=== PATIENT | male | born 1940 | race Caucasian/White ===

== ENCOUNTER 2020-12-11 14:57 | Outpatient (REF) | payer MEDICARE, MEDICAID, SELFPAY | END 2020-12-11 14:58 | disposition home or self-care (01) | LOC: HO.HOSX 14:57 | PROVIDERS: Visit Provider Orthopaedic Surgery | DX: Z13.89 Encounter for screening for other disorder (principal) ==

== ENCOUNTER → 2021-11-21 13:53 | Outpatient (BNVA) | payer MEDICARE, MEDICAID, SELFPAY | PROVIDERS: PCP Family Medicine; Visit Provider Surgery Vascular Surgery | DX: I73.9 Peripheral vascular disease, unspecified (principal) | CPT/HCPCS: 99202 ==

== ENCOUNTER 2021-11-27 07:30 | Day surgery (SDC) | payer MEDICARE, MEDICAID, SELFPAY ==
[2021-11-27] VITALS (7 sets, daily range): BP systolic 134–154; BP diastolic 61–70; PULSE 56–64; RESP 16–18; TEMP 36.3–37.1; O2SAT 97–99; BMI 18.8
[2021-11-27 08:16] LABS: MANUAL DIFF FLAG NO
[2021-11-27 08:20] LABS: Basophils Percent Auto 0.3 % (0-2); Eosinophils Absolute Auto 0.3 X10*3/uL (0.0-0.4); Eosinophils Percent Auto 3.8 % (0-4); Hematocrit 32.9 % (42.0-52.0); Hemoglobin 11.4 g/dl (14.0-18.0); Imm Gran Abs Auto 0.01 X10*3/uL (0.00-0.03); Imm Gran Pct Auto 0.1 % (0.0-0.4); Lymphocytes Absolute Auto 2.7 X10*3/uL (1.2-4.9); Lymphocytes Percent Auto 36.9 % (20-40); Mean Corpuscular HGB Conc 34.7 g/dl (31.0-36.0); Mean Corpuscular Hemoglobin 30.4 pg (27.0-33.0); Mean Corpuscular Volume 87.7 fL (80.0-98.0); Mean Platelet Volume 10.7 fL (9.4-12.4); Monocytes Absolute Auto 0.5 X10*3/uL (0.1-1.2); Monocytes Percent Auto 7.2 % (2-11); Neutrophils Absolute Auto 3.7 x10*3/uL (2.0-8.3); Neutrophils Percent Auto 51.7 % (45-73); Platelet Count 205 X10*3/uL (160-400); Red Blood Count 3.75 X10*6/uL (4.60-5.80); Red Cell Distribution Width 14.2 % (11.0-16.0); White Blood Count 7.2 X10*3/uL (4.8-10.8)
[2021-11-27 08:41] LABS: Blood Urea Nitrogen 16 mg/dL (9-16); Creatinine Clr Calc Pharmacy 41.4; Estimated Glomerular Filt Rate > 60
[2021-11-27 09:00] LABS: Glucose, Whole Blood 328 mg/dL (60-115)
--- NOTE | 2021-11-27 12:31 | P.OP_ITS ---
Operative Note Operative Note Date of Service: 11/27/21 Narrative: Angiogram report from [facility] Preoperative diagnosis: Atherosclerosis of left lower extremity with nonhealing ulcer Postoperative diagnosis: Same Procedure: 1. Ultrasound-guided right common femoral access 2. Aortogram with left lower extremity runoff 3. Angioplasty of left popliteal artery 4. Angioplasty of left anterior tibial artery Surgeon:Ramin Johnson M.D., FACS, RPVI Soiled Linen Distributor:None Anesthesia: Local with moderate conscious sedation. Total intraservice moderate sedation time was 66 minutes. I monitored the patient's level of consciousness and physiologic status continuously throughout the procedure. Specimens:none Drains:none Estimated blood loss: Less than 10 ml Implant: None Indications: 81-year-old gentleman with nonhealing left lower extremity ulcer presents for endovascular intervention. The patient has signed the informed consent after reviewing risks, complications, benefits, and alternatives previously discussed with the patient. The patient was given the opportunity to ask any additional questions or voice any concerns. All questions were answered to the patient's satisfaction. Procedure in detail: Patient was brought to the angiography suite prior to which a time-out was called for patient identification and site verification. Bilateral groins were prepped and draped in the standard surgical fashion. Under ultrasound guidance right common femoral was punctured with micro puncture needle and wire. Subsequently a precision 5 Bhutanese sheath was then placed. Bentson wire was advanced to the level of the aorta. 5 Bhutanese Flush catheter was brought up and parked at the level of the renal arteries. Aortogram was then undertaken. Catheter was brought down to the level of the iliac bifurcation. Iliacs were subsequently imaged. Catheter was then brought in up and over to the left side SFA. Runoff study was then undertaken. At this time 4000 units of systemic heparin was administered. After 5 minutes of circulation time up and over 6 Bhutanese sheath was then placed. We advanced a Glidewire Advantage all the way down to the below-knee popliteal. We then placed a now be cross catheter and exchanged out for an 014 glidewire Advantage. We were finally able to traverse into the anterior tibial artery. We 1st plasty the anterior tibial artery with a chocolate 2.5 x 40 balloon. Then we plastied at the origin of the anterior tibial with a 3 x 20 balloon. We then had a tight stenosis in the P3 segment of the popliteal and this was plastied with a 3 x 20 balloon as well. Excellent result was achieved catheter wire sheath was brought back to the ipsilateral side StarClose closure device was then placed. Interpretation of films: 1. Ultrasound demonstrates appropriate femoral puncture. Image of which was saved. 2. Aortogram demonstrates appropriate caliber aorta. Minimal disease. Appropriate take-off of the renals. 3. Iliac images demonstrate tortuosity with normal flow all the way down 4. Left Leg Common femoral artery: Within normal limits Profundus Femoris: No significant disease Superficial femoral artery: Mild disease all the way through Popliteal artery (p1,p2,p3): High-grade stenosis in P3 segment P1 and P2 were normal Anterior tibial artery: High-grade stenosis at origin and stenosis at the bend. Peroneal artery: Occluded Posterior tibial artery: Occluded Dorsalis pedis/plantar arch: Partial fill via anterior tibial Conclusion: 1. Successful angioplasty of left anterior tibial and popliteal 2. Anticoagulation status: He will remain on aspirin and Plavix This note is constructed using voice recognition software. While every effort has been made to ensure accuracy, family life counselor errors may have been included. Thank you for allowing me to participate in the care of your patient. Yours sincerely, Ramin Johnson MD, FACS, R.P.V.I.
[2021-11-27] MEDS: iohexoL 300 MG/ML 100 ML INFUS..BTL IV (13:40)
== END 2021-11-27 14:31 | disposition home or self-care (01) ==
PROVIDERS: PCP Family Medicine; Visit Provider Surgery Vascular Surgery
DX: E11.51 Type 2 diabetes mellitus with diabetic peripheral angiopathy without gangrene (principal); L97.529 Non-pressure chronic ulcer of other part of left foot with unspecified severity; I70.245 Atherosclerosis of native arteries of left leg with ulceration of other part of foot; Z79.4 Long term (current) use of insulin; R26.89 Other abnormalities of gait and mobility; I50.21 Acute systolic (congestive) heart failure; I25.2 Old myocardial infarction; G62.9 Polyneuropathy, unspecified; F03.90 Unspecified dementia, unspecified severity, without behavioral disturbance, psychotic disturbance, mood disturbance, and anxiety; Z87.891 Personal history of nicotine dependence; Z79.899 Other long term (current) drug therapy
CPT/HCPCS: 36415; 37224; 37228; 76937; 82565; 82947; 84520; 85025; 99152; 99153; C1725; C1760; C1769; C1887; C1894; J2250; J3010; Q9967

== ENCOUNTER → 2021-12-26 11:44 | Outpatient (BNVA) | payer MEDICARE, MEDICAID, SELFPAY | PROVIDERS: PCP Family Medicine; Visit Provider Surgery Vascular Surgery | DX: I73.9 Peripheral vascular disease, unspecified (principal); L97.929 Non-pressure chronic ulcer of unspecified part of left lower leg with unspecified severity | CPT/HCPCS: 99212 ==

== ENCOUNTER → 2022-02-25 14:26 | Outpatient (BNVA) | payer MEDICARE, MEDICAID, SELFPAY | PROVIDERS: PCP Family Medicine; Visit Provider Surgery Vascular Surgery | DX: Z13.89 Encounter for screening for other disorder (principal) | CPT/HCPCS: 99212 ==

== ENCOUNTER 2022-02-25 15:49 | Inpatient (IN) | payer MEDICARE, MEDICAID, SELFPAY ==
--- NOTE | ~2022-02-25 | XR_ITS ---
EXAMINATION: XR ABDOMEN KUB CLINICAL INDICATION: Nasogastric tube placement COMPARISON: Chest x-ray earlier today TECHNIQUE: AP view of the abdomen. FINDINGS: Tip of nasogastric tube overlies the fundal portion the stomach. The side-port is likely at or just below the GE junction and could be slightly advanced if needed. Bowel gas pattern is unremarkable with stool and air seen throughout the colon and scattered air-filled loops of nondistended small bowel. Contrast within the bladder is noted. Degenerative changes in the spine XR/XR KUB IMPRESSION: Nasogastric tube tip overlies the fundal portion of the stomach. Side port near the GE junction and could be slightly advanced if needed.
--- NOTE | ~2022-02-25 | US_ITS ---
EXAMINATION: NONINVASIVE ASSESSMENT OF THE ARTERIES OF BOTH LOWER EXTREMITIES Ranulfo Isabel MD CLINICAL INFORMATION: Necrotic tissue TECHNIQUE: Bilateral lower extremity duplex ultrasound was performed with velocity measurements and waveform analysis in the common femoral arteries, profunda femoris arteries, proximal mid and distal superficial femoral arteries, popliteal arteries and tibial vessels. This study was performed only at rest. COMPARISON: Bilateral lower extremity arterial duplex 10/09/2020 FINDINGS: Velocities in cm/sec and phasicity as well as the presence of plaque are reported below. RIGHT LEG: Multiphasic flow is present throughout the right lower extremity. Plaque is present with some areas of mild stenosis seen. In the mid SFA, moderate plaque is seen with focal velocity acceleration suggestive of a more significant stenosis. Common Femoral: 110 Profunda Femoris: 45 Proximal SFA: 90 Mid SFA: 238 (previously 355) Distal SFA: 57 Popliteal: 70 Posterior tibial: 31 LEFT LEG: Plaque is present with Common Femoral: 124 Profunda Femoris: 60 Proximal SFA: 69 Mid SFA: 144 (previously 436) Distal SFA: 55 Popliteal: 52 Posterior tibial: 28 US/US arterial duplex LE BI IMPRESSION: Plaque is present with peripheral vascular disease. Most marked disease is present in the mid SFAs bilaterally. On the left, there is been some improvement since the prior study and the patient's previous angioplasty where velocities in the mid SFA have decreased from 436-144. Velocities in the mid SFA on the right and improved slightly from 3 55-38.
--- NOTE | ~2022-02-25 | XR_ITS ---
EXAMINATION: XR ABDOMEN KUB CLINICAL INDICATION: Follow-up esophagus and stomach dilatation COMPARISON: Previous KUB 03/01/2022 TECHNIQUE: AP view of the abdomen. FINDINGS: There are air-filled loops of nondilated small and large bowel. There are no dilated loops of bowel to suggest obstruction. The stomach and visualized distal thoracic esophagus does not appear dilated. There is no evidence of free air. There are stable pelvic calcifications probably representing phleboliths. There are mild degenerative changes of the spine and hip joints. XR/XR KUB IMPRESSION: No stomach or distal esophageal dilatation seen.
--- NOTE | ~2022-02-25 | XR_ITS ---
EXAMINATION: XR CHEST CLINICAL INFORMATION: Hypoxia. COMPARISON: 08/31/2021 chest radiograph. TECHNIQUE: Frontal view of the chest was obtained. FINDINGS: No significant abnormality is noted involving the heart, lungs, mediastinum, bony thorax or soft tissues. XR/XR chest 1V IMPRESSION: No acute cardiopulmonary process.
--- NOTE | ~2022-02-25 | CT_ITS ---
EXAMINATION: CT ANGIOGRAM OF THE CHEST WITH AND WITHOUT CONTRAST (CT PULMONARY ANGIOGRAM FOR PE) CLINICAL INFORMATION: Reason for Exam R O PE COMPARISON: None TECHNIQUE: Prior to contrast administration, noncontrast localization images were obtained. Subsequently, multidetector volumetric imaging was performed from the thoracic inlet to below the diaphragms following the administration of 54 mL Omnipaque 350 intravenous contrast. No contrast reaction reported Sagittal, coronal, and MIP oblique sagittal reformatted images were obtained on the CT workstation, uploaded to PACS, and reviewed. This CT examination was performed using dose optimization techniques as appropriate, variously including the following: *Automated exposure control *Adjustment of mA and/or kV according to patient size (this includes techniques or standardized protocols for targeted exams where dose is matched to indication/reason for exam; i.e. extremities or head) *Use of iterative reconstruction technique Total exam dose-length product 288 mGy-cm FINDINGS: There is motion artifact present which degrades study. QUALITY OF STUDY/CONTRAST BOLUS: Satisfactory. PULMONARY ARTERIES: No central or segmental pulmonary emboli. THORACIC AORTA: No aneurysm or dissection. There is calcified plaque present. LUNG: There is some mild changes of centrilobular emphysema seen within the upper lobes bilaterally. There are some scattered sub-4 mm densities present. No suspicious lung nodules are appreciated. There is bilateral lower lobe consolidation right greater than left which may relate to atelectasis or pneumonitis. The stomach is very distended and aspiration pneumonia cannot be excluded with fluid-filled esophagus being present. There are also noted to be scattered regions of groundglass opacity some with the appearance of tree-in-bud configuration which may be related to infectious or inflammatory process involving the small airways. This is most prominent within the right upper lobe. PLEURA: No pleural effusion or pneumothorax. MEDIASTINUM: Heart normal size. No pericardial effusion. Coronary artery calcification is present. No evidence of septal bowing or right heart strain. The esophagus is distended with fluid from the thoracic inlet down to a very distended stomach. No hilar or mediastinal lymphadenopathy is appreciated. CHEST WALL/AXILLA: No axillary or internal mammary lymphadenopathy. OSSEOUS STRUCTURES: No acute or suspicious osseous abnormality. UPPER ABDOMEN: Extremely distended stomach. No reflux of contrast into the hepatic veins to suggest elevated right heart pressures. CT/CT angio chest PE protocol IMPRESSION: No evidence of acute pulmonary artery embolus. No evidence of thoracic aortic aneurysm or dissection. Very distended stomach with fluid filled esophagus to the level of the thoracic inlet. Bilateral lower lobe consolidation which may be related to atelectasis or pneumonitis right greater than left. Possibility of aspiration pneumonia should be included with the very distended stomach and esophagus. VTE: negative
--- NOTE | ~2022-02-25 | XR_ITS ---
EXAMINATION: XR FOOT, LEFT CLINICAL INFORMATION: Toe wound COMPARISON: None TECHNIQUE: AP, lateral, and oblique views of the left foot. FINDINGS: Large amount of gas identified in the swollen tissues of the great toe. Demineralization and soft tissue air limits evaluation of the underlying bony structures but no definite erosive changes are seen. The first distal phalanx appears subluxed relative to the proximal. Hallux valgus and hammertoe deformities are also noted. Vascular calcifications identified. XR/XR foot LT min 3V IMPRESSION: Great toe swelling with soft tissue air concerning for gas-forming organism. No gross bony destruction. At the time of this dictation, PSA service contacted to alert referring clinician to findings.
--- NOTE | ~2022-02-25 | XR_ITS ---
EXAMINATION: XR chest 1V CLINICAL INFORMATION: Reason for Exam F U dilation of stomach and esophagus COMPARISON: 02/28/2022 TECHNIQUE: XR chest 1V Tubes and lines: None Lungs and pleura: Mild hazy interstitial opacification at lung bases and linear density probably atelectasis or mild infiltrates. Heart and mediastinum: The mediastinum is within normal limits.. Bones/soft tissue: Skeletal structures included are normal for patient's age. XR/XR chest 1V IMPRESSION: Mild hazy interstitial opacification at lung bases and linear opacity probably mild infiltrate atelectasis or aspiration. No pleural effusion. No dense consolidation.
[2022-02-25 16:27] VITALS: BP 133/67; PULSE 77; RESP 14; TEMP 36.8; O2SAT 99; BMI 18.8
--- NOTE | 2022-02-25 17:21 | ED_ITS ---
HPI - Extremity Problem General Chief complaint: Extremity Problem Stated complaint: needs imaging per dr regan Time Seen by Provider: 02/25/22 17:04 Source: patient Mode of arrival: wheelchair Limitations: no limitations History of Present Illness HPI Narrative: Patient comes emergency room, sent from Dr. Johnson office. Patient has left great toe necrosis. Patient complaining of increasing pain, foul odor, necrosis. Patient denies fever or chills. Patient states that it has been almost 3 months since he noticed that his toe started changing color and becoming infected. Related Data Home Medications Medication Instructions Recorded Confirmed insulin detemir U-100 100 unit/mL 10 unit SUBCUT DAILY@1800 08/10/21 02/25/22 (3 mL) subcutaneous pen (Levemir FlexTouch U-100 Insulin) docusate sodium 100 mg capsule 100 mg PO BID PRN 11/21/21 02/25/22 ferrous sulfate 325 mg (65 mg 325 mg PO DAILY 11/21/21 02/25/22 iron) tablet (FeroSul) gabapentin 300 mg capsule 300 mg PO BEDTIME 11/21/21 02/25/22 insulin syringe-needle U-100 0.5 #10 ea 11/21/21 mL 30 gauge x 1/2 (UltiCare) pen needle, diabetic 32 gauge x #50 ea 11/21/21 5/32 (Pentips) blood sugar diagnostic (FreeStyle #10 ea 02/25/22 Lite Strips) gabapentin 100 mg capsule 100 mg PO BID 02/25/22 02/25/22 lancets 33 gauge (TRUEplus Lancets) #100 ea 02/25/22 Previous Rx's Medication Instructions Recorded atorvastatin 80 mg tablet 80 mg PO BEDTIME #30 tab 09/02/21 clopidogrel 75 mg tablet 75 mg PO DAILY #75 tab 09/02/21 furosemide 40 mg tablet 40 mg PO BID@0900,1800 #60 tab 09/02/21 lisinopril 2.5 mg tablet 2.5 mg PO DAILY #30 tab 09/02/21 Allergies Allergy/AdvReac Type Severity Reaction Status Date / Time No Known Allergies Allergy Verified 02/25/22 16:27 [No Known Allergies*] Review of Systems Review of Systems: Constitutional : No Weight loss, No Fever, No Chills, No Night Sweats, No Fatigue, No Malaise ENT/Mouth : No Hearing loss, No Ear Pain, No Nasal Congestion, No Sinus Pain, No Hoarseness, No sore throat, No Rhinorrhea, No Swallowing Difficulty Eyes: No Eye Pain, No Swelling, No Redness, No Foreign Body, No Discharge, No Vision Changes Cardiovascular : No Chest Pain, No SOB, No Dyspnea on Exertion, No Orthopnea, No Edema, No Palpitations Respiratory : No Cough, No Sputum, No Wheezing, No Smoke Exposure, No Dyspnea Gastrointestinal : No Nausea, No Vomiting, No Diarrhea, No Constipation, No abdominal Pain, No Hematochezia, No Melena Genitourinary : no irregular bleeding, No Dysuria, No Urinary Frequency, No Hematuria, No Urinary Incontinence, No Urgency, No Flank Pain, No Urinary Flow Changes, No Hesitancy Musculoskeletal : No joint pain, No Myalgias, No Joint Swelling Skin : Necrotic left great toe, pain and foul smell Neuro : No Weakness, No Numbness, No Paresthesias, No Loss of Consciousness, No Dizziness, No Headache Psych : No Anxiety/Panic, No Depression, No SI/HI/AH/VH, No Social Issues, Heme/Lymph: No Bruising, No Bleeding,No Lymphadenopathy Endocrine : No Polyuria, No Polydipsia, No Temperature Intolerance [facility] Past Medical History Medical History Acute systolic (congestive) heart failure Dementia Neuropathy 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 Troponin level elevated Type 2 diabetes mellitus with unspecified complications Social History Social History Household Members: None Housing: Apartment Do you presently have visiting nurse or other home services: Yes Alcohol intake: unknown Patient Tobacco Use Status: Former Tobacco user Quit Date: 1999 Tobacco use type: Cigarette Years Smoked: 4 Use of substances other than those prescribed or required for medical reasons: Unknown Advance Directives: Yes Advance Directives on File: Yes Advance Directives Date on File: 08/15/21 service: No Current occupational status: unemployed Physical Exam Vital Signs: Vital Signs: Last Vital Signs Temp 98.3 F 02/25/22 16:27 Pulse 64 02/25/22 18:30 Resp 16 02/25/22 18:30 BP 154/59 H 02/25/22 18:30 Pulse Ox 98 04/05/22 18:30 BMI result Body Mass Index 18.8 Const: Other: Appearance: Alert. Oriented X3. No acute distress. Eyes: Pupils equal, round and reactive to light. ENT: Pharynx normal. Neck: Normal inspection. Neck supple. No lymph nodes noted. No crepitus CVS: Normal heart rate and rhythm. Pulses normal. Normal S1 and S2 Respiratory: No respiratory distress. Breath sounds normal. No Wheezing. No rales Abdomen: Soft and nontender. No rigidity. No distention. Skin: Skin warm and dry. Normal skin color. Normal skin turgor. Extremities: Patient's distal left foot is erythematous, the great toe on the left foot is gangrenous, has foul odor, very painful to touch Neuro: Oriented X 3. No motor deficit. No sensory deficit. Moving all extremities. No slurred speech. CN 2 through 12 grossly intact Psych: calm, cooperative, normal affect Course Course Course Narrative: Patient has no fever, patient is being started on vancomycin and Zosyn. Patient has severe congestive heart failure, ejection fraction 25%. We will not be gi ving 30 mL/kilogram. At this time, the sepsis exclusion note cannot be wri tten/signed because the system will not allow me to do so. I discussed the labs and CT scan with the patient, patient is aware he may need an amputation. I discussed the patient with Dr. David, patient being admitted MDM - Extremity (Nontraumatic) Lab Data Result diagrams: 02/25/22 18:06 02/25/22 18:06 Labs: Lab Results 02/25/22 02/25/22 02/25/22 Range/Units 17:25 18:06 18:06 WBC 18.7 H (4.8-10.8) X10*3/uL RBC 4.08 L (4.60-5.80) X10*6/uL Hgb 12.1 L (14.0-18.0) g/dl Hct 36.3 L (42.0-52.0) % MCV 89.0 (80.0-98.0) fL MCH 29.7 (27.0-33.0) pg MCHC 33.3 (31.0-36.0) g/dl RDW 12.6 (11.0-16.0) % Plt Count 376 D (160-400) X10*3/uL MPV 11.0 (9.4-12.4) fL Immature Gran % (Auto) 1.0 H (0.0-0.4) % Neut % (Auto) 78.6 H (45-73) % Lymph % (Auto) 13.9 L (20-40) % [place] % (Auto) 6.0 (2-11) % Eos % (Auto) 0.3 (0-4) % Baso % (Auto) 0.2 (0-2) % Lymph # (Auto) 2.6 (1.2-4.9) X10*3/uL [place] # (Auto) 1.1 (0.1-1.2) X10*3/uL Eos # (Auto) 0.1 (0.0-0.4) X10*3/uL Baso # (Auto) 0.0 (0.0-0.2) X10*3/uL Abs Immat Gran (auto) 0.19 H (0.00-0.03) X10*3/uL Absolute Neuts (auto) 14.7 H (2.0-8.3) x10*3/uL Absolute Nucleated RBC 0.000 (0.0-0.012) X10*3/uL Nucleated RBC % (auto) 0.0 (0.0-0.2) /100WBC PT (9.9-13.0) SEC INR (0.9-1.1) Sodium 142 (135-145) mmol/L Potassium 4.0 (3.3-5.1) mmol/L Chloride 100 (96-108) mmol/L Carbon Dioxide 28 (22-29) mmol/L Anion Gap 18 (12-20) BUN 27 H D (9-16) mg/dL Creatinine 1.24 (0.5-1.4) mg/dL Estim Creat Clear Calc 32.4 Estimated GFR 56 Random Glucose 228 H D (60-115) mg/dL Lactic Acid (0.5-2.0) mmol/L Calcium 9.8 D (8.4-10.2) mg/dL Total Bilirubin 0.6 (0.0-1.0) mg/dL Direct Bilirubin 0.3 (0.0-0.5) mg/dL AST 13 D (5-37) U/L ALT 13 (0-40) U/L Alkaline Phosphatase 86 (39-117) U/L Total Protein 7.9 (6.5-8.0) g/dL Albumin 3.8 (3.5-5.0) g/dL COVID-19 (OMEGA) Negative (Negative) COVID-19 Clin Com See Note 02/25/22 02/25/22 Range/Units 18:06 18:06 WBC (4.8-10.8) X10*3/uL RBC (4.60-5.80) X10*6/uL Hgb (14.0-18.0) g/dl Hct (42.0-52.0) % MCV (80.0-98.0) fL MCH (27.0-33.0) pg MCHC (31.0-36.0) g/dl RDW (11.0-16.0) % Plt Count (160-400) X10*3/uL MPV (9.4-12.4) fL Immature Gran % (Auto) (0.0-0.4) % Neut % (Auto) (45-73) % Lymph % (Auto) (20-40) % [place] % (Auto) (2-11) % Eos % (Auto) (0-4) % Baso % (Auto) (0-2) % Lymph # (Auto) (1.2-4.9) X10*3/uL [place] # (Auto) (0.1-1.2) X10*3/uL Eos # (Auto) (0.0-0.4) X10*3/uL Baso # (Auto) (0.0-0.2) X10*3/uL Abs Immat Gran (auto) (0.00-0.03) X10*3/uL Absolute Neuts (auto) (2.0-8.3) x10*3/uL Absolute Nucleated RBC (0.0-0.012) X10*3/uL Nucleated RBC % (auto) (0.0-0.2) /100WBC PT 13.5 H (9.9-13.0) SEC INR 1.2 H (0.9-1.1) Sodium (135-145) mmol/L Potassium (3.3-5.1) mmol/L Chloride (96-108) mmol/L Carbon Dioxide (22-29) mmol/L Anion Gap (12-20) BUN (9-16) mg/dL Creatinine (0.5-1.4) mg/dL Estim Creat Clear Calc Estimated GFR Random Glucose (60-115) mg/dL Lactic Acid 1.4 (0.5-2.0) mmol/L Calcium (8.4-10.2) mg/dL Total Bilirubin (0.0-1.0) mg/dL Direct Bilirubin (0.0-0.5) mg/dL AST (5-37) U/L ALT (0-40) U/L Alkaline Phosphatase (39-117) U/L Total Protein (6.5-8.0) g/dL Albumin (3.5-5.0) g/dL COVID-19 (OMEGA) (Negative) COVID-19 Clin Com Discharge Plan Discharge Clinical Impression: Gangrene of foot Patient Disposition: Admitted As Inpatient Prescriptions: No Action Levemir FlexTouch U-100 Insuln 100 unit/mL (3 mL) insulin pen 10 unit subcut DAILY@1800 0RF Hold Instructions: Resume on 08/19/21. hold due to hypoglycemia episodes, slowly introduce in next few days if fingersticks the remain uncontrolled above 200 mg/dL, start on a lower dose of Levemir as per rehab. gabapentin 100 mg capsule 100 mg PO BID 0RF clopidogrel 75 mg Tablet 75 mg PO DAILY Qty: 75 0RF furosemide 40 mg Tablet 40 mg PO BID@0900,1800 Qty: 60 0RF Protocol: Hold for SBP< HOLD for SBP < : 90 atorvastatin 80 mg Tablet 80 mg PO BEDTIME Qty: 30 0RF lisinopril 2.5 mg Tablet 2.5 mg PO DAILY Qty: 30 0RF Protocol: Hold for SBP< HOLD for SBP < : 90 docusate sodium 100 mg capsule 100 mg PO BID PRN (Reason: constipation) 0RF (DME) pen needle, diabetic [Pentips] 32 gauge x / needle See Rx Instructions ea .ROUTE .MEDSUPPLY Qty: 50 0RF Rx Instructions: As directed (DME) insulin syringe-needle U-100 [UltiCare] 0.5 mL 30 gauge x 1/2 syringe See Rx Instructions ea .ROUTE .MEDSUPPLY Qty: 10 0RF Rx Instructions: As directed gabapentin 300 mg capsule 300 mg PO BEDTIME 0RF Rx Instructions: in addition to 100 mg ferrous sulfate [FeroSul] 325 mg (65 mg iron) tablet 325 mg PO DAILY 0RF (DME) lancets [TRUEplus Lancets] 33 gauge misc See Rx Instructions ea Not Applicable QID Qty: 100 0RF Rx Instructions: As directed (DME) FreeStyle Lite Strips Strip See Rx Instructions ea Not Applicable QID Qty: 10 0RF Rx Instructions: As directed
[2022-02-25 17:54] LABS: COVID-19 Test Negative (Negative); IDNOW Serial# 16C4AD1C
[2022-02-25 18:11] LABS: MANUAL DIFF FLAG NO
[2022-02-25 18:25] LABS: INTERNATIONAL NORM RATIO 1.2 (0.9-1.1); Lactic Acid 1.4 mmol/L (0.5-2.0); Prothrombin Time 13.5 SEC (9.9-13.0)
--- NOTE | 2022-02-25 18:25 | PHA.MEDREC ---
Pharmacy Consult ? Medication Reconciliation Pharmacy has completed the medication reconciliation.
[2022-02-25 18:27] LABS: Basophils Percent Auto 0.2 % (0-2); Eosinophils Absolute Auto 0.1 X10*3/uL (0.0-0.4); Eosinophils Percent Auto 0.3 % (0-4); Hematocrit 36.3 % (42.0-52.0); Hemoglobin 12.1 g/dl (14.0-18.0); Imm Gran Abs Auto 0.19 X10*3/uL (0.00-0.03); Lymphocytes Absolute Auto 2.6 X10*3/uL (1.2-4.9); Lymphocytes Percent Auto 13.9 % (20-40); Mean Corpuscular HGB Conc 33.3 g/dl (31.0-36.0); Mean Corpuscular Hemoglobin 29.7 pg (27.0-33.0); Monocytes Absolute Auto 1.1 X10*3/uL (0.1-1.2); Neutrophils Absolute Auto 14.7 x10*3/uL (2.0-8.3); Neutrophils Percent Auto 78.6 % (45-73); Platelet Count 376 X10*3/uL (160-400); Red Blood Count 4.08 X10*6/uL (4.60-5.80); Red Cell Distribution Width 12.6 % (11.0-16.0); White Blood Count 18.7 X10*3/uL (4.8-10.8)
[2022-02-25] MEDS: Piperacillin Sodium/Tazobactam 3.375 GM in 0.9 % Sodium Chloride 50 ML IV (18:27)
[2022-02-25] MEDS: 0.9 % Sodium Chloride 1,000 ML 999 ML IVCONT (18:27)
[2022-02-25 18:29] LABS: Alanine Aminotransferase 13 U/L (0-40); Albumin Level 3.8 g/dL (3.5-5.0); Alkaline Phosphatase 86 U/L (39-117); Anion Gap 18 (12-20); Aspartate Amino Transferase 13 U/L (5-37); Bilirubin Direct 0.3 mg/dL (0.0-0.5); Bilirubin Total 0.6 mg/dL (0.0-1.0); Blood Urea Nitrogen 27 mg/dL (9-16); Calcium 9.8 mg/dL (8.4-10.2); Carbon Dioxide 28 mmol/L (22-29); Chloride 100 mmol/L (96-108); Creatinine Clr Calc Pharmacy 32.4; Estimated Glomerular Filt Rate 56; Glucose Random 228 mg/dL (60-115); Sodium 142 mmol/L (135-145); Total Protein 7.9 g/dL (6.5-8.0)
[2022-02-25 18:30] VITALS: BP 154/59; PULSE 64; RESP 16; O2SAT 98
[2022-02-25] MEDS: vancomycin HCL 750 MG in 0.9 % Sodium Chloride 250 ML 265 MG IV (19:20)
[2022-02-25 22:10] VITALS: BP 170/63; PULSE 75; RESP 17; TEMP 36.4; O2SAT 96
--- NOTE | 2022-02-25 22:18 | PM.IMHP ---
History of Present Illness Date of Service: 02/25/22 Chief Complaint: necrotic toe 81-year-old male with past medical history of PVD, diabetes, dementia, neuropathy, CAD, history of heart failure presents to the hospital after vascular surgeon noted left great toe gangrne. patient was sent to the ED by his vascular surgeon for further evaluation and management. Patient himself is Tongan-speaking, but does understand and responding wish, his son at bedside. Reports that he has significant pain in his left foot, when asked about the duration reports that he has had this infection in the left toes for many months, patient apparently has not been compliant with his appointments to his vascular surgeon, patient himself denies any fever or chills, just complains of significant pain in the toe. He has no abdominal pain, no chest pain, no shortness of breath, no no diarrhea constipation, no urinary symptoms and no lower extremity edema. 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 Troponin level elevated Type 2 diabetes mellitus with unspecified complications Social History Household Members: None Housing: Apartment Do you presently have visiting nurse or other home services: Yes Alcohol intake: unknown Patient Tobacco Use Status: Former Tobacco user Quit Date: 1999 Tobacco use type: Cigarette Years Smoked: 4 Use of substances other than those prescribed or required for medical reasons: Unknown Advance Directives: Yes Advance Directives on File: Yes Advance Directives Date on File: 08/15/21 service: No Current occupational status: unemployed Meds Allergies Allergy/AdvReac Type Severity Reaction Status Date / Time No Known Allergies Allergy Verified 02/25/22 16:27 [No Known Allergies*] Active Medications: Current Medications Pharmacy Consult (Consult Rx Perform Med Rec) 1 each MISCELLANE ONCE PRN PRN Reason: Consult order Home Medications Medication Instructions Recorded Confirmed Last Taken Type insulin detemir U-100 100 unit/mL 10 unit SUBCUT DAILY@1800 08/10/21 02/25/22 02/21/22 History (3 mL) subcutaneous pen (Levemir FlexTouch U-100 Insulin) docusate sodium 100 mg capsule 100 mg PO BID PRN 11/21/21 02/25/22 Unknown History ferrous sulfate 325 mg (65 mg 325 mg PO DAILY 11/21/21 02/25/22 02/21/22 History iron) tablet (FeroSul) gabapentin 300 mg capsule 300 mg PO BEDTIME 11/21/21 02/25/22 02/21/22 History insulin syringe-needle U-100 0.5 #10 ea 11/21/21 Unknown History mL 30 gauge x 1/2 (UltiCare) pen needle, diabetic 32 gauge x #50 ea 11/21/21 Unknown History / (Pentips) blood sugar diagnostic (FreeStyle #10 ea 02/25/22 Unknown History Lite Strips) gabapentin 100 mg capsule 100 mg PO BID 02/25/22 02/25/22 02/21/22 History lancets 33 gauge (TRUEplus Lancets) #100 ea 02/25/22 Unknown History Physical Exam Vital Signs and Narrative: Vital Signs: Last Vital Signs Temp 97.6 F 02/25/22 22:10 Pulse 75 02/25/22 22:10 Resp 17 02/25/22 22:10 BP 170/63 H 02/25/22 22:10 Pulse Ox 96 02/25/22 22:10 BMI result Body Mass Index 18.8 Const: General: cooperative and no acute distress Eyes: General: appearance normal, both eyes and all related structures Pupils: Equal, round and reactive pupils present Resp: Effort & Inspection: normal respiratory effort Auscultation: clear to auscultation bilaterally Cardio: Rate: regular rate Rhythm: regular rhythm GI: Palpation (GI): Soft to palpation Auscultation: normal bowel sounds Neuro: Cranial nerves: Yes Equal, round and reactive pupils present Extrem: Other: wet and dry gangrene of left great toe, there is also discoloration up until the midpoint of left foot Results Labs CBC and Chem 7: 02/25/22 18:06 02/25/22 18:06 Labs: Laboratory Results - last 24 hr 02/25/22 02/25/22 02/25/22 17:25 18:06 18:06 MCV 89.0 MCH 29.7 MCHC 33.3 RDW 12.6 Plt Count 376 D MPV 11.0 Immature Gran % (Auto) 1.0 H Neut % (Auto) 78.6 H Lymph % (Auto) 13.9 L [place] % (Auto) 6.0 Eos % (Auto) 0.3 Baso % (Auto) 0.2 Lymph # (Auto) 2.6 [place] # (Auto) 1.1 Eos # (Auto) 0.1 Baso # (Auto) 0.0 Abs Immat Gran (auto) 0.19 H Absolute Neuts (auto) 14.7 H Absolute Nucleated RBC 0.000 Nucleated RBC % (auto) 0.0 PT INR Anion Gap 18 Estim Creat Clear Calc 32.4 Estimated GFR 56 Random Glucose 228 H D Lactic Acid Calcium 9.8 D Total Bilirubin 0.6 Direct Bilirubin 0.3 AST 13 D ALT 13 Alkaline Phosphatase 86 Total Protein 7.9 Albumin 3.8 COVID-19 (OMEGA) Negative COVID-19 Clin Com See Note 02/25/22 02/25/22 18:06 18:06 MCV MCH MCHC RDW Plt Count MPV Immature Gran % (Auto) Neut % (Auto) Lymph % (Auto) [place] % (Auto) Eos % (Auto) Baso % (Auto) Lymph # (Auto) [place] # (Auto) Eos # (Auto) Baso # (Auto) Abs Immat Gran (auto) Absolute Neuts (auto) Absolute Nucleated RBC Nucleated RBC % (auto) PT 13.5 H INR 1.2 H Anion Gap Estim Creat Clear Calc Estimated GFR Random Glucose Lactic Acid 1.4 Calcium Total Bilirubin Direct Bilirubin AST ALT Alkaline Phosphatase Total Protein Albumin COVID-19 (OMEGA) COVID-19 Clin Com Imaging Radiologist's Impressions: Impressions Foot X-Ray 02/25/22 16:46 IMPRESSION: Great toe swelling with soft tissue air concerning for gas-forming organism. No gross bony destruction. At the time of this dictation, PSA service contacted to alert referring clinician to findings. Assessment and Plan (1) Gangrene of foot: Status: Acute (2) PAD (peripheral artery disease): Status: Acute Plan 81-year-old male with history of PVD presents the hospital with complaints of gangrenous foot # gangrenous foot on the left - will treat with IV antibiotics - NPO after midnight - vascular surgery consult - follow cultures # PAD - continue Plavix and statin # CHF - no acute exacerbation - continue Lasix # diabetes - low-dose sliding scale insulin - continue Levemir DVT prophylaxis: SCDs in the anticipation of surgical intervention in a.m. Quality Stroke Does the patient have a stroke diagnosis?: No VTE Prior VTE?: No VTE Risk Level:: Medical - moderate - high VTE Device Contraindication: N/A - Device Ordered VTE Drug Contraindication: Treatment Not Indicated
[2022-02-25 22:31] VITALS: BP 127/72
[2022-02-25 22:36] VITALS: RESP 16
[2022-02-25] MEDS: Morphine Sulfate 4 MG/ML CARTRIDGE IVPUSH (22:36)
[2022-02-25 22:50] VITALS: PULSE 65; RESP 15; O2SAT 97
[2022-02-25] MEDS: vancomycin HCL 500 MG in 0.9 % Sodium Chloride 100 ML 110 MG IV (22:50)
[2022-02-26] VITALS (10 sets, daily range): BP systolic 102–143; BP diastolic 48–64; PULSE 56–63; RESP 14–18; TEMP 35.4–36.7; O2SAT 96–100
[2022-02-26] MEDS: 0.9 % Sodium Chloride Flush 3 ML SYRINGE IVFLUSH ×4 (00:40→20:54)
[2022-02-26] MEDS: Piperacillin Sodium/Tazobactam 3.375 GM in 0.9 % Sodium Chloride 50 ML IV ×4 (00:41→17:28)
[2022-02-26 07:10] LABS: MANUAL DIFF FLAG NO
[2022-02-26 07:15] LABS: Basophils Percent Auto 0.2 % (0-2); Eosinophils Absolute Auto 0.1 X10*3/uL (0.0-0.4); Eosinophils Percent Auto 0.4 % (0-4); Hemoglobin 12.2 g/dl (14.0-18.0); Imm Gran Abs Auto 0.17 X10*3/uL (0.00-0.03); Lymphocytes Absolute Auto 2.4 X10*3/uL (1.2-4.9); Lymphocytes Percent Auto 14.9 % (20-40); Mean Corpuscular Hemoglobin 29.5 pg (27.0-33.0); Mean Corpuscular Volume 89.6 fL (80.0-98.0); Mean Platelet Volume 10.9 fL (9.4-12.4); Monocytes Absolute Auto 1.1 X10*3/uL (0.1-1.2); Monocytes Percent Auto 6.7 % (2-11); Neutrophils Absolute Auto 12.5 x10*3/uL (2.0-8.3); Neutrophils Percent Auto 76.8 % (45-73); Platelet Count 336 X10*3/uL (160-400); Red Blood Count 4.13 X10*6/uL (4.60-5.80); Red Cell Distribution Width 12.5 % (11.0-16.0); White Blood Count 16.3 X10*3/uL (4.8-10.8)
[2022-02-26 07:36] LABS: Glucose, Whole Blood 271 mg/dL (60-115)
[2022-02-26 07:49] LABS: Anion Gap 16 (12-20); Blood Urea Nitrogen 20 mg/dL (9-16); Carbon Dioxide 25 mmol/L (22-29); Chloride 103 mmol/L (96-108); Creatinine Clr Calc Pharmacy 39.4; Estimated Glomerular Filt Rate > 60; Glucose Random 311 mg/dL (60-115); Potassium 3.6 mmol/L (3.3-5.1); Sodium 140 mmol/L (135-145)
[2022-02-26] MEDS: Furosemide 40 MG TABLET PO ×2 (09:53→17:32)
[2022-02-26] MEDS: Gabapentin 100 MG CAPSULE PO ×2 (09:54→20:54)
[2022-02-26] MEDS: Insulin Lispro 100 UNIT/ML 3 ML VIAL SUBCUT ×2 (09:54→20:54)
[2022-02-26] MEDS: lisinopriL 2.5 MG TABLET PO (09:54)
[2022-02-26] MEDS: Clopidogrel Bisulfate 75 MG TABLET PO (09:55)
--- NOTE | 2022-02-26 09:55 | PC.NURSE ---
pt seen by dr. morel with window framer at bedside, pt to have surgery tomorrow. pt to be npo tonight at midnight.
[2022-02-26] MEDS: Morphine Sulfate 4 MG/ML CARTRIDGE IVPUSH (10:32)
--- NOTE | 2022-02-26 11:28 | P.PNIM_ITS ---
Subjective Subjective Date of Service: 02/26/22 Interval History: the patient was seen and evaluated this morning Laying in bed, Complaining of pain in his foot Denies any fever, chills or shortness of breath Systemic review: No fever, chills or weakness No chest pain, palpitation No shortness of breath or coughing No abdominal pain, nausea or vomiting No urinary symptoms necrotic toe with significant pain Physical Exam Vital Signs: Vital Signs: Last Vital Signs Temp 97.9 F 02/26/22 11:23 Pulse 63 02/26/22 11:23 Resp 16 02/26/22 11:23 BP 102/52 L 02/26/22 11:23 Pulse Ox 97 02/26/22 11:23 BMI result Body Mass Index 18.8 Const: Other: Appearance: Alert. Oriented X3. No acute distress. Eyes: Pupils equal, round and reactive to light. ENT: Pharynx normal. Neck: Normal inspection. Neck supple. No lymph nodes noted. No crepitus CVS: Normal heart rate and rhythm. Pulses normal. Normal S1 and S2 Respiratory: No respiratory distress. Breath sounds normal. No Wheezing. No rales Abdomen: Soft and nontender. No rigidity. No distention. Skin: Skin warm and dry. Normal skin color. Normal skin turgor. Extremities: Patient's distal left foot is erythematous, the great toe on the left foot is gangrenous, has foul odor, very painful to touch Neuro: Oriented X 3. No motor deficit. No sensory deficit. Moving all extremities. No slurred speech. CN 2 through 12 grossly intact Psych: calm, cooperative, normal affect Objective Data Active Medications Acetaminophen (Acetaminophen 325 Mg Tablet) 650 mg PO Q6H PRN PRN Reason: Pain, Mild (Pain Scale 1-3) Atorvastatin Calcium (Atorvastatin Calcium 80 Mg Tablet) 80 mg PO BEDTIME [facility] Clopidogrel Bisulfate (Clopidogrel Bisulfate 75 Mg Tablet) 75 mg PO DAILY [facility] Last Admin: 02/26/22 09:55 Dose: 75 mg Documented by: FRANKLIN Dextrose (Dextrose 50 % 25 Gm/50 Ml Syringe) 25 gm IVPUSH Q15M PRN; Protocol PRN Reason: per Hypoglycemia Standing Ord. Docusate Sodium (Docusate Sodium 100 Mg Capsule) 100 mg PO DAILY PRN PRN Reason: Constipation Furosemide (Furosemide 40 Mg Tablet) 40 mg PO BID@0900,1800 [facility]; Protocol Last Admin: 02/26/22 09:53 Dose: 40 mg Documented by: FRANKLIN Gabapentin (Gabapentin 100 Mg Capsule) 100 mg PO BID [facility] Last Admin: 02/26/22 09:54 Dose: 100 mg Documented by: FRANKLIN Gabapentin (Gabapentin 300 Mg Capsule) 300 mg PO BEDTIME [facility] Glucose (Glucose Gel 15 Gm Gel..Gram.) 15 gm PO Q15M PRN; Protocol PRN Reason: per Hypoglycemia Standing Ord. Piperacillin Sod/Tazobactam (Sod 3.375 gm/ Sodium Chloride) 50 mls @ 100 mls/hr IV Q6H [facility] Last Admin: 02/26/22 05:23 Dose: 100 mls/hr Documented by: ANA MARÍA Vancomycin HCl 750 mg/ Sodium (Chloride) 265 mls @ 265 mls/hr IV Q24H [facility] Insulin Glargine (Insulin Glargine,Hum.Rec.Anlog 100 Unit/Ml 10 Ml Vial) 7 unit SUBCUT DAILY@1800 [facility] Insulin Human Lispro (Insulin Lispro 100 Unit/Ml 3 Ml Vial) 0 unit SUBCUT QIDACHS [facility]; Protocol Last Admin: 02/26/22 09:54 Dose: 6 unit Documented by: FRANKLIN Lisinopril (Lisinopril 2.5 Mg Tablet) 2.5 mg PO DAILY [facility]; Protocol Last Admin: 02/26/22 09:54 Dose: 2.5 mg Documented by: FRANKLIN Morphine Sulfate (Morphine Sulfate 4 Mg/Ml Cartridge) 4 mg IVPUSH Q4H PRN; Protocol PRN Reason: Pain, Severe (Pain Scale 7-10) Last Admin: 02/26/22 10:32 Dose: 4 mg Documented by: FRANKLIN Ondansetron HCl (Ondansetron Hcl 4 Mg/2 Ml Vial) 4 mg IVPUSH Q8H PRN PRN Reason: Nausea and Vomiting Oxycodone HCl (Oxycodone Hcl Immed Release 5 Mg Tablet) 5 mg PO Q3H PRN PRN Reason: Pain, Moderate (Pain Scale 4-6 Pharmacy Consult (Consult Rx Perform Med Rec) 1 each MISCELLANE ONCE PRN PRN Reason: Consult order Pharmacy Consult (Consult Rx Vancomycin Dosing) 1 each MISCELLANE DAILY PRN PRN Reason: Consult order Sodium Chloride (0.9 % Sodium Chloride Flush 3 Ml Syringe) 3 ml IVFLUSH QSHIFT [facility] Last Admin: 02/26/22 09:54 Dose: 3 ml Documented by: SCOC Labs CBC & Chem 7: 02/26/22 06:53 02/26/22 06:53 Labs: Laboratory Results - last 24 hr 02/25/22 02/25/22 02/25/22 17:25 18:06 18:06 MCV 89.0 MCH 29.7 MCHC 33.3 RDW 12.6 Plt Count 376 D MPV 11.0 Immature Gran % (Auto) 1.0 H Neut % (Auto) 78.6 H Lymph % (Auto) 13.9 L [place] % (Auto) 6.0 Eos % (Auto) 0.3 Baso % (Auto) 0.2 Lymph # (Auto) 2.6 [place] # (Auto) 1.1 Eos # (Auto) 0.1 Baso # (Auto) 0.0 Abs Immat Gran (auto) 0.19 H Absolute Neuts (auto) 14.7 H Absolute Nucleated RBC 0.000 Nucleated RBC % (auto) 0.0 PT INR Anion Gap 18 Estim Creat Clear Calc 32.4 Estimated GFR 56 POC Glucose Random Glucose 228 H D Lactic Acid Calcium 9.8 D Total Bilirubin 0.6 Direct Bilirubin 0.3 AST 13 D ALT 13 Alkaline Phosphatase 86 Total Protein 7.9 Albumin 3.8 COVID-19 ([facility]) Negative COVID-19 Clin Com See Note 02/25/22 02/25/22 02/26/22 18:06 18:06 06:53 MCV 89.6 MCH 29.5 MCHC 33.0 RDW 12.5 Plt Count 336 MPV 10.9 Immature Gran % (Auto) 1.0 H Neut % (Auto) 76.8 H Lymph % (Auto) 14.9 L [place] % (Auto) 6.7 Eos % (Auto) 0.4 Baso % (Auto) 0.2 Lymph # (Auto) 2.4 [place] # (Auto) 1.1 Eos # (Auto) 0.1 Baso # (Auto) 0.0 Abs Immat Gran (auto) 0.17 H Absolute Neuts (auto) 12.5 H Absolute Nucleated RBC 0.000 Nucleated RBC % (auto) 0.0 PT 13.5 H INR 1.2 H Anion Gap Estim Creat Clear Calc Estimated GFR POC Glucose Random Glucose Lactic Acid 1.4 Calcium Total Bilirubin Direct Bilirubin AST ALT Alkaline Phosphatase Total Protein Albumin COVID-19 ([facility]) COVID-19 Clin Com 02/26/22 02/26/22 06:53 07:33 MCV MCH MCHC RDW Plt Count MPV Immature Gran % (Auto) Neut % (Auto) Lymph % (Auto) [place] % (Auto) Eos % (Auto) Baso % (Auto) Lymph # (Auto) [place] # (Auto) Eos # (Auto) Baso # (Auto) Abs Immat Gran (auto) Absolute Neuts (auto) Absolute Nucleated RBC Nucleated RBC % (auto) PT INR Anion Gap 16 Estim Creat Clear Calc 39.4 Estimated GFR > 60 POC Glucose 271 H Random Glucose 311 H D Lactic Acid Calcium 9.0 D Total Bilirubin Direct Bilirubin AST ALT Alkaline Phosphatase Total Protein Albumin COVID-19 ([facility]) COVID-19 Clin Com Assessment and Plan (1) Gangrene of foot: Status: Acute (2) PAD (peripheral artery disease): Status: Acute Plan 81-year-old male with history of PVD presents the hospital with complaints of gangrenous foot # gangrenous foot on the left continue IV antibiotics NPO after midnight vascular surgery to do amputation in the morning follow cultures # PAD continue Plavix and statin # CHF no acute exacerbation continue Lasix # diabetes low-dose sliding scale insulin continue Levemir DVT prophylaxis: SCDs in the anticipation of surgical intervention in a.m. the patient will need overnight hospital stay for planned amputation of the gangrenous toe given his high risk for decompensation. Quality Stroke Does the patient have a stroke diagnosis?: No VTE Prior VTE?: No VTE Risk Level:: Medical - moderate - high VTE Device Contraindication: N/A - Device Ordered VTE Drug Contraindication: Treatment Not Indicated
--- NOTE | 2022-02-26 11:32 | PM.CNGS ---
History of Present Illness Consult details Consult date: 02/26/22 Reason for consult: wound care Narrative: 81-year-old gentleman well known to me with left great toe gangrene. He was actually seen in the office yesterday and had surrounding cellulitis an increase in pain. He was subsequently sent to the hospital for admission. He now presents to us for vascular evaluation. Of note he has had prior endovascular intervention. He appears to be doing relatively well with that. Review of Systems Review of Systems: Yes all other systems are reviewed and are negative Constitutional: Constitutional: Reports no additional constitutional complaints ENT: Reports Normal hearing present Cardiovascular: Cardiovascular: Denies chest pain, Denies chest pain at rest, Denies chest pain with activity and Denies pedal edema Respiratory: Respiratory: Denies cough Gastrointestinal: Gastrointestinal: Denies abdominal pain Musculoskeletal: Musculoskeletal: Denies abnormal gait, Denies muscle cramps and Denies radiating pain into limb Integumentary/Breasts: Skin/Breast: Denies skin ulcer and Denies wounds Neurologic: Reports Normal hearing present and Denies abnormal gait Psychiatric: Psychiatric: Reports no additional psychiatric complaints PMF Past Medical History Medical History Acute systolic (congestive) heart failure Dementia Neuropathy 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 Troponin level elevated Type 2 diabetes mellitus with unspecified complications Social History Social History Household Members: None Housing: Apartment Do you presently have visiting nurse or other home services: Yes Alcohol intake: unknown Patient Tobacco Use Status: Former Tobacco user Quit Date: 1999 Tobacco use type: Cigarette Years Smoked: 4 Use of substances other than those prescribed or required for medical reasons: Unknown Advance Directives: Yes Advance Directives on File: Yes Advance Directives Date on File: 08/15/21 service: No Current occupational status: unemployed Meds Allergies Allergy/AdvReac Type Severity Reaction Status Date / Time No Known Allergies Allergy Verified 02/25/22 16:27 [No Known Allergies*] Active Medications: Current Medications Acetaminophen (Acetaminophen 325 Mg Tablet) 650 mg PO Q6H PRN PRN Reason: Pain, Mild (Pain Scale 1-3) Atorvastatin Calcium (Atorvastatin Calcium 80 Mg Tablet) 80 mg PO BEDTIME [facility] Clopidogrel Bisulfate (Clopidogrel Bisulfate 75 Mg Tablet) 75 mg PO DAILY [facility] Last Admin: 02/26/22 09:55 Dose: 75 mg Documented by: Dextrose (Dextrose 50 % 25 Gm/50 Ml Syringe) 25 gm IVPUSH Q15M PRN; Protocol PRN Reason: per Hypoglycemia Standing Ord. Docusate Sodium (Docusate Sodium 100 Mg Capsule) 100 mg PO DAILY PRN PRN Reason: Constipation Furosemide (Furosemide 40 Mg Tablet) 40 mg PO BID@0900,1800 [facility]; Protocol Last Admin: 02/26/22 09:53 Dose: 40 mg Documented by: Gabapentin (Gabapentin 100 Mg Capsule) 100 mg PO BID [facility] Last Admin: 02/26/22 09:54 Dose: 100 mg Documented by: Gabapentin (Gabapentin 300 Mg Capsule) 300 mg PO BEDTIME [facility] Glucose (Glucose Gel 15 Gm Gel..Gram.) 15 gm PO Q15M PRN; Protocol PRN Reason: per Hypoglycemia Standing Ord. Piperacillin Sod/Tazobactam (Sod 3.375 gm/ Sodium Chloride) 50 mls @ 100 mls/hr IV Q6H [facility] Last Admin: 02/26/22 05:23 Dose: 100 mls/hr Documented by: Vancomycin HCl 750 mg/ Sodium (Chloride) 265 mls @ 265 mls/hr IV Q24H [facility] Insulin Glargine (Insulin Glargine,Hum.Rec.Anlog 100 Unit/Ml 10 Ml Vial) 7 unit SUBCUT DAILY@1800 [facility] Insulin Human Lispro (Insulin Lispro 100 Unit/Ml 3 Ml Vial) 0 unit SUBCUT QIDACHS [facility]; Protocol Last Admin: 02/26/22 09:54 Dose: 6 unit Documented by: Lisinopril (Lisinopril 2.5 Mg Tablet) 2.5 mg PO DAILY [facility]; Protocol Last Admin: 02/26/22 09:54 Dose: 2.5 mg Documented by: Morphine Sulfate (Morphine Sulfate 4 Mg/Ml Cartridge) 4 mg IVPUSH Q4H PRN; Protocol PRN Reason: Pain, Severe (Pain Scale 7-10) Last Admin: 02/26/22 10:32 Dose: 4 mg Documented by: Ondansetron HCl (Ondansetron Hcl 4 Mg/2 Ml Vial) 4 mg IVPUSH Q8H PRN PRN Reason: Nausea and Vomiting Oxycodone HCl (Oxycodone Hcl Immed Release 5 Mg Tablet) 5 mg PO Q3H PRN PRN Reason: Pain, Moderate (Pain Scale 4-6 Pharmacy Consult (Consult Rx Perform Med Rec) 1 each MISCELLANE ONCE PRN PRN Reason: Consult order Pharmacy Consult (Consult Rx Vancomycin Dosing) 1 each MISCELLANE DAILY PRN PRN Reason: Consult order Sodium Chloride (0.9 % Sodium Chloride Flush 3 Ml Syringe) 3 ml IVFLUSH QSHIFT [facility] Last Admin: 02/26/22 09:54 Dose: 3 ml Documented by: Home Medications Medication Instructions Recorded Confirmed Last Taken Type insulin detemir U-100 100 unit/mL 10 unit SUBCUT DAILY@1800 08/10/21 02/25/22 02/21/22 History (3 mL) subcutaneous pen (Levemir FlexTouch U-100 Insulin) docusate sodium 100 mg capsule 100 mg PO BID PRN 11/21/21 02/25/22 Unknown History ferrous sulfate 325 mg (65 mg 325 mg PO DAILY 11/21/21 02/25/22 02/21/22 History iron) tablet (FeroSul) gabapentin 300 mg capsule 300 mg PO BEDTIME 11/21/21 02/25/22 02/21/22 History insulin syringe-needle U-100 0.5 #10 ea 11/21/21 Unknown History mL 30 gauge x 1/2 (UltiCare) pen needle, diabetic 32 gauge x #50 ea 11/21/21 Unknown History (Pentips) blood sugar diagnostic (FreeStyle #10 ea 02/25/22 Unknown History Lite Strips) gabapentin 100 mg capsule 100 mg PO BID 02/25/22 02/25/22 02/21/22 History lancets 33 gauge (TRUEplus Lancets) #100 ea 02/25/22 Unknown History Physical Exam Vital Signs: Vital Signs: Last Vital Signs Temp 97.9 F 02/26/22 11:23 Pulse 63 02/26/22 11:23 Resp 16 02/26/22 11:23 BP 102/52 L 02/26/22 11:23 Pulse Ox 97 02/26/22 11:23 BMI result Body Mass Index 18.8 Const: General: cooperative, healthy appearing and comfortable Orientation/consciousness: oriented to person, oriented to place and oriented to time HEENT: Head: Yes normal to inspection Neck: Neck: Yes normal visual inspection Carotids: no bruits Chest: Chest palpation & inspection: normal inspection of the chest Resp: Effort & Inspection: normal respiratory effort and able to speak in complete sentences Auscultation: clear to auscultation bilaterally, no crackles, no rales, no rhonchi and no wheezes Cardio: Rate: regular rate Rhythm: regular rhythm Heart sounds: S1 normal heart sound present and S2 normal heart sound present Bruits: no carotid bruits Peripheral pulses: dorsalis pedis present (Bilateral DP signals) GI: Inspection: Yes normal to inspection Skin: Other: Left great toe gangrene Wounds: wounds noted (Left great toe gangrene) Hair: normal Neuro: General: oriented to person, oriented to place and oriented to time Cranial nerves: Yes CN's II-XII intact bilaterally and Yes Normal hearing present Cognition (Neuro): normal cognition Motor exam (neuro): 5/5 motor strength present throughout Extrem: Other: venous exam: No significant superficial varicosities or spider telangiectasias, minimal edema General: No clubbing, No cyanosis and No edema Psych: Appearance: grossly normal Mental Status: mental status grossly normal Speech and movement: Normal speech and movement present Results Labs Result diagrams: 02/26/22 06:53 02/26/22 06:53 Labs: Abnormal lab results 02/25/22 02/25/22 02/25/22 Range/Units 18:06 18:06 18:06 WBC 18.7 H (4.8-10.8) X10*3/uL RBC 4.08 L (4.60-5.80) X10*6/uL Hgb 12.1 L (14.0-18.0) g/dl Hct 36.3 L (42.0-52.0) % Immature Gran % (Auto) 1.0 H (0.0-0.4) % Neut % (Auto) 78.6 H (45-73) % Lymph % (Auto) 13.9 L (20-40) % Abs Immat Gran (auto) 0.19 H (0.00-0.03) X10*3/uL Absolute Neuts (auto) 14.7 H (2.0-8.3) x10*3/uL PT 13.5 H (9.9-13.0) SEC INR 1.2 H (0.9-1.1) BUN 27 H D (9-16) mg/dL POC Glucose (60-115) mg/dL Random Glucose 228 H D (60-115) mg/dL 02/26/22 02/26/22 02/26/22 Range/Units 06:53 06:53 07:33 WBC 16.3 H (4.8-10.8) X10*3/uL RBC 4.13 L (4.60-5.80) X10*6/uL Hgb 12.2 L (14.0-18.0) g/dl Hct 37.0 L (42.0-52.0) % Immature Gran % (Auto) 1.0 H (0.0-0.4) % Neut % (Auto) 76.8 H (45-73) % Lymph % (Auto) 14.9 L (20-40) % Abs Immat Gran (auto) 0.17 H (0.00-0.03) X10*3/uL Absolute Neuts (auto) 12.5 H (2.0-8.3) x10*3/uL PT (9.9-13.0) SEC INR (0.9-1.1) BUN 20 H (9-16) mg/dL POC Glucose 271 H (60-115) mg/dL Random Glucose 311 H D (60-115) mg/dL Short CBC 02/25/22 02/26/22 Range/Units 18:06 06:53 WBC 18.7 H 16.3 H (4.8-10.8) X10*3/uL Hgb 12.1 L 12.2 L (14.0-18.0) g/dl Hct 36.3 L 37.0 L (42.0-52.0) % Plt Count 376 D 336 (160-400) X10*3/uL BMP 02/25/22 02/26/22 18:06 06:53 Sodium 142 140 Potassium 4.0 3.6 Chloride 100 103 Carbon Dioxide 28 25 BUN 27 H D 20 H Creatinine 1.24 1.02 Calcium 9.8 D 9.0 D Liver Function 02/25/22 Range/Units 18:06 Total Bilirubin 0.6 (0.0-1.0) mg/dL Direct Bilirubin 0.3 (0.0-0.5) mg/dL AST 13 D (5-37) U/L ALT 13 (0-40) U/L Alkaline Phosphatase 86 (39-117) U/L Albumin 3.8 (3.5-5.0) g/dL All other labs normal. Assessment and Plan (1) PAD (peripheral artery disease): Status: Acute Plan In short patient has left great toe gangrene. His vascular status appears to be doing relatively well on noninvasive testing. Patient will require left great toe amputation. This was discussed with the patient with eligibility analyst present. In addition conversation was had with the daughter as well. We will schedule him for tomorrow. Thank you for allowing us to participate in his care. If there are questions or concerns please do not hesitate to contact us. Procedures Date of Service Date of Service: 02/26/22
--- NOTE | 2022-02-26 12:40 | PC.NURSE ---
pt's son marry ( [phone]) is at bedside and is aware of plan of care. pt's son marry states that pt normally does not like taking narcotics for pain and would normally prefer tylenol. pt son is asking us to call him for any questions or concerns.
[2022-02-26 12:47] LABS: Glucose, Whole Blood 183 mg/dL (60-115)
--- NOTE | 2022-02-26 13:52 | PC.NURSE ---
rn to rn given to benny loya aware of plan of care for transfer to room 384.
--- NOTE | 2022-02-26 14:10 | PC.NURSE ---
pt's son marry ) called and is aware that pt has moved to room 384.
[2022-02-26 16:15] LABS: Glucose, Whole Blood 141 mg/dL (60-115)
[2022-02-26] MEDS: vancomycin HCL 750 MG in 0.9 % Sodium Chloride 250 ML 265 MG IV (19:40)
[2022-02-26 20:53] LABS: Glucose, Whole Blood 174 mg/dL (60-115)
[2022-02-26] MEDS: Atorvastatin Calcium 80 MG TABLET PO (20:54)
[2022-02-26] MEDS: Gabapentin 300 MG CAPSULE PO (20:54)
[2022-02-27] VITALS (8 sets, daily range): BP systolic 101–129; BP diastolic 56–71; PULSE 62–71; RESP 11–18; TEMP 36.3–36.9; O2SAT 95–100; BMI 18.8
[2022-02-27] MEDS: Piperacillin Sodium/Tazobactam 3.375 GM in 0.9 % Sodium Chloride 50 ML IV ×4 (00:01→20:58)
[2022-02-27 06:45] LABS: Hematocrit 36.9 % (42.0-52.0); Hemoglobin 12.3 g/dl (14.0-18.0); Mean Corpuscular HGB Conc 33.3 g/dl (31.0-36.0); Mean Corpuscular Hemoglobin 29.8 pg (27.0-33.0); Mean Corpuscular Volume 89.3 fL (80.0-98.0); Mean Platelet Volume 11.2 fL (9.4-12.4); Platelet Count 331 X10*3/uL (160-400); Red Blood Count 4.13 X10*6/uL (4.60-5.80); Red Cell Distribution Width 12.6 % (11.0-16.0); White Blood Count 18.5 X10*3/uL (4.8-10.8)
[2022-02-27 07:11] LABS: Anion Gap 18 (12-20); Blood Urea Nitrogen 15 mg/dL (9-16); Calcium 9.1 mg/dL (8.4-10.2); Carbon Dioxide 27 mmol/L (22-29); Chloride 104 mmol/L (96-108); Creatinine Clr Calc Pharmacy 43.6; Estimated Glomerular Filt Rate > 60; Glucose Random 138 mg/dL (60-115); Potassium 3.5 mmol/L (3.3-5.1); Sodium 145 mmol/L (135-145)
[2022-02-27 07:43] LABS: Glucose, Whole Blood 140 mg/dL (60-115)
--- NOTE | 2022-02-27 08:30 | HE.PHANOTE ---
Vancomycin Dosing Addendum Vancomycin Random tonight at 1800. Continue with current regimen for now. 02/25/22- Vancomycin Original note was not entered. Vancomycin 1250 mg (750 mg + 500 mg) entered as loading dose followed by 750 mg q24h.
[2022-02-27] MEDS: Gabapentin 100 MG CAPSULE PO ×2 (08:57→20:53)
[2022-02-27] MEDS: lisinopriL 2.5 MG TABLET PO (08:57)
[2022-02-27] MEDS: Furosemide 40 MG TABLET PO ×2 (08:58→20:53)
[2022-02-27] MEDS: Clopidogrel Bisulfate 75 MG TABLET PO (08:58)
[2022-02-27] MEDS: 0.9 % Sodium Chloride Flush 3 ML SYRINGE IVFLUSH ×2 (08:59→20:58)
--- NOTE | 2022-02-27 10:21 | HO.PM.IMPN ---
Subjective Subjective Date of Service: 02/27/22 Interval History: the patient was seen and evaluated this morning Complaining of pain in his foot Denies any fever, chills or shortness of breath Systemic review: No fever, chills or weakness No chest pain, palpitation No shortness of breath or coughing No abdominal pain, nausea or vomiting No urinary symptoms necrotic toe with significant pain Physical Exam Vital Signs: Vital Signs: Last Vital Signs Temp 97.5 F 02/27/22 07:30 Pulse 64 02/27/22 07:30 Resp 18 02/27/22 07:30 BP 108/56 L 02/27/22 07:30 Pulse Ox 99 02/27/22 07:30 BMI result Body Mass Index 18.8 Const: Other: Appearance: Alert. Oriented X3. No acute distress. Eyes: Pupils equal, round and reactive to light. ENT: Pharynx normal. Neck: Normal inspection. Neck supple. No lymph nodes noted. No crepitus CVS: Normal heart rate and rhythm. Pulses normal. Normal S1 and S2 Respiratory: No respiratory distress. Breath sounds normal. No Wheezing. No rales Abdomen: Soft and nontender. No rigidity. No distention. Skin: Skin warm and dry. Normal skin color. Normal skin turgor. Extremities: Patient's distal left foot is erythematous, the great toe on the left foot is gangrenous, has foul odor, painful to touch Neuro: Oriented X 3. No motor deficit. No slurred speech. CN 2 through 12 grossly intact Psych: calm, cooperative, normal affect Objective Data Active Medications Acetaminophen (Acetaminophen 325 Mg Tablet) 650 mg PO Q6H PRN PRN Reason: Pain, Mild (Pain Scale 1-3) Atorvastatin Calcium (Atorvastatin Calcium 80 Mg Tablet) 80 mg PO BEDTIME [facility] Last Admin: 02/26/22 20:54 Dose: 80 mg Documented by: YOSSI Clopidogrel Bisulfate (Clopidogrel Bisulfate 75 Mg Tablet) 75 mg PO DAILY [facility] Last Admin: 02/27/22 08:58 Dose: 75 mg Documented by: FRANCISCO Dextrose (Dextrose 50 % 25 Gm/50 Ml Syringe) 25 gm IVPUSH Q15M PRN; Protocol PRN Reason: per Hypoglycemia Standing Ord. Docusate Sodium (Docusate Sodium 100 Mg Capsule) 100 mg PO DAILY PRN PRN Reason: Constipation Furosemide (Furosemide 40 Mg Tablet) 40 mg PO BID@0900,1800 [facility]; Protocol Last Admin: 02/27/22 08:58 Dose: 40 mg Documented by: FRANCISCO Gabapentin (Gabapentin 100 Mg Capsule) 100 mg PO BID [facility] Last Admin: 02/27/22 08:57 Dose: 100 mg Documented by: FRANCISCO Gabapentin (Gabapentin 300 Mg Capsule) 300 mg PO BEDTIME [facility] Last Admin: 02/26/22 20:54 Dose: 300 mg Documented by: YOSSI Glucose (Glucose Gel 15 Gm Gel..Gram.) 15 gm PO Q15M PRN; Protocol PRN Reason: per Hypoglycemia Standing Ord. Piperacillin Sod/Tazobactam (Sod 3.375 gm/ Sodium Chloride) 50 mls @ 100 mls/hr IV Q6H [facility] Last Infusion: 02/27/22 06:17 Dose: 0 mls/hr Documented by: YOSSI Vancomycin HCl 750 mg/ Sodium (Chloride) 265 mls @ 265 mls/hr IV Q24H [facility] Last Infusion: 02/26/22 21:04 Dose: 0 mls/hr Documented by: YOSSI Insulin Glargine (Insulin Glargine,Hum.Rec.Anlog 100 Unit/Ml 10 Ml Vial) 7 unit SUBCUT DAILY@1800 [facility] Last Admin: 02/26/22 17:36 Dose: Not Given Documented by: GERALDINE Non-Admin Reason: pt did not eat Insulin Human Lispro (Insulin Lispro 100 Unit/Ml 3 Ml Vial) 0 unit SUBCUT QIDACHS [facility]; Protocol Last Admin: 02/27/22 07:45 Dose: Not Given Documented by: DEMOND Non-Admin Reason: No Insulin Coverage Lisinopril (Lisinopril 2.5 Mg Tablet) 2.5 mg PO DAILY [facility]; Protocol Last Admin: 02/27/22 08:57 Dose: 2.5 mg Documented by: FRANCISCO Morphine Sulfate (Morphine Sulfate 4 Mg/Ml Cartridge) 4 mg IVPUSH Q4H PRN; Protocol PRN Reason: Pain, Severe (Pain Scale 7-10) Last Admin: 02/26/22 10:32 Dose: 4 mg Documented by: FRANKLIN Ondansetron HCl (Ondansetron Hcl 4 Mg/2 Ml Vial) 4 mg IVPUSH Q8H PRN PRN Reason: Nausea and Vomiting Oxycodone HCl (Oxycodone Hcl Immed Release 5 Mg Tablet) 5 mg PO Q3H PRN PRN Reason: Pain, Moderate (Pain Scale 4-6 Pharmacy Consult (Consult Rx Perform Med Rec) 1 each MISCELLANE ONCE PRN PRN Reason: Consult order Pharmacy Consult (Consult Rx Vancomycin Dosing) 1 each MISCELLANE DAILY PRN PRN Reason: Consult order Sodium Chloride (0.9 % Sodium Chloride Flush 3 Ml Syringe) 3 ml IVFLUSH QSHIFT [facility] Last Admin: 02/27/22 08:59 Dose: 3 ml Documented by: FRANCISCO Labs CBC & Chem 7: 02/27/22 05:47 02/27/22 05:47 Labs: Laboratory Results - last 24 hr 02/26/22 02/26/22 02/26/22 12:40 16:01 20:49 MCV MCH MCHC RDW Plt Count MPV Absolute Nucleated RBC Nucleated RBC % (auto) Anion Gap Estim Creat Clear Calc Estimated GFR POC Glucose 183 H 141 H 174 H Random Glucose Calcium 02/27/22 02/27/22 02/27/22 05:47 05:47 07:28 MCV 89.3 MCH 29.8 MCHC 33.3 RDW 12.6 Plt Count 331 MPV 11.2 Absolute Nucleated RBC 0.000 Nucleated RBC % (auto) 0.0 Anion Gap 18 Estim Creat Clear Calc 43.6 Estimated GFR > 60 POC Glucose 140 H Random Glucose 138 H D Calcium 9.1 Microbiology Microbiology Results: Microbiology 02/25/22 18:06 Blood Culture - Preliminary Blood - Venous No growth after 24 hours. 02/25/22 17:26 Blood Culture - Preliminary Blood - Venous No growth after 24 hours. Assessment and Plan (1) Gangrene of foot: Status: Acute Plan 81-year-old male with history of PVD presents the hospital with complaints of gangrenous foot # gangrenous foot on the left continue IV antibiotics NPO for planned surgery today vascular surgery to do amputation today follow cultures # PAD continue Plavix and statin # CHF no acute exacerbation continue Lasix # diabetes low-dose sliding scale insulin continue Levemir DVT prophylaxis: SCDs in the anticipation of surgical intervention in a.m. the patient will need overnight hospital stay for planned amputation of the gangrenous toe given his high risk for decompensation and post surgery care. Quality Stroke Does the patient have a stroke diagnosis?: No VTE Prior VTE?: No VTE Risk Level:: Medical - moderate - high VTE Device Contraindication: N/A - Device Ordered VTE Drug Contraindication: Treatment Not Indicated
[2022-02-27 11:40] LABS: Glucose, Whole Blood 154 mg/dL (60-115)
--- NOTE | 2022-02-27 12:45 | MHC.CM.PN ---
MET WITH PATIENT'S SON/HCP JUANY (IN ROOM) SON DOES NOT WANT PATIENT GOING TO ANY REHAB FACILITIY HE WANTS HIM TO RETURN HOME WITH SERVICES (ALREADY IN PLACE) SON STATES THAT PATIENT HAS A MANAGING CONSULTANT CLINICAL PROFESSOR THAT WILL SEE HIM DAILY. ACCORDING TO JUANY, PATIENT REFUSES ANY [facility] SERVICES IN THE PAST. CASE MANAGEMENT FOLLOWING. HCP PLACED IN CHART FOR MEDICAL RECORDS. IMM 02/27 IN CHART
--- NOTE | 2022-02-27 13:12 | MHC.CLN ---
PT IS SEVERELY MALNOURISHED PT WITH SEVERELY DEPLETED SUBCUTANEOUS FAT AND MUSCLE MASS, BMI 18.8 AND 23% SIGNIFICANT WT LOSS X 6 MONTHS WITH CHRONIC POOR PO INTAKE PER FAMILY PREVIOUS WT HX 64.7KG (08/26/21) PT ALSO PREVIOUS DX MODERATELY MALNOURISHED ON LAST ADMISSION DIET RX: NPO WHEN DIET ADVANCES, RECOMMEND 1800DM WITH ENSURE TID TO INCREASE KCALS MONITOR PO INTAKE CLOSELY SEE ALSO FULL CLINICAL NUTRITION ASSESSMENT
[2022-02-27 16:07] LABS: Glucose, Whole Blood 137 mg/dL (60-115)
[2022-02-27 17:02] LABS: Glucose, Whole Blood 141 mg/dL (60-115)
--- NOTE | 2022-02-27 17:08 | HO.ANESPROP2 ---
Documented by User: Star Encarnacion MD 02/27/22 17:10 HPI - Anesthesia Eval Consult details Narrative: 81 M for left great toe amputation .?? 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 Troponin level elevated Type 2 diabetes mellitus with unspecified complications Surgical History History of Problems with Anesthesia: No Social History Social History Household Members: Children Housing: Apartment Do you presently have visiting nurse or other home services: Yes Unable to assess alcohol history related to: Unknown Alcohol intake: unknown Patient Tobacco Use Status: Former Tobacco user Quit Date: 1999 Tobacco use type: Cigarette Years Smoked: 4 Advance Directives Date on File: 08/15/21 service: No Current occupational status: unemployed Meds Allergies Allergy/AdvReac Type Severity Reaction Status Date / Time No Known Allergies Allergy Verified 02/25/22 16:27 [No Known Allergies*] Active Medications: Current Medications Acetaminophen (Acetaminophen 325 Mg Tablet) 650 mg PO Q6H PRN PRN Reason: Pain, Mild (Pain Scale 1-3) Atorvastatin Calcium (Atorvastatin Calcium 80 Mg Tablet) 80 mg PO BEDTIME [facility] Last Admin: 02/26/22 20:54 Dose: 80 mg Documented by: Clopidogrel Bisulfate (Clopidogrel Bisulfate 75 Mg Tablet) 75 mg PO DAILY [facility] Last Admin: 02/27/22 08:58 Dose: 75 mg Documented by: Dextrose (Dextrose 50 % 25 Gm/50 Ml Syringe) 25 gm IVPUSH Q15M PRN; Protocol PRN Reason: per Hypoglycemia Standing Ord. Docusate Sodium (Docusate Sodium 100 Mg Capsule) 100 mg PO DAILY PRN PRN Reason: Constipation Furosemide (Furosemide 40 Mg Tablet) 40 mg PO BID@0900,1800 [facility]; Protocol Last Admin: 02/27/22 08:58 Dose: 40 mg Documented by: Gabapentin (Gabapentin 100 Mg Capsule) 100 mg PO BID [facility] Last Admin: 02/27/22 08:57 Dose: 100 mg Documented by: Gabapentin (Gabapentin 300 Mg Capsule) 300 mg PO BEDTIME [facility] Last Admin: 02/26/22 20:54 Dose: 300 mg Documented by: Glucose (Glucose Gel 15 Gm Gel..Gram.) 15 gm PO Q15M PRN; Protocol PRN Reason: per Hypoglycemia Standing Ord. Piperacillin Sod/Tazobactam (Sod 3.375 gm/ Sodium Chloride) 50 mls @ 100 mls/hr IV Q6H [facility] Last Infusion: 02/27/22 14:11 Dose: Infused Documented by: Insulin Glargine (Insulin Glargine,Hum.Rec.Anlog 100 Unit/Ml 10 Ml Vial) 7 unit SUBCUT DAILY@1800 [facility] Last Admin: 02/26/22 17:36 Dose: Not Given Documented by: Insulin Human Lispro (Insulin Lispro 100 Unit/Ml 3 Ml Vial) 0 unit SUBCUT QIDACHS [facility]; Protocol Last Admin: 02/27/22 16:15 Dose: Not Given Documented by: Lisinopril (Lisinopril 2.5 Mg Tablet) 2.5 mg PO DAILY [facility]; Protocol Last Admin: 02/27/22 08:57 Dose: 2.5 mg Documented by: Morphine Sulfate (Morphine Sulfate 4 Mg/Ml Cartridge) 4 mg IVPUSH Q4H PRN; Protocol PRN Reason: Pain, Severe (Pain Scale 7-10) Last Admin: 02/26/22 10:32 Dose: 4 mg Documented by: Ondansetron HCl (Ondansetron Hcl 4 Mg/2 Ml Vial) 4 mg IVPUSH Q8H PRN PRN Reason: Nausea and Vomiting Oxycodone HCl (Oxycodone Hcl Immed Release 5 Mg Tablet) 5 mg PO Q3H PRN PRN Reason: Pain, Moderate (Pain Scale 4-6 Pharmacy Consult (Consult Rx Perform Med Rec) 1 each MISCELLANE ONCE PRN PRN Reason: Consult order Pharmacy Consult (Consult Rx Vancomycin Dosing) 1 each MISCELLANE DAILY PRN PRN Reason: Consult order Sodium Chloride (0.9 % Sodium Chloride Flush 3 Ml Syringe) 3 ml IVFLUSH QSHIFT [facility] Last Admin: 02/27/22 08:59 Dose: 3 ml Documented by: Home Medications Medication Instructions Recorded Confirmed Last Taken Type insulin detemir U-100 100 unit/mL 10 unit SUBCUT DAILY@1800 08/10/21 02/25/22 02/21/22 History (3 mL) subcutaneous pen (Levemir FlexTouch U-100 Insulin) docusate sodium 100 mg capsule 100 mg PO BID PRN 11/21/21 02/25/22 Unknown History ferrous sulfate 325 mg (65 mg 325 mg PO DAILY 11/21/21 02/25/22 02/21/22 History iron) tablet (FeroSul) gabapentin 300 mg capsule 300 mg PO BEDTIME 11/21/21 02/25/22 02/21/22 History insulin syringe-needle U-100 0.5 #10 ea 11/21/21 Unknown History mL 30 gauge x 1/2 (UltiCare) pen needle, diabetic 32 gauge x #50 ea 11/21/21 Unknown History (Pentips) blood sugar diagnostic (FreeStyle #10 ea 02/25/22 Unknown History Lite Strips) gabapentin 100 mg capsule 100 mg PO BID 02/25/22 02/25/22 02/21/22 History lancets 33 gauge (TRUEplus Lancets) #100 ea 02/25/22 Unknown History Exam Exam Date and Time: February 27, 2022 1708 Height,Weight and Vital Signs: Height 5 ft 4 in Weight 49.895 kg Last Vital Signs Temp 97.8 F 02/27/22 16:46 Pulse 66 02/27/22 16:46 Resp 16 02/27/22 16:46 BP 111/67 02/27/22 16:46 Pulse Ox 99 02/27/22 16:46 Pertinent Lab Results Pertinent Lab Results: Laboratory Tests 02/25/22 02/25/22 02/25/22 17:25 18:06 18:06 WBC 18.7 H RBC 4.08 L Hgb 12.1 L Hct 36.3 L MCV 89.0 MCH 29.7 MCHC 33.3 RDW 12.6 Plt Count 376 D MPV 11.0 Immature Gran % (Auto) 1.0 H Neut % (Auto) 78.6 H Lymph % (Auto) 13.9 L Whiteside % (Auto) 6.0 Eos % (Auto) 0.3 Baso % (Auto) 0.2 Lymph # (Auto) 2.6 Whiteside # (Auto) 1.1 Eos # (Auto) 0.1 Baso # (Auto) 0.0 Abs Immat Gran (auto) 0.19 H Absolute Neuts (auto) 14.7 H Absolute Nucleated RBC 0.000 Nucleated RBC % (auto) 0.0 PT INR Sodium 142 Potassium 4.0 Chloride 100 Carbon Dioxide 28 Anion Gap 18 BUN 27 H D Creatinine 1.24 Estim Creat Clear Calc 32.4 Estimated GFR 56 POC Glucose Random Glucose 228 H D Lactic Acid Calcium 9.8 D Total Bilirubin 0.6 Direct Bilirubin 0.3 AST 13 D ALT 13 Alkaline Phosphatase 86 Total Protein 7.9 Albumin 3.8 COVID-19 (OMEGA) Negative COVID-19 Clin Com See Note 02/25/22 02/25/22 02/26/22 18:06 18:06 06:53 WBC 16.3 H RBC 4.13 L Hgb 12.2 L Hct 37.0 L MCV 89.6 MCH 29.5 MCHC 33.0 RDW 12.5 Plt Count 336 MPV 10.9 Immature Gran % (Auto) 1.0 H Neut % (Auto) 76.8 H Lymph % (Auto) 14.9 L Whiteside % (Auto) 6.7 Eos % (Auto) 0.4 Baso % (Auto) 0.2 Lymph # (Auto) 2.4 Whiteside # (Auto) 1.1 Eos # (Auto) 0.1 Baso # (Auto) 0.0 Abs Immat Gran (auto) 0.17 H Absolute Neuts (auto) 12.5 H Absolute Nucleated RBC 0.000 Nucleated RBC % (auto) 0.0 PT 13.5 H INR 1.2 H Sodium Potassium Chloride Carbon Dioxide Anion Gap BUN Creatinine Estim Creat Clear Calc Estimated GFR POC Glucose Random Glucose Lactic Acid 1.4 Calcium Total Bilirubin Direct Bilirubin AST ALT Alkaline Phosphatase Total Protein Albumin COVID-19 ([facility]GA) COVID-19 Clin Com 02/26/22 02/26/22 02/26/22 06:53 07:33 12:40 WBC RBC Hgb Hct MCV MCH MCHC RDW Plt Count MPV Immature Gran % (Auto) Neut % (Auto) Lymph % (Auto) Whiteside % (Auto) Eos % (Auto) Baso % (Auto) Lymph # (Auto) Whiteside # (Auto) Eos # (Auto) Baso # (Auto) Abs Immat Gran (auto) Absolute Neuts (auto) Absolute Nucleated RBC Nucleated RBC % (auto) PT INR Sodium 140 Potassium 3.6 Chloride 103 Carbon Dioxide 25 Anion Gap 16 BUN 20 H Creatinine 1.02 Estim Creat Clear Calc 39.4 Estimated GFR > 60 POC Glucose 271 H 183 H Random Glucose 311 H D Lactic Acid Calcium 9.0 D Total Bilirubin Direct Bilirubin AST ALT Alkaline Phosphatase Total Protein Albumin COVID-19 ([facility]GA) COVID-19 [employer] 02/26/22 02/26/22 02/27/22 16:01 20:49 05:47 WBC 18.5 H RBC 4.13 L Hgb 12.3 L Hct 36.9 L MCV 89.3 MCH 29.8 MCHC 33.3 RDW 12.6 Plt Count 331 MPV 11.2 Immature Gran % (Auto) Neut % (Auto) Lymph % (Auto) Whiteside % (Auto) Eos % (Auto) Baso % (Auto) Lymph # (Auto) Whiteside # (Auto) Eos # (Auto) Baso # (Auto) Abs Immat Gran (auto) Absolute Neuts (auto) Absolute Nucleated RBC 0.000 Nucleated RBC % (auto) 0.0 PT INR Sodium Potassium Chloride Carbon Dioxide Anion Gap BUN Creatinine Estim Creat Clear Calc Estimated GFR POC Glucose 141 H 174 H Random Glucose Lactic Acid Calcium Total Bilirubin Direct Bilirubin AST ALT Alkaline Phosphatase Total Protein Albumin COVID-19 ([facility]GA) COVID-19 [employer] 02/27/22 02/27/22 02/27/22 05:47 07:28 11:13 WBC RBC Hgb Hct MCV MCH MCHC RDW Plt Count MPV Immature Gran % (Auto) Neut % (Auto) Lymph % (Auto) Whiteside % (Auto) Eos % (Auto) Baso % (Auto) Lymph # (Auto) Whiteside # (Auto) Eos # (Auto) Baso # (Auto) Abs Immat Gran (auto) Absolute Neuts (auto) Absolute Nucleated RBC Nucleated RBC % (auto) PT INR Sodium 145 Potassium 3.5 Chloride 104 Carbon Dioxide 27 Anion Gap 18 BUN 15 Creatinine 0.92 Estim Creat Clear Calc 43.6 Estimated GFR > 60 POC Glucose 140 H 154 H Random Glucose 138 H D Lactic Acid Calcium 9.1 Total Bilirubin Direct Bilirubin AST ALT Alkaline Phosphatase Total Protein Albumin COVID-19 ([facility]) COVID-19 [employer] 02/27/22 02/27/22 15:39 16:57 WBC RBC Hgb Hct MCV MCH MCHC RDW Plt Count MPV Immature Gran % (Auto) Neut % (Auto) Lymph % (Auto) Whiteside % (Auto) Eos % (Auto) Baso % (Auto) Lymph # (Auto) Whiteside # (Auto) Eos # (Auto) Baso # (Auto) Abs Immat Gran (auto) Absolute Neuts (auto) Absolute Nucleated RBC Nucleated RBC % (auto) PT INR Sodium Potassium Chloride Carbon Dioxide Anion Gap BUN Creatinine Estim Creat Clear Calc Estimated GFR POC Glucose 137 H 141 H Random Glucose Lactic Acid Calcium Total Bilirubin Direct Bilirubin AST ALT Alkaline Phosphatase Total Protein Albumin COVID-19 ([facility]) COVID-19 Clin Com Narrative Narrative: ECHO - The left ventricular systolic function is severely decreased.? The visually estimated ejection fraction is between 25-30%.? ? ? - Wall motion abnormalities from underlying coronary disease.? ? - There is mildly decreased right ventricular systolic function. 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 Troponin level elevated Type 2 diabetes mellitus with unspecified complications Family History Family history of problems with anesthesia: No Social History Social History Household Members: Children Housing: Apartment Do you presently have visiting nurse or other home services: Yes Unable to assess alcohol history related to: Unknown Alcohol intake: unknown Patient Tobacco Use Status: Former Tobacco user Quit Date: 1999 Tobacco use type: Cigarette Years Smoked: 4 Advance Directives Date on File: 08/15/21 service: No Current occupational status: unemployed Meds Allergies Allergy/AdvReac Type Severity Reaction Status Date / Time No Known Allergies Allergy Verified 02/25/22 16:27 [No Known Allergies*] Home Medications Medication Instructions Recorded Confirmed Last Taken Type insulin detemir U-100 100 unit/mL 10 unit SUBCUT DAILY@1800 08/10/21 02/25/22 02/21/22 History (3 mL) subcutaneous pen (Levemir FlexTouch U-100 Insulin) docusate sodium 100 mg capsule 100 mg PO BID PRN 11/21/21 02/25/22 Unknown History ferrous sulfate 325 mg (65 mg 325 mg PO DAILY 11/21/21 02/25/22 02/21/22 History iron) tablet (FeroSul) gabapentin 300 mg capsule 300 mg PO BEDTIME 11/21/21 02/25/22 02/21/22 History insulin syringe-needle U-100 0.5 #10 ea 11/21/21 Unknown History mL 30 gauge x 1/2 (UltiCare) pen needle, diabetic 32 gauge x #50 ea 11/21/21 Unknown History (Pentips) blood sugar diagnostic (FreeStyle #10 ea 02/25/22 Unknown History Lite Strips) gabapentin 100 mg capsule 100 mg PO BID 02/25/22 02/25/22 02/21/22 History lancets 33 gauge (TRUEplus Lancets) #100 ea 02/25/22 Unknown History Exam Airway Mallampati Class: III TM Dist: >3cm Neck ROM: Full Denture: Upper and Lower Heart: RRR Lungs: CTA Assessment and Plan Assessment Anesthesia Assessment: Anesthesia Plan Discussed and Chart Reviewed Final Anesthetic Review Family History of Problems with Anesthesia: No NPO: Yes ASA Class: IV Final Preanesthetic Review: No Changes in Pt Med Stat, Meds/Allgs Chart Reviewed, Consent Obtained/Reviewed and Anes Risks/Benef Reviewed Patient Risk: High Procedure Risk: Low
--- NOTE | 2022-02-27 17:10 | MHC.SHP ---
Pre-Procedural Eval Section A Date of Service: 02/27/22 The patient is an INPATIENT: Yes Changes since office visit: Yes Patient answered all questions The History & Physical has been completed within 30 days and I have reviewed it.: Yes Section B Chief Complaint: Necrtotic toe, PVD Allergies: Allergies Allergy/AdvReac Type Severity Reaction Status Date / Time No Known Allergies Allergy Verified 02/25/22 16:27 [No Known Allergies*] Plan I have reviewed the history and physical and performed a pertinent physical examination on my patient. No changes have occurred unless specified.
--- NOTE | 2022-02-27 18:16 | P.OP_ITS ---
Operative Note Operative Note Date of Service: 02/27/22 Narrative: Operative note by [facility] Preoperative diagnosis: Left great toe gangrene 2. diabetic foot ulcer Postoperative diagnosis: same Procedure: left great toe ray amputation Surgeon:Ramin Johnson M.D. Customer Success Specialist: roberto Anesthesia: local with sedation Specimens: 1 Drains: none Estimated blood loss: 50 mL Indications: 81-year-old diabetic gentleman with nonhealing left great toe presented to the hospital with gangrene. He now presents for amputation. Informed consent was obtained via healthcare proxy by telephone. The patient has signed the informed consent after reviewing risks, complications, benefits, and alternatives previously discussed with the patient. The patient was given the opportunity to ask any additional questions or voice any concerns. All questions were answered to the patient's satisfaction. Procedure in detail: Patient was brought to the operating room prior to which a time-out was called for patient identification and site verification. Left leg was prepped and draped in standard surgical fashion. A curvilinear fishmouth incision was carried out over the great toe taking down all the way down to the metatarsal head. We dissected down and removed the toe. Across the metatarsal head using a power saw the metatarsal was transected. This was then subsequently filed down. Sesamoid bone was also removed. The once this was all filed down and cleared we then irrigated the wound out thoroughly. Healthy tissue had [place] were reapproximated. Deep layer was reapproximated using 2 0 poly, superficial layer was closed with 2 0 poly Sorb as well. Skin was closed with skin clips. Sterile dressing was applied at the end the case. At the end the case sponge instrument counts were correct. Patient tolerated the procedure well. Returned to recovery with stable vitals. This note is constructed using voice recognition software. While every effort has been made to ensure accuracy, alarm signal operator errors may have been included. Thank you for allowing me to participate in the care of your patient. Yours sincerely, Ramin Johnson MD, FACS, R.P.V.I.
[2022-02-27 20:36] LABS: Glucose, Whole Blood 156 mg/dL (60-115)
[2022-02-27 20:47] LABS: Vancomycin Random 9.1 mcg/mL (15-20)
[2022-02-27] MEDS: Atorvastatin Calcium 80 MG TABLET PO (20:53)
[2022-02-27] MEDS: Gabapentin 300 MG CAPSULE PO (20:53)
[2022-02-28] VITALS (11 sets, daily range): BP systolic 90–162; BP diastolic 56–72; PULSE 70–86; RESP 17–28; TEMP 36.4–37.3; O2SAT 93–100
[2022-02-28] MEDS: Piperacillin Sodium/Tazobactam 3.375 GM in 0.9 % Sodium Chloride 50 ML IV ×4 (02:14→21:10)
[2022-02-28 06:07] LABS: Hematocrit 37.5 % (42.0-52.0); Hemoglobin 12.5 g/dl (14.0-18.0); Mean Corpuscular HGB Conc 33.3 g/dl (31.0-36.0); Mean Corpuscular Hemoglobin 29.4 pg (27.0-33.0); Mean Corpuscular Volume 88.2 fL (80.0-98.0); Platelet Count 344 X10*3/uL (160-400); Red Blood Count 4.25 X10*6/uL (4.60-5.80); Red Cell Distribution Width 12.9 % (11.0-16.0); White Blood Count 17.3 X10*3/uL (4.8-10.8)
[2022-02-28 06:25] LABS: Anion Gap 19 (12-20); Blood Urea Nitrogen 20 mg/dL (9-16); Carbon Dioxide 29 mmol/L (22-29); Chloride 99 mmol/L (96-108); Creatinine Clr Calc Pharmacy 37.5; Estimated Glomerular Filt Rate > 60; Glucose Random 271 mg/dL (60-115); Potassium 3.4 mmol/L (3.3-5.1); Sodium 144 mmol/L (135-145)
--- NOTE | 2022-02-28 07:38 | HO.POSTANES ---
Post Anesthesia Evaluation Post Anesthesia Evaluation Vital Signs: Vital Signs Temp Pulse Resp Pulse Ox 02/28/22 04:00 98.6 F 86 18 95 Anesthesia: Monitored Mental Status: Awake Pain Control: Satisfactory Nausea/Vomiting: None Hydration: Adequate Anesthesia-Related Issues: No Anes. Related Issues
[2022-02-28 07:46] LABS: Glucose, Whole Blood 284 mg/dL (60-115)
[2022-02-28] MEDS: Furosemide 40 MG TABLET PO (08:24)
[2022-02-28] MEDS: 0.9 % Sodium Chloride Flush 3 ML SYRINGE IVFLUSH (08:24)
[2022-02-28] MEDS: Insulin Lispro 100 UNIT/ML 3 ML VIAL SUBCUT ×2 (08:24→12:48)
[2022-02-28] MEDS: Gabapentin 100 MG CAPSULE PO (08:24)
[2022-02-28] MEDS: Clopidogrel Bisulfate 75 MG TABLET PO (08:24)
[2022-02-28] MEDS: lisinopriL 2.5 MG TABLET PO (08:24)
--- NOTE | 2022-02-28 09:30 | HO.VASCPN ---
Subjective Subjective Date of Service: 02/28/22 Patient reports: no new complaints and feels better Interval history: patient seen and examined. No significant events overnight. He is postop day 1 status post great toe amp. He reports no pain or difficulty with that foot. He is now for postoperative follow-up, and dressing change Physical Exam Vital Signs: Vital Signs: Last Vital Signs Temp 97.9 F 02/28/22 07:35 Pulse 83 02/28/22 08:35 Resp 18 02/28/22 07:35 BP 109/56 L 02/28/22 08:35 Pulse Ox 93 02/28/22 08:35 BMI result Body Mass Index 18.8 Const: General: cooperative, healthy appearing and no acute distress Orientation/consciousness: oriented to person, oriented to place and oriented to time HEENT: Head: Yes normal to inspection Neck: Carotids: no bruits Chest: Chest palpation & inspection: normal inspection of the chest Resp: Effort & Inspection: normal respiratory effort and able to speak in complete sentences Auscultation: clear to auscultation bilaterally Cardio: Rate: regular rate Heart sounds: S1 normal heart sound present and S2 normal heart sound present GI: Inspection: Yes normal to inspection Skin: General skin exam: no rashes or lesions noted Wounds: amputation site ( healing fairly well plantar aspect does have some ischemic change) Neuro: General: oriented to person, oriented to place, oriented to time and CN's II-XI intact bilaterally Extrem: General: Yes normal to inspection, Yes full ROM and Yes no clubbing, cyanosis or edema Psych: Appearance: grossly normal and well kempt Speech and movement: Normal speech and movement present Affect: normal affect Progress Note: A&P Assessment and plan (1) PAD (peripheral artery disease): Status: Acute Assessment and Plan: patient is postop day 1 status post left great toe amp. He appears to be doing relatively well. Dressing was changed. I do believe he is stable from discharge from my perspective. Will see how he does he can follow up with me as an outpatient in approximately 2 weeks time. Fall Risk Details Current Medications: Current Medications Acetaminophen (Acetaminophen 325 Mg Tablet) 650 mg PO Q6H PRN PRN Reason: Pain, Mild (Pain Scale 1-3) Atorvastatin Calcium (Atorvastatin Calcium 80 Mg Tablet) 80 mg PO BEDTIME [facility] Last Admin: 02/27/22 20:53 Dose: 80 mg Documented by: Clopidogrel Bisulfate (Clopidogrel Bisulfate 75 Mg Tablet) 75 mg PO DAILY [facility] Last Admin: 02/28/22 08:24 Dose: 75 mg Documented by: Dextrose (Dextrose 50 % 25 Gm/50 Ml Syringe) 25 gm IVPUSH Q15M PRN; Protocol PRN Reason: per Hypoglycemia Standing Ord. Docusate Sodium (Docusate Sodium 100 Mg Capsule) 100 mg PO DAILY PRN PRN Reason: Constipation Furosemide (Furosemide 40 Mg Tablet) 40 mg PO BID@0900,1800 [facility]; Protocol Last Admin: 02/28/22 08:24 Dose: 40 mg Documented by: Gabapentin (Gabapentin 100 Mg Capsule) 100 mg PO BID [facility] Last Admin: 02/28/22 08:24 Dose: 100 mg Documented by: Gabapentin (Gabapentin 300 Mg Capsule) 300 mg PO BEDTIME [facility] Last Admin: 02/27/22 20:53 Dose: 300 mg Documented by: Glucose (Glucose Gel 15 Gm Gel..Gram.) 15 gm PO Q15M PRN; Protocol PRN Reason: per Hypoglycemia Standing Ord. Piperacillin Sod/Tazobactam (Sod 3.375 gm/ Sodium Chloride) 50 mls @ 100 mls/hr IV Q6H [facility] Last Admin: 02/28/22 08:34 Dose: 100 mls/hr Documented by: Insulin Glargine (Insulin Glargine,Hum.Rec.Anlog 100 Unit/Ml 10 Ml Vial) 7 unit SUBCUT DAILY@1800 [facility] Last Admin: 02/27/22 21:01 Dose: Not Given Documented by: Insulin Human Lispro (Insulin Lispro 100 Unit/Ml 3 Ml Vial) 0 unit SUBCUT QIDACHS [facility]; Protocol Last Admin: 02/28/22 08:24 Dose: 6 unit Documented by: Lisinopril (Lisinopril 2.5 Mg Tablet) 2.5 mg PO DAILY [facility]; Protocol Last Admin: 02/28/22 08:24 Dose: 2.5 mg Documented by: Morphine Sulfate (Morphine Sulfate 4 Mg/Ml Cartridge) 4 mg IVPUSH Q4H PRN; Protocol PRN Reason: Pain, Severe (Pain Scale 7-10) Last Admin: 02/26/22 10:32 Dose: 4 mg Documented by: Ondansetron HCl (Ondansetron Hcl 4 Mg/2 Ml Vial) 4 mg IVPUSH Q8H PRN PRN Reason: Nausea and Vomiting Oxycodone HCl (Oxycodone Hcl Immed Release 5 Mg Tablet) 5 mg PO Q3H PRN PRN Reason: Pain, Moderate (Pain Scale 4-6 Pharmacy Consult (Consult Rx Perform Med Rec) 1 each MISCELLANE ONCE PRN PRN Reason: Consult order Pharmacy Consult (Consult Rx Vancomycin Dosing) 1 each MISCELLANE DAILY PRN PRN Reason: Consult order Sodium Chloride (0.9 % Sodium Chloride Flush 3 Ml Syringe) 3 ml IVFLUSH [facility] Last Admin: 02/28/22 08:24 Dose: 3 ml Documented by: Time Spent With Patient Time: Total time spent is greater than 50% in coordination of care (as documented) at patient's floor/unit and/or counseling patient: Procedures Date of Service Date of Service: 02/28/22 Quality Stroke Does the patient have a stroke diagnosis?: No VTE Prior VTE?: No VTE Risk Level:: Medical - moderate - high VTE Device Contraindication: N/A - Device Ordered VTE Drug Contraindication: Treatment Not Indicated
--- NOTE | 2022-02-28 10:43 | HO.PM.IMPN ---
Subjective Subjective Date of Service: 02/28/22 Interval History: the patient was seen and evaluated this morning pain in foot significantly improved Surgical site clean with no drainage Denies any fever, chills or shortness of breath Systemic review: No fever, chills or weakness No chest pain, palpitation No shortness of breath or coughing No abdominal pain, nausea or vomiting No urinary symptoms pain improved Physical Exam Vital Signs: Vital Signs: Last Vital Signs Temp 97.9 F 02/28/22 07:35 Pulse 83 02/28/22 08:35 Resp 18 02/28/22 07:35 BP 109/56 L 02/28/22 08:35 Pulse Ox 93 02/28/22 08:35 BMI result Body Mass Index 18.8 Const: Other: Appearance: Alert. Oriented X3. No acute distress. Eyes: Pupils equal, round and reactive to light. ENT: Pharynx normal. Neck: Normal inspection. Neck supple. No lymph nodes noted. No crepitus CVS: Normal heart rate and rhythm. Pulses normal. Normal S1 and S2 Respiratory: No respiratory distress. Breath sounds normal. No Wheezing. No rales Abdomen: Soft and nontender. No rigidity. No distention. Skin: Skin warm and dry. Normal skin color. Normal skin turgor. Extremities: left foot in dressing with no drainage noted Neuro: Oriented X 3. No motor deficit. No slurred speech. CN 2 through 12 grossly intact Psych: calm, cooperative, normal affect Objective Data Active Medications Acetaminophen (Acetaminophen 325 Mg Tablet) 650 mg PO Q6H PRN PRN Reason: Pain, Mild (Pain Scale 1-3) Atorvastatin Calcium (Atorvastatin Calcium 80 Mg Tablet) 80 mg PO BEDTIME [facility] Last Admin: 02/27/22 20:53 Dose: 80 mg Documented by: ISACC Clopidogrel Bisulfate (Clopidogrel Bisulfate 75 Mg Tablet) 75 mg PO DAILY [facility] Last Admin: 02/28/22 08:24 Dose: 75 mg Documented by: DEMOND Dextrose (Dextrose 50 % 25 Gm/50 Ml Syringe) 25 gm IVPUSH Q15M PRN; Protocol PRN Reason: per Hypoglycemia Standing Ord. Docusate Sodium (Docusate Sodium 100 Mg Capsule) 100 mg PO DAILY PRN PRN Reason: Constipation Furosemide (Furosemide 40 Mg Tablet) 40 mg PO BID@0900,1800 [facility]; Protocol Last Admin: 02/28/22 08:24 Dose: 40 mg Documented by: DEMOND Gabapentin (Gabapentin 100 Mg Capsule) 100 mg PO BID [facility] Last Admin: 02/28/22 08:24 Dose: 100 mg Documented by: DEMOND Gabapentin (Gabapentin 300 Mg Capsule) 300 mg PO BEDTIME [facility] Last Admin: 02/27/22 20:53 Dose: 300 mg Documented by: ISACC Glucose (Glucose Gel 15 Gm Gel..Gram.) 15 gm PO Q15M PRN; Protocol PRN Reason: per Hypoglycemia Standing Ord. Insulin Glargine (Insulin Glargine,Hum.Rec.Anlog 100 Unit/Ml 10 Ml Vial) 7 unit SUBCUT DAILY@1800 [facility] Last Admin: 02/27/22 21:01 Dose: Not Given Documented by: ISACC Non-Admin Reason: Patient Refused Insulin Human Lispro (Insulin Lispro 100 Unit/Ml 3 Ml Vial) 0 unit SUBCUT QIDACHS [facility]; Protocol Last Admin: 02/28/22 08:24 Dose: 6 unit Documented by: DEMOND Lisinopril (Lisinopril 2.5 Mg Tablet) 2.5 mg PO DAILY [facility]; Protocol Last Admin: 02/28/22 08:24 Dose: 2.5 mg Documented by: DEMOND Morphine Sulfate (Morphine Sulfate 4 Mg/Ml Cartridge) 4 mg IVPUSH Q4H PRN; Protocol PRN Reason: Pain, Severe (Pain Scale 7-10) Last Admin: 02/26/22 10:32 Dose: 4 mg Documented by: FRAKNLIN Ondansetron HCl (Ondansetron Hcl 4 Mg/2 Ml Vial) 4 mg IVPUSH Q8H PRN PRN Reason: Nausea and Vomiting Oxycodone HCl (Oxycodone Hcl Immed Release 5 Mg Tablet) 5 mg PO Q3H PRN PRN Reason: Pain, Moderate (Pain Scale 4-6 Pharmacy Consult (Consult Rx Perform Med Rec) 1 each MISCELLANE ONCE PRN PRN Reason: Consult order Pharmacy Consult (Consult Rx Vancomycin Dosing) 1 each MISCELLANE DAILY PRN PRN Reason: Consult order Sodium Chloride (0.9 % Sodium Chloride Flush 3 Ml Syringe) 3 ml IVFLUSH [facility] Last Admin: 02/28/22 08:24 Dose: 3 ml Documented by: DEMOND Labs CBC & Chem 7: 02/28/22 05:58 02/28/22 05:58 Labs: Laboratory Results - last 24 hr 02/27/22 02/27/22 02/27/22 11:13 15:39 16:57 MCV MCH MCHC RDW Plt Count MPV Absolute Nucleated RBC Nucleated RBC % (auto) Anion Gap Estim Creat Clear Calc Estimated GFR POC Glucose 154 H 137 H 141 H Random Glucose Calcium Random Vancomycin 02/27/22 02/27/22 02/28/22 20:16 20:21 05:58 MCV 88.2 MCH 29.4 MCHC 33.3 RDW 12.9 Plt Count 344 MPV 11.0 Absolute Nucleated RBC 0.000 Nucleated RBC % (auto) 0.0 Anion Gap Estim Creat Clear Calc Estimated GFR POC Glucose 156 H Random Glucose Calcium Random Vancomycin 9.1 L 02/28/22 02/28/22 05:58 07:38 MCV MCH MCHC RDW Plt Count MPV Absolute Nucleated RBC Nucleated RBC % (auto) Anion Gap 19 Estim Creat Clear Calc 37.5 Estimated GFR > 60 POC Glucose 284 H Random Glucose 271 H D Calcium 9.0 Random Vancomycin Microbiology Microbiology Results: Microbiology 02/25/22 18:06 Blood Culture - Preliminary Blood - Venous No growth after 48 hours. 02/25/22 17:26 Blood Culture - Preliminary Blood - Venous No growth after 48 hours. Assessment and Plan (1) Gangrene of foot: Status: Acute (2) Amputated great toe of left foot: Status: Acute Plan 81-year-old male with history of PVD presents the hospital with complaints of gangrenous foot # gangrenous foot on the left s/p Amputation big toe Pod 1 discontinue IV antibiotics start oral doxycycline follow cultures start physical therapy # PAD continue Plavix and statin # CHF no acute exacerbation continue Lasix # diabetes low-dose sliding scale insulin continue Levemir DVT prophylaxis: SCDs in the anticipation of surgical intervention in a.m. the patient will need overnight hospital stay for Recovery after amputation and to do physical therapy given his high risk for decompensation and post surgery care. Quality Stroke Does the patient have a stroke diagnosis?: No VTE Prior VTE?: No VTE Risk Level:: Medical - moderate - high VTE Device Contraindication: N/A - Device Ordered VTE Drug Contraindication: Treatment Not Indicated
--- NOTE | 2022-02-28 11:19 | PC.NURSE ---
pt vomited small amount 0730 Dr Palacio made aware. No complaints of nausea or pain. Pt afebrile. Pt vomited small amount of brown liquid 1050 with RN at bedside. Dr Palacio made aware and came to bedside. Vitals checked. O2 sat 77, BP 93/51. Rapid Response called. Pt placed in reverse trendelenberg. Oxygen placed, 15 L non rebreather. Pts BP and O2 stabilized, current BP 133/60. O2 97 on 15L non rebreather. CXR ordered. Will continue to monitor.
[2022-02-28 11:32] LABS: ABG Base Excess 11.2 mmol/L; ABG HCO3 34 mmol/L (22-26); ABG pCO2 39 mmHg (32-45); ABG pH 7.55 (7.35-7.45); ABG pO2 79 mmHg (83-108)
[2022-02-28 11:36] LABS: Glucose, Whole Blood 212 mg/dL (60-115)
[2022-02-28 11:37] LABS: ABG Refer to POC result
--- NOTE | 2022-02-28 11:41 | P.CDIC_ITS ---
CDI Concurrent Query Documentation Clarification: PHYSICIAN'S DOCUMENTATION REQUEST Date of Query: 02/28/22 1141 Patient Name: Sanchez Samaniego Admit Date: 02/25/22 Dear Doctor, A review of the medical record indicates additional documentation may be needed. Please review below and update the documentation accordingly. Clinical Indicators: Height: [] 5'4 Weight: [] 49.895 kg BMI: [] 18.9 Other Clinical Notes Supporting Significance of the BMI: Risk Factors/Clinical Indicators/Treatments Per Nutrition note 02/27/22: Patient is severely malnourished Severely depleted sq fat and muscle mass 23% significant weight loss x 6 months with chronic poor po intake If possible, please provide an associated diagnosis related to the abnormal BMI, such as: For a BMI <= 19: * Underweight * Weight loss * Cachexia * Anorexia Or: * BMI is not significant * Other (please specify) * Unable to determine Use of terms such as suspected, likely, concern for, or probable (associated with a specific diagnosis that is being evaluated, monitored, or treated as if it exists) are acceptable and can be coded in the inpatient setting, when documented at the time of discharge. Thank you, Robyn Monae [insert CDI's credentials] Extension: [4-digit phone extension] Please use your independent medical judgment in providing your response. THIS QUERY IS PART OF THE PERMANENT MEDICAL RECORD Provider Response: Severe Protein-Calorie Malnutrition Other Diagnosis: Severe malnu
--- NOTE | 2022-02-28 12:26 | MHC.CLN ---
F/U PT IS SEVERELY MALNOURISHED. / AMPUTATION OF LEFT GREAT TOE. DIET ADVANCED POST SURGERY. RD RECOMMENDS DIABETIC 1800 KCALS WITH ENSURE TID TO INCREASE CALORIES. ENSURE PROVIDES 1050 KCAL, 60 G PROTEIN. CURRENT INTAKE LIMITED POST SURGERY. MONITOR PO INTAKE CLOSELY.
--- NOTE | 2022-02-28 14:50 | MHC.CM.PN ---
PLAN WAS FOR PATIENT TO RETURN HOME Thursday03/01/22. RAPID RESPONSE AND NOW ON HIGHFLOW O2 CASE MANAGEMENT FOLLOWING.
[2022-02-28] MEDS: 0.9 % Sodium Chloride 1,000 ML 999 ML IV (15:16)
[2022-02-28 16:15] LABS: Glucose, Whole Blood 135 mg/dL (60-115)
[2022-02-28] MEDS: Enoxaparin Sodium 60 MG/0.6 ML SYRINGE 50 MG SUBCUT (16:48)
[2022-02-28] MEDS: iohexoL 350 MG/ML 100 ML INFUS..BTL IV (17:28)
[2022-02-28 20:02] LABS: Glucose, Whole Blood 218 mg/dL (60-115)
[2022-02-28] MEDS: Insulin Glargine,Hum.rec.anlog 100 UNIT/ML 10 ML VIAL 7 UNIT SUBCUT (21:10)
[2022-02-28 21:36] LABS: Appearance Urine CLEAR; Color Urine YELLOW; Glucose Urine UA 100 MG/DL (NEG); Leukocyte Esterase Urine NEG (NEG); Nitrite Urine NEG (NEG); PH 5.5 (5.0-8.0); Specific Gravity - Urine 1.025 (1.005-1.025); Urine Blood TRACE (NEG); Urine Ketones 5 MG/DL (NEG); Urine Protein 1+ MG/DL (NEG-TRACE)
[2022-02-28 21:47] LABS: Amorphous Sediment Urine 1+ /LPF; Bacteria Urine 2+ /LPF; Mucus Urine TRACE /LPF; Renal Epithelial Cells Urine TRACE /LPF; WBC Urine 0-2 /HPF (0-4)
[2022-03-01] VITALS (7 sets, daily range): BP systolic 86–140; BP diastolic 48–78; PULSE 56–76; RESP 16–20; TEMP 36.1–36.4; O2SAT 94–100
[2022-03-01] MEDS: 0.9 % Sodium Chloride Flush 3 ML SYRINGE IVFLUSH ×2 (00:24→15:51)
[2022-03-01] MEDS: Piperacillin Sodium/Tazobactam 3.375 GM in 0.9 % Sodium Chloride 50 ML IV ×4 (01:41→20:17)
--- NOTE | 2022-03-01 04:56 | PC.NURSE ---
PATIENT NOTED ON 409 ROUNDS TO HAVE VITALS SIGHNS OF 97.1-56-18-86/48, OXYGEN ON BY NONREBREATHER AT 7L/M AND SATS 100%. PT WITH NO DISTRESS, DENIES PAIN OR NAUSEA. REPOSITIONED AND SIPS OF WATER TAKE. PT ALSO NOTED TO NOT SHOWING ANY URINE VOIDS SINCE HIS ST CATH PREVIOUS SHIFT AT [place], 1999. BLADDER SCAN TIMES 3 TRIES WITH ONLY 73ML REVEALED. HOSPITALIST ALERTED TO LOW BP AND IVF OF LR BOLUS TIMES 1 ORDERED AND SHE ALSO PUT IN THE ORDER FOR THE MAP PLOTTER THAT WAS PLACED PREVIOUS SHIFT ALSO. C GOLF BALL MARKER STATED SINUS RHYTHM WITH FREQUENT PVC'S WAS ALSO PREVIOUS READING. PATIENT AWAKE, SAYING SIMPLE ANSWERS, COLOR GOOD, LUNG LAWRENCE REMAIN DIM. WILL CONTINUE TO MONITOR CLOSELY AND RECHECK BLOOD PRESSURES
[2022-03-01] MEDS: Lactated Ringers 1,000 ML 999 ML IV (05:39)
[2022-03-01 06:02] LABS: Hematocrit 34.6 % (42.0-52.0); Hemoglobin 11.3 g/dl (14.0-18.0); Mean Corpuscular HGB Conc 32.7 g/dl (31.0-36.0); Mean Corpuscular Volume 88.9 fL (80.0-98.0); Mean Platelet Volume 11.5 fL (9.4-12.4); Platelet Count 255 X10*3/uL (160-400); Red Blood Count 3.89 X10*6/uL (4.60-5.80); Red Cell Distribution Width 13.1 % (11.0-16.0); White Blood Count 20.1 X10*3/uL (4.8-10.8)
--- NOTE | 2022-03-01 06:05 | PC.NURSE ---
PATIENT IVF LR BOLUS COMPLETED; VITALS WHEN ABOUT 20 MINUTES FROM COMPLETION WERE 140/78-76-20 AND 100% ON 7 LITERS NON RE-BREATHER. OXYGEN LOWERED TO 4 LITERS AND DELIVERED NOW BY NASAL CANNULA WITH VITALS TO 127/58-68-20 AND 97%. PT WITH NO S/SX DISTRESS, DENIES PAIN, CONTINUE TO MONITOR VOIDS. HOSPITALIST UPDATED AND RESPONDED TO TIGER TEXT MESSAGE. WILL CONT TO MONITOR
[2022-03-01 06:36] LABS: Anion Gap 19 (12-20); Blood Urea Nitrogen 41 mg/dL (9-16); Calcium 8.4 mg/dL (8.4-10.2); Carbon Dioxide 25 mmol/L (22-29); Chloride 103 mmol/L (96-108); Creatinine Clr Calc Pharmacy 23.7; Estimated Glomerular Filt Rate 39; Glucose Random 273 mg/dL (60-115); Potassium 3.3 mmol/L (3.3-5.1); Sodium 144 mmol/L (135-145)
[2022-03-01 07:54] LABS: Glucose, Whole Blood 262 mg/dL (60-115)
[2022-03-01] MEDS: Metoclopramide HCl 10 MG/2 ML VIAL 5 MG IVPUSH ×3 (08:29→20:19)
[2022-03-01] MEDS: methylPREDNISolone Sod Succ 40 MG/ML VIAL IVPUSH ×2 (08:29→20:19)
[2022-03-01] MEDS: Clopidogrel Bisulfate 75 MG TABLET PO (08:30)
[2022-03-01 11:08] LABS: Glucose, Whole Blood 294 mg/dL (60-115)
--- NOTE | 2022-03-01 13:18 | P.PNIM_ITS ---
Subjective Subjective Date of Service: 03/01/22 Interval History: the patient was seen and evaluated this morning pain in foot significantly improved Surgical site clean with no drainage noted to dilatation of the stomach and esophagus on CTA Noted to urine retention Denies any fever, chills or shortness of breath Systemic review: No fever, chills or weakness No chest pain, palpitation No shortness of breath or coughing No abdominal pain, nausea or vomiting Decrease urine output pain improved Physical Exam Vital Signs: Vital Signs: Last Vital Signs Temp 97.2 F 03/01/22 07:32 Pulse 67 03/01/22 07:32 Resp 18 03/01/22 07:32 BP 103/50 L 03/01/22 07:32 Pulse Ox 99 03/01/22 07:32 BMI result Body Mass Index 18.8 Const: Other: Appearance: Alert. interactive. No acute distress. Eyes: Pupils equal, round and reactive to light. ENT: Pharynx normal. Neck: Normal inspection. Neck supple. No lymph nodes noted. No crepitus CVS: Normal heart rate and rhythm. Pulses normal. Respiratory: No respiratory distress. basal bilateral more on the right crackles Abdomen: Soft and nontender. No rigidity. No distention. Skin: Skin warm and dry. Extremities: left foot in dressing with no drainage noted Neuro: Oriented to self. No motor deficit. No slurred speech. CN 2 through 12 grossly intact Psych: calm, cooperative, normal affect Objective Data Active Medications Acetaminophen (Acetaminophen 325 Mg Tablet) 650 mg PO Q6H PRN PRN Reason: Pain, Mild (Pain Scale 1-3) Atorvastatin Calcium (Atorvastatin Calcium 80 Mg Tablet) 80 mg PO BEDTIME [facility] Last Admin: 02/28/22 21:16 Dose: Not Given Documented by: ROCHELLE Non-Admin Reason: Physician Approved Clopidogrel Bisulfate (Clopidogrel Bisulfate 75 Mg Tablet) 75 mg PO DAILY [facility] Last Admin: 03/01/22 08:30 Dose: 75 mg Documented by: LUDY Dextrose (Dextrose 50 % 25 Gm/50 Ml Syringe) 25 gm IVPUSH Q15M PRN; Protocol PRN Reason: per Hypoglycemia Standing Ord. Docusate Sodium (Docusate Sodium 100 Mg Capsule) 100 mg PO DAILY PRN PRN Reason: Constipation Furosemide (Furosemide 40 Mg Tablet) 40 mg PO DAILY [facility]; Protocol Last Admin: 03/01/22 08:34 Dose: Not Given Documented by: LUDY Non-Admin Reason: Physician Held Med Gabapentin (Gabapentin 100 Mg Capsule) 100 mg PO BID [facility] Last Admin: 02/28/22 08:24 Dose: 100 mg Documented by: DEMOND Gabapentin (Gabapentin 300 Mg Capsule) 300 mg PO BEDTIME [facility] Last Admin: 02/28/22 21:16 Dose: Not Given Documented by: ROCHELLE Non-Admin Reason: Physician Approved Glucose (Glucose Gel 15 Gm Gel..Gram.) 15 gm PO Q15M PRN; Protocol PRN Reason: per Hypoglycemia Standing Ord. Piperacillin Sod/Tazobactam (Sod 3.375 gm/ Sodium Chloride) 50 mls @ 100 mls/hr IV Q6H [facility] Last Infusion: 03/01/22 09:51 Dose: 0 mls/hr Documented by: LUDY Insulin Glargine (Insulin Glargine,Hum.Rec.Anlog 100 Unit/Ml 10 Ml Vial) 7 unit SUBCUT DAILY@1800 [facility] Last Admin: 02/28/22 21:10 Dose: 7 unit Documented by: ROCHELLE Insulin Human Lispro (Insulin Lispro 100 Unit/Ml 3 Ml Vial) 0 unit SUBCUT QIDACHS [facility]; Protocol Last Admin: 03/01/22 11:05 Dose: Not Given Documented by: LUDY Non-Admin Reason: NPO Lisinopril (Lisinopril 2.5 Mg Tablet) 2.5 mg PO DAILY [facility]; Protocol Last Admin: 02/28/22 08:24 Dose: 2.5 mg Documented by: DEMOND Methylprednisolone Sodium Succinate (Methylprednisolone Sod Succ 40 Mg/Ml Vial) 40 mg IVPUSH Q12H [facility] Last Admin: 03/01/22 08:29 Dose: 40 mg Documented by: KRISHNA Metoclopramide HCl (Metoclopramide Hcl 10 Mg/2 Ml Vial) 5 mg IVPUSH TID [facility] Last Admin: 03/01/22 08:29 Dose: 5 mg Documented by: KRISHNA Ondansetron HCl (Ondansetron Hcl 4 Mg/2 Ml Vial) 4 mg IVPUSH Q8H PRN PRN Reason: Nausea and Vomiting Oxycodone HCl (Oxycodone Hcl Immed Release 5 Mg Tablet) 5 mg PO Q3H PRN PRN Reason: Pain, Moderate (Pain Scale 4-6 Pharmacy Consult (Consult Rx Perform Med Rec) 1 each MISCELLANE ONCE PRN PRN Reason: Consult order Pharmacy Consult (Consult Rx Vancomycin Dosing) 1 each MISCELLANE DAILY PRN PRN Reason: Consult order Sodium Chloride (0.9 % Sodium Chloride Flush 3 Ml Syringe) 3 ml IVFLUSH QSHIFT [facility] Last Admin: 03/01/22 08:33 Dose: Not Given Documented by: LUDY Non-Admin Reason: IV Running Labs CBC & Chem 7: 03/01/22 05:44 03/01/22 05:44 Labs: Laboratory Results - last 24 hr 02/28/22 02/28/22 02/28/22 16:07 19:41 20:30 MCV MCH MCHC RDW Plt Count MPV Absolute Nucleated RBC Nucleated RBC % (auto) Anion Gap Estim Creat Clear Calc Estimated GFR POC Glucose 135 H 218 H Random Glucose Calcium Urine Color YELLOW Urine Appearance CLEAR Urine pH 5.5 Ur Specific [place] 1.025 Urine Protein 1+ H Urine Glucose (UA) 100 H Urine Ketones 5 Urine Blood TRACE Urine Nitrite NEG Ur Leukocyte Esterase NEG Urine RBC 1-4 Urine WBC 0-2 Ur Squamous Epith Cells NONE Ur Renal Epithelial Cell TRACE Amorphous Sediment 1+ Urine Bacteria 2+ Urine Mucus TRACE 03/01/22 03/01/22 03/01/22 05:44 05:44 07:30 MCV 88.9 MCH 29.0 MCHC 32.7 RDW 13.1 Plt Count 255 D MPV 11.5 Absolute Nucleated RBC 0.000 Nucleated RBC % (auto) 0.0 Anion Gap 19 Estim Creat Clear Calc 23.7 Estimated GFR 39 POC Glucose 262 H Random Glucose 273 H Calcium 8.4 D Urine Color Urine Appearance Urine pH Ur Specific [place] Urine Protein Urine Glucose (UA) Urine Ketones Urine Blood Urine Nitrite Ur Leukocyte Esterase Urine RBC Urine WBC Ur Squamous Epith Cells Ur Renal Epithelial Cell Amorphous Sediment Urine Bacteria Urine Mucus 03/01/22 11:04 MCV MCH MCHC RDW Plt Count MPV Absolute Nucleated RBC Nucleated RBC % (auto) Anion Gap Estim Creat Clear Calc Estimated GFR POC Glucose 294 H Random Glucose Calcium Urine Color Urine Appearance Urine pH Ur Specific [place] Urine Protein Urine Glucose (UA) Urine Ketones Urine Blood Urine Nitrite Ur Leukocyte Esterase Urine RBC Urine WBC Ur Squamous Epith Cells Ur Renal Epithelial Cell Amorphous Sediment Urine Bacteria Urine Mucus Assessment and Plan (1) Amputated great toe of left foot: Status: Acute (2) Aspiration pneumonia: Status: Acute (3) Dilatation of esophagus: Status: Acute Plan 81-year-old male with history of PVD presents the hospital with complaints of gangrenous foot # gangrenous foot on the left s/p Amputation big toe Pod 2 discontinue IV antibiotics start oral doxycycline follow cultures To do physical therapy # aspiration pneumonia/ pneumonitis Treated with IV antibiotics start steroids # Dilated stomach and esophagus Seen on CTA with fluid filled NG tube placed KUB showed unremarkable bowel gas pattern To get surgery evaluation # hypotension Has episodes of hypotension Hold blood pressure medications Could be secondary vagal stimulation from dilated stomachNot due to sepsis Give IV fluid as needed Monitor BP # PAD continue Plavix and statin # CHF no acute exacerbation continue Lasix # diabetes low-dose sliding scale insulin continue Levemir DVT prophylaxis: SCDs in the anticipation of surgical intervention in a.m. the patient will need overnight hospital stay for Recovery after amputation and to do physical therapy, treatment of pneumonia and evaluation of fluid-filled dilated stomach given his high risk for decompensation and post surgery care. Quality Stroke Does the patient have a stroke diagnosis?: No VTE Prior VTE?: No VTE Risk Level:: Medical - moderate - high VTE Device Contraindication: N/A - Device Ordered VTE Drug Contraindication: Treatment Not Indicated
--- NOTE | 2022-03-01 15:31 | PM.CNGS ---
History of Present Illness Consult details Consult date: 03/01/22 Reason for consult: other Requesting physician: Maximus Palacio Narrative: The pt is an 81 year old male who had an infected toe ampuated and was in the hospital and had a CTA to rule out a PE and on the CTA was noted to have a very distended stomach and esophagus filled with fluid. pt has not been that receptive to eating and this may be why. NG tube was placed and greenish brownish fluid removed 200 cc immediately. Pt also with diabetes. last fall had some dysphagia dn had swallow eval which was ok. Dr Hoff did an EGD in 08/13 and showed esop[hagitis but very diffuse and moderate gastritis ? H pylori - pt does has history of stomach issues then and no masses causing obstruction noted then . 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 Troponin level elevated Type 2 diabetes mellitus with unspecified complications Social History Social History Household Members: Children Housing: Apartment Do you presently have visiting nurse or other home services: Yes Unable to assess alcohol history related to: Unknown Alcohol intake: unknown Patient Tobacco Use Status: Former Tobacco user Quit Date: 1999 Tobacco use type: Cigarette Years Smoked: 4 Advance Directives Date on File: 08/15/21 service: No Current occupational status: unemployed Meds Allergies Allergy/AdvReac Type Severity Reaction Status Date / Time No Known Allergies Allergy Verified 02/25/22 16:27 [No Known Allergies*] Active Medications: Current Medications Acetaminophen (Acetaminophen 325 Mg Tablet) 650 mg PO Q6H PRN PRN Reason: Pain, Mild (Pain Scale 1-3) Atorvastatin Calcium (Atorvastatin Calcium 80 Mg Tablet) 80 mg PO BEDTIME [facility] Last Admin: 02/28/22 21:16 Dose: Not Given Documented by: Clopidogrel Bisulfate (Clopidogrel Bisulfate 75 Mg Tablet) 75 mg PO DAILY [facility] Last Admin: 03/01/22 08:30 Dose: 75 mg Documented by: Dextrose (Dextrose 50 % 25 Gm/50 Ml Syringe) 25 gm IVPUSH Q15M PRN; Protocol PRN Reason: per Hypoglycemia Standing Ord. Docusate Sodium (Docusate Sodium 100 Mg Capsule) 100 mg PO DAILY PRN PRN Reason: Constipation Furosemide (Furosemide 40 Mg Tablet) 40 mg PO DAILY [facility]; Protocol Last Admin: 03/01/22 08:34 Dose: Not Given Documented by: Gabapentin (Gabapentin 100 Mg Capsule) 100 mg PO BID [facility] Last Admin: 02/28/22 08:24 Dose: 100 mg Documented by: Gabapentin (Gabapentin 300 Mg Capsule) 300 mg PO BEDTIME [facility] Last Admin: 02/28/22 21:16 Dose: Not Given Documented by: Glucose (Glucose Gel 15 Gm Gel..Gram.) 15 gm PO Q15M PRN; Protocol PRN Reason: per Hypoglycemia Standing Ord. Piperacillin Sod/Tazobactam (Sod 3.375 gm/ Sodium Chloride) 50 mls @ 100 mls/hr IV Q6H [facility] Last Infusion: 03/01/22 15:08 Dose: Infused Documented by: Insulin Glargine (Insulin Glargine,Hum.Rec.Anlog 100 Unit/Ml 10 Ml Vial) 7 unit SUBCUT DAILY@1800 [facility] Last Admin: 02/28/22 21:10 Dose: 7 unit Documented by: Insulin Human Lispro (Insulin Lispro 100 Unit/Ml 3 Ml Vial) 0 unit SUBCUT QIDACHS [facility]; Protocol Last Admin: 03/01/22 11:05 Dose: Not Given Documented by: Lisinopril (Lisinopril 2.5 Mg Tablet) 2.5 mg PO DAILY [facility]; Protocol Last Admin: 02/28/22 08:24 Dose: 2.5 mg Documented by: Methylprednisolone Sodium Succinate (Methylprednisolone Sod Succ 40 Mg/Ml Vial) 40 mg IVPUSH Q12H [facility] Last Admin: 03/01/22 08:29 Dose: 40 mg Documented by: Metoclopramide HCl (Metoclopramide Hcl 10 Mg/2 Ml Vial) 5 mg IVPUSH TID [facility] Last Admin: 03/01/22 14:24 Dose: 5 mg Documented by: Ondansetron HCl (Ondansetron Hcl 4 Mg/2 Ml Vial) 4 mg IVPUSH Q8H PRN PRN Reason: Nausea and Vomiting Oxycodone HCl (Oxycodone Hcl Immed Release 5 Mg Tablet) 5 mg PO Q3H PRN PRN Reason: Pain, Moderate (Pain Scale 4-6 Pharmacy Consult (Consult Rx Perform Med Rec) 1 each MISCELLANE ONCE PRN PRN Reason: Consult order Pharmacy Consult (Consult Rx Vancomycin Dosing) 1 each MISCELLANE DAILY PRN PRN Reason: Consult order Sodium Chloride (0.9 % Sodium Chloride Flush 3 Ml Syringe) [facility] Admin: 03/01/22 08:33 Dose: Not Given Documented by: Home Medications Medication Instructions Recorded Confirmed Last Taken Type insulin detemir U-100 100 unit/mL 10 unit SUBCUT DAILY@1800 08/10/21 02/25/22 02/21/22 History (3 mL) subcutaneous pen (Levemir FlexTouch U-100 Insulin) docusate sodium 100 mg capsule 100 mg PO BID PRN 11/21/21 02/25/22 Unknown History ferrous sulfate 325 mg (65 mg 325 mg PO DAILY 11/21/21 02/25/22 02/21/22 History iron) tablet (FeroSul) gabapentin 300 mg capsule 300 mg PO BEDTIME 11/21/21 02/25/22 02/21/22 History insulin syringe-needle U-100 0.5 #10 ea 11/21/21 Unknown History mL 30 gauge x 1/2 (UltiCare) pen needle, diabetic 32 gauge x #50 ea 11/21/21 Unknown History (Pentips) blood sugar diagnostic (FreeStyle #10 ea 02/25/22 Unknown History Lite Strips) gabapentin 100 mg capsule 100 mg PO BID 02/25/22 02/25/22 02/21/22 History lancets 33 gauge (TRUEplus Lancets) #100 ea 02/25/22 Unknown History Physical Exam Vital Signs: Vital Signs: Last Vital Signs Temp 97.2 F 03/01/22 07:32 Pulse 67 03/01/22 07:32 Resp 18 03/01/22 07:32 BP 103/50 L 03/01/22 07:32 Pulse Ox 99 03/01/22 07:32 BMI result Body Mass Index 18.8 Const: Other: pt opens eyes and follow but not very cooperative with questions and directives GI: Other: abdomen is flat now ng in place with greenish material in canister strong bowel sounds ewith ng clamped no masses palpated seems nontender Results Labs Result diagrams: 03/01/22 05:44 03/01/22 05:44 Labs: Abnormal lab results 02/28/22 02/28/22 02/28/22 Range/Units 16:07 19:41 20:30 WBC (4.8-10.8) X10*3/uL RBC (4.60-5.80) X10*6/uL Hgb (14.0-18.0) g/dl Hct (42.0-52.0) % BUN (9-16) mg/dL Creatinine (0.5-1.4) mg/dL POC Glucose 135 H 218 H (60-115) mg/dL Random Glucose (60-115) mg/dL Urine Protein 1+ H (NEG-TRACE) MG/DL Urine Glucose (UA) 100 H (NEG) MG/DL 03/01/22 03/01/22 03/01/22 Range/Units 05:44 05:44 07:30 WBC 20.1 H (4.8-10.8) X10*3/uL RBC 3.89 L (4.60-5.80) X10*6/uL Hgb 11.3 L (14.0-18.0) g/dl Hct 34.6 L (42.0-52.0) % BUN 41 H D (9-16) mg/dL Creatinine 1.69 H (0.5-1.4) mg/dL POC Glucose 262 H (60-115) mg/dL Random Glucose 273 H (60-115) mg/dL Urine Protein (NEG-TRACE) MG/DL Urine Glucose (UA) (NEG) MG/DL 03/01/22 Range/Units 11:04 WBC (4.8-10.8) X10*3/uL RBC (4.60-5.80) X10*6/uL Hgb (14.0-18.0) g/dl Hct (42.0-52.0) % BUN (9-16) mg/dL Creatinine (0.5-1.4) mg/dL POC Glucose 294 H (60-115) mg/dL Random Glucose (60-115) mg/dL Urine Protein (NEG-TRACE) MG/DL Urine Glucose (UA) (NEG) MG/DL Short CBC 03/01/22 Range/Units 05:44 WBC 20.1 H (4.8-10.8) X10*3/uL Hgb 11.3 L (14.0-18.0) g/dl Hct 34.6 L (42.0-52.0) % Plt Count 255 D (160-400) X10*3/uL BMP 03/01/22 05:44 Sodium 144 Potassium 3.3 Chloride 103 Carbon Dioxide 25 BUN 41 H D Creatinine 1.69 H Calcium 8.4 D Urine 02/28/22 Range/Units 20:30 Urine Color YELLOW Urine Appearance CLEAR Urine pH 5.5 (5.0-8.0) Ur Specific [place] 1.025 (1.005-1.025) Urine Protein 1+ H (NEG-TRACE) MG/DL Urine Glucose (UA) 100 H (NEG) MG/DL All other labs normal. Imaging CT scan - chest: report reviewed and image reviewed Assessment and Plan (1) Dilatation of esophagus: Status: Acute Plan pt with dilated esophagus and stomach - most likely due to functional vs a mechanical obstructive process. he is diabetic and may have some gastroparesis. His egd last year not showing any masses is reassuring - agree with ngtube decompression for at least another 24 hrs and round the clock reglan tjo improve gastric function GI consult to eventually scope and ro mass ? recurrent h pylori infection - treat as needed Procedures Date of Service Date of Service: 03/01/22
[2022-03-01] MEDS: Lactated Ringers 1,000 ML 50 ML IVCONT (16:08)
[2022-03-01 16:30] LABS: Glucose, Whole Blood 312 mg/dL (60-115)
[2022-03-01] MEDS: Insulin Glargine,Hum.rec.anlog 100 UNIT/ML 10 ML VIAL 7 UNIT SUBCUT (17:16)
[2022-03-01] MEDS: Insulin Lispro 100 UNIT/ML 3 ML VIAL SUBCUT ×2 (17:16→20:18)
[2022-03-01 20:00] LABS: Glucose, Whole Blood 214 mg/dL (60-115)
--- NOTE | 2022-03-01 20:37 | PC.NURSE ---
P BS 214 ,patient is NPO I Dr. David notified E only 2 units to be administered per Dr. David
[2022-03-02] MEDS: Piperacillin Sodium/Tazobactam 3.375 GM in 0.9 % Sodium Chloride 50 ML IV ×4 (02:18→21:15)
[2022-03-02 03:50] VITALS: BP 115/57; PULSE 72; RESP 14; TEMP 36.4; O2SAT 100
[2022-03-02 04:15] LABS: Hematocrit 32.8 % (42.0-52.0); Hemoglobin 11.1 g/dl (14.0-18.0); Mean Corpuscular HGB Conc 33.8 g/dl (31.0-36.0); Mean Corpuscular Hemoglobin 29.8 pg (27.0-33.0); Mean Corpuscular Volume 87.9 fL (80.0-98.0); Mean Platelet Volume 11.7 fL (9.4-12.4); Platelet Count 305 X10*3/uL (160-400); Red Blood Count 3.73 X10*6/uL (4.60-5.80); Red Cell Distribution Width 13.2 % (11.0-16.0); White Blood Count 21.8 X10*3/uL (4.8-10.8)
[2022-03-02 04:48] LABS: Anion Gap 20 (12-20); Blood Urea Nitrogen 60 mg/dL (9-16); Calcium 8.3 mg/dL (8.4-10.2); Carbon Dioxide 27 mmol/L (22-29); Chloride 101 mmol/L (96-108); Creatinine Clr Calc Pharmacy 15.2; Estimated Glomerular Filt Rate 23; Glucose Random 212 mg/dL (60-115); Potassium 3.3 mmol/L (3.3-5.1); Sodium 145 mmol/L (135-145)
[2022-03-02 07:31] VITALS: BP 138/59; PULSE 76; RESP 20; TEMP 36.2; O2SAT 99
[2022-03-02 07:33] LABS: Glucose, Whole Blood 236 mg/dL (60-115)
[2022-03-02] MEDS: Metoclopramide HCl 10 MG/2 ML VIAL 5 MG IVPUSH ×3 (09:19→21:15)
[2022-03-02] MEDS: methylPREDNISolone Sod Succ 40 MG/ML VIAL IVPUSH (09:19)
[2022-03-02] MEDS: Clopidogrel Bisulfate 75 MG TABLET PO (09:41)
[2022-03-02 11:06] VITALS: BP 99/56; PULSE 50; RESP 20; TEMP 36.4; O2SAT 90
--- NOTE | 2022-03-02 11:22 | P.CNGI_ITS ---
History of Present Illness Data of Consult Service Date: 03/02/22 Requesting physician: Maximus Palacio Primary Care Provider: MD SOPHIA Guerrero Reason for consult: dilated esophagus and stomach 81-year-old male with PVD,? diabetes, dementia, neuropathy, CAD, history of heart failure? [place] [facility] with left great toe gangrene. 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 Pt denies abdominal pain, nausea or vomiting. NG tube was passed yesterday with drainage of 1000 cc of dark brown fluid. Out put was 200 cc overnight and 500 cc today (included 250 to 300 cc of oral in take) Tube is clamped at present IMAGING STUDIES: 02/28/22 CT ANGIOGRAM SHOWED: No evidence of acute pulmonary artery embolus. No evidence of thoracic aortic aneurysm or dissection. Very distended stomach with fluid filled esophagus to the level of the thoracic inlet. Bilateral lower lobe consolidation which may be related to atelectasis or pneumonitis right greater than left. Possibility of aspiration pneumonia should be included with the very distended stomach and esophagus. ENDOSCOPIC STUDIES: 07/2021 EGD was performed by Dr. Hoff for evaluation of dysphagia and epigastric pain: Esophagus:? The esophagus was normal.? There was no stricture or mass.? There were a few whitish plaques in the distal esophagus.? There was no esophagitis. Biopsies were obtained at 37 cm. Stomach:? The stomach showed gastritis with diffuse erythema scattered throughout.? No ulceration was identified. Duodenum:? The bulb and second portion were normal.? Antral biopsies were obtained to rule out H pylori. IMPRESSION:?Gastritis. BIOPSIES SHOWED: A.? Stomach, antrum, biopsy: - Antral-type mucosa with severe chronic inactive inflammation and intestinal metaplasia; no dysplasia seen. - Rare forms suspicious for H. pylori identified. B.? Esophagus, 37 cm, biopsy:? Chronic active esophagitis (few eosinophils). 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 Troponin level elevated Type 2 diabetes mellitus with unspecified complications Social History Social History Household Members: Children Housing: Apartment Do you presently have visiting nurse or other home services: Yes Unable to assess alcohol history related to: Unknown Alcohol intake: unknown Patient Tobacco Use Status: Former Tobacco user Quit Date: 1999 Tobacco use type: Cigarette Years Smoked: 4 Advance Directives Date on File: 08/15/21 service: No Current occupational status: unemployed Meds Allergies Allergy/AdvReac Type Severity Reaction Status Date / Time No Known Allergies Allergy Verified 02/25/22 16:27 [No Known Allergies*] Active Medications: Current Medications Acetaminophen (Acetaminophen 325 Mg Tablet) 650 mg PO Q6H PRN PRN Reason: Pain, Mild (Pain Scale 1-3) Atorvastatin Calcium (Atorvastatin Calcium 80 Mg Tablet) 80 mg PO BEDTIME [facility] Last Admin: 03/01/22 20:20 Dose: Not Given Documented by: Clopidogrel Bisulfate (Clopidogrel Bisulfate 75 Mg Tablet) 75 mg PO DAILY [facility] Last Admin: 03/02/22 09:41 Dose: 75 mg Documented by: Dextrose (Dextrose 50 % 25 Gm/50 Ml Syringe) 25 gm IVPUSH Q15M PRN; Protocol PRN Reason: per Hypoglycemia Standing Ord. Docusate Sodium (Docusate Sodium 100 Mg Capsule) 100 mg PO DAILY PRN PRN Reason: Constipation Furosemide (Furosemide 40 Mg Tablet) 40 mg PO DAILY [facility]; Protocol Last Admin: 03/01/22 08:34 Dose: Not Given Documented by: Gabapentin (Gabapentin 100 Mg Capsule) 100 mg PO BID [facility] Last Admin: 02/28/22 08:24 Dose: 100 mg Documented by: Gabapentin (Gabapentin 300 Mg Capsule) 300 mg PO BEDTIME [facility] Last Admin: 03/01/22 20:20 Dose: Not Given Documented by: Glucose (Glucose Gel 15 Gm Gel..Gram.) 15 gm PO Q15M PRN; Protocol PRN Reason: per Hypoglycemia Standing Ord. Piperacillin Sod/Tazobactam (Sod 3.375 gm/ Sodium Chloride) 50 mls @ 100 mls/hr IV Q6H [facility] Last Infusion: 03/02/22 10:19 Dose: Infused Documented by: Lactated Ringer's (Lr) 1,000 mls @ 50 mls/hr IVCONT .Q20H [facility] Last Infusion: 03/02/22 02:57 Dose: 50 mls/hr Documented by: Insulin Glargine (Insulin Glargine,Hum.Rec.Anlog 100 Unit/Ml 10 Ml Vial) 7 unit SUBCUT DAILY@1800 [facility] Last Admin: 03/01/22 17:16 Dose: 7 unit Documented by: Insulin Human Lispro (Insulin Lispro 100 Unit/Ml 3 Ml Vial) 0 unit SUBCUT QIDACHS [facility]; Protocol Last Admin: 03/02/22 09:18 Dose: Not Given Documented by: Lisinopril (Lisinopril 2.5 Mg Tablet) 2.5 mg PO DAILY [facility]; Protocol Last Admin: 02/28/22 08:24 Dose: 2.5 mg Documented by: Methylprednisolone Sodium Succinate (Methylprednisolone Sod Succ 40 Mg/Ml Vial) 40 mg IVPUSH Q12H [facility] Last Admin: 03/02/22 09:19 Dose: 40 mg Documented by: Metoclopramide HCl (Metoclopramide Hcl 10 Mg/2 Ml Vial) 5 mg IVPUSH TID [facility] Last Admin: 03/02/22 09:19 Dose: 5 mg Documented by: Ondansetron HCl (Ondansetron Hcl 4 Mg/2 Ml Vial) 4 mg IVPUSH Q8H PRN PRN Reason: Nausea and Vomiting Oxycodone HCl (Oxycodone Hcl Immed Release 5 Mg Tablet) 5 mg PO Q3H PRN PRN Reason: Pain, Moderate (Pain Scale 4-6 Pharmacy Consult (Consult Rx Perform Med Rec) 1 each MISCELLANE ONCE PRN PRN Reason: Consult order Pharmacy Consult (Consult Rx Vancomycin Dosing) 1 each MISCELLANE DAILY PRN PRN Reason: Consult order Sodium Chloride (0.9 % Sodium Chloride Flush 3 Ml Syringe) 3 ml IVFLUSH QSHIFT [facility] Last Admin: 03/02/22 09:19 Dose: Not Given Documented by: Home Medications Medication Instructions Recorded Confirmed Last Taken Type insulin detemir U-100 100 unit/mL 10 unit SUBCUT DAILY@1800 08/10/21 02/25/22 02/21/22 History (3 mL) subcutaneous pen (Levemir FlexTouch U-100 Insulin) docusate sodium 100 mg capsule 100 mg PO BID PRN 11/21/21 02/25/22 Unknown History ferrous sulfate 325 mg (65 mg 325 mg PO DAILY 11/21/21 02/25/22 02/21/22 History iron) tablet (FeroSul) gabapentin 300 mg capsule 300 mg PO BEDTIME 11/21/21 02/25/22 02/21/22 History insulin syringe-needle U-100 0.5 #10 ea 11/21/21 Unknown History mL 30 gauge x 1/2 (UltiCare) pen needle, diabetic 32 gauge x #50 ea 11/21/21 Unknown History (Pentips) blood sugar diagnostic (FreeStyle #10 ea 02/25/22 Unknown History Lite Strips) gabapentin 100 mg capsule 100 mg PO BID 02/25/22 02/25/22 02/21/22 History lancets 33 gauge (TRUEplus Lancets) #100 ea 02/25/22 Unknown History Physical Exam Vital Signs: Vital Signs: Last Vital Signs Temp 97.5 F 03/02/22 11:06 Pulse 50 03/02/22 11:06 Resp 20 03/02/22 11:06 BP 99/56 L 03/02/22 11:06 Pulse Ox 90 L 03/02/22 11:06 BMI result Body Mass Index 18.8 Const: General: no acute distress and ill appearing Nutritional Appearance: underweight Orientation/consciousness: patient oriented x3 Limitations: no limitations HEENT: Head: Yes normal to inspection Ears: hearing grossly normal bilaterally Mouth: Normal oral and palatal mucosa present Eyes: Sclerae: sclerae normal Pupils: Equal, round and reactive pupils present Neck: Neck: Yes normal visual inspection Chest: Chest palpation & inspection: normal inspection of the chest Resp: Effort & Inspection: normal respiratory effort Auscultation: clear to auscultation bilaterally Cardio: Palpation: normal PMI Rate: regular rate Rhythm: regular rhythm Heart sounds: S1 normal heart sound present, S2 normal heart sound present and no murmurs GI: Palpation (GI): Soft to palpation, nontender and No hepatosplenomegaly present Auscultation: normal bowel sounds Rectal Exam - Male: Yes deferred Skin: General skin exam: no rashes or lesions noted Neuro: General: patient oriented x3, gait normal and moves all extremities Cranial nerves: Yes Equal, round and reactive pupils present Extrem: General: Yes other (Status post left great toe amputation) Psych: Appearance: grossly normal Mental Status: mental status grossly normal Results Labs CBC & Chem 7: 03/05/22 05:37 03/05/22 05:37 Labs: Short CBC 03/02/22 Range/Units 03:19 WBC 21.8 H (4.8-10.8) X10*3/uL Hgb 11.1 L (14.0-18.0) g/dl Hct 32.8 L (42.0-52.0) % Plt Count 305 (160-400) X10*3/uL BMP 03/02/22 03:19 Sodium 145 Potassium 3.3 Chloride 101 Carbon Dioxide 27 BUN 60 H Creatinine 2.63 H Calcium 8.3 L Microbiology Microbiology Results: Microbiology 02/25/22 18:06 Blood - Venous Blood Culture - Preliminary No growth after 48 hours. 02/25/22 17:26 Blood - Venous Blood Culture - Preliminary No growth after 48 hours. Assessment and Plan (1) Dilatation of esophagus: Status: Acute (2) Abnormal CT scan, stomach: Status: Acute Plan 81-year-old male with PVD,? diabetes, dementia, neuropathy, CAD, history of heart failure? [place] [facility] with left great toe gangrene. 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 CT angio of the chest showed Very distended stomach with fluid filled esophagus to the level of the thoracic inlet. Possible aspiration penuomina NG tube was passed yesterday with drainage of 1000 cc of dark brown fluid. Out put was 200 cc overnight and 500 cc today (included 250 to 300 cc of oral intake) Tube is clamped at present. Dilation of esophagus and stomach is likely related to a transient decrease in peristalsis related to anesthesia/pain medications. Dilated stomach can be due to diabetic gastroparesis. Dilated and fluid filled esophagus ? due to achalasia Pt had an EGD in 07/[address] Hoff which showed gastritis RECOMMENDATIONS: 1. Repeat KUB tomorrow am. If it shows resolution of esophageal gastric dilation post NG suction, Then proceed with a barium swallow with an upper GI series If persistent dilation on KUB, then obtain abdominal CT scan with oral contrast. Dr Hoff to FU on the patient in the am. Procedures Date of Service Date of Service: 03/02/22
[2022-03-02 11:28] LABS: Glucose, Whole Blood 215 mg/dL (60-115)
--- NOTE | 2022-03-02 11:30 | P.PNIM_ITS ---
Subjective Subjective Date of Service: 03/02/22 Interval History: the patient was seen and evaluated this morning patient looks more alert and interactive today blood pressure still running so and Still requiring oxygen supplement NG tube in place draining gastric fluid Surgical site clean with no drainage passing urine Denies any fever, chills or shortness of breath Systemic review: No fever, chills or weakness No chest pain, palpitation No shortness of breath or coughing No abdominal pain, nausea or vomiting Decrease urine output pain improved Physical Exam Vital Signs: Vital Signs: Last Vital Signs Temp 97.5 F 03/02/22 11:06 Pulse 50 03/02/22 11:06 Resp 20 03/02/22 11:06 BP 99/56 L 03/02/22 11:06 Pulse Ox 90 L 03/02/22 11:06 BMI result Body Mass Index 18.8 Const: Other: Appearance: Alert. interactive. No acute distress. ENT: Pharynx normal. NG tube in place with bile colored fluid drainage Neck: Normal inspection. Neck supple. No lymph nodes noted. No crepitus CVS: Normal heart rate and rhythm. Pulses normal. Respiratory: No respiratory distress. basal bilateral more on the right crackles , oxygen supplement Abdomen: Soft and nontender. No rigidity. No distention. Skin: Skin warm and dry. Extremities: left foot in dressing with no drainage noted Neuro: Oriented to self. No motor deficit. No slurred speech. CN 2 through 12 grossly intact Psych: calm, cooperative, normal affect Objective Data Active Medications Acetaminophen (Acetaminophen 325 Mg Tablet) 650 mg PO Q6H PRN PRN Reason: Pain, Mild (Pain Scale 1-3) Atorvastatin Calcium (Atorvastatin Calcium 80 Mg Tablet) 80 mg PO BEDTIME [facility] Last Admin: 03/01/22 20:20 Dose: Not Given Documented by: FLASH Non-Admin Reason: NPO Clopidogrel Bisulfate (Clopidogrel Bisulfate 75 Mg Tablet) 75 mg PO DAILY [facility] Last Admin: 03/02/22 09:41 Dose: 75 mg Documented by: LUDY Dextrose (Dextrose 50 % 25 Gm/50 Ml Syringe) 25 gm IVPUSH Q15M PRN; Protocol PRN Reason: per Hypoglycemia Standing Ord. Docusate Sodium (Docusate Sodium 100 Mg Capsule) 100 mg PO DAILY PRN PRN Reason: Constipation Furosemide (Furosemide 40 Mg Tablet) 40 mg PO DAILY [facility]; Protocol Last Admin: 03/01/22 08:34 Dose: Not Given Documented by: LUDY Non-Admin Reason: Physician Held Med Gabapentin (Gabapentin 100 Mg Capsule) 100 mg PO BID [facility] Last Admin: 02/28/22 08:24 Dose: 100 mg Documented by: DEMOND Gabapentin (Gabapentin 300 Mg Capsule) 300 mg PO BEDTIME [facility] Last Admin: 03/01/22 20:20 Dose: Not Given Documented by: FLASH Non-Admin Reason: NPO Glucose (Glucose Gel 15 Gm Gel..Gram.) 15 gm PO Q15M PRN; Protocol PRN Reason: per Hypoglycemia Standing Ord. Piperacillin Sod/Tazobactam (Sod 3.375 gm/ Sodium Chloride) 50 mls @ 100 mls/hr IV Q6H [facility] Last Infusion: 03/02/22 10:19 Dose: 100 mls/hr Documented by: LUDY Lactated Ringer's (Lr) 1,000 mls @ 50 mls/hr IVCONT .Q20H [facility] Last Infusion: 03/02/22 02:57 Dose: 50 mls/hr Documented by: ZENAIDA Insulin Glargine (Insulin Glargine,Hum.Rec.Anlog 100 Unit/Ml 10 Ml Vial) 7 unit SUBCUT DAILY@1800 [facility] Last Admin: 03/01/22 17:16 Dose: 7 unit Documented by: FLASH Insulin Human Lispro (Insulin Lispro 100 Unit/Ml 3 Ml Vial) 0 unit SUBCUT QIDACHS [facility]; Protocol Last Admin: 03/02/22 11:24 Dose: Not Given Documented by: LUDY Non-Admin Reason: NPO Lisinopril (Lisinopril 2.5 Mg Tablet) 2.5 mg PO DAILY [facility]; Protocol Last Admin: 02/28/22 08:24 Dose: 2.5 mg Documented by: DEMOND Methylprednisolone Sodium Succinate (Methylprednisolone Sod Succ 40 Mg/Ml Vial) 40 mg IVPUSH Q12H [facility] Last Admin: 03/02/22 09:19 Dose: 40 mg Documented by: LUDY Metoclopramide HCl (Metoclopramide Hcl 10 Mg/2 Ml Vial) 5 mg IVPUSH TID [facility] Last Admin: 03/02/22 09:19 Dose: 5 mg Documented by: LUDY Ondansetron HCl (Ondansetron Hcl 4 Mg/2 Ml Vial) 4 mg IVPUSH Q8H PRN PRN Reason: Nausea and Vomiting Oxycodone HCl (Oxycodone Hcl Immed Release 5 Mg Tablet) 5 mg PO Q3H PRN PRN Reason: Pain, Moderate (Pain Scale 4-6 Pharmacy Consult (Consult Rx Perform Med Rec) 1 each MISCELLANE ONCE PRN PRN Reason: Consult order Pharmacy Consult (Consult Rx Vancomycin Dosing) 1 each MISCELLANE DAILY PRN PRN Reason: Consult order Sodium Chloride (0.9 % Sodium Chloride Flush 3 Ml Syringe) 3 ml IVFLUSH QSHIFT [facility] Last Admin: 03/02/22 09:19 Dose: Not Given Documented by: LUDY Non-Admin Reason: IV Running Labs CBC & Chem 7: 03/02/22 03:19 03/02/22 03:19 Labs: Laboratory Results - last 24 hr 03/01/22 03/01/22 03/02/22 15:42 19:46 03:19 MCV 87.9 MCH 29.8 MCHC 33.8 RDW 13.2 Plt Count 305 MPV 11.7 Absolute Nucleated RBC 0.000 Nucleated RBC % (auto) 0.0 Anion Gap Estim Creat Clear Calc Estimated GFR POC Glucose 312 H 214 H Random Glucose Calcium 03/02/22 03/02/22 03/02/22 03:19 07:30 11:10 MCV MCH MCHC RDW Plt Count MPV Absolute Nucleated RBC Nucleated RBC % (auto) Anion Gap 20 Estim Creat Clear Calc 15.2 Estimated GFR 23 POC Glucose 236 H 215 H Random Glucose 212 H Calcium 8.3 L Assessment and Plan (1) Aspiration pneumonia: Status: Acute (2) Dilatation of esophagus: Status: Acute (3) Amputated great toe of left foot: Status: Acute (4) Hypotension: Status: Acute (5) Acute respiratory failure with hypoxia: Status: Acute Plan 81-year-old male with history of PVD presents the hospital with complaints of gangrenous foot # gangrenous foot on the left s/p Amputation big toe Pod 3 continue oral doxycycline negative cultures To do physical therapy # Acute hypoxic respiratory failure 2/2 aspiration pneumonia/ pneumonitis leukocytosis likely from steroid not due to sepsis Treated with IV Zosyn continue steroids Wean oxygen down as tolerated # Dilated stomach and esophagus Seen on CTA with fluid filled NG tube placed start Reglan ATC KUB showed unremarkable bowel gas pattern surgery input appreciated To get GI evaluation # hypotension improved Hold blood pressure medications Could be secondary vagal stimulation from dilated stomach Not due to sepsis Continue gentle hydration Monitor BP # PAD continue Plavix and statin # CHF no acute exacerbation continue Lasix # diabetes low-dose sliding scale insulin continue Levemir DVT prophylaxis: SCDs in the anticipation of surgical intervention in a.m. the patient will need overnight hospital stay for Recovery after amputation and to do physical therapy, treatment of pneumonia and evaluation of hypotension and fluid-filled dilated stomach given his high risk for decompensation and post surgery care. Quality Stroke Does the patient have a stroke diagnosis?: No VTE Prior VTE?: No VTE Risk Level:: Medical - moderate - high VTE Device Contraindication: N/A - Device Ordered VTE Drug Contraindication: Treatment Not Indicated
[2022-03-02] MEDS: Lactated Ringers 1,000 ML 50 ML IVCONT (13:30)
[2022-03-02 15:07] VITALS: BP 129/58; PULSE 63; RESP 18; TEMP 36.9; O2SAT 100
[2022-03-02] MEDS: Dextrose 5 % and Lactated Ring 1,000 ML 100 ML IVCONT (16:16)
[2022-03-02] MEDS: 0.9 % Sodium Chloride Flush 3 ML SYRINGE IVFLUSH (16:17)
[2022-03-02 16:21] LABS: Glucose, Whole Blood 208 mg/dL (60-115)
[2022-03-02] MEDS: Insulin Glargine,Hum.rec.anlog 100 UNIT/ML 10 ML VIAL SUBCUT (17:08)
[2022-03-02] MEDS: Insulin Lispro 100 UNIT/ML 3 ML VIAL SUBCUT ×2 (17:09→21:15)
[2022-03-02 19:45] VITALS: BP 103/57; PULSE 68; RESP 18; TEMP 37.3; O2SAT 100
--- NOTE | 2022-03-02 20:18 | PC.NURSE ---
Ppatient unable to urinate,unable to obtain specimen,bladder scan [address] David notified of the above E will monitor
[2022-03-02 20:59] LABS: Glucose, Whole Blood 261 mg/dL (60-115)
[2022-03-02 21:54] LABS: Appearance Urine HAZY; Color Urine YELLOW; Glucose Urine UA NEG (NEG); Leukocyte Esterase Urine NEG (NEG); Nitrite Urine NEG (NEG); PH 5.5 (5.0-8.0); Specific Gravity - Urine 1.025 (1.005-1.025); UACC Culture Trigger NO; Urine Blood 1+ (NEG); Urine Ketones NEG (NEG); Urine Protein TRACE MG/DL (NEG-TRACE)
[2022-03-02 22:00] LABS: Amorphous Sediment Urine 3+ /LPF; Bacteria Urine 1+ /LPF; Mucus Urine 1+ /LPF; Squamous Epithelial Cell Urine 1+ /LPF
[2022-03-02 22:04] LABS: Creatinine Urine 77.43 mg/dL
[2022-03-02 23:29] VITALS: BP 118/56; PULSE 68; RESP 18; TEMP 37; O2SAT 98
[2022-03-03] VITALS (7 sets, daily range): BP systolic 109–168; BP diastolic 58–76; PULSE 53–76; RESP 14–20; TEMP 36.2–36.8; O2SAT 96–99
[2022-03-03] MEDS: Piperacillin Sodium/Tazobactam 3.375 GM in 0.9 % Sodium Chloride 50 ML IV ×4 (01:59→19:18)
[2022-03-03] MEDS: Dextrose 5 % and Lactated Ring 1,000 ML 100 ML IVCONT ×2 (02:33→11:55)
[2022-03-03] MEDS: Morphine Sulfate 4 MG/ML CARTRIDGE IVPUSH (05:39)
[2022-03-03 06:17] LABS: Hematocrit 31.1 % (42.0-52.0); Hemoglobin 10.5 g/dl (14.0-18.0); Mean Corpuscular HGB Conc 33.8 g/dl (31.0-36.0); Mean Corpuscular Hemoglobin 29.6 pg (27.0-33.0); Mean Corpuscular Volume 87.6 fL (80.0-98.0); Mean Platelet Volume 11.8 fL (9.4-12.4); Platelet Count 290 X10*3/uL (160-400); Red Blood Count 3.55 X10*6/uL (4.60-5.80); Red Cell Distribution Width 13.2 % (11.0-16.0); White Blood Count 23.1 X10*3/uL (4.8-10.8)
[2022-03-03 06:32] LABS: Anion Gap 18 (12-20); Blood Urea Nitrogen 76 mg/dL (9-16); Calcium 7.9 mg/dL (8.4-10.2); Carbon Dioxide 28 mmol/L (22-29); Chloride 100 mmol/L (96-108); Creatinine Clr Calc Pharmacy 11.8; Estimated Glomerular Filt Rate 18; Glucose Random 282 mg/dL (60-115); Potassium 2.9 mmol/L (3.3-5.1); Sodium 143 mmol/L (135-145)
[2022-03-03 07:30] LABS: Glucose, Whole Blood 250 mg/dL (60-115)
[2022-03-03] MEDS: Clopidogrel Bisulfate 75 MG TABLET PO (08:25)
[2022-03-03] MEDS: 0.9 % Sodium Chloride Flush 3 ML SYRINGE IVFLUSH ×2 (08:25→15:22)
[2022-03-03] MEDS: methylPREDNISolone Sod Succ 40 MG/ML VIAL IVPUSH (08:25)
[2022-03-03] MEDS: Insulin Lispro 100 UNIT/ML 3 ML VIAL SUBCUT ×2 (08:25→11:55)
[2022-03-03] MEDS: Metoclopramide HCl 10 MG/2 ML VIAL 5 MG IVPUSH ×3 (08:25→19:19)
--- NOTE | 2022-03-03 10:16 | HO.VASCPN ---
Subjective Subjective Date of Service: 03/03/22 Interval history: 81-year-old gentleman had a complex weekend. Actually a code had been called on him and he subsequently aspirated. He has been treated with that and has been stable on the floor since that time. In addition he has had exacerbation of his renal insufficiency as well. He now presents to us for follow-up status post toe amputation. Physical Exam Vital Signs: Vital Signs: Last Vital Signs Temp 97.2 F 03/03/22 07:16 Pulse 55 03/03/22 07:16 Resp 20 03/03/22 07:16 BP 121/60 03/03/22 07:16 Pulse Ox 99 03/03/22 07:16 BMI result Body Mass Index 18.8 Const: General: cooperative, healthy appearing and no acute distress Orientation/consciousness: oriented to person, oriented to place and oriented to time HEENT: Head: Yes normal to inspection Neck: Carotids: no bruits Chest: Chest palpation & inspection: normal inspection of the chest Resp: Effort & Inspection: normal respiratory effort and able to speak in complete sentences Auscultation: clear to auscultation bilaterally Cardio: Rate: regular rate Heart sounds: S1 normal heart sound present and S2 normal heart sound present GI: Inspection: Yes normal to inspection Skin: General skin exam: no rashes or lesions noted Wounds: amputation site ( Healing well some mild duskiness on the lateral aspect of the toe flap) Neuro: General: oriented to person, oriented to place, oriented to time and CN's II-XI intact bilaterally Extrem: General: Yes normal to inspection, Yes full ROM and Yes no clubbing, cyanosis or edema Psych: Appearance: grossly normal and well kempt Speech and movement: Normal speech and movement present Affect: normal affect Progress Note: A&P Assessment and plan (1) PAD (peripheral artery disease): Status: Acute Assessment and Plan: in short patient has had his toe amputated in appears to be doing reasonable with that. He has had other medical issues that have progressed since his hospitalization. Once he becomes more medically stable he is stable from my perspective for discharge. He can follow up with us as an outpatient. Thank you for allowing us to assist in his care. If there are any questions or concerns please do not hesitate to contact us. Fall Risk Details Current Medications: Current Medications Acetaminophen (Acetaminophen 325 Mg Tablet) 650 mg PO Q6H PRN PRN Reason: Pain, Mild (Pain Scale 1-3) Atorvastatin Calcium (Atorvastatin Calcium 80 Mg Tablet) 80 mg PO BEDTIME [facility] Last Admin: 03/02/22 21:10 Dose: Not Given Documented by: Clopidogrel Bisulfate (Clopidogrel Bisulfate 75 Mg Tablet) 75 mg PO DAILY [facility] Last Admin: 03/03/22 08:25 Dose: 75 mg Documented by: Dextrose (Dextrose 50 % 25 Gm/50 Ml Syringe) 25 gm IVPUSH Q15M PRN; Protocol PRN Reason: per Hypoglycemia Standing Ord. Docusate Sodium (Docusate Sodium 100 Mg Capsule) 100 mg PO DAILY PRN PRN Reason: Constipation Gabapentin (Gabapentin 100 Mg Capsule) 100 mg PO BID [facility] Last Admin: 02/28/22 08:24 Dose: 100 mg Documented by: Gabapentin (Gabapentin 100 Mg Capsule) 100 mg PO BEDTIME [facility] Last Admin: 03/02/22 21:10 Dose: Not Given Documented by: Glucose (Glucose Gel 15 Gm Gel..Gram.) 15 gm PO Q15M PRN; Protocol PRN Reason: per Hypoglycemia Standing Ord. Piperacillin Sod/Tazobactam (Sod 3.375 gm/ Sodium Chloride) 50 mls @ 100 mls/hr IV Q6H [facility] Last Infusion: 03/03/22 09:24 Dose: Infused Documented by: Dextrose/Lactated Ringer's (D5lr) 1,000 mls @ 100 mls/hr IVCONT .Q10H [facility] Last Admin: 03/03/22 02:33 Dose: 100 mls/hr Documented by: Insulin Glargine (Insulin Glargine,Hum.Rec.Anlog 100 Unit/Ml 10 Ml Vial) 5 unit SUBCUT DAILY@1800 [facility] Last Admin: 03/02/22 17:08 Dose: 5 unit Documented by: Insulin Human Lispro (Insulin Lispro 100 Unit/Ml 3 Ml Vial) 0 unit SUBCUT QIDACHS [facility]; Protocol Last Admin: 03/03/22 08:25 Dose: 4 unit Documented by: Methylprednisolone Sodium Succinate (Methylprednisolone Sod Succ 40 Mg/Ml Vial) 40 mg IVPUSH Q24H [facility] Last Admin: 03/03/22 08:25 Dose: 40 mg Documented by: Metoclopramide HCl (Metoclopramide Hcl 10 Mg/2 Ml Vial) 5 mg IVPUSH TID [facility] Last Admin: 03/03/22 08:25 Dose: 5 mg Documented by: Ondansetron HCl (Ondansetron Hcl 4 Mg/2 Ml Vial) 4 mg IVPUSH Q8H PRN PRN Reason: Nausea and Vomiting Oxycodone HCl (Oxycodone Hcl Immed Release 5 Mg Tablet) 5 mg PO Q3H PRN PRN Reason: Pain, Moderate (Pain Scale 4-6 Pharmacy Consult (Consult Rx Perform Med Rec) 1 each MISCELLANE ONCE PRN PRN Reason: Consult order Pharmacy Consult (Consult Rx Vancomycin Dosing) 1 each MISCELLANE DAILY PRN PRN Reason: Consult order Sodium Chloride (0.9 % Sodium Chloride Flush 3 Ml Syringe) 3 ml IVFLUSH QSHIFT [facility] Last Admin: 03/03/22 08:25 Dose: 3 ml Documented by: Time Spent With Patient Time: Total time spent is greater than 50% in coordination of care (as documented) at patient's floor/unit and/or counseling patient: Procedures Date of Service Date of Service: 03/03/22 Quality Stroke Does the patient have a stroke diagnosis?: No VTE Prior VTE?: No VTE Risk Level:: Medical - moderate - high VTE Device Contraindication: N/A - Device Ordered VTE Drug Contraindication: Treatment Not Indicated
[2022-03-03 11:42] LABS: Glucose, Whole Blood 252 mg/dL (60-115)
--- NOTE | 2022-03-03 12:19 | P.CONNP_ITS ---
History of Present Illness Reason for Consult Consult date: 03/03/22 Reason for consult: [place] Chief Complaint Chief complaint: Necrtotic toe, PVD History of Present Illness Narrative: 81-year-old male with PAD and CKD presented to the hospital after vascular surgeon noted left great toe gangrene.?He had significant pain in his left foot ( patient apparently has not been compliant with his appointments to his vas cular surgeon). He didn't have any fever or chills, abdominal pain, no chest pain, no shortness of breath, no diarrhea constipation, no urinary symptoms and no lower extremity edema.?In the ER his WBC count was 18.7, hemoglobin of 12.1, hematocrit 36.3, BUN of 27,? creatinine of 1.24; x-ray of the foot shows great toe swelling with soft tissue air concerning for gas-forming organisms. He underwent amputation of the toe. He also underwent CTA to R/O PE . His BP had been low. His serum creatinine has been going up. 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 Troponin level elevated Type 2 diabetes mellitus with unspecified complications Social History Social History Household Members: Children Housing: Apartment Do you presently have visiting nurse or other home services: Yes Unable to assess alcohol history related to: Unknown Alcohol intake: unknown Patient Tobacco Use Status: Former Tobacco user Quit Date: 1999 Tobacco use type: Cigarette Years Smoked: 4 Advance Directives Date on File: 08/15/21 service: No Current occupational status: unemployed Meds Allergies Allergy/AdvReac Type Severity Reaction Status Date / Time No Known Allergies Allergy Verified 02/25/22 16:27 [No Known Allergies*] Active Medications: Current Medications Acetaminophen (Acetaminophen 325 Mg Tablet) 650 mg PO Q6H PRN PRN Reason: Pain, Mild (Pain Scale 1-3) Atorvastatin Calcium (Atorvastatin Calcium 80 Mg Tablet) 80 mg PO BEDTIME [facility] Last Admin: 03/02/22 21:10 Dose: Not Given Documented by: Clopidogrel Bisulfate (Clopidogrel Bisulfate 75 Mg Tablet) 75 mg PO DAILY [facility] Last Admin: 03/03/22 08:25 Dose: 75 mg Documented by: Dextrose (Dextrose 50 % 25 Gm/50 Ml Syringe) 25 gm IVPUSH Q15M PRN; Protocol PRN Reason: per Hypoglycemia Standing Ord. Docusate Sodium (Docusate Sodium 100 Mg Capsule) 100 mg PO DAILY PRN PRN Reason: Constipation Gabapentin (Gabapentin 100 Mg Capsule) 100 mg PO BID [facility] Last Admin: 02/28/22 08:24 Dose: 100 mg Documented by: Gabapentin (Gabapentin 100 Mg Capsule) 100 mg PO BEDTIME [facility] Last Admin: 03/02/22 21:10 Dose: Not Given Documented by: Glucose (Glucose Gel 15 Gm Gel..Gram.) 15 gm PO Q15M PRN; Protocol PRN Reason: per Hypoglycemia Standing Ord. Piperacillin Sod/Tazobactam (Sod 3.375 gm/ Sodium Chloride) 50 mls @ 100 mls/hr IV Q6H [facility] Last Infusion: 03/03/22 09:24 Dose: Infused Documented by: Dextrose/Lactated Ringer's (D5lr) 1,000 mls @ 100 mls/hr IVCONT .Q10H [facility] Last Admin: 03/03/22 11:55 Dose: 100 mls/hr Documented by: Insulin Glargine (Insulin Glargine,Hum.Rec.Anlog 100 Unit/Ml 10 Ml Vial) 5 unit SUBCUT DAILY@1800 [facility] Last Admin: 03/02/22 17:08 Dose: 5 unit Documented by: Insulin Human Lispro (Insulin Lispro 100 Unit/Ml 3 Ml Vial) 0 unit SUBCUT QIDACHS [facility]; Protocol Last Admin: 03/03/22 11:55 Dose: 6 unit Documented by: Methylprednisolone Sodium Succinate (Methylprednisolone Sod Succ 40 Mg/Ml Vial) 40 mg IVPUSH Q24H [facility] Last Admin: 03/03/22 08:25 Dose: 40 mg Documented by: Metoclopramide HCl (Metoclopramide Hcl 10 Mg/2 Ml Vial) 5 mg IVPUSH TID [facility] Last Admin: 03/03/22 08:25 Dose: 5 mg Documented by: Ondansetron HCl (Ondansetron Hcl 4 Mg/2 Ml Vial) 4 mg IVPUSH Q8H PRN PRN Reason: Nausea and Vomiting Oxycodone HCl (Oxycodone Hcl Immed Release 5 Mg Tablet) 5 mg PO Q3H PRN PRN Reason: Pain, Moderate (Pain Scale 4-6 Pharmacy Consult (Consult Rx Perform Med Rec) 1 each MISCELLANE ONCE PRN PRN Reason: Consult order Pharmacy Consult (Consult Rx Vancomycin Dosing) 1 each MISCELLANE DAILY PRN PRN Reason: Consult order Sodium Chloride (0.9 % Sodium Chloride Flush 3 Ml Syringe) 3 ml IVFLUSH QSHIFT [facility] Last Admin: 03/03/22 08:25 Dose: 3 ml Documented by: Home Medications Medication Instructions Recorded Confirmed Last Taken Type insulin detemir U-100 100 unit/mL 10 unit SUBCUT DAILY@1800 08/10/21 02/25/22 02/21/22 History (3 mL) subcutaneous pen (Levemir FlexTouch U-100 Insulin) docusate sodium 100 mg capsule 100 mg PO BID PRN 11/21/21 02/25/22 Unknown History ferrous sulfate 325 mg (65 mg 325 mg PO DAILY 11/21/21 02/25/22 02/21/22 History iron) tablet (FeroSul) gabapentin 300 mg capsule 300 mg PO BEDTIME 11/21/21 02/25/22 02/21/22 History insulin syringe-needle U-100 0.5 #10 ea 11/21/21 Unknown History mL 30 gauge x 1/2 (UltiCare) pen needle, diabetic 32 gauge x #50 ea 11/21/21 Unknown History (Pentips) blood sugar diagnostic (FreeStyle #10 ea 02/25/22 Unknown History Lite Strips) gabapentin 100 mg capsule 100 mg PO BID 02/25/22 02/25/22 02/21/22 History lancets 33 gauge (TRUEplus Lancets) #100 ea 02/25/22 Unknown History Physical Exam Vital Signs: Last Vital Signs Temp 97.1 F 03/03/22 11:13 Pulse 53 03/03/22 11:13 Resp 18 03/03/22 11:13 BP 130/61 03/03/22 11:13 Pulse Ox 99 03/03/22 11:13 BMI result Body Mass Index 18.8 Const General: no acute distress Neck Neck: Yes supple Resp Auscultation: diminished lung sounds Cardio Rate: regular rate GI Palpation (GI): Soft to palpation Neuro General: moves all extremities Results Lab Results Result Diagrams: 03/03/22 05:57 03/03/22 05:57 Lab results: Chemistry 03/01/22 03/02/22 03/03/22 05:44 03:19 05:57 Sodium 144 145 143 Potassium 3.3 3.3 2.9 L Carbon Dioxide 25 27 28 BUN 41 H D 60 H 76 H Creatinine 1.69 H 2.63 H 3.38 H Calcium 8.4 D 8.3 L 7.9 L Hematology 03/01/22 03/02/22 03/03/22 05:44 03:19 05:57 WBC 20.1 H 21.8 H 23.1 H Hgb 11.3 L 11.1 L 10.5 L Plt Count 255 D 305 290 Urinalysis 02/28/22 03/02/22 20:30 21:45 Urine Color YELLOW YELLOW Urine Appearance CLEAR HAZY Urine pH 5.5 5.5 Ur Specific [place] 1.025 1.025 Urine Protein 1+ H TRACE Urine Glucose (UA) 100 H NEG Urine Ketones 5 NEG Urine Blood TRACE 1+ H Urine Nitrite NEG NEG Ur Leukocyte Esterase NEG NEG Urine RBC 1-4 1-4 Urine WBC 0-2 1-4 Ur Squamous Epith Cells NONE 1+ Urine Studies 03/02/22 21:45 Urine Creatinine 77.43 Assessment and Plan (1) [place] (acute kidney injury): Status: Acute Plan Acute Kidney Injury due to contrast nephropathy and low perfusion to kidneys due to low systemic BP; 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 C/W current supportive care for now. No indication for renal replacement at this moment in time Continue with current supportive care for now; Labs AM; Shall closely F/U Procedures Date of Service Date of Service: 03/03/22
--- NOTE | 2022-03-03 13:56 | P.PNIM_ITS ---
Subjective Subjective Date of Service: 03/03/22 Interval History: the patient was seen and evaluated this morning patient looks more alert and interactive He removed NG tube overnight Developed acute kidney injury Surgical site clean with no drainage passing small amount of urine Denies any fever, chills or shortness of breath Systemic review: No fever, chills or weakness No chest pain, palpitation No shortness of breath or coughing No abdominal pain, nausea or vomiting Decrease urine output pain improved Physical Exam Vital Signs: Vital Signs: Last Vital Signs Temp 97.1 F 03/03/22 11:13 Pulse 53 03/03/22 11:13 Resp 18 03/03/22 11:13 BP 130/61 03/03/22 11:13 Pulse Ox 99 03/03/22 11:13 BMI result Body Mass Index 18.8 Const: Other: Appearance: Alert. interactive. No acute distress. ENT: Pharynx normal. Neck: Normal inspection. Neck supple. No lymph nodes noted. No crepitus CVS: Normal heart rate and rhythm. Pulses normal. Respiratory: No respiratory distress. basal bilateral fine crackles , on oxygen supplement Abdomen: Soft and nontender. No rigidity. No distention. Skin: Skin warm and dry. Extremities: left foot in dressing with no drainage noted Neuro: Oriented to self. No motor deficit. No slurred speech. CN 2 through 12 grossly intact Psych: calm, cooperative, normal affect Objective Data Active Medications Acetaminophen (Acetaminophen 325 Mg Tablet) 650 mg PO Q6H PRN PRN Reason: Pain, Mild (Pain Scale 1-3) Atorvastatin Calcium (Atorvastatin Calcium 80 Mg Tablet) 80 mg PO BEDTIME [facility] Last Admin: 03/02/22 21:10 Dose: Not Given Documented by: FLASH Non-Admin Reason: NPO Clopidogrel Bisulfate (Clopidogrel Bisulfate 75 Mg Tablet) 75 mg PO DAILY [facility] Last Admin: 03/03/22 08:25 Dose: 75 mg Documented by: DEMOND Dextrose (Dextrose 50 % 25 Gm/50 Ml Syringe) 25 gm IVPUSH Q15M PRN; Protocol PRN Reason: per Hypoglycemia Standing Ord. Docusate Sodium (Docusate Sodium 100 Mg Capsule) 100 mg PO DAILY PRN PRN Reason: Constipation Gabapentin (Gabapentin 100 Mg Capsule) 100 mg PO BID [facility] Last Admin: 02/28/22 08:24 Dose: 100 mg Documented by: DEMOND Gabapentin (Gabapentin 100 Mg Capsule) 100 mg PO BEDTIME [facility] Last Admin: 03/02/22 21:10 Dose: Not Given Documented by: FLASH Non-Admin Reason: NPO Glucose (Glucose Gel 15 Gm Gel..Gram.) 15 gm PO Q15M PRN; Protocol PRN Reason: per Hypoglycemia Standing Ord. Piperacillin Sod/Tazobactam (Sod 3.375 gm/ Sodium Chloride) 50 mls @ 100 mls/hr IV Q6H [facility] Last Infusion: 03/03/22 09:24 Dose: 0 mls/hr Documented by: DEMOND Dextrose/Lactated Ringer's (D5lr) 1,000 mls @ 100 mls/hr IVCONT .Q10H [facility] Last Admin: 03/03/22 11:55 Dose: 100 mls/hr Documented by: DEMOND Insulin Glargine (Insulin Glargine,Hum.Rec.Anlog 100 Unit/Ml 10 Ml Vial) 5 unit SUBCUT DAILY@1800 [facility] Last Admin: 03/02/22 17:08 Dose: 5 unit Documented by: FLASH Insulin Human Lispro (Insulin Lispro 100 Unit/Ml 3 Ml Vial) 0 unit SUBCUT QIDACHS [facility]; Protocol Last Admin: 03/03/22 11:55 Dose: 6 unit Documented by: DEMOND Methylprednisolone Sodium Succinate (Methylprednisolone Sod Succ 40 Mg/Ml Vial) 40 mg IVPUSH Q24H [facility] Last Admin: 03/03/22 08:25 Dose: 40 mg Documented by: DEMOND Metoclopramide HCl (Metoclopramide Hcl 10 Mg/2 Ml Vial) 5 mg IVPUSH TID [facility] Last Admin: 03/03/22 08:25 Dose: 5 mg Documented by: DEMOND Ondansetron HCl (Ondansetron Hcl 4 Mg/2 Ml Vial) 4 mg IVPUSH Q8H PRN PRN Reason: Nausea and Vomiting Oxycodone HCl (Oxycodone Hcl Immed Release 5 Mg Tablet) 5 mg PO Q3H PRN PRN Reason: Pain, Moderate (Pain Scale 4-6 Pharmacy Consult (Consult Rx Perform Med Rec) 1 each MISCELLANE ONCE PRN PRN Reason: Consult order Pharmacy Consult (Consult Rx Vancomycin Dosing) 1 each MISCELLANE DAILY PRN PRN Reason: Consult order Sodium Chloride (0.9 % Sodium Chloride Flush 3 Ml Syringe) 3 ml IVFLUSH QSHIFT [facility] Last Admin: 03/03/22 08:25 Dose: 3 ml Documented by: DEMOND Labs CBC & Chem 7: 03/03/22 05:57 03/03/22 05:57 Labs: Laboratory Results - last 24 hr 03/02/22 03/02/22 03/02/22 15:10 20:51 21:45 MCV MCH MCHC RDW Plt Count MPV Absolute Nucleated RBC Nucleated RBC % (auto) Anion Gap Estim Creat Clear Calc Estimated GFR POC Glucose 208 H 261 H Random Glucose Calcium Urine Color Urine Appearance Urine pH Ur Specific [place] Urine Protein Urine Glucose (UA) Urine Ketones Urine Blood Urine Nitrite Ur Leukocyte Esterase Urine RBC Urine WBC Ur Squamous Epith Cells Amorphous Sediment Urine Bacteria Urine Mucus Ur Random Sodium 22.0 Urine Creatinine 77.43 03/02/22 03/03/22 03/03/22 21:45 05:57 05:57 MCV 87.6 MCH 29.6 MCHC 33.8 RDW 13.2 Plt Count 290 MPV 11.8 Absolute Nucleated RBC 0.000 Nucleated RBC % (auto) 0.0 Anion Gap 18 Estim Creat Clear Calc 11.8 Estimated GFR 18 POC Glucose Random Glucose 282 H Calcium 7.9 L Urine Color YELLOW Urine Appearance HAZY Urine pH 5.5 Ur Specific [place] 1.025 Urine Protein TRACE Urine Glucose (UA) NEG Urine Ketones NEG Urine Blood 1+ H Urine Nitrite NEG Ur Leukocyte Esterase NEG Urine RBC 1-4 Urine WBC 1-4 Ur Squamous Epith Cells 1+ Amorphous Sediment 3+ Urine Bacteria 1+ Urine Mucus 1+ Ur Random Sodium Urine Creatinine 03/03/22 03/03/22 07:23 11:16 MCV MCH MCHC RDW Plt Count MPV Absolute Nucleated RBC Nucleated RBC % (auto) Anion Gap Estim Creat Clear Calc Estimated GFR POC Glucose 250 H 252 H Random Glucose Calcium Urine Color Urine Appearance Urine pH Ur Specific [place] Urine Protein Urine Glucose (UA) Urine Ketones Urine Blood Urine Nitrite Ur Leukocyte Esterase Urine RBC Urine WBC Ur Squamous Epith Cells Amorphous Sediment Urine Bacteria Urine Mucus Ur Random Sodium Urine Creatinine Microbiology Microbiology Results: Microbiology 02/25/22 18:06 Blood Culture - Final Blood - Venous No growth after 5 days. 02/25/22 17:26 Blood Culture - Final Blood - Venous No growth after 5 days. Assessment and Plan (1) [place] (acute kidney injury): Status: Acute (2) Acute respiratory failure with hypoxia: Status: Acute (3) Dilatation of esophagus: Status: Acute (4) Aspiration pneumonia: Status: Acute (5) Amputated great toe of left foot: Status: Acute Plan 81-year-old male with history of PVD presents the hospital with complaints of gangrenous foot # gangrenous foot on the left s/p Amputation big toe Pod 4 On IV Zosyn negative cultures To do physical therapy # Acute hypoxic respiratory failure 2/2 aspiration pneumonia/ pneumonitis leukocytosis likely from steroid not due to sepsis Treated with IV Zosyn continue steroids Wean oxygen down as tolerated # Dilated stomach and esophagus Seen on CTA with fluid filled NG tube removed by the patient this morning start Reglan ATC KUB repeated and showing no dilatation of the esophagus or stomach surgery input appreciated GI evaluation appreciated To start planned diet for now # acute kidney injury Likely secondary to contrast nephropathy as long as ATN Creatinine min still increasing Continue supportive care Creatinine up from 1 at baseline to 3.3 today Nephrology following # hypokalemia Potassium of 2.9 to give replacement and repeat BMP # hypotension improved Hold blood pressure medications Could be secondary vagal stimulation from dilated stomach Not due to sepsis Continue gentle hydration Monitor BP # PAD continue Plavix and statin # CHF no acute exacerbation continue Lasix # diabetes low-dose sliding scale insulin continue Levemir DVT prophylaxis: SCDs in the anticipation of surgical intervention in a.m. the patient will need overnight hospital stay for Recovery after amputation and to do physical therapy, treatment of pneumonia and evaluation of hypotension and fluid-filled dilated stomach given his high risk for decompensation and post surgery care. Quality Stroke Does the patient have a stroke diagnosis?: No VTE Prior VTE?: No VTE Risk Level:: Medical - moderate - high VTE Device Contraindication: N/A - Device Ordered VTE Drug Contraindication: Treatment Not Indicated
--- NOTE | 2022-03-03 14:19 | MHC.CLN ---
F/U HAD BEEN NPO X 2 DAYS WITH NG TUBE FOR DECOMPRESSION. DIET ADVANCED TODAY TO REGULAR, BLAND. ADDING ENSURE TID TO INCREASE CALORIC INTAKE. NEW DX INCLUDES ASPIRATION PNEUMONIA, DILATION OF ESOPHAGUS, ACUTE RESPIRATORY FAILURE WITH HYPOXIA. LIMITED INTAKE. MONITOR INTAKE CLOSELY.
[2022-03-03 16:36] LABS: Glucose, Whole Blood 150 mg/dL (60-115)
[2022-03-03] MEDS: Insulin Glargine,Hum.rec.anlog 100 UNIT/ML 10 ML VIAL SUBCUT (18:32)
[2022-03-03] MEDS: Potassium Chloride Packet 20 MEQ PACKET 40 MEQ PO (19:18)
[2022-03-03] MEDS: Atorvastatin Calcium 80 MG TABLET PO (19:19)
[2022-03-03] MEDS: Gabapentin 100 MG CAPSULE PO (19:19)
[2022-03-03 20:42] LABS: Glucose, Whole Blood 156 mg/dL (60-115)
--- NOTE | 2022-03-03 23:35 | PC.NURSE ---
Patient refused to drink Potassium powder, asked Dr Johnson if he wanted to order Kcl replacement iv or in pill form or to repeat K+ level, no response yet. Reported to next shift nurse.
[2022-03-04] VITALS (7 sets, daily range): BP systolic 116–144; BP diastolic 59–73; PULSE 59–90; RESP 17–18; TEMP 36–36.9; O2SAT 95–100
[2022-03-04] MEDS: 0.9 % Sodium Chloride Flush 3 ML SYRINGE IVFLUSH ×3 (00:44→20:50)
[2022-03-04] MEDS: Piperacillin Sodium/Tazobactam 3.375 GM in 0.9 % Sodium Chloride 50 ML IV ×2 (01:21→09:03)
[2022-03-04] MEDS: Morphine Sulfate 2 MG/ML CARTRIDGE 1 MG IVPUSH (02:02)
[2022-03-04] MEDS: Potassium Chloride/H20 10 MEQ/100 ML PIGGYBACK 100 MEQ IV ×4 (02:04→05:43)
[2022-03-04 06:10] LABS: Anion Gap 19 (12-20); Blood Urea Nitrogen 81 mg/dL (9-16); Calcium 7.9 mg/dL (8.4-10.2); Carbon Dioxide 24 mmol/L (22-29); Chloride 103 mmol/L (96-108); Creatinine Clr Calc Pharmacy 12.5; Estimated Glomerular Filt Rate 19; Glucose Random 127 mg/dL (60-115); Potassium 3.7 mmol/L (3.3-5.1); Sodium 142 mmol/L (135-145)
[2022-03-04 08:18] LABS: Glucose, Whole Blood 112 mg/dL (60-115)
[2022-03-04] MEDS: methylPREDNISolone Sod Succ 40 MG/ML VIAL IVPUSH (09:03)
[2022-03-04] MEDS: Metoclopramide HCl 10 MG/2 ML VIAL 5 MG IVPUSH (09:03)
[2022-03-04] MEDS: Clopidogrel Bisulfate 75 MG TABLET PO (09:03)
[2022-03-04] MEDS: Acetaminophen 325 MG TABLET 650 MG PO (09:18)
[2022-03-04] MEDS: oxyCODONE HCl Immed Release 5 MG TABLET PO ×2 (09:18→16:47)
--- NOTE | 2022-03-04 11:09 | HO.PM.IMPN ---
Subjective Subjective Date of Service: 03/04/22 Interval History: the patient was seen and evaluated this morning more alert and interactive tolerating diet Cr stabilizing Surgical site clean with no drainage Denies any fever, chills or shortness of breath Systemic review: No fever, chills or weakness No chest pain, palpitation No shortness of breath or coughing No abdominal pain, nausea or vomiting Decrease urine output pain fairly controlled Physical Exam Vital Signs: Vital Signs: Last Vital Signs Temp 97.1 F 03/04/22 07:35 Pulse 59 03/04/22 09:33 Resp 18 03/04/22 07:35 BP 140/64 H 03/04/22 09:33 Pulse Ox 98 03/04/22 09:33 BMI result Body Mass Index 18.8 Const: Other: Appearance: Alert. interactive. No acute distress. ENT: Pharynx normal. Neck: Normal inspection. Neck supple. No lymph nodes noted. No crepitus CVS: Normal heart rate and rhythm. Pulses normal. Respiratory: No respiratory distress. basal bilateral fine crackles , on oxygen supplement Abdomen: Soft and nontender. No rigidity. No distention. Skin: Skin warm and dry. Extremities: left foot in dressing with no drainage noted Neuro: Oriented to self. No motor deficit. No slurred speech. CN 2 through 12 grossly intact Psych: calm, cooperative, normal affect Objective Data Active Medications Acetaminophen (Acetaminophen 325 Mg Tablet) 650 mg PO Q6H PRN PRN Reason: Pain, Mild (Pain Scale 1-3) Last Admin: 03/04/22 09:18 Dose: 650 mg Documented by: KRISHNA Atorvastatin Calcium (Atorvastatin Calcium 80 Mg Tablet) 80 mg PO BEDTIME [facility] Last Admin: 03/03/22 19:19 Dose: 80 mg Documented by: ROCHELLE Clopidogrel Bisulfate (Clopidogrel Bisulfate 75 Mg Tablet) 75 mg PO DAILY [facility] Last Admin: 03/04/22 09:03 Dose: 75 mg Documented by: KRISHNA Dextrose (Dextrose 50 % 25 Gm/50 Ml Syringe) 25 gm IVPUSH Q15M PRN; Protocol PRN Reason: per Hypoglycemia Standing Ord. Docusate Sodium (Docusate Sodium 100 Mg Capsule) 100 mg PO DAILY PRN PRN Reason: Constipation Gabapentin (Gabapentin 100 Mg Capsule) 100 mg PO BID [facility] Last Admin: 02/28/22 08:24 Dose: 100 mg Documented by: DEMOND Gabapentin (Gabapentin 100 Mg Capsule) 100 mg PO BEDTIME [facility] Last Admin: 03/03/22 19:19 Dose: 100 mg Documented by: COLGHADA Glucose (Glucose Gel 15 Gm Gel..Gram.) 15 gm PO Q15M PRN; Protocol PRN Reason: per Hypoglycemia Standing Ord. Piperacillin Sod/Tazobactam (Sod 3.375 gm/ Sodium Chloride) 50 mls @ 100 mls/hr IV Q6H [facility] Last Infusion: 03/04/22 09:43 Dose: 0 mls/hr Documented by: KRISHNA Insulin Glargine (Insulin Glargine,Hum.Rec.Anlog 100 Unit/Ml 10 Ml Vial) 5 unit SUBCUT DAILY@1800 [facility] Last Admin: 03/03/22 18:32 Dose: 5 unit Documented by: DEMOND Insulin Human Lispro (Insulin Lispro 100 Unit/Ml 3 Ml Vial) 0 unit SUBCUT QIDACHS [facility]; Protocol Last Admin: 03/04/22 08:47 Dose: Not Given Documented by: KRISHNA Non-Admin Reason: No Insulin Coverage Metoclopramide HCl (Metoclopramide Hcl 10 Mg/2 Ml Vial) 5 mg IVPUSH TID [facility] Last Admin: 03/04/22 09:03 Dose: 5 mg Documented by: KRISHNA Ondansetron HCl (Ondansetron Hcl 4 Mg/2 Ml Vial) 4 mg IVPUSH Q8H PRN PRN Reason: Nausea and Vomiting Oxycodone HCl (Oxycodone Hcl Immed Release 5 Mg Tablet) 5 mg PO Q3H PRN PRN Reason: Pain, Moderate (Pain Scale 4-6 Last Admin: 03/04/22 09:18 Dose: 5 mg Documented by: KRISHNA Pharmacy Consult (Consult Rx Perform Med Rec) 1 each MISCELLANE ONCE PRN PRN Reason: Consult order Pharmacy Consult (Consult Rx Vancomycin Dosing) 1 each MISCELLANE DAILY PRN PRN Reason: Consult order Sodium Chloride (0.9 % Sodium Chloride Flush 3 Ml Syringe) 3 ml IVFLUSH QSHIFT [facility] Last Admin: 03/04/22 09:03 Dose: 3 ml Documented by: KRISHNA Labs CBC & Chem 7: 03/03/22 05:57 03/04/22 05:35 Labs: Laboratory Results - last 24 hr 03/03/22 03/03/22 03/03/22 11:16 16:14 20:37 Anion Gap Estim Creat Clear Calc Estimated GFR POC Glucose 252 H 150 H 156 H Random Glucose Calcium 03/04/22 03/04/22 05:35 07:34 Anion Gap 19 Estim Creat Clear Calc 12.5 Estimated GFR 19 POC Glucose 112 Random Glucose 127 H D Calcium 7.9 L Assessment and Plan (1) [place] (acute kidney injury): Status: Acute (2) Aspiration pneumonia: Status: Acute (3) Gastroparesis: Status: Acute Plan 81-year-old male with history of PVD presents the hospital with complaints of gangrenous foot # gangrenous foot on the left s/p Amputation big toe Pod 5 On IV Zosyn negative cultures To do physical therapy # Acute hypoxic respiratory failure 2/2 aspiration pneumonia/ pneumonitis resolving leukocytosis likely from steroid not due to sepsis change IV Zosyn to PO Augmentin DC steroids Wean oxygen down as tolerated # Dilated stomach and esophagus 2/2 Gastroparesis Seen on CTA with fluid filled NG tube removed by the patient yesterday, tolerating diet well continue Reglan ATC KUB repeated and showing no dilatation of the esophagus or stomach surgery input appreciated GI evaluation appreciated continue diet # acute kidney injury Likely secondary to contrast nephropathy as long as ATN Creatinine min still increasing Continue supportive care Creatinine up from 1 at baseline to 3.19 today Nephrology following, monitor overnight # hypokalemia Potassium of 3.7 after replacement repeat BMP # hypotension improved Hold blood pressure medications Could be secondary vagal stimulation from dilated stomach Not due to sepsis DC gentle hydration Monitor BP # PAD continue Plavix and statin # CHF no acute exacerbation continue Lasix # diabetes low-dose sliding scale insulin continue Levemir DVT prophylaxis: SCDs in the anticipation of surgical intervention in a.m. the patient will need overnight hospital stay for Recovery after amputation and to do physical therapy, treatment of pneumonia and evaluation of hypotension and fluid-filled dilated stomach given his high risk for decompensation and post surgery care. Quality Stroke Does the patient have a stroke diagnosis?: No VTE Prior VTE?: No VTE Risk Level:: Medical - moderate - high VTE Device Contraindication: N/A - Device Ordered VTE Drug Contraindication: Treatment Not Indicated
--- NOTE | 2022-03-04 11:09 | PM.PNNEP ---
Subjective Subjective Date of Service: 03/04/22 Interval history: Events noted. All recent data reviewed. Improved Physical Exam Vital Signs: Vital Signs: Last Vital Signs Temp 97.1 F 03/04/22 07:35 Pulse 59 03/04/22 09:33 Resp 18 03/04/22 07:35 BP 140/64 H 03/04/22 09:33 Pulse Ox 98 03/04/22 09:33 BMI result Body Mass Index 18.8 Const: General: comfortable Orientation/consciousness: patient oriented x3 Eyes: EOM: EOMs intact bilaterally Resp: Auscultation: diminished lung sounds Cardio: Rate: regular rate GI: Palpation (GI): Soft to palpation Neuro: General: patient oriented x3 and moves all extremities Objective Data Labs CBC & Chem 7: 03/03/22 05:57 03/04/22 05:35 Labs: Laboratory Results - last 24 hr 03/03/22 03/03/22 03/03/22 11:16 16:14 20:37 Sodium Potassium Chloride Carbon Dioxide Anion Gap BUN Creatinine Estim Creat Clear Calc Estimated GFR POC Glucose 252 H 150 H 156 H Random Glucose Calcium 03/04/22 03/04/22 05:35 07:34 Sodium 142 Potassium 3.7 D Chloride 103 Carbon Dioxide 24 Anion Gap 19 BUN 81 H Creatinine 3.19 H Estim Creat Clear Calc 12.5 Estimated GFR 19 POC Glucose 112 Random Glucose 127 H D Calcium 7.9 L Microbiology Microbiology Results: Microbiology 02/25/22 18:06 Blood - Venous Blood Culture - Final No growth after 5 days. 02/25/22 17:26 Blood - Venous Blood Culture - Final No growth after 5 days. 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 C/W current supportive care for now. No indication for renal replacement at this moment in time Continue with current supportive care for now; Labs AM; Shall closely F/U Time Spent With Patient Time: Total time spent is greater than 50% in coordination of care (as documented) at patient's floor/unit and/or counseling patient: Progress Note: Quality Stroke Does the patient have a stroke diagnosis?: No
[2022-03-04 12:08] LABS: Glucose, Whole Blood 192 mg/dL (60-115)
[2022-03-04] MEDS: Morphine Sulfate 2 MG/ML CARTRIDGE IVPUSH (12:16)
[2022-03-04] MEDS: Amoxicillin/Potassium Clav 500 MG TABLET PO (12:16)
[2022-03-04] MEDS: Metoclopramide HCl 5 MG TABLET PO ×2 (12:24→16:47)
--- NOTE | 2022-03-04 13:32 | MHC.CM.PN ---
PATIENT SON DOES NOT FEEL THE NEED FOR REHAB OR [facility]. SON IS NOW AWARE THAT PATIENT WILL NEED SOME SERVICES FOR WOUND CARE EVEN IF FOR TEACH AND MONITORING. REFERRAL TO [facility] TO INQUIRE IF THEY CAN OFFER. CASE MANAGEMENT FOLLOWING FOR ANTICIPATED 03/05 DC HOME
--- NOTE | 2022-03-04 15:26 | MHC.CLN ---
RE: CONSULT PT WITH ENSURE TID IN PLACE R/T POOR PO SEE DIETITIAN PROGRESS NOTES CONTINUE TO MONITOR PO INTAKE CLOSELY
[2022-03-04 16:23] LABS: Glucose, Whole Blood 272 mg/dL (60-115)
[2022-03-04] MEDS: Insulin Lispro 100 UNIT/ML 3 ML VIAL SUBCUT ×2 (16:47→20:49)
[2022-03-04] MEDS: Insulin Glargine,Hum.rec.anlog 100 UNIT/ML 10 ML VIAL SUBCUT (18:20)
[2022-03-04 20:36] LABS: Glucose, Whole Blood 235 mg/dL (60-115)
[2022-03-04] MEDS: Gabapentin 100 MG CAPSULE PO (20:49)
[2022-03-04] MEDS: Atorvastatin Calcium 80 MG TABLET PO (20:49)
[2022-03-05] MEDS: Amoxicillin/Potassium Clav 500 MG TABLET PO ×2 (00:03→11:19)
[2022-03-05 04:00] VITALS: BP 137/65; PULSE 63; RESP 17; TEMP 36.3; O2SAT 95
[2022-03-05 06:07] LABS: Hematocrit 34.1 % (42.0-52.0); Hemoglobin 11.2 g/dl (14.0-18.0); Mean Corpuscular HGB Conc 32.8 g/dl (31.0-36.0); Mean Corpuscular Hemoglobin 28.7 pg (27.0-33.0); Mean Corpuscular Volume 87.4 fL (80.0-98.0); Mean Platelet Volume 11.3 fL (9.4-12.4); Platelet Count 288 X10*3/uL (160-400); White Blood Count 14.9 X10*3/uL (4.8-10.8)
[2022-03-05 06:18] LABS: Anion Gap 19 (12-20); Blood Urea Nitrogen 70 mg/dL (9-16); Calcium 8.4 mg/dL (8.4-10.2); Carbon Dioxide 25 mmol/L (22-29); Chloride 103 mmol/L (96-108); Creatinine Clr Calc Pharmacy 16.2; Estimated Glomerular Filt Rate 25; Glucose Random 90 mg/dL (60-115); Potassium 3.5 mmol/L (3.3-5.1); Sodium 143 mmol/L (135-145)
[2022-03-05 07:21] LABS: Glucose, Whole Blood 84 mg/dL (60-115)
[2022-03-05 07:26] VITALS: BP 110/57; PULSE 67; RESP 18; TEMP 36.2; O2SAT 95
[2022-03-05] MEDS: Metoclopramide HCl 5 MG TABLET PO ×2 (07:34→11:19)
[2022-03-05] MEDS: Docusate Sodium 100 MG CAPSULE PO (07:34)
[2022-03-05] MEDS: Clopidogrel Bisulfate 75 MG TABLET PO (07:35)
[2022-03-05] MEDS: Acetaminophen 325 MG TABLET 650 MG PO (07:35)
[2022-03-05] MEDS: 0.9 % Sodium Chloride Flush 3 ML SYRINGE IVFLUSH (07:35)
[2022-03-05] MEDS: oxyCODONE HCl Immed Release 5 MG TABLET PO (07:35)
[2022-03-05 08:37] VITALS: BP 110/57; PULSE 67; O2SAT 95
--- NOTE | 2022-03-05 09:55 | PC.NURSE ---
Addendum entered by Katrina Medina RN 03/05/22 14:18: Patient incontinent large amt urine at 1400. Bladder scanned for 332. Dr. Palacio notified. Patient already started on flomax. Original Note: Mayers removed at 1000. Drained 250cc cloudy urine. DTV #1 @ 1600. Urinal at bedside. Patient drinking water.
--- NOTE | 2022-03-05 11:16 | PM.PNNEP ---
Subjective Subjective Date of Service: 03/05/22 Interval history: Events noted. All recent data reviewed Physical Exam Vital Signs: Vital Signs: Last Vital Signs Temp 97.1 F 03/05/22 07:26 Pulse 67 03/05/22 08:37 Resp 18 03/05/22 07:26 BP 110/57 L 03/05/22 08:37 Pulse Ox 95 03/05/22 08:37 BMI result Body Mass Index 18.8 Const: General: comfortable Orientation/consciousness: patient oriented x3 Eyes: EOM: EOMs intact bilaterally Neck: Neck: Yes supple Resp: Auscultation: diminished lung sounds Cardio: Rate: regular rate GI: Palpation (GI): Soft to palpation Neuro: General: patient oriented x3 Objective Data Labs CBC & Chem 7: 03/05/22 05:37 03/05/22 05:37 Labs: Laboratory Results - last 24 hr 03/04/22 03/04/22 03/04/22 11:33 16:03 20:31 WBC RBC Hgb Hct MCV MCH MCHC RDW Plt Count MPV Absolute Nucleated RBC Nucleated RBC % (auto) Sodium Potassium Chloride Carbon Dioxide Anion Gap BUN Creatinine Estim Creat Clear Calc Estimated GFR POC Glucose 192 H 272 H 235 H Random Glucose Calcium 03/05/22 03/05/22 03/05/22 05:37 05:37 07:17 WBC 14.9 H RBC 3.90 L Hgb 11.2 L Hct 34.1 L MCV 87.4 MCH 28.7 MCHC 32.8 RDW 13.0 Plt Count 288 MPV 11.3 Absolute Nucleated RBC 0.000 Nucleated RBC % (auto) 0.0 Sodium 143 Potassium 3.5 Chloride 103 Carbon Dioxide 25 Anion Gap 19 BUN 70 H Creatinine 2.48 H Estim Creat Clear Calc 16.2 Estimated GFR 25 POC Glucose 84 Random Glucose 90 Calcium 8.4 D Microbiology Microbiology Results: Microbiology 02/25/22 18:06 Blood - Venous Blood Culture - Final No growth after 5 days. 02/25/22 17:26 Blood - Venous Blood Culture - Final No growth after 5 days. 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 C/W current supportive care for now. Shall arrange close F/U in the office if D/[place] Time Spent With Patient Time: Total time spent is greater than 50% in coordination of care (as documented) at patient's floor/unit and/or counseling patient: Progress Note: Quality Stroke Does the patient have a stroke diagnosis?: No
[2022-03-05 11:17] VITALS: BP 139/72; PULSE 69; RESP 18; TEMP 36.3; O2SAT 97
[2022-03-05] MEDS: 0.9 % Sodium Chloride 500 ML IV (11:18)
[2022-03-05] MEDS: Tamsulosin HCL 0.4 MG CAPSULE PO (11:19)
[2022-03-05 11:20] LABS: Glucose, Whole Blood 145 mg/dL (60-115)
--- NOTE | 2022-03-05 12:28 | P.F2F_ITS ---
Service Date Service Date: 03/05/22 Encounter Date of encounter: 03/05/22 Reasons for Services Signs and symptoms assessed: Amputation of big toe Reason for correction: wound care ( xeroform, 4x4 and Kerlix wrap to be changed daily.) Reason for physical therapy: therapeutic exercises Homebound: Leaving the home is medically contraindicated at this time without the asist of a device and/or another person due th the listed conditions above and below. Reason homebound: other Certification: Based on the above findings, I certify that this patient is confined to the home and needs intermittent correction care, physical therapy and/or speech therapy, or continues to need occupational therapy. The patient is under my care, and I have initiated the establishment of the plan of care. The patient will be followed by a physician who will periodically review the plan of care.
--- NOTE | 2022-03-05 13:27 | P.DS_ITS ---
DS: Providers Provider Date of Service: 03/05/22 Date of admission: 02/25/22 22:15 Primary care physician: Christi Patel MD Consults: 02/25/22 22:13 Consult to Vascular Surgery Routine Consulting Provider: Ramin Johnson Reason for consultation: Necrotic tissue Has provider been notified: Yes 03/01/22 10:12 Consult to General Surgery Routine Consulting Provider: Dominga Christiansen Reason for consultation: dilated stomach and esophagus, fluid filled 03/02/22 08:35 Consult to Gastroenterology Routine Consulting Provider: Jose Juan Llanes Reason for consultation: Dilated esophagus and stomach for your kind eval 03/03/22 08:54 Consult to Nephrology Routine Consulting Provider: Girma Delatorre Reason for consultation: [place] for your kind eval, recent hypotensive event DS: Diagnosis Discharge Diagnosis (1) [place] (acute kidney injury): Status: Acute (2) Gastroparesis: Status: Acute (3) Acute respiratory failure with hypoxia: Status: Acute (4) Dilatation of esophagus: Status: Acute (5) Aspiration pneumonia: Status: Acute (6) Gangrene of foot: Status: Acute (7) Amputated great toe of left foot: Status: Acute DS: Summary Hospital Course Hospital Course: Admission note HPI ?81-year-old male with past medical history of PVD,? diabetes, dementia, neuropathy, CAD, history of heart failure? presents to the hospital after va scular surgeon noted left great toe gangrne.? patient was sent to the ED by his vascular surgeon for further evaluation and management.? Patient himself is Citizen Of [place]-speaking, but does understand and responding wish, his son at bedside.? Reports that he has significant pain in his left foot, when asked about the duration reports that he has had this infection in the? left toes for many months, patient apparently has not been compliant with his appointments to his vascular surgeon, patient himself denies any fever or chills, just complains of significant pain in the toe.? He has no abdominal pain, no chest pain, no shortness of breath, no no diarrhea constipation, no urinary symptoms and no lower extremity edema.? nificant for labs are significant for WBC count of 18.7, hemoglobin of 12.1, he matocrit 36.3, BUN of 27,? creatinine of 1.24, ?x-ray of the foot shows great toe swelling with soft tissue air concerning for gas-forming organisms Hospital course The patient was admitted to the hospital for gangrenous foot on the left s/p Amputation big toe. Evaluated by vascular surgeon as he was kept on IV antibiotics. Ray amputation was done by Dr. Johnson with good response after the surgery. Blood cultures remain negative and he was able to participate with physical therapy who recommended home therapy. The patient developed Acute hypoxic respiratory failure 2/2 aspiration pneumonia/ pneumonitis the day after surgery with drop in his blood pressure. Started on IV antibiotics that was changed eventually to oral Augmentin along with steroid therapy during the hospital stay. He was weaned off the oxygen and his saturation was 97% on room air at the day of discharge. 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 NG tube was placed at and suction for 2 days before we with the patient removed the tube himself. He was treated with metoclopramide around the clock during that period of time with repeated KUB showing no dilatation of esophagus and stomach. He was restarted on diet and tolerates it well. Also after the hypotension event he was noted to have acute kidney injury Likely secondary to contrast nephropathy as well as ATN. Evaluated by Nephrology team as his creatinine level increased from almost 1 to 3.7 then started to improve down with creatinine the day of discharge of 2.7. He is supposed to follow up with Nephrology as outpatient. He developed urine retention after surgery requiring placement of Mayers catheter that was removed at the day of discharge and he was able to pass urine. To be discharged on tamsulosin. Continue Augmentin for 4 more days Use oxycodone as needed for pain Use metoclopramide as needed for nausea Start tamsulosin for urine retention To follow-up with Dr. Johnson office as planned. To follow-up from Dr. Delatorre from Nephrology Time Spent with Patient Time attestation: Total time spent providing and/or coordinating discharge services: Discharge coordination time: Greater than 30 minutes Quality: Safe Use of Opioids Does Pt have an Active Cancer Diagnosis on the Problem List?: No Quality: Stroke Does the patient have a stroke diagnosis?: No Physical Exam Vital Signs: Vital Signs: Last Vital Signs Temp 97.4 F 03/05/22 11:17 Pulse 69 04/13/22 11:17 Resp 18 03/05/22 11:17 BP 139/72 03/05/22 11:17 Pulse Ox 97 03/05/22 11:17 BMI result Body Mass Index 18.8 Const: Other: Appearance: Alert. interactive. No acute distress. ENT: Pharynx normal. Neck: Normal inspection. Neck supple. No lymph nodes noted. No crepitus CVS: Normal heart rate and rhythm. Pulses normal. Respiratory: No respiratory distress. No crackles Abdomen: Soft and nontender. No rigidity. No distention. Skin: Skin warm and dry. Extremities: left foot in dressing with no drainage noted Neuro: Oriented to self. No motor deficit. No slurred speech. CN 2 through 12 grossly intact Psych: calm, cooperative, normal affect DS: Data Data Completed and Pending Completed studies during hospitalization [Text1]: Pending at discharge 02/27/22 17:57 Surgical [PTH] Routine Procedures Excision of Esophagus, Via Natural or Artificial Opening Endoscopic, Diagnostic (08/09/21) Excision of Stomach, Pylorus, Via Natural or Artificial Opening Endoscopic, Diagnostic (08/09/21) Labs on day of discharge: Laboratory Results - last 24 hr 03/04/22 03/04/22 03/05/22 16:03 20:31 05:37 WBC 14.9 H RBC 3.90 L Hgb 11.2 L Hct 34.1 L MCV 87.4 MCH 28.7 MCHC 32.8 RDW 13.0 Plt Count 288 MPV 11.3 Absolute Nucleated RBC 0.000 Nucleated RBC % (auto) 0.0 Sodium Potassium Chloride Carbon Dioxide Anion Gap BUN Creatinine Estim Creat Clear Calc Estimated GFR POC Glucose 272 H 235 H Random Glucose Calcium 03/05/22 03/05/22 03/05/22 05:37 07:17 10:58 WBC RBC Hgb Hct MCV MCH MCHC RDW Plt Count MPV Absolute Nucleated RBC Nucleated RBC % (auto) Sodium 143 Potassium 3.5 Chloride 103 Carbon Dioxide 25 Anion Gap 19 BUN 70 H Creatinine 2.48 H Estim Creat Clear Calc 16.2 Estimated GFR 25 POC Glucose 84 145 H Random Glucose 90 Calcium 8.4 D Discharge Plan Discharge Patient Disposition: Home Health Service Discharge Diagnosis: Gangrene of the big toe post amputation Acute kidney injury Gastroparesis Aspiration pneumonia Referrals: Christi Patel MD [Primary Care Provider] - 1 Week Discharge Medications: New metoclopramide HCl 5 mg Tablet 5 mg PO TIDAC PRN (Reason: Nausea And Vomiting) Qty: 20 0RF amoxicillin-pot clavulanate 500-125 mg Tablet 500 mg PO Q12H Qty: 6 0RF oxycodone 5 mg Tablet 5 mg PO Q3H PRN (Reason: Pain, Moderate (Pain Scale 4-6) Qty: 20 0RF tamsulosin 0.4 mg capsule 0.4 mg PO DAILY Qty: 30 0RF Continued Levemir FlexTouch U-100 Insuln 100 unit/mL (3 mL) insulin pen 10 unit subcut DAILY@1800 0RF Hold Instructions: Resume on 08/19/21. hold due to hypoglycemia episodes, slowly introduce in next few days if fingersticks the remain uncontrolled above 200 mg/dL, start on a lower dose of Levemir as per rehab. gabapentin 100 mg capsule 100 mg PO BID 0RF clopidogrel 75 mg Tablet 75 mg PO DAILY Qty: 75 0RF furosemide 40 mg Tablet 40 mg PO BID@0900,1800 Qty: 60 0RF Protocol: Hold for SBP< HOLD for SBP < : 90 atorvastatin 80 mg Tablet 80 mg PO BEDTIME Qty: 30 0RF lisinopril 2.5 mg Tablet 2.5 mg PO DAILY Qty: 30 0RF Protocol: Hold for SBP< HOLD for SBP < : 90 docusate sodium 100 mg capsule 100 mg PO BID PRN (Reason: constipation) 0RF (DME) pen needle, diabetic [Pentips] 32 gauge x 5/32 needle See Rx Instructions ea .ROUTE .MEDSUPPLY Qty: 50 0RF Rx Instructions: As directed (DME) insulin syringe-needle U-100 [UltiCare] 0.5 mL 30 gauge x 1/2 syringe See Rx Instructions ea .ROUTE .MEDSUPPLY Qty: 10 0RF Rx Instructions: As directed gabapentin 300 mg capsule 300 mg PO BEDTIME 0RF Rx Instructions: in addition to 100 mg ferrous sulfate [FeroSul] 325 mg (65 mg iron) tablet 325 mg PO DAILY 0RF (DME) lancets [TRUEplus Lancets] 33 gauge misc See Rx Instructions ea Not Applicable QID Qty: 100 0RF Rx Instructions: As directed (DME) FreeStyle Lite Strips Strip See Rx Instructions ea Not Applicable QID Qty: 10 0RF Rx Instructions: As directed Discharge Orders: Discharge Order (Routine); Ordered 03/05/22 Ordered By: Maximus Palacio Diet: advance to usual diet Activity on Discharge: As tolerated Stand Alone Forms: Patient Portal Discharge page Activity Restrictions/Additional Instructions: Wound care upon discharge: xeroform, 4x4 and Kerlix wrap to be changed daily. Please call Dr. Johnson at [phone] for 2 week follow up for staple removal Care Plan Goals: Read below Health Concerns: Read below Plan of Treatment: Read below Assessment: You were admitted to the hospital for evaluation of gangrenous toe which was re moved by amputation by Dr. Johnson from surgery. You developed acute kidney injury from low blood pressure and contrast which improved as you were followed by Nephrology team. You were treated with IV antibiotics for evidence of pneumonia from aspiration. Continue Augmentin for 4 more days Use oxycodone as needed for pain Use metoclopramide as needed for nausea Start tamsulosin for urine retention To follow-up with Dr. Johnson office as planned. To follow-up from Dr. Delatorre from Nephrology
--- NOTE | 2022-03-05 14:50 | MHC.CLN ---
F/U DIET=DIABETIC 1800 KCAL. SUPPLEMENT ENSURE TID. PATIENT WITH ONE OPENED ENSURE IN ROOM AND 3 UNOPENED. POOR INTAKE AT MEALS. SCHEDULED FOR DISCHARGE TODAY. ENCOURAGE FOOD/FLUID INTAKE ABLE.
--- NOTE | 2022-03-05 15:00 | MHC.CM.PN ---
CALL TO HCP SON, JUANY @ [phone] JUANY IS ON HIS WAY TO TRANSPORT PATIENT HOME. HE IS AWARE AND AGREEABLE TO [facility] REFERRAL FOR 2-3X/WEEK WOUND CARE TEACH AND MONITORING. IMM 03/04 IN CHART
[2022-03-05 15:11] VITALS: BP 150/69; PULSE 76; RESP 17; TEMP 37.2; O2SAT 95
== END 2022-03-05 16:00 | disposition home health service (06) | DRG 616 ==
LOC: HO.ED 19:27 → HO.EDOVER 22:25 → HO.S3 02-26 12:41
PROVIDERS: Surgery Vascular Surgery; Admitting Provider Internal Medicine; Emergency Provider Emergency Medicine; PCP Family Medicine; Visit Provider Student in an Organized Health Care Education/Training Program
PROC: 0Y6Q0Z0 Detachment at Left 1st Toe, Complete, Open Approach (ICD-10-PCS; principal; 2022-02-27 14:50)
DX: E11.621 Type 2 diabetes mellitus with foot ulcer (principal); E43 Unspecified severe protein-calorie malnutrition; A48.0 Gas gangrene; J69.0 Pneumonitis due to inhalation of food and vomit; J96.01 Acute respiratory failure with hypoxia; E11.52 Type 2 diabetes mellitus with diabetic peripheral angiopathy with gangrene; Z68.1 Body mass index [BMI] 19.9 or less, adult; I50.22 Chronic systolic (congestive) heart failure; L97.529 Non-pressure chronic ulcer of other part of left foot with unspecified severity; N17.0 Acute kidney failure with tubular necrosis; Z20.822 Contact with and (suspected) exposure to COVID-19; I25.2 Old myocardial infarction; E11.43 Type 2 diabetes mellitus with diabetic autonomic (poly)neuropathy; K31.84 Gastroparesis; E11.40 Type 2 diabetes mellitus with diabetic neuropathy, unspecified; N18.30 Chronic kidney disease, stage 3 unspecified; I95.9 Hypotension, unspecified; T50.8X5A Adverse effect of diagnostic agents, initial encounter; N14.1 Nephropathy induced by other drugs, medicaments and biological substances; I25.10 Atherosclerotic heart disease of native coronary artery without angina pectoris; E11.22 Type 2 diabetes mellitus with diabetic chronic kidney disease; E87.6 Hypokalemia; K22.89 Other specified disease of esophagus; F03.90 Unspecified dementia, unspecified severity, without behavioral disturbance, psychotic disturbance, mood disturbance, and anxiety; Z87.891 Personal history of nicotine dependence; Z79.4 Long term (current) use of insulin; Z79.02 Long term (current) use of antithrombotics/antiplatelets; Z79.899 Other long term (current) drug therapy
CPT/HCPCS: 36415; 36600; 71045; 71275; 73630; 74018; 80048; 80076; 80202; 81001; 82803; 82947; 83605; 84300; 85025; 85027; 85610; 87040; 87635; 88305; 88311; 93925; 96361; 96374; 96375; 97110; 97162; 97530; 99212; 99285; C1758; J1650; J2270; J2543; J2765; J2920; J3370; Q9967

== ENCOUNTER → 2022-03-31 10:15 | Outpatient (BNVA) | payer MEDICARE, MEDICAID, SELFPAY | PROVIDERS: PCP Family Medicine; Visit Provider Surgery Vascular Surgery | DX: Z13.89 Encounter for screening for other disorder (principal) | CPT/HCPCS: 99212 ==

== ENCOUNTER 2022-03-31 10:59 | Inpatient (IN) | payer MEDICARE, MEDICAID, SELFPAY ==
--- NOTE | ~2022-03-31 | US_ITS ---
EXAMINATION: NONINVASIVE ASSESSMENT OF THE ARTERIES OF BOTH LOWER EXTREMITIES INCLUDING PVR EXAM AND BILATERAL LOWER EXTREMITY DUPLEX CLINICAL INFORMATION: Nonhealing ulcer COMPARISON: Ultrasound 02/25/2022 TECHNIQUE: Ankle pulse volume recordings, ankle pressure measurements and ankle brachial indices were obtained of the lower extremity arterial system bilaterally in addition to duplex Doppler techniques with wave form analysis and measurement of velocities in the common femoral, profunda femoral, superficial femoral, popliteal, tibial and peroneal arteries. The study was performed only at rest. FINDINGS: RIGHT LEG 1. Right Ankle-Brachial Index: 0.97 (higher of the DP/PT) >0.97-1.25 = normal - no significant arterial disease 0.75-0.96 = mild peripheral arterial disease 0.5-0.74 = moderate peripheral arterial disease <0.50 = severe peripheral arterial disease <0.30 = critical arterial disease 2. Segmental Pressures (mmHg): Brachial: 108 Ankle: PT 99, DP 113 3. PVR Waveforms: Ankle: Low phasicity, absent dicrotic notch 4. Direct Duplex: Common femoral artery: 121 cm/s, Multiphasic Profunda femoris artery: 120 cm/s, Multiphasic Superficial femoral artery (proximal): 119 cm/s, Multiphasic Superficial femoral artery (mid): 289 cm/s, Multiphasic Superficial femoral artery (distal): 275 cm/s, Multiphasic Proximal Popliteal artery: 62.7 cm/s, Multiphasic Distal popliteal artery: 86.2 cm/s, monophasic Posterior tibial artery: No flow detected, possibly occluded Peroneal artery: 48.7 cm/s, monophasic LEFT LE. Left Ankle-Brachial Index: 0.72 (higher of the DP/PT) >0.97-1.25 = normal - no significant arterial disease 0.75-0.96 = mild peripheral arterial disease 0.5-0.74 = moderate peripheral arterial disease <0.50 = severe peripheral arterial disease <0.30 = critical arterial disease 2. Segmental Pressures: Brachial: 116 Ankle: PT 63, DP 83 3. PVR Waveforms: Ankle: Low phasicity, dicrotic notch 4. Direct Duplex: Common femoral artery: 107 cm/s, Multiphasic Profunda femoris artery: 90.4 cm/s, multiphasic Superficial femoral artery (proximal): 147 cm/s, Multiphasic Superficial femoral artery (mid): 387 cm/s, monophasic Superficial femoral artery (distal): 58.5 cm/s, monophasic Proximal Popliteal artery: 39.7 cm/s, monophasic Distal popliteal artery: 51.5 cm/s, monophasic Proximal posterior tibial artery: 198 cm/s, monophasic Distally the posterior tibial artery appears to be occluded. Peroneal artery: 39.7 cm/s, monophasic US/US arterial duplex LE BI IMPRESSION: Right ROSA 0.97. On PVR there is low phasicity and an absent dicrotic notch. There is elevated velocity at the mid to distal superficial femoral artery suggesting moderate to severe stenosis. There is plaque within the popliteal and loss of phasicity at the distal popliteal artery suggesting a stenosis at its midportion. Possible occlusion of the posterior tibial artery. Left ROSA 0.72 with low phasicity PVR and absent dicrotic notch. Significantly elevated velocities at the mid superficial femoral artery are increased from the prior suggest recurrent stenosis. Elevated velocity at the origin of the posterior tibial suggest stenosis at this level as well with possible occlusion distally.
--- NOTE | ~2022-03-31 | XR_ITS ---
EXAMINATION: XR FEMUR LEFT XR TIBIA-FIBULA LEFT CLINICAL INFORMATION: Fracture. COMPARISON: None TECHNIQUE: Left femur, AP and lateral views Left tibia-fibula, AP and lateral views FINDINGS: Left femur: No acute findings. The femoral head is well-positioned within the acetabulum. Small osteophytes of the hip. No evidence of femoral fracture. No suspicious lytic or blastic lesion. No knee joint effusion. There is atherosclerotic calcification of the femoral and popliteal artery. Left tibia-fibula: Bones have normal alignment at the knee and ankle. The joint spaces are maintained. Tibia and fibula are intact. No fractures or periostitis. There are a few small vascular calcifications or dystrophic calcifications in the lower extremity. No soft tissue gas. XR/XR femur LT 2V IMPRESSION: * No acute osseous injury in the left femur or lower leg. * No radiographic evidence of osteomyelitis.
--- NOTE | ~2022-03-31 | XR_ITS ---
EXAMINATION: XR FOOT, LEFT CLINICAL INFORMATION: Open wound COMPARISON: 02/25/2022 TECHNIQUE: AP, lateral, and oblique views of the left foot. FINDINGS: Status post interval first ray amputation at the level of the first metatarsal neck. There are overlying skin rosina consistent with recent surgery. There is some soft tissue lucency, nonspecific. The osteotomy margin appears sharp. No acute fracture or dislocation seen. XR/XR foot LT min 3V IMPRESSION: Interval first ray amputation. There are skin rosina with underlying soft tissue edema and soft tissue lucency. These findings are nonspecific and could be normal soon after surgery. Late after surgery soft tissue infection would be a consideration.
--- NOTE | ~2022-03-31 | XR_ITS ---
EXAMINATION: XR FEMUR LEFT XR TIBIA-FIBULA LEFT CLINICAL INFORMATION: Fracture. COMPARISON: None TECHNIQUE: Left femur, AP and lateral views Left tibia-fibula, AP and lateral views FINDINGS: Left femur: No acute findings. The femoral head is well-positioned within the acetabulum. Small osteophytes of the hip. No evidence of femoral fracture. No suspicious lytic or blastic lesion. No knee joint effusion. There is atherosclerotic calcification of the femoral and popliteal artery. Left tibia-fibula: Bones have normal alignment at the knee and ankle. The joint spaces are maintained. Tibia and fibula are intact. No fractures or periostitis. There are a few small vascular calcifications or dystrophic calcifications in the lower extremity. No soft tissue gas. XR/XR tibia fibula LT 2V IMPRESSION: * No acute osseous injury in the left femur or lower leg. * No radiographic evidence of osteomyelitis.
[2022-03-31 11:14] VITALS: BP 74/34; RESP 20; TEMP 36.4; BMI 18.0
[2022-03-31 11:47] VITALS: BP 128/63; PULSE 77; RESP 15; TEMP 36.4; O2SAT 100
--- NOTE | 2022-03-31 11:50 | ED_ITS ---
HPI - Extremity Problem General Chief complaint: General Medical Stated complaint: L leg issues Time Seen by Provider: 03/31/22 11:37 Source: patient, family and old records reviewed Mode of arrival: ambulatory Limitations: altered mental status (cognitive impairment but family has a lot of information) History of Present Illness HPI Narrative: 81 yo male with hx of PAD s/p angioplasty of L anterior tibial and left popliteal artery 11/2021, dementia, CAD, CHF, DM here with left foot infection s/p great toe amputation on 02/27/22 - the area is necrotic now extending onto the 2nd toe and plantar surface of the foot there is a collection of purulence as well. Seen by his vascular surgeon today Dr. Johnson who sent him to the Emergency Department for admission for IV antibiotics as well as plan for likely BKA. Diallo metz present at bedside. Patient has not been compliant with wound care and [employer] care - he takes his dressings off and will now allow cleaning of the foot MD Complaint: other (L foot infection s/p great toe amputation 02/27) Onset (ago): week(s) (few) Pain Consistency: constant Location: left and lower extremity Quality: aching and dull Radiation: none Relieving factors: nothing Exacerbating factors: weight bearing Associated symptoms: other (pain, change in color of foot, purulence, swelling of foot) Context: other (recent surgery and poor compliance with wound care on the part of the patient) Related Data Home Medications Medication Instructions Recorded Confirmed insulin detemir U-100 100 unit/mL 10 unit SUBCUT DAILY@1800 08/10/21 03/31/22 (3 mL) subcutaneous pen (Levemir FlexTouch U-100 Insulin) docusate sodium 100 mg capsule 100 mg PO BID PRN 11/21/21 03/31/22 ferrous sulfate 325 mg (65 mg 325 mg PO DAILY 11/21/21 03/31/22 iron) tablet (FeroSul) gabapentin 300 mg capsule 300 mg PO BEDTIME 11/21/21 03/31/22 insulin syringe-needle U-100 0.5 #10 ea 11/21/21 mL 30 gauge x 1/2 (UltiCare) pen needle, diabetic 32 gauge x #50 ea 11/21/21 5/32 (Pentips) blood sugar diagnostic (FreeStyle #10 ea 02/25/22 Lite Strips) gabapentin 100 mg capsule 100 mg PO BID 02/25/22 03/31/22 lancets 33 gauge (TRUEplus Lancets) #100 ea 02/25/22 acetaminophen 500 mg tablet 1,000 mg PO Q6H PRN 03/31/22 03/31/22 insulin aspart U-100 100 unit/mL 0 sliding scale dose SUBCUT TIDAC 03/31/22 03/31/22 (3 mL) subcutaneous pen (Novolog Flexpen U-100 Insulin aspart) pantoprazole 20 mg tablet,delayed 1 tab PO DAILY 03/31/22 03/31/22 release Previous Rx's Medication Instructions Recorded atorvastatin 80 mg tablet 80 mg PO BEDTIME #30 tab 09/02/21 clopidogrel 75 mg tablet 75 mg PO DAILY #75 tab 09/02/21 furosemide 40 mg tablet 40 mg PO BID@0900,1800 #60 tab 09/02/21 lisinopril 2.5 mg tablet 2.5 mg PO DAILY #30 tab 09/02/21 tamsulosin 0.4 mg capsule 0.4 mg PO DAILY #30 cap 03/05/22 Allergies Allergy/AdvReac Type Severity Reaction Status Date / Time No Known Allergies Allergy Verified 03/31/22 10:25 [No Known Allergies*] Review of Systems Review of Systems: Constitutional : No Fever, No Chills ENT/Mouth : No sore throat, No Rhinorrhea Eyes: No Eye Pain, No Swelling, No Redness Cardiovascular : No Chest Pain, No SOB Respiratory : No Cough, No Sputum Gastrointestinal : No Nausea, No Vomiting, No Diarrhea, No abdominal Pain Genitourinary : No Dysuria, No Hematuria Musculoskeletal : No joint pain, No Myalgias, pos Joint Swelling Skin : No Skin Lesions, positive skin rash Neuro : No Weakness, No Numbness, No Headache Psych : No Anxiety, No Depression Heme/Lymph: No Bruising, No Bleeding,No Lymphadenopathy Endocrine : No Polyuria, No Polydipsia All other systems reviewed and are negative [facility] Past Medical History Source: old records reviewed and obtained from family Medical History Acute systolic (congestive) heart failure Dementia Gangrene of foot Neuropathy 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 PAD (peripheral artery disease) Troponin level elevated Type 2 diabetes mellitus with unspecified complications Social History Social History Household Members: Children Housing: Apartment Do you presently have visiting nurse or other home services: Yes Unable to assess alcohol history related to: Unknown Alcohol intake: unknown Patient Tobacco Use Status: Former Tobacco user Quit Date: 1999 Tobacco use type: Cigarette Years Smoked: 4 Advance Directives: Yes Advance Directives Information Provided: No Advance Directives on File: No Advance Directives Date on File: 08/15/21 service: No Current occupational status: unemployed Physical Exam Vital Signs: Vital Signs: Last Vital Signs Temp 97.7 F 03/31/22 12:33 Pulse 75 03/31/22 12:33 Resp 13 03/31/22 12:33 BP 122/55 L 03/31/22 12:33 Pulse Ox 98 03/31/22 12:33 BMI result Body Mass Index 18.0 Appearance: Alert. Confused but at baseline per family. No acute distress. Eyes: Pupils equal, round and reactive to light. ENT: Pharynx normal. Neck: Normal inspection. Neck supple. CVS: Normal heart rate and rhythm. Pulses normal. Respiratory: No respiratory distress. Breath sounds normal. Abdomen: Soft and nontender. Skin: Skin warm and dry. Normal skin color. Normal skin turgor. Extremities: L foot necrotic with black ulcerated foul smelling area at site of amputation extending onto plantar surface with purulent fluid noted with black 2nd toe - swelling and erythema to dorsum of the foot Neuro: at baseline. No motor deficit. No sensory deficit. Course Course Course Narrative: lactic acid > 4 30cc/kg bolus ordered 1500 of fluid BP stable - at this time can be admitted for further management MDM - Extremity (Nontraumatic) MDM Narrative Medical decision making narrative: 81 yo male with hx of PAD s/p angioplasty of L anterior tibial and left popliteal artery 11/2021, dementia, CAD, CHF, DM here with left foot infection s/p great toe amputation on 02/27/22 at this time sent for IV antibiotics by Dr. 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 Admit for further management. The initial Blood pressure was in error recheck on arrival and BP was 128/63 without interventions. Suspect error in initial BP. Lab Data Result diagrams: 03/31/22 12:26 03/31/22 12:26 Labs: Lab Results 03/31/22 03/31/22 03/31/22 Range/Units 12:26 12:26 12:26 WBC 17.2 H (4.8-10.8) X10*3/uL RBC 3.36 L (4.60-5.80) X10*6/uL Hgb 9.6 L (14.0-18.0) g/dl Hct 28.8 L (42.0-52.0) % MCV 85.7 (80.0-98.0) fL MCH 28.6 (27.0-33.0) pg MCHC 33.3 (31.0-36.0) g/dl RDW 14.9 (11.0-16.0) % Plt Count 481 H D (160-400) X10*3/uL MPV 10.7 (9.4-12.4) fL Immature Gran % (Auto) 0.6 H (0.0-0.4) % Neut % (Auto) 71.5 (45-73) % Lymph % (Auto) 21.9 (20-40) % Alfalfa % (Auto) 5.6 (2-11) % Eos % (Auto) 0.2 (0-4) % Baso % (Auto) 0.2 (0-2) % Lymph # (Auto) 3.8 (1.2-4.9) X10*3/uL Alfalfa # (Auto) 1.0 (0.1-1.2) X10*3/uL Eos # (Auto) 0.0 (0.0-0.4) X10*3/uL Baso # (Auto) 0.0 (0.0-0.2) X10*3/uL Abs Immat Gran (auto) 0.11 H (0.00-0.03) X10*3/uL Absolute Neuts (auto) 12.3 H (2.0-8.3) x10*3/uL Absolute Nucleated RBC 0.000 (0.0-0.012) X10*3/uL Nucleated RBC % (auto) 0.0 (0.0-0.2) /100WBC ESR 86 H (0-15) MM/HR PT (9.9-13.0) SEC INR (0.9-1.1) APTT (24.1-38.0) SEC Sodium 141 (135-145) mmol/L Potassium 4.6 D (3.3-5.1) mmol/L Chloride 96 (96-108) mmol/L Carbon Dioxide 30 H (22-29) mmol/L Anion Gap 20 (12-20) BUN 27 H D (9-16) mg/dL Creatinine 1.58 H (0.5-1.4) mg/dL Estim Creat Clear Calc 24.2 Estimated GFR 42 Random Glucose 214 H D (60-115) mg/dL Lactic Acid (0.5-2.0) mmol/L Calcium 9.4 D (8.4-10.2) mg/dL Magnesium 1.9 (1.6-2.6) mg/dL Total Bilirubin 0.6 (0.0-1.0) mg/dL Direct Bilirubin 0.2 (0.0-0.5) mg/dL AST 26 D (5-37) U/L ALT 14 (0-40) U/L Alkaline Phosphatase 116 D (39-117) U/L C-Reactive Protein 15.62 H (< or = 0.50) mg/dL Total Protein 8.2 H (6.5-8.0) g/dL Albumin 3.0 L D (3.5-5.0) g/dL COVID-19 (OMEGA) (Negative) COVID-19 Clin Com 03/31/22 03/31/22 03/31/22 Range/Units 12:26 12:26 12:27 WBC (4.8-10.8) X10*3/uL RBC (4.60-5.80) X10*6/uL Hgb (14.0-18.0) g/dl Hct (42.0-52.0) % MCV (80.0-98.0) fL MCH (27.0-33.0) pg MCHC (31.0-36.0) g/dl RDW (11.0-16.0) % Plt Count (160-400) X10*3/uL MPV (9.4-12.4) fL Immature Gran % (Auto) (0.0-0.4) % Neut % (Auto) (45-73) % Lymph % (Auto) (20-40) % Alfalfa % (Auto) (2-11) % Eos % (Auto) (0-4) % Baso % (Auto) (0-2) % Lymph # (Auto) (1.2-4.9) X10*3/uL Alfalfa # (Auto) (0.1-1.2) X10*3/uL Eos # (Auto) (0.0-0.4) X10*3/uL Baso # (Auto) (0.0-0.2) X10*3/uL Abs Immat Gran (auto) (0.00-0.03) X10*3/uL Absolute Neuts (auto) (2.0-8.3) x10*3/uL Absolute Nucleated RBC (0.0-0.012) X10*3/uL Nucleated RBC % (auto) (0.0-0.2) /100WBC ESR (0-15) MM/HR PT 11.4 (9.9-13.0) SEC INR 1.0 (0.9-1.1) APTT 35.3 (24.1-38.0) SEC Sodium (135-145) mmol/L Potassium (3.3-5.1) mmol/L Chloride (96-108) mmol/L Carbon Dioxide (22-29) mmol/L Anion Gap (12-20) BUN (9-16) mg/dL Creatinine (0.5-1.4) mg/dL Estim Creat Clear Calc Estimated GFR Random Glucose (60-115) mg/dL Lactic Acid 4.3 H* (0.5-2.0) mmol/L Calcium (8.4-10.2) mg/dL Magnesium (1.6-2.6) mg/dL Total Bilirubin (0.0-1.0) mg/dL Direct Bilirubin (0.0-0.5) mg/dL AST (5-37) U/L ALT (0-40) U/L Alkaline Phosphatase (39-117) U/L C-Reactive Protein (< or = 0.50) mg/dL Total Protein (6.5-8.0) g/dL Albumin (3.5-5.0) g/dL COVID-19 (OMEGA) Negative (Negative) COVID-19 Clin Com See Note ECG Data Attestation EKG: I personally reviewed and interpreted this ECG as follows: ECG interpretation date: 03/31/22 ECG interpretation time: 12:32 Interpretation: Rate: 73 Rhythm: NSR [place]: normal Normal P waves. Normal LEXI. Normal QRS complex. ST T wave : normal no ANNA qTC: slightly prolonged prior studies: no acute ischemia artifact noted The study has been interpreted contemporaneously by me. . Discharge Plan Discharge Clinical Impression: Cellulitis, Necrosis of surgical wound, Acidosis, lactic, CKD (chronic kidney disease), Leukocytosis Patient Disposition: Admitted As Inpatient
--- NOTE | 2022-03-31 11:59 | ECG_ITS ---
Test Reason : weakness Blood Pressure : / mmHG Vent. Rate : 073 BPM Atrial Rate : 073 BPM P-R Int : 158 ms QRS Dur : 086 ms QT Int : 438 ms P-R-T Axes : 096 081 080 degrees QTc Int : 482 ms Normal sinus rhythm Prolonged QT Abnormal ECG When compared with ECG of 31-AUG-2021 08:19, Criteria for Septal infarct are no longer Present Nonspecific T wave abnormality no longer evident in Inferior leads Nonspecific T wave abnormality no longer evident in Lateral leads QT has lengthened Referred By: Nivia Weinstein Electronically Signed By:CAS THOMAS MD
[2022-03-31 12:32] LABS: MANUAL DIFF FLAG NO
[2022-03-31 12:33] VITALS: BP 122/55; PULSE 75; RESP 13; TEMP 36.5; O2SAT 98
[2022-03-31 12:33] LABS: Basophils Percent Auto 0.2 % (0-2); Eosinophils Percent Auto 0.2 % (0-4); Hematocrit 28.8 % (42.0-52.0); Hemoglobin 9.6 g/dl (14.0-18.0); Imm Gran Abs Auto 0.11 X10*3/uL (0.00-0.03); Imm Gran Pct Auto 0.6 % (0.0-0.4); Lymphocytes Absolute Auto 3.8 X10*3/uL (1.2-4.9); Lymphocytes Percent Auto 21.9 % (20-40); Mean Corpuscular HGB Conc 33.3 g/dl (31.0-36.0); Mean Corpuscular Hemoglobin 28.6 pg (27.0-33.0); Mean Corpuscular Volume 85.7 fL (80.0-98.0); Mean Platelet Volume 10.7 fL (9.4-12.4); Monocytes Percent Auto 5.6 % (2-11); Neutrophils Absolute Auto 12.3 x10*3/uL (2.0-8.3); Neutrophils Percent Auto 71.5 % (45-73); Platelet Count 481 X10*3/uL (160-400); Red Blood Count 3.36 X10*6/uL (4.60-5.80); Red Cell Distribution Width 14.9 % (11.0-16.0); White Blood Count 17.2 X10*3/uL (4.8-10.8)
[2022-03-31 12:38] LABS: Prothrombin Time 11.4 SEC (9.9-13.0)
[2022-03-31 12:41] LABS: Partial Thromboplastin Time 35.3 SEC (24.1-38.0)
--- NOTE | 2022-03-31 12:46 | PHA.MEDREC ---
Pharmacy Consult ? Medication Reconciliation Pharmacy has completed the medication reconciliation. Patient's son was sent pictures of RX bottle from [employer] who organizes medications. Patient son report that he only takes Levemir QD and does not take the Novolog before each meal. Reports patient does not always want to take the Lasix. Missy Browne, DorothyD
[2022-03-31 12:52] LABS: Alanine Aminotransferase 14 U/L (0-40); Alkaline Phosphatase 116 U/L (39-117); Anion Gap 20 (12-20); Aspartate Amino Transferase 26 U/L (5-37); Bilirubin Direct 0.2 mg/dL (0.0-0.5); Bilirubin Total 0.6 mg/dL (0.0-1.0); Blood Urea Nitrogen 27 mg/dL (9-16); C Reactive Protein 15.62 mg/dL (< or = 0.50); Calcium 9.4 mg/dL (8.4-10.2); Carbon Dioxide 30 mmol/L (22-29); Chloride 96 mmol/L (96-108); Creatinine Clr Calc Pharmacy 24.2; Estimated Glomerular Filt Rate 42; Glucose Random 214 mg/dL (60-115); Lactic Acid 4.3 mmol/L (0.5-2.0); Magnesium 1.9 mg/dL (1.6-2.6); Potassium 4.6 mmol/L (3.3-5.1); Sodium 141 mmol/L (135-145); Total Protein 8.2 g/dL (6.5-8.0)
[2022-03-31 13:06] LABS: COVID-19 Test Negative (Negative)
[2022-03-31] MEDS: Piperacillin Sodium/Tazobactam 3.375 GM in 0.9 % Sodium Chloride 50 ML IV (13:06)
[2022-03-31] MEDS: 0.9 % Sodium Chloride 500 ML IV (13:07)
[2022-03-31 13:16] LABS: Erythrocyte Sedimentation Rate 86 MM/HR (0-15)
[2022-03-31] MEDS: vancomycin HCL 1,000 MG in 0.9 % Sodium Chloride 250 ML 270 MG IV (13:25)
[2022-03-31] MEDS: 0.9 % Sodium Chloride 1,000 ML 999 ML IV (13:41)
[2022-03-31 14:21] VITALS: BP 109/44; PULSE 67; RESP 16; O2SAT 97
[2022-03-31 14:30] VITALS: BP 106/50; PULSE 71; RESP 12; O2SAT 97
[2022-03-31 14:31] LABS: Reflex Lactate? Lactic Acid Added
[2022-03-31 15:07] LABS: ~Lactic Acid-LAB USE ONLY 2.5 mmol/L (0.5-2.0)
[2022-03-31 16:51] LABS: Reflex Lactate? 2 Y
--- NOTE | 2022-03-31 17:24 | P.HPHOSP_ITS ---
History of Present Illness Date of Service: 03/31/22 Chief Complaint: Amputation site infection 81 years old male with PMH of CAD, diabetes, CAD, CHF and mild dementia who presents to the hospital with worsening pain and drainage from his left foot wound. The patient was admitted last month the hospital for left great toe infection that was eventually amputated as the patient was discharged home with wound car e. Over the last month own has been increased leak getting painful as the patient was not moving much with increased blackish discoloration and the 2nd toe getting bluish in color. Seen by his vascular surgeon Dr. Johnson who referred him to the emergency for nonhealing amputation site for IV antibiotics and possible below or above knee amputation. Will be admitted for further medical management. Review of Systems Review of Systems: No fever, chills but increase weakness No chest pain, palpitation No shortness of breath or coughing No abdominal pain, nausea or vomiting No urinary symptoms Increase pain in his foot, left. Discoloration of the 2nd toe and bed of his foot. 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 PAD (peripheral artery disease) Troponin level elevated Type 2 diabetes mellitus with unspecified complications Social History Household Members: Children Housing: Apartment Do you presently have visiting nurse or other home services: Yes Unable to assess alcohol history related to: Unknown Alcohol intake: unknown Patient Tobacco Use Status: Former Tobacco user Quit Date: 1999 Tobacco use type: Cigarette Years Smoked: 4 Advance Directives: Yes Advance Directives Information Provided: No Advance Directives on File: No Advance Directives Date on File: 08/15/21 service: No Current occupational status: unemployed Meds Allergies Allergy/AdvReac Type Severity Reaction Status Date / Time No Known Allergies Allergy Verified 03/31/22 10:25 [No Known Allergies*] Active Medications: Current Medications Acetaminophen (Acetaminophen 325 Mg Tablet) 650 mg PO Q6H PRN PRN Reason: Pain, Mild (Pain Scale 1-3) Atorvastatin Calcium (Atorvastatin Calcium 80 Mg Tablet) 80 mg PO BEDTIME [facility]ILLA Clopidogrel Bisulfate (Clopidogrel Bisulfate 75 Mg Tablet) 75 mg PO DAILY [facility] Docusate Sodium (Docusate Sodium 100 Mg Capsule) 100 mg PO BID PRN PRN Reason: constipation Furosemide (Furosemide 40 Mg Tablet) 40 mg PO BID@0900,1800 [facility]; Protocol Gabapentin (Gabapentin 100 Mg Capsule) 100 mg PO BID [facility] Gabapentin (Gabapentin 300 Mg Capsule) 300 mg PO BEDTIME [facility] Heparin Sodium (Porcine) (Heparin Sodium,Porcine 5,000 Unit/Ml Vial) 5,000 unit SUBCUT Q12H [facility] Vancomycin HCl 750 mg/ Sodium (Chloride) 265 mls @ 265 mls/hr IV Q24H [facility] Piperacillin Sod/Tazobactam (Sod 2.25 gm/ Sodium Chloride) 50 mls @ 100 mls/hr IV Q6H [facility] Insulin Human Lispro (Insulin Lispro 100 Unit/Ml 3 Ml Vial) 0 unit SUBCUT QIDACHS [facility]; Protocol Omeprazole (Omeprazole 20 Mg Capsule.Dr) 20 mg PO DAILY@0630 [facility] Ondansetron HCl (Ondansetron Hcl 4 Mg/2 Ml Vial) 4 mg IVPUSH Q8H PRN PRN Reason: Nausea and Vomiting Pharmacy Consult (Consult Rx Perform Med Rec) 1 each MISCELLANE ONCE PRN PRN Reason: Consult order Pharmacy Consult (Consult Rx Vancomycin Dosing) 1 each MISCELLANE DAILY PRN PRN Reason: Consult order Pharmacy Consult (Consult Rx Vancomycin Dosing) 1 each MISCELLANE DAILY PRN PRN Reason: Consult order Sodium Chloride (0.9 % Sodium Chloride Flush 3 Ml Syringe) 3 ml IVFLUSH QSHIFT [facility] Tamsulosin HCl (Tamsulosin Hcl 0.4 Mg Capsule) 0.4 mg PO DAILY [facility] Home Medications Medication Instructions Recorded Confirmed Last Taken Type insulin detemir U-100 100 unit/mL 10 unit SUBCUT DAILY@1800 08/10/21 03/31/22 02/21/22 History (3 mL) subcutaneous pen (Levemir FlexTouch U-100 Insulin) docusate sodium 100 mg capsule 100 mg PO BID PRN 11/21/21 03/31/22 Unknown History ferrous sulfate 325 mg (65 mg 325 mg PO DAILY 11/21/21 03/31/22 02/21/22 History iron) tablet (FeroSul) gabapentin 300 mg capsule 300 mg PO BEDTIME 11/21/21 03/31/22 02/21/22 History insulin syringe-needle U-100 0.5 #10 ea 11/21/21 Unknown History mL 30 gauge x 1/2 (UltiCare) pen needle, diabetic 32 gauge x #50 ea 11/21/21 Unknown History (Pentips) blood sugar diagnostic (FreeStyle #10 ea 02/25/22 Unknown History Lite Strips) gabapentin 100 mg capsule 100 mg PO BID 02/25/22 03/31/22 02/21/22 History lancets 33 gauge (TRUEplus Lancets) #100 ea 02/25/22 Unknown History acetaminophen 500 mg tablet 1,000 mg PO Q6H PRN 03/31/22 03/31/22 Unknown History insulin aspart U-100 100 unit/mL 0 sliding scale dose SUBCUT TIDAC 03/31/2208/14 Unknown History (3 mL) subcutaneous pen (Novolog Flexpen U-100 Insulin aspart) pantoprazole 20 mg tablet,delayed 1 tab PO DAILY 03/31/22 03/31/22 Unknown History release Physical Exam Vital Signs and Narrative: Vital Signs: Last Vital Signs Temp 97.7 F 03/31/22 12:33 Pulse 71 03/31/22 14:30 Resp 12 03/31/22 14:30 BP 106/50 L 03/31/22 14:30 Pulse Ox 97 03/31/22 14:30 BMI result Body Mass Index 18.0 Const: Other: Constitutional : Alert, oriented, complaining of pain but not distressed Neck : Normal inspection, Supple Cardiovascular : RRR, no JVP, no lower extremity edema Respiratory : fair bilateral air entry, no crackles, wheezes or rhonchi Gastrointestinal: soft, lax, Normal bowel sounds, Non tender Skin : Warm, Dry, hold lower extremities more the left side, want as above, nonhealing amputation site with increase black discoloration at the base of the 1st metatarsal. No drainage noted. Neurological : Alert & oriented x3, No focal deficit , CN 2-12 within normal Results Labs CBC and Chem 7: 03/31/22 12:26 03/31/22 12:26 Labs: Laboratory Results - last 24 hr 03/31/22 03/31/22 03/31/22 12:26 12:26 12:26 MCV 85.7 MCH 28.6 MCHC 33.3 RDW 14.9 Plt Count 481 H D MPV 10.7 Immature Gran % (Auto) 0.6 H Neut % (Auto) 71.5 Lymph % (Auto) 21.9 [place] % (Auto) 5.6 Eos % (Auto) 0.2 Baso % (Auto) 0.2 Lymph # (Auto) 3.8 [place] # (Auto) 1.0 Eos # (Auto) 0.0 Baso # (Auto) 0.0 Abs Immat Gran (auto) 0.11 H Absolute Neuts (auto) 12.3 H Absolute Nucleated RBC 0.000 Nucleated RBC % (auto) 0.0 ESR 86 H PT INR APTT Anion Gap 20 Estim Creat Clear Calc 24.2 Estimated GFR 42 Random Glucose 214 H D Lactic Acid Lactic Acid F/U @ 2Hr Calcium 9.4 D Magnesium 1.9 Total Bilirubin 0.6 Direct Bilirubin 0.2 AST 26 D ALT 14 Alkaline Phosphatase 116 D C-Reactive Protein 15.62 H Total Protein 8.2 H Albumin 3.0 L D COVID-19 (OMEGA) COVID-[employer] 03/31/22 03/31/22 03/31/22 12:26 12:26 12:27 MCV MCH MCHC RDW Plt Count MPV Immature Gran % (Auto) Neut % (Auto) Lymph % (Auto) [place] % (Auto) Eos % (Auto) Baso % (Auto) Lymph # (Auto) [place] # (Auto) Eos # (Auto) Baso # (Auto) Abs Immat Gran (auto) Absolute Neuts (auto) Absolute Nucleated RBC Nucleated RBC % (auto) ESR PT 11.4 INR 1.0 APTT 35.3 Anion Gap Estim Creat Clear Calc Estimated GFR Random Glucose Lactic Acid 4.3 H* Lactic Acid F/U @ 2Hr Calcium Magnesium Total Bilirubin Direct Bilirubin AST ALT Alkaline Phosphatase C-Reactive Protein Total Protein Albumin COVID-19 (OMEGA) Negative COVID-19 [employer] See Note 03/31/22 14:46 MCV MCH MCHC RDW Plt Count MPV Immature Gran % (Auto) Neut % (Auto) Lymph % (Auto) [place] % (Auto) Eos % (Auto) Baso % (Auto) Lymph # (Auto) [place] # (Auto) Eos # (Auto) Baso # (Auto) Abs Immat Gran (auto) Absolute Neuts (auto) Absolute Nucleated RBC Nucleated RBC % (auto) ESR PT INR APTT Anion Gap Estim Creat Clear Calc Estimated GFR Random Glucose Lactic Acid Lactic Acid F/U @ 2Hr 2.5 H* Calcium Magnesium Total Bilirubin Direct Bilirubin AST ALT Alkaline Phosphatase C-Reactive Protein Total Protein Albumin COVID-19 (OMEGA) COVID-19 Clin Com Imaging Radiologist's Impressions: Impressions Foot X-Ray 03/31/22 13:26 IMPRESSION: Interval first ray amputation. There are skin rosina with underlying soft tissue edema and soft tissue lucency. These findings are nonspecific and could be normal soon after surgery. Late after surgery soft tissue infection would be a consideration. Assessment and Plan (1) Cellulitis: Qualifiers: Laterality: left Site of cellulitis: extremity Site of cellulitis of extremity: lower extremity Qualified Code(s): L03.116 - Cellulitis of left lower limb Status: Acute (2) Non-healing amputation site: Status: Acute (3) Acidosis, lactic: Status: Acute (4) Leukocytosis: Qualifiers: Leukocytosis type: unspecified Qualified Code(s): D72.829 - Elevated white blood cell count, unspecified Status: Acute Plan 81 years old male with PMH of CAD, diabetes, CAD, CHF and mild dementia who presents to the hospital with worsening pain and drainage from his left foot wound. # nonhealing amputation site Not septic Secondary to severe PA D Start IV antibiotic of vancomycin Zosyn Pending cultures Get vascular surgery with a plan for BKA or AKA Morphine for pain management # lactic acidosis Could be secondary to infection Responded to IV fluid continue gentle hydration overnight # Gastroparesis reglan prn # CKD stage 3 stable, moniutor BMP ?#? hypotension Blood pressure runs so from previous admission Hold blood pressure medications Not due to sepsis Encourage p.o. intake Monitor BP #? PAD continue Plavix? and statin # ?history CHF no acute exacerbation continue Lasix #? diabetes mellitus type 2 low-dose sliding scale insulin Hold Levemir ?DVT prophylaxis Heparin The patient will require at least 2 nights of hospital stay for evaluation of nonhealing wound with possible plan for further amputation to prevent further decompensation and possible severe sepsis. Quality Stroke Does the patient have a stroke diagnosis?: No VTE Prior VTE?: No VTE Risk Level:: Medical - moderate - high VTE Device Contraindication: Treatment Not Indicated VTE Drug Contraindication: N/A - Med Ordered
[2022-03-31] MEDS: Furosemide 40 MG TABLET PO (18:31)
[2022-03-31] MEDS: Heparin Sodium,Porcine 5,000 UNIT/ML VIAL 5000 UNIT SUBCUT (18:31)
--- NOTE | 2022-03-31 18:35 | PHA.PROG ---
Admission Date/Time: March 31, 2022 17:20 Indication: NONHEALING AMPUTATION SITE Weight in k.627 kg Adjusted body weight in K.6 KG [place] body weight in K.2 KG Obesity Dosing Indication % IBW: Serum Creatinine - Last 168 Hours 03/31/22 12:26 Creatinine 1.58 H Estimated CrCl and GFR - Last 168 Hours 03/31/22 12:26 Estim Creat Clear Calc 24.2 Estimated GFR 42 Vancomycin Loading Dose:1000 MG X 1 GIVEN IN ED Current Vancomycin Dosing Regimen: 750 MG Q24H Vancomycin Monitoring using AUC goal of 400 - 600 range with trough as surrogate marker: PREDICTED AUC 558 Date and Time for next Vancomycin Level to be drawn: 04/01/22 @1100 Pharmacist Comments on Vancomycin Plan: PATIENT HAS CKD. CHECK LEVELS DAILY AND DOSE BASED ON LEVEL. Vancomycin dosing will take advantage of [employer] as a clinical decision support tool that uses Bayesian modeling to calculate individual patient's pharmacokinetic parameters and forecast the patient's drug concentration time course with the target goal AUC 24 range of 400 - 600 mg/L/hr.
[2022-03-31] MEDS: Piperacillin Sodium/Tazobactam 2.25 GM in 0.9 % Sodium Chloride 50 ML IV (18:41)
[2022-03-31 18:52] LABS: ~Lactic Acid-LAB USE ONLY 2.2 mmol/L (0.5-2.0)
[2022-03-31 22:33] VITALS: BP 109/53; PULSE 69; RESP 12; TEMP 36.9; O2SAT 98
[2022-03-31] MEDS: Atorvastatin Calcium 80 MG TABLET PO (22:33)
[2022-03-31 22:34] LABS: Glucose, Whole Blood 180 mg/dL (60-115)
[2022-03-31] MEDS: Gabapentin 300 MG CAPSULE PO (22:34)
[2022-03-31] MEDS: Gabapentin 100 MG CAPSULE PO (22:34)
[2022-03-31] MEDS: Insulin Lispro 100 UNIT/ML 3 ML VIAL SUBCUT (22:34)
[2022-03-31] MEDS: 0.9 % Sodium Chloride Flush 3 ML SYRINGE IVFLUSH (22:40)
[2022-04-01] VITALS (11 sets, daily range): BP systolic 94–135; BP diastolic 45–65; PULSE 58–83; RESP 16–18; TEMP 36.3–37.1; O2SAT 94–99; BMI 18.0
[2022-04-01] MEDS: Piperacillin Sodium/Tazobactam 2.25 GM in 0.9 % Sodium Chloride 50 ML IV ×4 (00:12→18:29)
[2022-04-01] MEDS: Omeprazole 20 MG CAPSULE.DR PO (06:19)
[2022-04-01] MEDS: Heparin Sodium,Porcine 5,000 UNIT/ML VIAL 5000 UNIT SUBCUT ×2 (06:20→17:57)
[2022-04-01 07:20] LABS: Glucose, Whole Blood 121 mg/dL (60-115)
[2022-04-01] MEDS: Clopidogrel Bisulfate 75 MG TABLET PO (07:34)
[2022-04-01] MEDS: Gabapentin 100 MG CAPSULE PO ×2 (07:34→21:05)
[2022-04-01] MEDS: Tamsulosin HCL 0.4 MG CAPSULE PO (07:34)
[2022-04-01] MEDS: Docusate Sodium 100 MG CAPSULE PO (07:34)
[2022-04-01] MEDS: Furosemide 40 MG TABLET PO ×2 (07:34→17:57)
[2022-04-01] MEDS: 0.9 % Sodium Chloride Flush 3 ML SYRINGE IVFLUSH ×2 (07:34→14:52)
[2022-04-01] MEDS: Morphine Sulfate 2 MG/ML CARTRIDGE IVPUSH (08:41)
--- NOTE | 2022-04-01 09:13 | MHC.CM.PN ---
Patient has a diagnosis of Dementia;CM spoke with Son/HCP/Jacoby @ [phone]. Per Jacoby, STR (not [facility]) is the goal and CM has initiated and will follow for dc planning. Patient lives alone in an apartment but is not alone between family support, [employer] 42 hours/week and VNA (UNSURE OF AGENCY NAME). Patient has received NO Covid vaccinations and his PCP is Dr. Christi Patel. Patient is mostly w/c and bed bound at baseline and requires significant encouragement for mobility and personal care/showering.
--- NOTE | 2022-04-01 11:11 | P.PNIM_ITS ---
Subjective Subjective Date of Service: 04/01/22 Interval History: Seen and evaluated this morning Laying in his bed, complaining of pain in the foot denies any fever or chills No reported overnight events Review of Systems No fever, chills but increase weakness No chest pain, palpitation No shortness of breath or coughing No abdominal pain, nausea or vomiting No urinary symptoms Increase pain in his foot, left. Discoloration of the 2nd toe and bed of his foot. Physical Exam Vital Signs: Vital Signs: Last Vital Signs Temp 98.6 F 04/01/22 07:10 Pulse 75 04/01/22 08:31 Resp 18 04/01/22 08:41 BP 135/64 04/01/22 08:31 Pulse Ox 98 04/01/22 08:31 BMI result Body Mass Index 18.0 Const: Other: Constitutional : Alert, oriented, complaining of pain but not distressed Neck : Normal inspection, Supple Cardiovascular : RRR, no JVP, no lower extremity edema Respiratory : fair bilateral air entry, no crackles, wheezes or rhonchi Gastrointestinal: soft, lax, Normal bowel sounds, Non tender Skin : Warm, Dry, hold lower extremities more the left side, want as above, nonhealing amputation site with increase black discoloration at the base of the 1st metatarsal. No drainage noted. Neurological : Alert & oriented x3, No focal deficit , CN 2-12 within normal Objective Data Active Medications Acetaminophen (Acetaminophen 325 Mg Tablet) 650 mg PO Q6H PRN PRN Reason: Pain, Mild (Pain Scale 1-3) Atorvastatin Calcium (Atorvastatin Calcium 80 Mg Tablet) 80 mg PO BEDTIME [facility] Last Admin: 03/31/22 22:33 Dose: 80 mg Documented by: NIKHIL Clopidogrel Bisulfate (Clopidogrel Bisulfate 75 Mg Tablet) 75 mg PO DAILY [facility] Last Admin: 04/01/22 07:34 Dose: 75 mg Documented by: COTEMA Docusate Sodium (Docusate Sodium 100 Mg Capsule) 100 mg PO BID PRN PRN Reason: constipation Last Admin: 04/01/22 07:34 Dose: 100 mg Documented by: COTEMA Furosemide (Furosemide 40 Mg Tablet) 40 mg PO BID@0900,1800 [facility]; Protocol Last Admin: 04/01/22 07:34 Dose: 40 mg Documented by: COTEMA Gabapentin (Gabapentin 100 Mg Capsule) 100 mg PO BID [facility] Last Admin: 04/01/22 07:34 Dose: 100 mg Documented by: DU Gabapentin (Gabapentin 300 Mg Capsule) 300 mg PO BEDTIME [facility] Last Admin: 03/31/22 22:34 Dose: 300 mg Documented by: NIKHIL Heparin Sodium (Porcine) (Heparin Sodium,Porcine 5,000 Unit/Ml Vial) 5,000 unit SUBCUT Q12H [facility] Last Admin: 04/01/22 06:20 Dose: 5,000 unit Documented by: NIKHIL Vancomycin HCl 750 mg/ Sodium (Chloride) 265 mls @ 265 mls/hr IV Q24H [facility] Piperacillin Sod/Tazobactam (Sod 2.25 gm/ Sodium Chloride) 50 mls @ 100 mls/hr IV Q6H [facility] Last Infusion: 04/01/22 07:26 Dose: 0 mls/hr Documented by: DU Insulin Human Lispro (Insulin Lispro 100 Unit/Ml 3 Ml Vial) 0 unit SUBCUT QIDACHS [facility]; Protocol Last Admin: 04/01/22 07:27 Dose: Not Given Documented by: DU Non-Admin Reason: No Insulin Coverage Morphine Sulfate (Morphine Sulfate 2 Mg/Ml Cartridge) 4 mg IVPUSH Q4H PRN; Protocol PRN Reason: Pain, Severe (Pain Scale 7-10) Omeprazole (Omeprazole 20 Mg Capsule.Dr) 20 mg PO DAILY@0630 [facility] Last Admin: 04/01/22 06:19 Dose: 20 mg Documented by: NIKHIL Ondansetron HCl (Ondansetron Hcl 4 Mg/2 Ml Vial) 4 mg IVPUSH Q8H PRN PRN Reason: Nausea and Vomiting Pharmacy Consult (Consult Rx Perform Med Rec) 1 each MISCELLANE ONCE PRN PRN Reason: Consult order Pharmacy Consult (Consult Rx Vancomycin Dosing) 1 each MISCELLANE DAILY PRN PRN Reason: Consult order Pharmacy Consult (Consult Rx Vancomycin Dosing) 1 each MISCELLANE DAILY PRN PRN Reason: Consult order Sodium Chloride (0.9 % Sodium Chloride Flush 3 Ml Syringe) 3 ml IVFLUSH QSHIFT [facility] Last Admin: 04/01/22 07:34 Dose: 3 ml Documented by: DU Tamsulosin HCl (Tamsulosin Hcl 0.4 Mg Capsule) 0.4 mg PO DAILY [facility] Last Admin: 04/01/22 07:34 Dose: 0.4 mg Documented by: DU Labs CBC & Chem 7: 03/31/22 12:26 03/31/22 12:26 Labs: Laboratory Results - last 24 hr 03/31/22 03/31/22 03/31/22 12:26 12:26 12:26 MCV 85.7 MCH 28.6 MCHC 33.3 RDW 14.9 Plt Count 481 H D MPV 10.7 Immature Gran % (Auto) 0.6 H Neut % (Auto) 71.5 Lymph % (Auto) 21.9 Nicollet % (Auto) 5.6 Eos % (Auto) 0.2 Baso % (Auto) 0.2 Lymph # (Auto) 3.8 Nicol[place] # (Auto) 1.0 Eos # (Auto) 0.0 Baso # (Auto) 0.0 Abs Immat Gran (auto) 0.11 H Absolute Neuts (auto) 12.3 H Absolute Nucleated RBC 0.000 Nucleated RBC % (auto) 0.0 ESR 86 H PT INR APTT Anion Gap 20 Estim Creat Clear Calc 24.2 Estimated GFR 42 POC Glucose Random Glucose 214 H D Lactic Acid Lactic Acid F/U @ 2Hr Lactic Acid F/U @ 4Hr Calcium 9.4 D Magnesium 1.9 Total Bilirubin 0.6 Direct Bilirubin 0.2 AST 26 D ALT 14 Alkaline Phosphatase 116 D C-Reactive Protein 15.62 H Total Protein 8.2 H Albumin 3.0 L D COVID-19 (OMEGA) COVID-19 [facility] 03/31/22 03/31/22 03/31/22 12:26 12:26 12:27 MCV MCH MCHC RDW Plt Count MPV Immature Gran % (Auto) Neut % (Auto) Lymph % (Auto) Nicollet % (Auto) Eos % (Auto) Baso % (Auto) Lymph # (Auto) Nicollet # (Auto) Eos # (Auto) Baso # (Auto) Abs Immat Gran (auto) Absolute Neuts (auto) Absolute Nucleated RBC Nucleated RBC % (auto) ESR PT 11.4 INR 1.0 APTT 35.3 Anion Gap Estim Creat Clear Calc Estimated GFR POC Glucose Random Glucose Lactic Acid 4.3 H* Lactic Acid F/U @ 2Hr Lactic Acid F/U @ 4Hr Calcium Magnesium Total Bilirubin Direct Bilirubin AST ALT Alkaline Phosphatase C-Reactive Protein Total Protein Albumin COVID-19 (OMEGA) Negative COVID-19 Clin Com See Note 03/31/22 03/31/22 03/31/22 14:46 18:22 22:30 MCV MCH MCHC RDW Plt Count MPV Immature Gran % (Auto) Neut % (Auto) Lymph % (Auto) Nicollet % (Auto) Eos % (Auto) Baso % (Auto) Lymph # (Auto) Nicollet # (Auto) Eos # (Auto) Baso # (Auto) Abs Immat Gran (auto) Absolute Neuts (auto) Absolute Nucleated RBC Nucleated RBC % (auto) ESR PT INR APTT Anion Gap Estim Creat Clear Calc Estimated GFR POC Glucose 180 H Random Glucose Lactic Acid Lactic Acid F/U @ 2Hr 2.5 H* Lactic Acid F/U @ 4Hr 2.2 H* Calcium Magnesium Total Bilirubin Direct Bilirubin AST ALT Alkaline Phosphatase C-Reactive Protein Total Protein Albumin COVID-19 (OMEGA) COVID-19 Clin Com 04/01/22 07:08 MCV MCH MCHC RDW Plt Count MPV Immature Gran % (Auto) Neut % (Auto) Lymph % (Auto) Nicollet % (Auto) Eos % (Auto) Baso % (Auto) Lymph # (Auto) Nicol[place] # (Auto) Eos # (Auto) Baso # (Auto) Abs Immat Gran (auto) Absolute Neuts (auto) Absolute Nucleated RBC Nucleated RBC % (auto) ESR PT INR APTT Anion Gap Estim Creat Clear Calc Estimated GFR POC Glucose 121 H Random Glucose Lactic Acid Lactic Acid F/U @ 2Hr Lactic Acid F/U @ 4Hr Calcium Magnesium Total Bilirubin Direct Bilirubin AST ALT Alkaline Phosphatase C-Reactive Protein Total Protein Albumin COVID-19 (OMEGA) COVID-19 Clin Com Assessment and Plan (1) Non-healing amputation site: Status: Acute (2) Cellulitis: Status: Acute Plan 81 years old male with PMH of CAD, diabetes, CAD, CHF and mild dementia who presents to the hospital with worsening pain and drainage from his left foot wound. # nonhealing amputation site Not septic Secondary to severe PA D Continue IV antibiotic of vancomycin Zosyn Pending cultures vascular surgery with a plan for BKA or AKA Morphine for pain management # lactic acidosis Trended down # Hx Gastroparesis reglan prn # CKD stage 3 stable, moniutor BMP ?#? hypotension Blood pressure runs so from previous admission Hold blood pressure medications Not due to sepsis Encourage p.o. intake Monitor BP #? PAD continue Plavix? and statin # ?history CHF no acute exacerbation continue Lasix #? diabetes mellitus type 2 low-dose sliding scale insulin Hold Levemir ?DVT prophylaxis Heparin The patient will require overnight hospital stay for evaluation of nonhealing wound with possible plan for further amputation to prevent further decompensation and possible severe sepsis. Quality Stroke Does the patient have a stroke diagnosis?: No VTE Prior VTE?: No VTE Risk Level:: Medical - moderate - high VTE Device Contraindication: Treatment Not Indicated VTE Drug Contraindication: N/A - Med Ordered
[2022-04-01 11:20] LABS: Glucose, Whole Blood 151 mg/dL (60-115)
[2022-04-01] MEDS: Morphine Sulfate 2 MG/ML CARTRIDGE 4 MG IVPUSH ×2 (11:33→21:15)
[2022-04-01] MEDS: Insulin Lispro 100 UNIT/ML 3 ML VIAL SUBCUT (11:33)
[2022-04-01 11:39] LABS: Hematocrit 27.8 % (42.0-52.0); Mean Corpuscular HGB Conc 32.4 g/dl (31.0-36.0); Mean Corpuscular Volume 86.3 fL (80.0-98.0); Mean Platelet Volume 10.7 fL (9.4-12.4); Platelet Count 408 X10*3/uL (160-400); Red Blood Count 3.22 X10*6/uL (4.60-5.80); Red Cell Distribution Width 15.1 % (11.0-16.0); White Blood Count 16.1 X10*3/uL (4.8-10.8)
[2022-04-01 11:54] LABS: Anion Gap 15 (12-20); Blood Urea Nitrogen 22 mg/dL (9-16); Calcium 8.6 mg/dL (8.4-10.2); Carbon Dioxide 31 mmol/L (22-29); Chloride 99 mmol/L (96-108); Creatinine Clr Calc Pharmacy 32.7; Estimated Glomerular Filt Rate 60; Glucose Random 168 mg/dL (60-115); Potassium 3.5 mmol/L (3.3-5.1); Sodium 141 mmol/L (135-145)
[2022-04-01 12:10] LABS: Vancomycin Random 7.4 mcg/mL (15-20)
--- NOTE | 2022-04-01 12:29 | HE.PHANOTE ---
RE VANCO RANDOM WAS 7.4, CONTINUE CURRENT REGIMEN OF [id number]. RENAL FUNCTION BETTER TODAY, TRUE TROUGH IS TOMORROW 04/02 @1100
--- NOTE | 2022-04-01 12:54 | PM.CNGS ---
History of Present Illness Consult details Consult date: 04/01/22 Reason for consult: wound care Narrative: Complex 81-year-old gentleman was seen by me yesterday in the office. He has had a prior left great toe ray amputation. The amputation site is nonhealing. It continues to be quite painful for him. He had some associated erythema and was subsequently admitted. Upon workup he was noted to have white count of 17. He has undergone noninvasive arterial testing. He now presents to us for follow-up. Review of Systems Review of Systems: Yes all other systems are reviewed and are negative Constitutional: Constitutional: Reports no additional constitutional complaints ENT: Reports Normal hearing present Cardiovascular: Cardiovascular: Denies chest pain, Denies chest pain at rest, Denies chest pain with activity and Denies pedal edema Respiratory: Respiratory: Denies cough Gastrointestinal: Gastrointestinal: Denies abdominal pain Musculoskeletal: Musculoskeletal: Denies abnormal gait, Denies muscle cramps and Denies radiating pain into limb Integumentary/Breasts: Skin/Breast: Denies skin ulcer and Denies wounds Neurologic: Reports Normal hearing present and Denies abnormal gait Psychiatric: Psychiatric: Reports no additional psychiatric complaints PMFSH Past Medical History Medical History Acute systolic (congestive) heart failure Dementia Gangrene of foot Neuropathy 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 PAD (peripheral artery disease) Troponin level elevated Type 2 diabetes mellitus with unspecified complications Social History Social History Household Members: None Housing: Apartment Do you presently have visiting nurse or other home services: Yes Unable to assess alcohol history related to: Unknown Alcohol intake: unknown Patient Tobacco Use Status: Former Tobacco user Quit Date: 1999 Tobacco use type: Cigarette Years Smoked: 4 Advance Directives Date on File: 08/15/21 service: No Current occupational status: retired Meds Allergies Allergy/AdvReac Type Severity Reaction Status Date / Time No Known Allergies Allergy Verified 03/31/22 10:25 [No Known Allergies*] Active Medications: Current Medications Acetaminophen (Acetaminophen 325 Mg Tablet) 650 mg PO Q6H PRN PRN Reason: Pain, Mild (Pain Scale 1-3) Atorvastatin Calcium (Atorvastatin Calcium 80 Mg Tablet) 80 mg PO BEDTIME [facility] Last Admin: 03/31/22 22:33 Dose: 80 mg Documented by: Clopidogrel Bisulfate (Clopidogrel Bisulfate 75 Mg Tablet) 75 mg PO DAILY [facility] Last Admin: 04/01/22 07:34 Dose: 75 mg Documented by: Docusate Sodium (Docusate Sodium 100 Mg Capsule) 100 mg PO BID PRN PRN Reason: constipation Last Admin: 04/01/22 07:34 Dose: 100 mg Documented by: Furosemide (Furosemide 40 Mg Tablet) 40 mg PO BID@0900,1800 [facility]; Protocol Last Admin: 04/01/22 07:34 Dose: 40 mg Documented by: Gabapentin (Gabapentin 100 Mg Capsule) 100 mg PO BID [facility] Last Admin: 04/01/22 07:34 Dose: 100 mg Documented by: Gabapentin (Gabapentin 300 Mg Capsule) 300 mg PO BEDTIME [facility] Last Admin: 03/31/22 22:34 Dose: 300 mg Documented by: Heparin Sodium (Porcine) (Heparin Sodium,Porcine 5,000 Unit/Ml Vial) 5,000 unit SUBCUT Q12H [facility] Last Admin: 04/01/22 06:20 Dose: 5,000 unit Documented by: Vancomycin HCl 750 mg/ Sodium (Chloride) 265 mls @ 265 mls/hr IV Q24H [facility] Piperacillin Sod/Tazobactam (Sod 2.25 gm/ Sodium Chloride) 50 mls @ 100 mls/hr IV Q6H [facility] Last Admin: 04/01/22 12:38 Dose: 100 mls/hr Documented by: Insulin Human Lispro (Insulin Lispro 100 Unit/Ml 3 Ml Vial) 0 unit SUBCUT QIDACHS [facility]; Protocol Last Admin: 04/01/22 11:33 Dose: 2 unit Documented by: Morphine Sulfate (Morphine Sulfate 2 Mg/Ml Cartridge) 4 mg IVPUSH Q4H PRN; Protocol PRN Reason: Pain, Severe (Pain Scale 7-10) Last Admin: 04/01/22 11:33 Dose: 4 mg Documented by: Omeprazole (Omeprazole 20 Mg Capsule.Dr) 20 mg PO DAILY@0630 [facility] Last Admin: 04/01/22 06:19 Dose: 20 mg Documented by: Ondansetron HCl (Ondansetron Hcl 4 Mg/2 Ml Vial) 4 mg IVPUSH Q8H PRN PRN Reason: Nausea and Vomiting Pharmacy Consult (Consult Rx Perform Med Rec) 1 each MISCELLANE ONCE PRN PRN Reason: Consult order Pharmacy Consult (Consult Rx Vancomycin Dosing) 1 each MISCELLANE DAILY PRN PRN Reason: Consult order Pharmacy Consult (Consult Rx Vancomycin Dosing) 1 each MISCELLANE DAILY PRN PRN Reason: Consult order Sodium Chloride (0.9 % Sodium Chloride Flush 3 Ml Syringe) 3 ml IVFLUSH QSHIFT [facility] Last Admin: 04/01/22 07:34 Dose: 3 ml Documented by: Tamsulosin HCl (Tamsulosin Hcl 0.4 Mg Capsule) 0.4 mg PO DAILY [facility] Last Admin: 04/01/22 07:34 Dose: 0.4 mg Documented by: Home Medications Medication Instructions Recorded Confirmed Last Taken Type insulin detemir U-100 100 unit/mL 10 unit SUBCUT DAILY@1800 08/10/21 03/31/22 02/21/22 History (3 mL) subcutaneous pen (Levemir FlexTouch U-100 Insulin) docusate sodium 100 mg capsule 100 mg PO BID PRN 11/21/21 03/31/22 Unknown History ferrous sulfate 325 mg (65 mg 325 mg PO DAILY 11/21/21 03/31/22 02/21/22 History iron) tablet (FeroSul) gabapentin 300 mg capsule 300 mg PO BEDTIME 11/21/21 03/31/22 02/21/22 History insulin syringe-needle U-100 0.5 #10 ea 11/21/21 Unknown History mL 30 gauge x 1/2 (UltiCare) pen needle, diabetic 32 gauge x #50 ea 11/21/21 Unknown History 5/32 (Pentips) blood sugar diagnostic (FreeStyle #10 ea 02/25/22 Unknown History Lite Strips) gabapentin 100 mg capsule 100 mg PO BID 02/25/22 03/31/22 02/21/22 History lancets 33 gauge (TRUEplus Lancets) #100 ea 02/25/22 Unknown History acetaminophen 500 mg tablet 1,000 mg PO Q6H PRN 03/31/22 03/31/22 Unknown History insulin aspart U-100 100 unit/mL 0 sliding scale dose SUBCUT TIDAC 03/31/22 03/31/22 Unknown History (3 mL) subcutaneous pen (Novolog Flexpen U-100 Insulin aspart) pantoprazole 20 mg tablet,delayed 1 tab PO DAILY 03/31/22 03/31/22 Unknown History release Physical Exam Vital Signs: Vital Signs: Last Vital Signs Temp 97.5 F 04/01/22 11:14 Pulse 58 04/01/22 11:14 Resp 18 04/01/22 11:33 BP 104/52 L 04/01/22 11:14 Pulse Ox 98 04/01/22 11:14 BMI result Body Mass Index 18.0 Const: General: cooperative, healthy appearing and comfortable Orientation/consciousness: oriented to person, oriented to place and oriented to time HEENT: Head: Yes normal to inspection Neck: Neck: Yes normal visual inspection Carotids: no bruits Chest: Chest palpation & inspection: normal inspection of the chest Resp: Effort & Inspection: normal respiratory effort and able to speak in complete sentences Auscultation: clear to auscultation bilaterally, no crackles, no rales, no rhonchi and no wheezes Cardio: Rate: regular rate Rhythm: regular rhythm Heart sounds: S1 normal heart sound present and S2 normal heart sound present Bruits: no carotid bruits Peripheral pulses: Peripheral pulses 2+ throughout GI: Inspection: Yes normal to inspection Skin: Wounds: amputation site (Left great toe gangrene) Hair: normal Neuro: General: oriented to person, oriented to place and oriented to time Cranial nerves: Yes CN's II-XII intact bilaterally and Yes Normal hearing present Cognition (Neuro): normal cognition Motor exam (neuro): 5/5 motor strength present throughout Extrem: Other: venous exam: No significant superficial varicosities or spider telangiectasias, minimal edema General: No clubbing, No cyanosis and No edema Psych: Appearance: grossly normal Mental Status: mental status grossly normal Speech and movement: Normal speech and movement present Results Labs Result diagrams: 04/01/22 11:28 04/01/22 11:28 Labs: Abnormal lab results 03/31/22 03/31/22 03/31/22 Range/Units 12:26 14:46 18:22 WBC (4.8-10.8) X10*3/uL RBC (4.60-5.80) X10*6/uL Hgb (14.0-18.0) g/dl Hct (42.0-52.0) % Plt Count (160-400) X10*3/uL ESR 86 H (0-15) MM/HR Carbon Dioxide (22-29) mmol/L BUN (9-16) mg/dL POC Glucose (60-115) mg/dL Random Glucose (60-115) mg/dL Lactic Acid F/U @ 2Hr 2.5 H* (0.5-2.0) mmol/L Lactic Acid F/U @ 4Hr 2.2 H* (0.5-2.0) mmol/L Random Vancomycin (15-20) mcg/mL 03/31/22 04/01/22 04/01/22 Range/Units 22:30 07:08 11:13 WBC (4.8-10.8) X10*3/uL RBC (4.60-5.80) X10*6/uL Hgb (14.0-18.0) g/dl Hct (42.0-52.0) % Plt Count (160-400) X10*3/uL ESR (0-15) MM/HR Carbon Dioxide (22-29) mmol/L BUN (9-16) mg/dL POC Glucose 180 H 121 H 151 H (60-115) mg/dL Random Glucose (60-115) mg/dL Lactic Acid F/U @ 2Hr (0.5-2.0) mmol/L Lactic Acid F/U @ 4Hr (0.5-2.0) mmol/L Random Vancomycin (15-20) mcg/mL 04/01/22 04/01/22 04/01/22 Range/Units 11:28 11:28 11:28 WBC 16.1 H (4.8-10.8) X10*3/uL RBC 3.22 L (4.60-5.80) X10*6/uL Hgb 9.0 L (14.0-18.0) g/dl Hct 27.8 L (42.0-52.0) % Plt Count 408 H (160-400) X10*3/uL ESR (0-15) MM/HR Carbon Dioxide 31 H (22-29) mmol/L BUN 22 H (9-16) mg/dL POC Glucose (60-115) mg/dL Random Glucose 168 H (60-115) mg/dL Lactic Acid F/U @ 2Hr (0.5-2.0) mmol/L Lactic Acid F/U @ 4Hr (0.5-2.0) mmol/L Random Vancomycin 7.4 L (15-20) mcg/mL Short CBC 04/01/22 Range/Units 11:28 WBC 16.1 H (4.8-10.8) X10*3/uL Hgb 9.0 L (14.0-18.0) g/dl Hct 27.8 L (42.0-52.0) % Plt Count 408 H (160-400) X10*3/uL BMP 04/01/22 11:28 Sodium 141 Potassium 3.5 D Chloride 99 Carbon Dioxide 31 H BUN 22 H Creatinine 1.17 Calcium 8.6 D All other labs normal. Imaging Additional studies: Noninvasive arterial ultrasound images were review final report is pending. Concerning for popliteal and below-knee disease. Assessment and Plan (1) PAD (peripheral artery disease): Status: Acute Plan Patient has a nonhealing amputation site. I have reviewed the patient's arterial testing which reveals popliteal and below-knee disease. the patient would benefit from a left leg endovascular peripheral angiogram with possible angioplasty, stent, and/or atherectomy. This has been discussed in detail with the patient along with risks, benefits, and complications. This includes but is not limited to bleeding, infection, heart attack, need for emergent surgical repair, limb ischemia, blood vessel damage, bleeding, puncture, kidney injury, bruising, allergic reaction, and skin reaction. This was all discussed in detail by phone with his son Jacoby. He is in agreement with the angiogram. I did clarify that this would be the only thing done and we would discuss the amputation separately at a different date when the operation is required. We will schedule for tomorrow. This was discussed with the hospitalist team. Thank you for allowing us to assist in this patient's care. Procedures Date of Service Date of Service: 04/01/22
[2022-04-01] MEDS: vancomycin HCL 750 MG in 0.9 % Sodium Chloride 250 ML 265 MG IV (13:40)
[2022-04-01 15:54] LABS: Glucose, Whole Blood 70 mg/dL (60-115)
[2022-04-01 20:13] LABS: Glucose, Whole Blood 102 mg/dL (60-115)
[2022-04-01] MEDS: Atorvastatin Calcium 80 MG TABLET PO (21:05)
[2022-04-01] MEDS: Gabapentin 300 MG CAPSULE PO (21:05)
[2022-04-02] VITALS (10 sets, daily range): BP systolic 91–131; BP diastolic 50–68; PULSE 53–81; RESP 16–18; TEMP 36.1–37.4; O2SAT 95–99
[2022-04-02] MEDS: Piperacillin Sodium/Tazobactam 2.25 GM in 0.9 % Sodium Chloride 50 ML IV ×4 (02:19→18:39)
[2022-04-02] MEDS: Heparin Sodium,Porcine 5,000 UNIT/ML VIAL 5000 UNIT SUBCUT ×2 (05:38→18:39)
[2022-04-02] MEDS: Omeprazole 20 MG CAPSULE.DR PO (05:38)
[2022-04-02] MEDS: 0.9 % Sodium Chloride 1,000 ML 100 ML IVCONT (05:46)
[2022-04-02 06:32] LABS: Hematocrit 26.4 % (42.0-52.0); Hemoglobin 8.6 g/dl (14.0-18.0); Mean Corpuscular HGB Conc 32.6 g/dl (31.0-36.0); Mean Corpuscular Hemoglobin 28.2 pg (27.0-33.0); Mean Corpuscular Volume 86.6 fL (80.0-98.0); Mean Platelet Volume 10.6 fL (9.4-12.4); Platelet Count 398 X10*3/uL (160-400); Red Blood Count 3.05 X10*6/uL (4.60-5.80); Red Cell Distribution Width 15.4 % (11.0-16.0); White Blood Count 14.7 X10*3/uL (4.8-10.8)
[2022-04-02 06:52] LABS: Anion Gap 15 (12-20); Blood Urea Nitrogen 19 mg/dL (9-16); Calcium 8.6 mg/dL (8.4-10.2); Carbon Dioxide 31 mmol/L (22-29); Chloride 99 mmol/L (96-108); Creatinine Clr Calc Pharmacy 33.9; Estimated Glomerular Filt Rate > 60; Glucose Random 142 mg/dL (60-115); Sodium 142 mmol/L (135-145)
[2022-04-02 07:15] LABS: Glucose, Whole Blood 126 mg/dL (60-115)
[2022-04-02 08:43] LABS: Glucose, Whole Blood 119 mg/dL (60-115)
--- NOTE | 2022-04-02 11:06 | MHC.CLN ---
F/U CURRENTLY NPO FOR PROCEDURE. REVIEW OF INTAKE SHOWS 100% X 2 MEALS; 25% X 1 MEAL. DIET PRIOR TO NPO WAS DIABETIC 1800 KCAL, ENSURE BID. PT IS SEVERELY MALNOURISHED.
--- NOTE | 2022-04-02 11:25 | W.PM.OPN ---
Operative Note Operative Note Date of Service: 04/02/22 Narrative: Angiogram report from [facility] Preoperative diagnosis: Atherosclerosis of left lower extremity with nonhealing ulcer Postoperative diagnosis: Same Procedure: 1. Ultrasound-guided right ncommon femoral access 2. Aortogram with left lower extremity runoff 3. Atherectomy and plasty of left SFA Surgeon:Ramin Johnson M.D., FACS, RPVI Fish Packer:None Anesthesia: Local with moderate conscious sedation. Total intraservice moderate sedation time was 48 minutes. I monitored the patient's level of consciousness and physiologic status continuously throughout the procedure. Specimens:none Drains:none Estimated blood loss: Less than 10 ml Implant: Medtronic Impact DCB 6 x 80 Indications: 81-year-old gentleman with diabetes had a nonhealing left great toe amp. He now presents for endovascular intervention. Risks benefits complications were discussed with the son who was present and live. Imaging was also reviewed with the son. He provided documentation regarding healthcare proxy and the patient's dementiaThe patient has signed the informed consent after reviewing risks, complications, benefits, and alternatives previously discussed with the patient. The patient was given the opportunity to ask any additional questions or voice any concerns. All questions were answered to the patient's satisfaction. Procedure in detail: Patient was brought to the angiography suite prior to which a time-out was called for patient identification and site verification. Bilateral groins were prepped and draped in the standard surgical fashion. Under ultrasound guidance right common femoral was punctured with micro puncture needle and wire. Subsequently a precision 4 [place] sheath was then placed. Bentson wire was advanced to the level of the aorta. 4 [place] Flush catheter was brought up and parked at the level of the renal arteries. Aortogram was then undertaken. Catheter was brought down to the level of the iliac bifurcation. Iliacs were subsequently imaged. Catheter was then brought in up and over to the left side SFA. Runoff study was then undertaken. Was noted that he had significant SFA disease at [facility]. At this time 4000 units of systemic heparin was administered. Up and over 6 [place] sheath was then placed. We were able to advance an 035 glidewire Advantage. We exchanged this out for a trail Blazer catheter. Through this we advanced a 6 [place] spider wire. Over the spider wire a Hawk 1 atherectomy device was used. Multiple unidirectional passes were undertaken. Once this was accomplished we were able to plasty this area with a 6 x 80 drug coated balloon. This was brought into position in under 3 minutes and insufflated for a total of 3 minutes in duration. Wire and catheter were removed. Through the sheath we imaged the ipsilateral of common femoral. Appropriate puncture was noted. StarClose closure device was then deployed. Patient tolerated the procedure well and was returned to recovery with stable vitals. Interpretation of films: 1. Ultrasound demonstrates appropriate femoral puncture. Image of which was saved. 2. Aortogram demonstrates appropriate caliber aorta. Minimal disease. Appropriate take-off of the renals. 3. Iliac images demonstrate no significant disease 4. LeftLeg Common femoral artery: No significant disease Profundus Femoris: No significant disease Superficial femoral artery: High-grade stenosis in distal SFA Popliteal artery (p1,p2,p3): Patent Anterior tibial artery: Present multiple stenotic lesions occludes in the mid calf Peroneal artery: Occluded Posterior tibial artery: Occluded Dorsalis pedis/plantar arch: Not present Conclusion: 1. Successful atherectomy and plasty of left SFA 2. Anticoagulation status: Patient to remain on aspirin and Plavix This note is constructed using voice recognition software. While every effort has been made to ensure accuracy, thoroughbred horse farm manager errors may have been included. Thank you for allowing me to participate in the care of your patient. Yours sincerely, Ramin Johnson MD, FACS, R.P.V.I.
[2022-04-02] MEDS: iohexoL 300 MG/ML 100 ML INFUS..BTL IV (11:40)
--- NOTE | 2022-04-02 12:25 | HO.PM.IMPN ---
Subjective Subjective Date of Service: 04/02/22 Interval History: Seen and evaluated this morning Laying in his bed, complaining of pain in the foot partially controlled with morphine denies any fever or chills No reported overnight events Review of Systems No fever, chills but increase weakness No chest pain, palpitation No shortness of breath or coughing No abdominal pain, nausea or vomiting No urinary symptoms Increase pain in his foot, left. Discoloration of the 2nd toe and bed of his foot. Physical Exam Vital Signs: Vital Signs: Last Vital Signs Temp 99.3 F 04/02/22 11:40 Pulse 79 04/02/22 12:10 Resp 17 04/02/22 12:10 BP 112/51 L 04/02/22 12:10 Pulse Ox 98 04/02/22 12:10 BMI result Body Mass Index 18.0 Const: Other: Constitutional : Alert, oriented, complaining of pain but not distressed Neck : Normal inspection, Supple Cardiovascular : RRR, no JVP, no lower extremity edema Respiratory : fair bilateral air entry, no crackles, wheezes or rhonchi Gastrointestinal: soft, lax, Normal bowel sounds, Non tender Skin : Warm, Dry, hold lower extremities more the left side, want as above, nonhealing amputation site with increase black discoloration at the base of the 1st metatarsal. No drainage noted. Neurological : Alert & oriented x3, No focal deficit , CN 2-12 within normal Objective Data Active Medications Acetaminophen (Acetaminophen 325 Mg Tablet) 650 mg PO Q6H PRN PRN Reason: Pain, Mild (Pain Scale 1-3) Atorvastatin Calcium (Atorvastatin Calcium 80 Mg Tablet) 80 mg PO BEDTIME [facility] Last Admin: 04/01/22 21:05 Dose: 80 mg Documented by: COLGHADA Clopidogrel Bisulfate (Clopidogrel Bisulfate 75 Mg Tablet) 75 mg PO DAILY [facility] Last Admin: 04/01/22 07:34 Dose: 75 mg Documented by: COTEMA Docusate Sodium (Docusate Sodium 100 Mg Capsule) 100 mg PO BID PRN PRN Reason: constipation Last Admin: 04/01/22 07:34 Dose: 100 mg Documented by: COTEMA Furosemide (Furosemide 40 Mg Tablet) 40 mg PO BID@0900,1800 [facility]; Protocol Last Admin: 04/01/22 17:57 Dose: 40 mg Documented by: HO.COTEMA Gabapentin (Gabapentin 100 Mg Capsule) 100 mg PO BID [facility] Last Admin: 04/01/22 21:05 Dose: 100 mg Documented by: ROCHELLE Gabapentin (Gabapentin 300 Mg Capsule) 300 mg PO BEDTIME [facility] Last Admin: 04/01/22 21:05 Dose: 300 mg Documented by: ROCHELLE Heparin Sodium (Porcine) (Heparin Sodium,Porcine 5,000 Unit/Ml Vial) 5,000 unit SUBCUT Q12H [facility] Last Admin: 04/02/22 05:38 Dose: 5,000 unit Documented by: CANDIDO Vancomycin HCl 750 mg/ Sodium (Chloride) 265 mls @ 265 mls/hr IV Q24H [facility] Last Infusion: 04/01/22 14:51 Dose: 0 mls/hr Documented by: DU Piperacillin Sod/Tazobactam (Sod 2.25 gm/ Sodium Chloride) 50 mls @ 100 mls/hr IV Q6H [facility] Last Infusion: 04/02/22 06:13 Dose: 0 mls/hr Documented by: CANDIDO Sodium Chloride (Ns) 1,000 mls @ 100 mls/hr IVCONT .Q10H [facility] Last Admin: 04/02/22 05:46 Dose: 100 mls/hr Documented by: CANDIDO Insulin Human Lispro (Insulin Lispro 100 Unit/Ml 3 Ml Vial) 0 unit SUBCUT QIDACHS [facility]; Protocol Last Admin: 04/02/22 08:32 Dose: Not Given Documented by: YOSELYN Non-Admin Reason: No Insulin Coverage Morphine Sulfate (Morphine Sulfate 2 Mg/Ml Cartridge) 4 mg IVPUSH Q4H PRN; Protocol PRN Reason: Pain, Severe (Pain Scale 7-10) Last Admin: 04/01/22 21:15 Dose: 2 mg Documented by: ROCHELLE Omeprazole (Omeprazole 20 Mg Capsule.) 20 mg PO DAILY@0630 [facility] Last Admin: 04/02/22 05:38 Dose: 20 mg Documented by: CANDIDO Ondansetron HCl (Ondansetron Hcl 4 Mg/2 Ml Vial) 4 mg IVPUSH Q8H PRN PRN Reason: Nausea and Vomiting Oxycodone HCl (Oxycodone Hcl Immed Release 5 Mg Tablet) 5 mg PO Q4H PRN PRN Reason: Pain, Moderate (Pain Scale 4-6 Pharmacy Consult (Consult Rx Perform Med Rec) 1 each MISCELLANE ONCE PRN PRN Reason: Consult order Pharmacy Consult (Consult Rx Vancomycin Dosing) 1 each MISCELLANE DAILY PRN PRN Reason: Consult order Pharmacy Consult (Consult Rx Vancomycin Dosing) 1 each MISCELLANE DAILY PRN PRN Reason: Consult order Potassium Chloride (Potassium Chloride Packet 20 Meq Packet) 40 meq PO Q4H [facility] Stop: 04/02/22 12:46 Sodium Chloride (0.9 % Sodium Chloride Flush 3 Ml Syringe) 3 ml IVFLUSH QSHIFT [facility] Last Admin: 04/02/22 01:30 Dose: Not Given Documented by: CANDIDO Non-Admin Reason: IV Running Tamsulosin HCl (Tamsulosin Hcl 0.4 Mg Capsule) 0.4 mg PO DAILY [facility] Last Admin: 04/01/22 07:34 Dose: 0.4 mg Documented by: DU Labs CBC & Chem 7: 04/02/22 06:23 04/02/22 06:23 Labs: Laboratory Results - last 24 hr 04/01/22 04/01/22 04/02/22 15:50 20:08 06:23 MCV MCH MCHC RDW Plt Count MPV Absolute Nucleated RBC Nucleated RBC % (auto) Anion Gap Estim Creat Clear Calc Cancelled Estimated GFR Cancelled POC Glucose 70 102 Random Glucose Calcium 04/02/22 04/02/22 04/02/22 06:23 06:23 07:11 MCV 86.6 MCH 28.2 MCHC 32.6 RDW 15.4 Plt Count 398 MPV 10.6 Absolute Nucleated RBC 0.000 Nucleated RBC % (auto) 0.0 Anion Gap 15 Estim Creat Clear Calc 33.9 Estimated GFR > 60 POC Glucose 126 H Random Glucose 142 H Calcium 8.6 04/02/22 08:31 MCV MCH MCHC RDW Plt Count MPV Absolute Nucleated RBC Nucleated RBC % (auto) Anion Gap Estim Creat Clear Calc Estimated GFR POC Glucose 119 H Random Glucose Calcium Microbiology Microbiology Results: Microbiology 03/31/22 12:53 Blood Culture - Preliminary Blood - Venous No growth after 24 hours. 03/31/22 12:26 Blood Culture - Preliminary Blood - Venous No growth after 24 hours. Assessment and Plan (1) Moderate malnutrition: Status: Acute (2) Non-healing amputation site: Status: Acute (3) Cellulitis: Status: Acute (4) Necrosis of surgical wound: Status: Acute (5) Acute on chronic anemia: Status: Acute Plan 81 years old male with PMH of CAD, diabetes, CAD, CHF and mild dementia who presents to the hospital with worsening pain and drainage from his left foot wound. # nonhealing amputation site , osteomyelitis Not septic Secondary to severe PAD Continue IV antibiotic of vancomycin Zosyn Pending cultures vascular surgery to do angiogram an x-rays today with a plan for BKA or AKA by tomorrow or Thursday Morphine for pain management # acute on chronic anemia Hemoglobin dropped to new baseline of 9 from almost 11 during last admission No clear source of bleeding identified, to check occult Could be secondary to chronic infection, malnutrition To check iron profile Transfusion if drops below 8 # moderate malnutrition [employer] following, supplement added # lactic acidosis Trended down # Hx Gastroparesis reglan prn # CKD stage 3 stable, moniutor BMP ?#? hypotension Blood pressure runs so from previous admission Hold blood pressure medications Not due to sepsis Encourage p.o. intake Monitor BP #? PAD continue Plavix? and statin # ?history CHF no acute exacerbation continue Lasix #? diabetes mellitus type 2 low-dose sliding scale insulin Hold Levemir ?DVT prophylaxis Heparin The patient will require overnight hospital stay for evaluation of nonhealing wound with possible plan for further amputation to prevent further decompensation and possible severe sepsis. Quality Stroke Does the patient have a stroke diagnosis?: No VTE Prior VTE?: No VTE Risk Level:: Medical - moderate - high VTE Device Contraindication: Treatment Not Indicated VTE Drug Contraindication: N/A - Med Ordered
[2022-04-02 12:50] LABS: Iron 29 mcg/dL (45-160); Percent Iron Saturation 22 % (15-50); Total Iron Binding Capacity 134 mcg/dL (228-428); Unsaturated Iron Binding 105 ug/dL
[2022-04-02] MEDS: Morphine Sulfate 2 MG/ML CARTRIDGE 4 MG IVPUSH (13:07)
[2022-04-02] MEDS: Potassium Chloride Packet 20 MEQ PACKET 40 MEQ PO (13:08)
[2022-04-02 14:47] LABS: Vancomycin Trough 11.6 mcg/mL (10.0-20.0)
--- NOTE | 2022-04-02 14:56 | HE.PHANOTE ---
vancomycin addendum: The trough level was taken late , 1400 level was 11.6 renal function seems to be improving slightly, predicted AUC is 456 at current dose of 750 mg q 24 hours, continue same dose will recheck level milagros
[2022-04-02 16:04] LABS: Glucose, Whole Blood 127 mg/dL (60-115)
[2022-04-02 16:15] LABS: Glucose, Whole Blood 148 mg/dL (60-115)
[2022-04-02] MEDS: vancomycin HCL 750 MG in 0.9 % Sodium Chloride 250 ML 265 MG IV (16:18)
[2022-04-02] MEDS: Furosemide 40 MG TABLET PO (18:40)
[2022-04-02 19:33] LABS: Glucose, Whole Blood 137 mg/dL (60-115)
[2022-04-02] MEDS: Gabapentin 100 MG CAPSULE PO (21:36)
[2022-04-02] MEDS: Atorvastatin Calcium 80 MG TABLET PO (21:36)
[2022-04-02] MEDS: Gabapentin 300 MG CAPSULE PO (21:36)
[2022-04-03] VITALS (7 sets, daily range): BP systolic 105–134; BP diastolic 47–81; PULSE 67–109; RESP 12–18; TEMP 36.6–37.2; O2SAT 97–100
[2022-04-03] MEDS: Piperacillin Sodium/Tazobactam 2.25 GM in 0.9 % Sodium Chloride 50 ML IV ×4 (01:17→18:38)
[2022-04-03] MEDS: Acetaminophen 325 MG TABLET 650 MG PO ×2 (03:13→09:12)
[2022-04-03] MEDS: 0.9 % Sodium Chloride 1,000 ML 100 ML IVCONT ×2 (03:18→18:38)
[2022-04-03] MEDS: Omeprazole 20 MG CAPSULE.DR PO (06:02)
[2022-04-03] MEDS: Heparin Sodium,Porcine 5,000 UNIT/ML VIAL 5000 UNIT SUBCUT ×2 (06:17→18:39)
[2022-04-03 06:25] LABS: Hematocrit 26.1 % (42.0-52.0); Hemoglobin 8.4 g/dl (14.0-18.0); Mean Corpuscular HGB Conc 32.2 g/dl (31.0-36.0); Mean Platelet Volume 10.9 fL (9.4-12.4); Platelet Count 383 X10*3/uL (160-400); Red Cell Distribution Width 15.2 % (11.0-16.0); White Blood Count 14.3 X10*3/uL (4.8-10.8)
[2022-04-03 06:52] LABS: Anion Gap 14 (12-20); Blood Urea Nitrogen 15 mg/dL (9-16); Calcium 8.4 mg/dL (8.4-10.2); Carbon Dioxide 31 mmol/L (22-29); Chloride 102 mmol/L (96-108); Creatinine Clr Calc Pharmacy 37.6; Estimated Glomerular Filt Rate > 60; Glucose Random 127 mg/dL (60-115); Potassium 3.2 mmol/L (3.3-5.1); Sodium 144 mmol/L (135-145)
[2022-04-03 07:24] LABS: Glucose, Whole Blood 115 mg/dL (60-115)
[2022-04-03] MEDS: Gabapentin 100 MG CAPSULE PO ×2 (09:11→20:51)
[2022-04-03] MEDS: Furosemide 40 MG TABLET PO ×2 (09:12→17:22)
[2022-04-03] MEDS: Clopidogrel Bisulfate 75 MG TABLET PO (09:12)
[2022-04-03] MEDS: oxyCODONE HCl Immed Release 5 MG TABLET PO ×2 (09:12→20:52)
[2022-04-03] MEDS: Tamsulosin HCL 0.4 MG CAPSULE PO (09:12)
[2022-04-03] MEDS: Potassium Chloride Packet 20 MEQ PACKET 40 MEQ PO (11:16)
[2022-04-03 11:38] LABS: Glucose, Whole Blood 186 mg/dL (60-115)
[2022-04-03] MEDS: Insulin Lispro 100 UNIT/ML 3 ML VIAL SUBCUT ×2 (12:16→17:22)
--- NOTE | 2022-04-03 13:09 | P.PNIM_ITS ---
Subjective Subjective Date of Service: 04/03/22 Interval History: seen and examined this morning follow up for non-healing foot wound patient confused at baseline, reporting leg pain, but otherwise seems unable to provide reliable history Review of Systems Review of Systems: Yes Unobtainable due to mental status Physical Exam Vital Signs: Vital Signs: Last Vital Signs Temp 98.3 F 04/03/22 11:24 Pulse 75 04/03/22 11:24 Resp 18 04/03/22 11:24 BP 134/70 04/03/22 11:24 Pulse Ox 100 04/03/22 11:24 BMI result Body Mass Index 18.0 Const: General: alert and awake Nutritional Appearance: thin Orientation /consciousness: oriented to person and oriented to place Resp: Effort & Inspection: normal respiratory effort and able to speak in com plete sentences Cardio: Rate: regular rate Heart sounds: S1 normal heart sound present and S2 normal heart sound present GI: Palpation (GI): Soft to palpation and nontender Neuro: General: oriented to person and oriented to place Extrem: Other: left foot wrapped in c/d/i hema bandage Objective Data Active Medications Acetaminophen (Acetaminophen 325 Mg Tablet) 650 mg PO Q6H PRN PRN Reason: Pain, Mild (Pain Scale 1-3) Last Admin: 04/03/22 09:12 Dose: 650 mg Documented by: KRISHNA Atorvastatin Calcium (Atorvastatin Calcium 80 Mg Tablet) 80 mg PO BEDTIME [facility] Last Admin: 04/02/22 21:36 Dose: 80 mg Documented by: CANDIDO Clopidogrel Bisulfate (Clopidogrel Bisulfate 75 Mg Tablet) 75 mg PO DAILY [facility] Last Admin: 04/03/22 09:12 Dose: 75 mg Documented by: KRISHNA Docusate Sodium (Docusate Sodium 100 Mg Capsule) 100 mg PO BID PRN PRN Reason: constipation Last Admin: 04/01/22 07:34 Dose: 100 mg Documented by: COTEMA Furosemide (Furosemide 40 Mg Tablet) 40 mg PO BID@0900,1800 [facility]; Protocol Last Admin: 04/03/22 09:12 Dose: 40 mg Documented by: KRISHNA Gabapentin (Gabapentin 100 Mg Capsule) 100 mg PO BID [facility] Last Admin: 04/03/22 09:11 Dose: 100 mg Documented by: KRISHNA Gabapentin (Gabapentin 300 Mg Capsule) 300 mg PO BEDTIME [facility] Last Admin: 04/02/22 21:36 Dose: 300 mg Documented by: CANDIDO Heparin Sodium (Porcine) (Heparin Sodium,Porcine 5,000 Unit/Ml Vial) 5,000 unit SUBCUT Q12H [facility] Last Admin: 04/03/22 06:17 Dose: 5,000 unit Documented by: CANDIDO Piperacillin Sod/Tazobactam (Sod 2.25 gm/ Sodium Chloride) 50 mls @ 100 mls/hr IV Q6H [facility] Last Infusion: 04/03/22 12:52 Dose: 0 mls/hr Documented by: KRISHNA Sodium Chloride (Ns) 1,000 mls @ 100 mls/hr IVCONT .Q10H [facility] Last Admin: 04/03/22 03:18 Dose: 100 mls/hr Documented by: CANDIDO Vancomycin HCl 750 mg/ Sodium (Chloride) 265 mls @ 265 mls/hr IV Q24H [facility] Last Infusion: 04/02/22 18:50 Dose: 0 mls/hr Documented by: YOSELYN Insulin Human Lispro (Insulin Lispro 100 Unit/Ml 3 Ml Vial) 0 unit SUBCUT QIDACHS [facility]; Protocol Last Admin: 04/03/22 12:16 Dose: 2 unit Documented by: KRISHNA Morphine Sulfate (Morphine Sulfate 2 Mg/Ml Cartridge) 4 mg IVPUSH Q4H PRN; Protocol PRN Reason: Pain, Severe (Pain Scale 7-10) Last Admin: 04/02/22 13:07 Dose: 4 mg Documented by: YOSELYN Omeprazole (Omeprazole 20 Mg Capsule.Dr) 20 mg PO DAILY@0630 [facility] Last Admin: 04/03/22 06:02 Dose: 20 mg Documented by: CANDIDO Ondansetron HCl (Ondansetron Hcl 4 Mg/2 Ml Vial) 4 mg IVPUSH Q8H PRN PRN Reason: Nausea and Vomiting Oxycodone HCl (Oxycodone Hcl Immed Release 5 Mg Tablet) 5 mg PO Q4H PRN PRN Reason: Pain, Moderate (Pain Scale 4-6 Last Admin: 04/03/22 09:12 Dose: 5 mg Documented by: KRISHNA Pharmacy Consult (Consult Rx Perform Med Rec) 1 each MISCELLANE ONCE PRN PRN Reason: Consult order Pharmacy Consult (Consult Rx Vancomycin Dosing) 1 each MISCELLANE DAILY PRN PRN Reason: Consult order Pharmacy Consult (Consult Rx Vancomycin Dosing) 1 each MISCELLANE DAILY PRN PRN Reason: Consult order Sodium Chloride (0.9 % Sodium Chloride Flush 3 Ml Syringe) 3 ml IVFLUSH QSHIFT [facility] Last Admin: 04/03/22 09:04 Dose: Not Given Documented by: KRISHNA Non-Admin Reason: IV Running Tamsulosin HCl (Tamsulosin Hcl 0.4 Mg Capsule) 0.4 mg PO DAILY [facility] Last Admin: 04/03/22 09:12 Dose: 0.4 mg Documented by: KRISHNA Labs CBC & Chem 7: 04/03/22 06:02 04/03/22 06:02 Labs: Laboratory Results - last 24 hr 04/02/22 04/02/22 04/02/22 13:02 14:06 16:10 MCV MCH MCHC RDW Plt Count MPV Absolute Nucleated RBC Nucleated RBC % (auto) Anion Gap Estim Creat Clear Calc Estimated GFR POC Glucose 127 H 148 H Random Glucose Calcium Vancomycin Trough 11.6 04/02/22 04/03/22 04/03/22 19:07 06:02 06:02 MCV 87.0 MCH 28.0 MCHC 32.2 RDW 15.2 Plt Count 383 MPV 10.9 Absolute Nucleated RBC 0.000 Nucleated RBC % (auto) 0.0 Anion Gap Estim Creat Clear Calc Cancelled Estimated GFR Cancelled POC Glucose 137 H Random Glucose Calcium Vancomycin Trough 04/03/22 04/03/22 04/03/22 06:02 07:09 11:27 MCV MCH MCHC RDW Plt Count MPV Absolute Nucleated RBC Nucleated RBC % (auto) Anion Gap 14 Estim Creat Clear Calc 37.6 Estimated GFR > 60 POC Glucose 115 186 H Random Glucose 127 H Calcium 8.4 Vancomycin Trough Microbiology Microbiology Results: Microbiology 03/31/22 12:53 Blood Culture - Preliminary Blood - Venous No growth after 48 hours. 03/31/22 12:26 Blood Culture - Preliminary Blood - Venous No growth after 48 hours. Assessment and Plan (1) Non-healing amputation site: Status: Acute Plan 81 years old male with PMH of CAD, diabetes, CAD, CHF and mild dementia who presents to the hospital with worsening pain and drainage from his left foot wound. nonhealing amputation site, osteomyelitis No evidence of sepsis Secondary to severe PAD Continue IV antibiotic of vancomycin, Zosyn vascular surgery following; s/p angio and left SFA arthrectomy and plasty 04/02; vascular will discuss need for BKA vs AKA with family Morphine for pain management blood cultures negative to date acute on chronic anemia Hemoglobin dropped to new baseline of 9 from almost 11 during last admission Could be secondary to chronic infection, malnutrition Iron, TIBC both low; likely mixed; stool occult pending H/H stable on oral iron supplementation at baseline, will continue Transfusion if drops below 8 moderate malnutrition [employer] following, supplement added lactic acidosis Trended down Hx Gastroparesis reglan prn CKD stage 3 stable, moniutor BMP hypotension BP improving Blood pressure runs low from previous admission on low dose lisinopril at baseline, on hold for now, will resume as bp tolerates Not due to sepsis Monitor BP PAD continue Plavix? 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 mir The patient requires ongoing hospitalization for management of nonhealing wound with possible plan for further amputation to prevent further decompensation and possible severe sepsis. Quality Stroke Does the patient have a stroke diagnosis?: No VTE Prior VTE?: No VTE Risk Level:: Medical - moderate - high VTE Device Contraindication: Treatment Not Indicated VTE Drug Contraindication: N/A - Med Ordered
--- NOTE | 2022-04-03 14:13 | HO.VASCPN ---
Subjective Subjective Date of Service: 04/03/22 Patient reports: no new complaints and feels better Interval history: Patient seen and examined. No significant events. He reports that the pain on the left lower extremity appears to be improved. He was comfortably eating lunch at the time of my visit. Physical Exam Vital Signs: Vital Signs: Last Vital Signs Temp 98.3 F 04/03/22 11:24 Pulse 75 04/03/22 11:24 Resp 18 04/03/22 11:24 BP 134/70 04/03/22 11:24 Pulse Ox 100 04/03/22 11:24 BMI result Body Mass Index 18.0 Const: General: cooperative, healthy appearing and no acute distress Orientation/consciousness: oriented to person, oriented to place and oriented to time HEENT: Head: Yes normal to inspection Neck: Carotids: no bruits Chest: Chest palpation & inspection: normal inspection of the chest Resp: Effort & Inspection: normal respiratory effort and able to speak in complete sentences Auscultation: clear to auscultation bilaterally Cardio: Rate: regular rate Heart sounds: S1 normal heart sound present and S2 normal heart sound present GI: Inspection: Yes normal to inspection Skin: General skin exam: no rashes or lesions noted Wounds: amputation site (Left great toe amputation site is gangrenous) Neuro: General: oriented to person, oriented to place, oriented to time and CN's II-XI intact bilaterally Extrem: General: Yes normal to inspection, Yes full ROM and Yes no clubbing, cyanosis or edema Psych: Appearance: grossly normal and well kempt Speech and movement: Normal speech and movement present Affect: normal affect Progress Note: A&P Assessment and plan (1) PAD (peripheral artery disease): Status: Acute Assessment and Plan: In short patient has a nonhealing left foot ulcer. I do believe that he is mostly nonambulatory. He is holding that knee in a contracted position. The question is a below-knee amputation versus an above knee amputation. Is my clinical judgment that he will most likely require an above knee amputation. This was related to the son yesterday. I will have Physical therapy assess him as well. Will discuss with him the need for operative intervention as that foot is gangrenous and he is getting an infection from this. Thank you for allowing us to assist in his care. If there are any questions or concerns please do not hesitate to contact us. Time Spent With Patient Time: Total time spent is greater than 50% in coordination of care (as documented) at patient's floor/unit and/or counseling patient: Procedures Date of Service Date of Service: 04/03/22 Quality Stroke Does the patient have a stroke diagnosis?: No VTE Prior VTE?: No VTE Risk Level:: Medical - moderate - high VTE Device Contraindication: Treatment Not Indicated VTE Drug Contraindication: N/A - Med Ordered
[2022-04-03 15:20] LABS: Vancomycin Trough 13.3 mcg/mL (10.0-20.0)
--- NOTE | 2022-04-03 15:28 | HE.PHANOTE ---
Patient trough 13.3, cr improving, predicted auc 442,next trough 04/05@1400
[2022-04-03] MEDS: vancomycin HCL 750 MG in 0.9 % Sodium Chloride 250 ML 265 MG IV (16:23)
[2022-04-03 16:36] LABS: Glucose, Whole Blood 171 mg/dL (60-115)
[2022-04-03 19:33] LABS: Glucose, Whole Blood 118 mg/dL (60-115)
[2022-04-03] MEDS: Atorvastatin Calcium 80 MG TABLET PO (20:51)
[2022-04-03] MEDS: Gabapentin 300 MG CAPSULE PO (20:51)
[2022-04-03] MEDS: 0.9 % Sodium Chloride Flush 3 ML SYRINGE IVFLUSH (20:51)
[2022-04-04] MEDS: Piperacillin Sodium/Tazobactam 2.25 GM in 0.9 % Sodium Chloride 50 ML IV ×4 (00:14→18:10)
[2022-04-04 03:54] VITALS: BP 110/60; PULSE 84; RESP 17; TEMP 36.1; O2SAT 96
[2022-04-04 05:35] LABS: Hematocrit 24.8 % (42.0-52.0); Mean Corpuscular HGB Conc 32.3 g/dl (31.0-36.0); Mean Corpuscular Hemoglobin 28.3 pg (27.0-33.0); Mean Corpuscular Volume 87.6 fL (80.0-98.0); Mean Platelet Volume 10.8 fL (9.4-12.4); Platelet Count 343 X10*3/uL (160-400); Red Blood Count 2.83 X10*6/uL (4.60-5.80); Red Cell Distribution Width 15.1 % (11.0-16.0); White Blood Count 14.9 X10*3/uL (4.8-10.8)
[2022-04-04 06:08] LABS: Anion Gap 14 (12-20); Blood Urea Nitrogen 13 mg/dL (9-16); Calcium 8.1 mg/dL (8.4-10.2); Carbon Dioxide 27 mmol/L (22-29); Chloride 104 mmol/L (96-108); Creatinine Clr Calc Pharmacy 42.1; Estimated Glomerular Filt Rate > 60; Glucose Random 124 mg/dL (60-115); Potassium 3.3 mmol/L (3.3-5.1); Sodium 142 mmol/L (135-145)
[2022-04-04] MEDS: Omeprazole 20 MG CAPSULE.DR PO (06:34)
[2022-04-04] MEDS: Heparin Sodium,Porcine 5,000 UNIT/ML VIAL 5000 UNIT SUBCUT ×2 (06:35→18:10)
--- NOTE | 2022-04-04 07:22 | HE.PHANOTE ---
RE VANCO SCR IS 0.91 TODAY. PER INSIGHT, AUC IS 438; TROUGH IS 13.5. CONTINUE DOSE. NEXT TROUGH DUE AT 1400 ON 04/05 ZAK
[2022-04-04 07:31] VITALS: BP 107/52; PULSE 71; RESP 15; TEMP 37; O2SAT 97
[2022-04-04 07:37] LABS: Glucose, Whole Blood 130 mg/dL (60-115)
[2022-04-04] MEDS: Clopidogrel Bisulfate 75 MG TABLET PO (09:32)
[2022-04-04] MEDS: Gabapentin 100 MG CAPSULE PO ×2 (09:32→21:14)
[2022-04-04] MEDS: Ferrous Sulfate 324 MG TABLET.DR PO (09:32)
[2022-04-04] MEDS: Tamsulosin HCL 0.4 MG CAPSULE PO (09:32)
[2022-04-04] MEDS: Furosemide 40 MG TABLET PO ×2 (09:32→16:38)
[2022-04-04] MEDS: oxyCODONE HCl Immed Release 5 MG TABLET PO ×2 (09:37→16:38)
--- NOTE | 2022-04-04 10:31 | HO.VASCPN ---
Subjective Subjective Date of Service: 04/04/22 Patient reports: no new complaints, feels better and pain is less Interval history: Patient seen and examined. No significant events overnight. Pain has been relatively well controlled. Of note he has had left lower extremity x-rays and evaluation by physical therapy. He now presents for vascular follow-up. Of note he is postop day 2 from endovascular intervention on that left lower extremity. Physical Exam Vital Signs: Vital Signs: Last Vital Signs Temp 98.6 F 04/04/22 07:31 Pulse 71 04/04/22 07:31 Resp 15 04/04/22 07:31 BP 107/52 L 04/04/22 07:31 Pulse Ox 97 04/04/22 07:31 BMI result Body Mass Index 18.0 Const: General: cooperative, healthy appearing and no acute distress Orientation/consciousness: oriented to person, oriented to place and oriented to time HEENT: Head: Yes normal to inspection Neck: Carotids: no bruits Chest: Chest palpation & inspection: normal inspection of the chest Resp: Effort & Inspection: normal respiratory effort and able to speak in complete sentences Auscultation: clear to auscultation bilaterally Cardio: Rate: regular rate Heart sounds: S1 normal heart sound present and S2 normal heart sound present GI: Inspection: Yes normal to inspection Skin: Wounds: wounds noted (Left great toe amputation site gangrenous, body plantar surface) Neuro: General: oriented to person, oriented to place, oriented to time and CN's II-XI intact bilaterally Extrem: General: Yes normal to inspection, Yes full ROM and Yes no clubbing, cyanosis or edema Psych: Appearance: grossly normal and well kempt Speech and movement: Normal speech and movement present Affect: normal affect Progress Note: A&P Assessment and plan (1) PAD (peripheral artery disease): Status: Acute Assessment and Plan: In short patient has a nonhealing left great toe amputation site. I had a telephone conversation with the patient's son this morning who is the healthcare proxy. We did perform the requested x-rays and I read out the impression over the phone to the healthcare proxy. In addition we did have a physical therapy assessment which did report impaired gait impaired range of motion in particular that left knee where it does not completely stop draped in out in addition he has generalized muscle weakness. Due to his overall status and deconditioned state including his moderate malnutrition it is my formal recommendation that a left above knee amputation would be in the patient's best interest. I did relay these thoughts to the patient's son. He did not want to move forward and would like to review all of the physical therapy notes and imaging. I did inform him that he does have concerns of an underlying infection and this may be life in limb-threatening as we do delay the process. Please reach out to me if they E want to consent and move forward with the above knee amputation. Thank you for allowing us to assist in his care. If there are any questions or concerns please do not hesitate to contact us. Please note over 60 minutes of care was required for this patient including record assessment, management of services, imaging review, discussion with the son, and [id number] time with the patient. Time Spent With Patient Time: Total time spent is greater than 50% in coordination of care (as documented) at patient's floor/unit and/or counseling patient: Procedures Date of Service Date of Service: 04/04/22 Quality Stroke Does the patient have a stroke diagnosis?: No VTE Prior VTE?: No VTE Risk Level:: Medical - moderate - high VTE Device Contraindication: Treatment Not Indicated VTE Drug Contraindication: N/A - Med Ordered
--- NOTE | 2022-04-04 10:44 | HO.PM.IMPN ---
Subjective Subjective Date of Service: 04/04/22 Interval History: seen and examined this morning follow up for foot infection reporting some pain in left leg Review of Systems Review of Systems: Yes all other systems are reviewed and are negative Constitutional Constitutional: Denies chills and Denies fever(s) Cardiovascular Cardiovascular: Denies chest pain, Denies palpitations and Denies dyspnea Respiratory Respiratory: Denies cough and Denies dyspnea Gastrointestinal Gastrointestinal: Denies abdominal pain Endocrine Endocrine: Denies palpitations Physical Exam Vital Signs: Vital Signs: Last Vital Signs Temp 98.6 F 04/04/22 07:31 Pulse 71 04/04/22 07:31 Resp 15 04/04/22 07:31 BP 107/52 L 04/04/22 07:31 Pulse Ox 97 04/04/22 07:31 BMI result Body Mass Index 18.0 Const: General: alert and awake Nutritional Appearance: thin Orientation/consciousness: oriented to person and oriented to place Resp: Effort & Inspection: normal respiratory effort and able to speak in complete sentences Cardio: Rate: regular rate Heart sounds: S1 normal heart sound present and S2 normal heart sound present GI: Palpation (GI): Soft to palpation and nontender Neuro: General: oriented to person and oriented to place Extrem: Other: left foot wrapped in c/d/i hema bandage Objective Data Active Medications Acetaminophen (Acetaminophen 325 Mg Tablet) 650 mg PO Q6H PRN PRN Reason: Pain, Mild (Pain Scale 1-3) Last Admin: 04/03/22 09:12 Dose: 650 mg Documented by: KRISHNA Atorvastatin Calcium (Atorvastatin Calcium 80 Mg Tablet) 80 mg PO BEDTIME [facility] Last Admin: 04/03/22 20:51 Dose: 80 mg Documented by: JACINTO Clopidogrel Bisulfate (Clopidogrel Bisulfate 75 Mg Tablet) 75 mg PO DAILY [facility] Last Admin: 04/04/22 09:32 Dose: 75 mg Documented by: KRISHNA Docusate Sodium (Docusate Sodium 100 Mg Capsule) 100 mg PO BID PRN PRN Reason: constipation Last Admin: 04/01/22 07:34 Dose: 100 mg Documented by: DU Ferrous Sulfate (Ferrous Sulfate 324 Mg Tablet.) 324 mg PO DAILY [facility] Last Admin: 04/04/22 09:32 Dose: 324 mg Documented by: KRISHNA Furosemide (Furosemide 40 Mg Tablet) 40 mg PO BID@0900,1800 [facility]; Protocol Last Admin: 04/04/22 09:32 Dose: 40 mg Documented by: KRISNHA Gabapentin (Gabapentin 100 Mg Capsule) 100 mg PO BID [facility] Last Admin: 04/04/22 09:32 Dose: 100 mg Documented by: KRISHNA Gabapentin (Gabapentin 300 Mg Capsule) 300 mg PO BEDTIME [facility] Last Admin: 04/03/22 20:51 Dose: 300 mg Documented by: JACINTO Heparin Sodium (Porcine) (Heparin Sodium,Porcine 5,000 Unit/Ml Vial) 5,000 unit SUBCUT Q12H [facility] Last Admin: 04/04/22 06:35 Dose: 5,000 unit Documented by: JACINTO Piperacillin Sod/Tazobactam (Sod 2.25 gm/ Sodium Chloride) 50 mls @ 100 mls/hr IV Q6H [facility] Last Infusion: 04/04/22 07:08 Dose: 0 mls/hr Documented by: JACINTO Vancomycin HCl 750 mg/ Sodium (Chloride) 265 mls @ 265 mls/hr IV Q24H [facility] Last Infusion: 04/03/22 17:30 Dose: 0 mls/hr Documented by: ISACC Insulin Human Lispro (Insulin Lispro 100 Unit/Ml 3 Ml Vial) 0 unit SUBCUT QIDACHS [facility]; Protocol Last Admin: 04/04/22 09:00 Dose: Not Given Documented by: KRISHNA Non-Admin Reason: No Insulin Coverage Morphine Sulfate (Morphine Sulfate 2 Mg/Ml Cartridge) 4 mg IVPUSH Q4H PRN; Protocol PRN Reason: Pain, Severe (Pain Scale 7-10) Last Admin: 04/02/22 13:07 Dose: 4 mg Documented by: YOSELYN Omeprazole (Omeprazole 20 Mg Capsule.) 20 mg PO DAILY@0630 [facility] Last Admin: 04/04/22 06:34 Dose: 20 mg Documented by: JACINTO Ondansetron HCl (Ondansetron Hcl 4 Mg/2 Ml Vial) 4 mg IVPUSH Q8H PRN PRN Reason: Nausea and Vomiting Oxycodone HCl (Oxycodone Hcl Immed Release 5 Mg Tablet) 5 mg PO Q4H PRN PRN Reason: Pain, Moderate (Pain Scale 4-6 Last Admin: 04/04/22 09:37 Dose: 5 mg Documented by: KRISHNA Pharmacy Consult (Consult Rx Perform Med Rec) 1 each MISCELLANE ONCE PRN PRN Reason: Consult order Pharmacy Consult (Consult Rx Vancomycin Dosing) 1 each MISCELLANE DAILY PRN PRN Reason: Consult order Pharmacy Consult (Consult Rx Vancomycin Dosing) 1 each MISCELLANE DAILY PRN PRN Reason: Consult order Sodium Chloride (0.9 % Sodium Chloride Flush 3 Ml Syringe) 3 ml IVFLUSH QSHIFT [facility] Last Admin: 04/04/22 09:32 Dose: Not Given Documented by: KRISHNA Non-Admin Reason: IV Running Tamsulosin HCl (Tamsulosin Hcl 0.4 Mg Capsule) 0.4 mg PO DAILY [facility] Last Admin: 04/04/22 09:32 Dose: 0.4 mg Documented by: KRISHNA Labs CBC & Chem 7: 04/04/22 05:10 04/04/22 05:10 Labs: Laboratory Results - last 24 hr 04/03/22 04/03/22 04/03/22 11:27 14:23 16:26 MCV MCH MCHC RDW Plt Count MPV Absolute Nucleated RBC Nucleated RBC % (auto) Anion Gap Estim Creat Clear Calc Estimated GFR POC Glucose 186 H 171 H Random Glucose Calcium Vancomycin Trough 13.3 04/03/22 04/04/22 04/04/22 19:26 05:10 05:10 MCV 87.6 MCH 28.3 MCHC 32.3 RDW 15.1 Plt Count 343 MPV 10.8 Absolute Nucleated RBC 0.000 Nucleated RBC % (auto) 0.0 Anion Gap 14 Estim Creat Clear Calc 42.1 Estimated GFR > 60 POC Glucose 118 H Random Glucose 124 H Calcium 8.1 L Vancomycin Trough 04/04/22 07:32 MCV MCH MCHC RDW Plt Count MPV Absolute Nucleated RBC Nucleated RBC % (auto) Anion Gap Estim Creat Clear Calc Estimated GFR POC Glucose 130 H Random Glucose Calcium Vancomycin Trough Assessment and Plan (1) Acute on chronic anemia: Status: Acute Plan 81 years old male with PMH of CAD, diabetes, CAD, CHF and mild dementia who presents to the hospital with worsening pain and drainage from his left foot wound. nonhealing amputation site, osteomyelitis No evidence of sepsis Secondary to severe PAD Continue IV antibiotic of vancomycin, Zosyn vascular surgery following; s/p angio and left SFA arthrectomy and plasty 04/02; vascular will discuss need for BKA vs AKA with family Morphine for pain management blood cultures negative to date acute on chronic anemia Hemoglobin dropped to new baseline of 9 from almost 11 during last admission Could be secondary to chronic infection, malnutrition likely mixed iron deficiency and chronic inflammation; stool occult pending H/H stable on oral iron supplementation at baseline, will continue Transfusion if drops below 8 moderate malnutrition New Car Make Ready Mechanic following, supplement added lactic acidosis Trended down Hx Gastroparesis reglan prn CKD stage 3 stable, moniutor BMP hypotension BP improving Blood pressure runs low from previous admission on low dose lisinopril at baseline, on hold for now, will resume as bp tolerates Not due to sepsis Monitor BP PAD continue Plavix? and statin history CHF no acute exacerbation continue Lasix diabetes mellitus type 2 low-dose sliding scale insulin Hold Levemir dementia son is HCP baseline mostly bedbound/wheelchair bound; has VNA/FOOD SUPERVISOR services DVT prophylaxis Heparin Attending: dr. mir The patient requires ongoing hospitalization for management of nonhealing wound with possible plan for further amputation to prevent further decompensation and possible severe sepsis. Quality Stroke Does the patient have a stroke diagnosis?: No VTE Prior VTE?: No VTE Risk Level:: Medical - moderate - high VTE Device Contraindication: Treatment Not Indicated VTE Drug Contraindication: N/A - Med Ordered
[2022-04-04 11:21] VITALS: BP 110/47; PULSE 72; RESP 16; TEMP 37.1; O2SAT 98
[2022-04-04 11:58] LABS: Glucose, Whole Blood 155 mg/dL (60-115)
--- NOTE | 2022-04-04 14:54 | MHC.CLN ---
NUTRITION CONSULT FOR OPENING ON COCCYX. NO MENTION OF THE SAME IN SKIN ASSESSMENTS/NOTES. DIET=DIABETIC 2200 KCAL. ENSURE BID PROVIDES ADDITIONAL 700 KCALS, 40 G PROTEIN. INTAKE USUALLY 25-50%. FOLLOW FOR SKIN INTEGRITY, AMPUTATION, AND INTAKE.
[2022-04-04 15:48] VITALS: BP 106/50; PULSE 72; RESP 17; TEMP 37.1; O2SAT 99
[2022-04-04] MEDS: vancomycin HCL 750 MG in 0.9 % Sodium Chloride 250 ML 265 MG IV (15:55)
[2022-04-04 16:28] LABS: Glucose, Whole Blood 165 mg/dL (60-115)
--- NOTE | 2022-04-04 19:14 | PC.NURSE ---
Patient's son Jacoby visited this evening. States he decided to proceed with AKA. Dr. Johnson notified. Plan to get patient on surgical schedule for Thursday.
[2022-04-04 19:58] VITALS: BP 110/52; PULSE 77; RESP 17; TEMP 36.4; O2SAT 97
[2022-04-04 21:13] LABS: Glucose, Whole Blood 161 mg/dL (60-115)
[2022-04-04] MEDS: Gabapentin 300 MG CAPSULE PO (21:14)
[2022-04-04] MEDS: Atorvastatin Calcium 80 MG TABLET PO (21:14)
[2022-04-05] VITALS: BP 120/57; PULSE 72; RESP 16; TEMP 36.6; O2SAT 98
[2022-04-05] MEDS: 0.9 % Sodium Chloride Flush 3 ML SYRINGE IVFLUSH ×4 (00:15→21:54)
[2022-04-05] MEDS: Piperacillin Sodium/Tazobactam 2.25 GM in 0.9 % Sodium Chloride 50 ML IV ×4 (00:40→18:43)
[2022-04-05 03:42] VITALS: BP 128/64; PULSE 69; RESP 16; TEMP 36.8; O2SAT 98
[2022-04-05] MEDS: Omeprazole 20 MG CAPSULE.DR PO (06:23)
[2022-04-05] MEDS: Heparin Sodium,Porcine 5,000 UNIT/ML VIAL 5000 UNIT SUBCUT ×2 (06:23→18:43)
[2022-04-05 06:47] LABS: Anion Gap 15 (12-20); Blood Urea Nitrogen 10 mg/dL (9-16); Carbon Dioxide 28 mmol/L (22-29); Chloride 101 mmol/L (96-108); Creatinine Clr Calc Pharmacy 46.2; Estimated Glomerular Filt Rate > 60; Glucose Random 124 mg/dL (60-115); Potassium 2.9 mmol/L (3.3-5.1); Sodium 141 mmol/L (135-145)
[2022-04-05 07:23] VITALS: BP 118/58; PULSE 72; RESP 18; TEMP 36.9; O2SAT 98
[2022-04-05 08:08] LABS: Glucose, Whole Blood 126 mg/dL (60-115)
[2022-04-05] MEDS: Clopidogrel Bisulfate 75 MG TABLET PO (08:08)
[2022-04-05] MEDS: Ferrous Sulfate 324 MG TABLET.DR PO (08:08)
[2022-04-05] MEDS: Gabapentin 100 MG CAPSULE PO ×2 (08:08→21:54)
[2022-04-05] MEDS: Furosemide 40 MG TABLET PO ×2 (08:08→18:26)
[2022-04-05] MEDS: Potassium Chloride ER 20 MEQ TAB.ER.PRT 40 MEQ PO (08:13)
--- NOTE | 2022-04-05 08:47 | HO.PM.IMPN ---
Subjective Subjective Date of Service: 04/05/22 Review of Systems Follow up foot infection denies pain sitting in bed eating Physical Exam Vital Signs: Vital Signs: Last Vital Signs Temp 98.4 F 04/05/22 07:23 Pulse 72 04/05/22 07:23 Resp 18 04/05/22 07:23 BP 118/58 L 04/05/22 07:23 Pulse Ox 98 04/05/22 07:23 BMI result Body Mass Index 18.0 Appearing in no acute distress lung sounds are clear to auscultation heart regular rate rhythm, clear S1, S2 positive bowel sounds, abdomen is soft, nontender neuro patient is alert x3, no focal deficits Objective Data Active Medications Acetaminophen (Acetaminophen 325 Mg Tablet) 650 mg PO Q6H PRN PRN Reason: Pain, Mild (Pain Scale 1-3) Last Admin: 04/03/22 09:12 Dose: 650 mg Documented by: KRISHNA Atorvastatin Calcium (Atorvastatin Calcium 80 Mg Tablet) 80 mg PO BEDTIME [facility] Last Admin: 04/04/22 21:14 Dose: 80 mg Documented by: YOSSI Clopidogrel Bisulfate (Clopidogrel Bisulfate 75 Mg Tablet) 75 mg PO DAILY [facility] Last Admin: 04/05/22 08:08 Dose: 75 mg Documented by: MINERVA Docusate Sodium (Docusate Sodium 100 Mg Capsule) 100 mg PO BID PRN PRN Reason: constipation Last Admin: 04/01/22 07:34 Dose: 100 mg Documented by: COTEMA Ferrous Sulfate (Ferrous Sulfate 324 Mg Tablet.) 324 mg PO DAILY [facility] Last Admin: 04/05/22 08:08 Dose: 324 mg Documented by: MINERVA Furosemide (Furosemide 40 Mg Tablet) 40 mg PO BID@0900,1800 [facility]; Protocol Last Admin: 04/05/22 08:08 Dose: 40 mg Documented by: MINERVA Gabapentin (Gabapentin 100 Mg Capsule) 100 mg PO BID [facility] Last Admin: 04/05/22 08:08 Dose: 100 mg Documented by: MINERVA Gabapentin (Gabapentin 300 Mg Capsule) 300 mg PO BEDTIME [facility] Last Admin: 04/04/22 21:14 Dose: 300 mg Documented by: YOSSI Heparin Sodium (Porcine) (Heparin Sodium,Porcine 5,000 Unit/Ml Vial) 5,000 unit SUBCUT Q12H [facility] Last Admin: 04/05/22 06:23 Dose: 5,000 unit Documented by: YOSSI Piperacillin Sod/Tazobactam (Sod 2.25 gm/ Sodium Chloride) 50 mls @ 100 mls/hr IV Q6H [facility] Last Infusion: 04/05/22 07:25 Dose: 0 mls/hr Documented by: MINERVA Vancomycin HCl 750 mg/ Sodium (Chloride) 265 mls @ 265 mls/hr IV Q24H [facility] Last Infusion: 04/04/22 17:11 Dose: 0 mls/hr Documented by: KRISHNA Insulin Human Lispro (Insulin Lispro 100 Unit/Ml 3 Ml Vial) 0 unit SUBCUT QIDACHS [facility]; Protocol Last Admin: 04/05/22 08:08 Dose: Not Given Documented by: MINERVA Non-Admin Reason: No Insulin Coverage Morphine Sulfate (Morphine Sulfate 2 Mg/Ml Cartridge) 4 mg IVPUSH Q4H PRN; Protocol PRN Reason: Pain, Severe (Pain Scale 7-10) Last Admin: 04/02/22 13:07 Dose: 4 mg Documented by: YOSELYN Omeprazole (Omeprazole 20 Mg Capsule.Dr) 20 mg PO DAILY@0630 [facility] Last Admin: 04/05/22 06:23 Dose: 20 mg Documented by: YOSSI Ondansetron HCl (Ondansetron Hcl 4 Mg/2 Ml Vial) 4 mg IVPUSH Q8H PRN PRN Reason: Nausea and Vomiting Oxycodone HCl (Oxycodone Hcl Immed Release 5 Mg Tablet) 5 mg PO Q4H PRN PRN Reason: Pain, Moderate (Pain Scale 4-6 Last Admin: 04/04/22 16:38 Dose: 5 mg Documented by: KRISHNA Pharmacy Consult (Consult Rx Perform Med Rec) 1 each MISCELLANE ONCE PRN PRN Reason: Consult order Pharmacy Consult (Consult Rx Vancomycin Dosing) 1 each MISCELLANE DAILY PRN PRN Reason: Consult order Pharmacy Consult (Consult Rx Vancomycin Dosing) 1 each MISCELLANE DAILY PRN PRN Reason: Consult order Sodium Chloride (0.9 % Sodium Chloride Flush 3 Ml Syringe) 3 ml IVFLUSH QSHIFT [facility] Last Admin: 04/05/22 08:08 Dose: 3 ml Documented by: MINERVA Tamsulosin HCl (Tamsulosin Hcl 0.4 Mg Capsule) 0.4 mg PO DAILY [facility] Last Admin: 04/04/22 09:32 Dose: 0.4 mg Documented by: KRISHNA Labs CBC & Chem 7: 04/04/22 05:10 04/05/22 05:45 Labs: Laboratory Results - last 24 hr 04/04/22 04/04/22 04/04/22 11:24 15:50 21:09 Anion Gap Estim Creat Clear Calc Estimated GFR POC Glucose 155 H 165 H 161 H Random Glucose Calcium 04/05/22 04/05/22 05:45 07:21 Anion Gap 15 Estim Creat Clear Calc 46.2 Estimated GFR > 60 POC Glucose 126 H Random Glucose 124 H Calcium 8.0 L Assessment and Plan (1) Acute on chronic anemia: Status: Acute Plan 81 years old male with PMH of CAD, diabetes, CAD, CHF and mild dementia who presents to the hospital with worsening pain and drainage from his left foot wound. nonhealing amputation site, osteomyelitis No evidence of sepsis Secondary to severe PAD Continue IV antibiotic of vancomycin, Zosyn vascular surgery following; s/p angio and left SFA arthrectomy and plasty 04/02; Rec AKA however family has declined at this time. will discuss with son pain management blood cultures negative to date acute on chronic anemia, no blood loss Hemoglobin dropped to new baseline of 9 from almost 11 during last admission Could be secondary to chronic infection, malnutrition likely mixed iron deficiency and chronic inflammation; stool occult pending H/H stable on oral iron supplementation at baseline, will continue Transfusion if drops below 8 moderate malnutrition Staff Educator following, supplement added lactic acidosis Trended down Hx Gastroparesis reglan prn CKD stage 3 stable, moniutor BMP hypotension BP improving Blood pressure runs low from previous admission on low dose lisinopril at baseline, on hold for now, will resume as bp tolerates Not due to sepsis Monitor BP PAD continue Plavix? and statin history CHF no acute exacerbation continue Lasix diabetes mellitus type 2 low-dose sliding scale insulin Hold Levemir dementia son is HCP baseline mostly bedbound/wheelchair bound; has VNA/RELEASE COORDINATOR services DVT prophylaxis Heparin Attending: Dr. Renteria The patient requires ongoing hospitalization for management of nonhealing wound with possible plan for further amputation to prevent further decompensation and possible severe sepsis. Quality Stroke Does the patient have a stroke diagnosis?: No VTE Prior VTE?: No VTE Risk Level:: Medical - moderate - high VTE Device Contraindication: Treatment Not Indicated VTE Drug Contraindication: N/A - Med Ordered
[2022-04-05] MEDS: Tamsulosin HCL 0.4 MG CAPSULE PO (09:16)
[2022-04-05 11:51] VITALS: BP 124/60; PULSE 73; RESP 18; TEMP 37.1; O2SAT 97
[2022-04-05 12:18] LABS: Glucose, Whole Blood 212 mg/dL (60-115)
[2022-04-05 14:09] LABS: Vancomycin Random 16.2 mcg/mL (15-20)
[2022-04-05 16:00] VITALS: BP 126/60; PULSE 82; RESP 17; TEMP 36.3; O2SAT 96
[2022-04-05] MEDS: vancomycin HCL 750 MG in 0.9 % Sodium Chloride 250 ML 250 MG IV (16:05)
[2022-04-05 16:19] LABS: Glucose, Whole Blood 205 mg/dL (60-115)
[2022-04-05] MEDS: Insulin Lispro 100 UNIT/ML 3 ML VIAL SUBCUT (16:21)
[2022-04-05] MEDS: oxyCODONE HCl Immed Release 5 MG TABLET PO (18:26)
[2022-04-05 19:26] VITALS: BP 123/60; PULSE 69; RESP 17; TEMP 37; O2SAT 99
[2022-04-05 19:52] LABS: Glucose, Whole Blood 102 mg/dL (60-115)
[2022-04-05] MEDS: Atorvastatin Calcium 80 MG TABLET PO (21:54)
[2022-04-05] MEDS: Gabapentin 300 MG CAPSULE PO (21:54)
[2022-04-06] VITALS (8 sets, daily range): BP systolic 98–126; BP diastolic 46–67; PULSE 67–77; RESP 14–20; TEMP 37.1–37.5; O2SAT 98–100
[2022-04-06] MEDS: Piperacillin Sodium/Tazobactam 2.25 GM in 0.9 % Sodium Chloride 50 ML IV ×4 (00:57→20:07)
[2022-04-06 04:17] LABS: Appearance Urine HAZY; Color Urine YELLOW; Glucose Urine UA NEG (NEG); Leukocyte Esterase Urine 2+ (NEG); Nitrite Urine NEG (NEG); Specific Gravity - Urine 1.015 (1.005-1.025); Urine Blood 1+ (NEG); Urine Ketones NEG (NEG); Urine Protein TRACE MG/DL (NEG-TRACE)
[2022-04-06 04:24] LABS: Bacteria Urine TRACE /LPF; RBC Urine 0 /HPF (0); Squamous Epithelial Cell Urine 1+ /LPF
[2022-04-06] MEDS: Heparin Sodium,Porcine 5,000 UNIT/ML VIAL 5000 UNIT SUBCUT ×2 (06:32→20:08)
[2022-04-06] MEDS: Omeprazole 20 MG CAPSULE.DR PO (06:32)
[2022-04-06 07:12] LABS: Creatinine Clr Calc Pharmacy 44.6; Estimated Glomerular Filt Rate > 60
--- NOTE | 2022-04-06 07:23 | P.PNIM_ITS ---
Subjective Subjective Date of Service: 04/06/22 Review of Systems Follow up foot infection denies pain sitting in bed eating Physical Exam Vital Signs: Vital Signs: Last Vital Signs Temp 99.2 F 04/06/22 04:00 Pulse 77 04/06/22 04:00 Resp 17 04/06/22 04:00 BP 126/55 L 04/06/22 04:00 Pulse Ox 98 04/06/22 04:00 BMI result Body Mass Index 18.0 Appearing in no acute distress lung sounds are clear to auscultation heart regular rate rhythm, clear S1, S2 positive bowel sounds, abdomen is soft, nontender neuro patient is alert x3, no focal deficits necrotic tissue to LE Objective Data Active Medications Acetaminophen (Acetaminophen 325 Mg Tablet) 650 mg PO Q6H PRN PRN Reason: Pain, Mild (Pain Scale 1-3) Last Admin: 04/03/22 09:12 Dose: 650 mg Documented by: KRISHNA Atorvastatin Calcium (Atorvastatin Calcium 80 Mg Tablet) 80 mg PO BEDTIME [facility] Last Admin: 04/05/22 21:54 Dose: 80 mg Documented by: FREDA Clopidogrel Bisulfate (Clopidogrel Bisulfate 75 Mg Tablet) 75 mg PO DAILY [facility] Last Admin: 04/05/22 08:08 Dose: 75 mg Documented by: MINERVA Docusate Sodium (Docusate Sodium 100 Mg Capsule) 100 mg PO BID PRN PRN Reason: constipation Last Admin: 04/01/22 07:34 Dose: 100 mg Documented by: COTEMA Ferrous Sulfate (Ferrous Sulfate 324 Mg Tablet.) 324 mg PO DAILY [facility] Last Admin: 04/05/22 08:08 Dose: 324 mg Documented by: MINERVA Furosemide (Furosemide 40 Mg Tablet) 40 mg PO BID@0900,1800 [facility]; Protocol Last Admin: 04/05/22 18:26 Dose: 40 mg Documented by: MINERVA Gabapentin (Gabapentin 100 Mg Capsule) 100 mg PO BID [facility] Last Admin: 04/05/22 21:54 Dose: 100 mg Documented by: FREDA Gabapentin (Gabapentin 300 Mg Capsule) 300 mg PO BEDTIME [facility] Last Admin: 04/05/22 21:54 Dose: 300 mg Documented by: FREDA Heparin Sodium (Porcine) (Heparin Sodium,Porcine 5,000 Unit/Ml Vial) 5,000 unit SUBCUT Q12H [facility] Last Admin: 04/06/22 06:32 Dose: 5,000 unit Documented by: FREDA Piperacillin Sod/Tazobactam (Sod 2.25 gm/ Sodium Chloride) 50 mls @ 100 mls/hr IV Q6H [facility] Last Infusion: 04/06/22 07:18 Dose: 0 mls/hr Documented by: JANET Vancomycin HCl 750 mg/ Sodium (Chloride) 265 mls @ 265 mls/hr IV Q24H [facility] Last Infusion: 04/05/22 17:39 Dose: 0 mls/hr Documented by: MINERVA Insulin Human Lispro (Insulin Lispro 100 Unit/Ml 3 Ml Vial) 0 unit SUBCUT QIDA [facility]; Protocol Last Admin: 04/05/22 21:54 Dose: Not Given Documented by: FREDA Non-Admin Reason: No Insulin Coverage Morphine Sulfate (Morphine Sulfate 2 Mg/Ml Cartridge) 4 mg IVPUSH Q4H PRN; Protocol PRN Reason: Pain, Severe (Pain Scale 7-10) Last Admin: 04/02/22 13:07 Dose: 4 mg Documented by: YOSELYN Omeprazole (Omeprazole 20 Mg Capsule.Dr) 20 mg PO DAILY@0630 [facility] Last Admin: 04/06/22 06:32 Dose: 20 mg Documented by: FREDA Ondansetron HCl (Ondansetron Hcl 4 Mg/2 Ml Vial) 4 mg IVPUSH Q8H PRN PRN Reason: Nausea and Vomiting Oxycodone HCl (Oxycodone Hcl Immed Release 5 Mg Tablet) 5 mg PO Q4H PRN PRN Reason: Pain, Moderate (Pain Scale 4-6 Last Admin: 04/05/22 18:26 Dose: 5 mg Documented by: MINERVA Pharmacy Consult (Consult Rx Perform Med Rec) 1 each MISCELLANE ONCE PRN PRN Reason: Consult order Pharmacy Consult (Consult Rx Vancomycin Dosing) 1 each MISCELLANE DAILY PRN PRN Reason: Consult order Pharmacy Consult (Consult Rx Vancomycin Dosing) 1 each MISCELLANE DAILY PRN PRN Reason: Consult order Sodium Chloride (0.9 % Sodium Chloride Flush 3 Ml Syringe) 3 ml IVFLUSH QSHIFT [facility] Last Admin: 04/05/22 21:54 Dose: 3 ml Documented by: HO.ANDERM Tamsulosin HCl (Tamsulosin Hcl 0.4 Mg Capsule) 0.4 mg PO DAILY [facility] Last Admin: 04/05/22 09:16 Dose: 0.4 mg Documented by: MINERVA Labs CBC & Chem 7: 04/06/22 06:14 04/06/22 06:14 Labs: Laboratory Results - last 24 hr 04/05/22 04/05/22 04/05/22 07:21 11:49 13:30 Estim Creat Clear Calc Estimated GFR POC Glucose 126 H 212 H Urine Color Urine Appearance Urine pH Ur Specific Dalton Urine Protein Urine Glucose (UA) Urine Ketones Urine Blood Urine Nitrite Ur Leukocyte Esterase Urine RBC Urine WBC Ur Squamous Epith Cells Urine Bacteria Urine Yeast Random Vancomycin 16.2 04/05/22 04/05/22 04/06/22 16:08 19:30 04:00 Estim Creat Clear Calc Estimated GFR POC Glucose 205 H 102 Urine Color YELLOW Urine Appearance HAZY Urine pH 6.0 Ur Specific Dalton 1.015 Urine Protein TRACE Urine Glucose (UA) NEG Urine Ketones NEG Urine Blood 1+ H Urine Nitrite NEG Ur Leukocyte Esterase 2+ H Urine RBC 0 Urine WBC 76-150 H Ur Squamous Epith Cells 1+ Urine Bacteria TRACE Urine Yeast 3+ Random Vancomycin 04/06/22 06:14 Estim Creat Clear Calc 44.6 Estimated GFR > 60 POC Glucose Urine Color Urine Appearance Urine pH Ur Specific Dalton Urine Protein Urine Glucose (UA) Urine Ketones Urine Blood Urine Nitrite Ur Leukocyte Esterase Urine RBC Urine WBC Ur Squamous Epith Cells Urine Bacteria Urine Yeast Random Vancomycin Microbiology Microbiology Results: Microbiology 03/31/22 12:53 Blood Culture - Final Blood - Venous No growth after 5 days. 03/31/22 12:26 Blood Culture - Final Blood - Venous No growth after 5 days. Assessment and Plan (1) Acute on chronic anemia: Status: Acute Plan 81 years old male with PMH of CAD, diabetes, CAD, CHF and mild dementia who presents to the hospital with worsening pain and drainage from his left foot wound. nonhealing amputation site, osteomyelitis No evidence of sepsis Secondary to severe PAD Continue IV antibiotic of vancomycin, Zosyn vascular surgery following; s/p angio and left SFA arthrectomy and plasty 04/02; Rec AKA, family has now agreed to proceed, will discuss with Dr. Johnson pain management blood cultures negative to date acute on chronic anemia, no blood loss Hemoglobin dropped to new baseline of 9 from almost 11 during last admission Could be secondary to chronic infection, malnutrition likely mixed iron deficiency and chronic inflammation; stool occult pending H/H stable on oral iron supplementation at baseline, will continue Transfusion if drops below 8 moderate malnutrition Instrument Lens Grinder following, supplement added lactic acidosis Trended down Hx Gastroparesis reglan prn CKD stage 3 stable, moniutor BMP hypotension, chronic BP improving on low dose lisinopril at baseline, on hold for now, will resume as bp tolerates Monitor BP PAD continue Plavix? and statin history CHF no acute exacerbation continue Lasix diabetes mellitus type 2 low-dose sliding scale insulin Hold Levemir dementia son is HCP baseline mostly bedbound/wheelchair bound; has VNA/SPINNING MACHINE OPERATOR services DVT prophylaxis Heparin Attending: Dr. Renteria The patient requires ongoing hospitalization for management of nonhealing wound with possible plan for further amputation to prevent further decompensation and possible severe sepsis. Quality Stroke Does the patient have a stroke diagnosis?: No VTE Prior VTE?: No VTE Risk Level:: Medical - moderate - high VTE Device Contraindication: Treatment Not Indicated VTE Drug Contraindication: N/A - Med Ordered
[2022-04-06 07:46] LABS: Hematocrit 22.9 % (42.0-52.0); Hemoglobin 7.5 g/dl (14.0-18.0); Mean Corpuscular HGB Conc 32.8 g/dl (31.0-36.0); Mean Corpuscular Hemoglobin 28.1 pg (27.0-33.0); Mean Corpuscular Volume 85.8 fL (80.0-98.0); Mean Platelet Volume 10.9 fL (9.4-12.4); Platelet Count 353 X10*3/uL (160-400); Red Blood Count 2.67 X10*6/uL (4.60-5.80); White Blood Count 13.2 X10*3/uL (4.8-10.8)
[2022-04-06 08:02] LABS: Glucose, Whole Blood 144 mg/dL (60-115)
[2022-04-06] MEDS: Ferrous Sulfate 324 MG TABLET.DR PO (08:37)
[2022-04-06] MEDS: Gabapentin 100 MG CAPSULE PO ×2 (08:37→20:09)
[2022-04-06] MEDS: Clopidogrel Bisulfate 75 MG TABLET PO (08:37)
[2022-04-06] MEDS: Furosemide 40 MG TABLET PO ×2 (08:37→17:20)
[2022-04-06] MEDS: Tamsulosin HCL 0.4 MG CAPSULE PO (08:37)
[2022-04-06] MEDS: 0.9 % Sodium Chloride Flush 3 ML SYRINGE IVFLUSH ×3 (08:38→20:08)
[2022-04-06] MEDS: Acetaminophen 325 MG TABLET 650 MG PO (08:43)
[2022-04-06 12:10] LABS: Glucose, Whole Blood 243 mg/dL (60-115)
[2022-04-06] MEDS: Insulin Lispro 100 UNIT/ML 3 ML VIAL SUBCUT (14:35)
[2022-04-06 17:03] LABS: Glucose, Whole Blood 146 mg/dL (60-115)
[2022-04-06] MEDS: vancomycin HCL 750 MG in 0.9 % Sodium Chloride 250 ML 250 MG IV (17:21)
[2022-04-06] MEDS: oxyCODONE HCl Immed Release 5 MG TABLET PO (18:39)
[2022-04-06] MEDS: Gabapentin 300 MG CAPSULE PO (20:09)
[2022-04-06] MEDS: Atorvastatin Calcium 80 MG TABLET PO (20:09)
[2022-04-06 20:22] LABS: Glucose, Whole Blood 69 mg/dL (60-115)
[2022-04-07] VITALS (7 sets, daily range): BP systolic 100–128; BP diastolic 59–66; PULSE 70–79; RESP 17–20; TEMP 36.1–37.1; O2SAT 96–99; BMI 18.0
[2022-04-07] MEDS: Piperacillin Sodium/Tazobactam 2.25 GM in 0.9 % Sodium Chloride 50 ML IV ×3 (02:30→13:13)
[2022-04-07] MEDS: Heparin Sodium,Porcine 5,000 UNIT/ML VIAL 5000 UNIT SUBCUT ×2 (05:43→18:31)
[2022-04-07] MEDS: Omeprazole 20 MG CAPSULE.DR PO (05:44)
[2022-04-07 06:15] LABS: Anion Gap 12 (12-20); Blood Urea Nitrogen 12 mg/dL (9-16); Calcium 8.4 mg/dL (8.4-10.2); Carbon Dioxide 34 mmol/L (22-29); Chloride 97 mmol/L (96-108); Creatinine Clr Calc Pharmacy 40.1; Estimated Glomerular Filt Rate > 60; Glucose Random 118 mg/dL (60-115); Potassium 2.8 mmol/L (3.3-5.1); Sodium 140 mmol/L (135-145)
[2022-04-07 07:30] LABS: Glucose, Whole Blood 114 mg/dL (60-115)
[2022-04-07 07:54] LABS: Hematocrit 30.9 % (42.0-52.0); Hemoglobin 10.5 g/dl (14.0-18.0); Mean Corpuscular Hemoglobin 29.1 pg (27.0-33.0); Mean Corpuscular Volume 85.6 fL (80.0-98.0); Mean Platelet Volume 10.8 fL (9.4-12.4); Platelet Count 366 X10*3/uL (160-400); Red Blood Count 3.61 X10*6/uL (4.60-5.80); Red Cell Distribution Width 15.3 % (11.0-16.0); White Blood Count 14.1 X10*3/uL (4.8-10.8)
--- NOTE | 2022-04-07 08:45 | MHC.SHP ---
Pre-Procedural Eval Section A Date of Service: 04/07/22 The patient is an INPATIENT: Yes Changes since office visit: Yes Patient answered all questions The History & Physical has been completed within 30 days and I have reviewed it.: Yes Section B Chief Complaint: STUMP PAIN,DRAINAGE,LEFT LEG Allergies: Allergies Allergy/AdvReac Type Severity Reaction Status Date / Time No Known Allergies Allergy Verified 03/31/22 10:25 [No Known Allergies*] Plan I have reviewed the history and physical and performed a pertinent physical examination on my patient. No changes have occurred unless specified.
--- NOTE | 2022-04-07 08:49 | HO.ANESPROP2 ---
Documented by User: Salud Vega MD 04/07/22 08:51 [facility] Active Problems Active Problems: All Active Problems (Updated 04/02/22 @ 12:29 by Maximus Palacio MD) Acute on chronic anemia (Acute) Moderate malnutrition (Acute) Non-healing amputation site (Acute) Cellulitis (Acute) Necrosis of surgical wound (Acute) Acidosis, lactic (Acute) Leukocytosis (Acute) PAD (peripheral artery disease) (Acute) H pylori ulcer (Acute) Opportunistic fungus infection (Acute) Acute hyperglycemia (Acute) CKD (chronic kidney disease) (Acute) Past Medical History Medical History Acute systolic (congestive) heart failure Dementia Gangrene of foot Neuropathy 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 PAD (peripheral artery disease) Troponin level elevated Type 2 diabetes mellitus with unspecified complications Functional capacity: uses cane/walker Family History Family history of problems with anesthesia: No Surgical History History of Problems with Anesthesia: No Social History Social History Household Members: None Housing: Apartment Do you presently have visiting nurse or other home services: Yes Unable to assess alcohol history related to: Unknown Alcohol intake: unknown Patient Tobacco Use Status: Former Tobacco user Quit Date: 1999 Tobacco use type: Cigarette Years Smoked: 4 Advance Directives Date on File: 08/15/21 service: No Current occupational status: retired Meds Allergies Allergy/AdvReac Type Severity Reaction Status Date / Time No Known Allergies Allergy Verified 03/31/22 10:25 [No Known Allergies*] Active Medications: Current Medications Acetaminophen (Acetaminophen 325 Mg Tablet) 650 mg PO Q6H PRN PRN Reason: Pain, Mild (Pain Scale 1-3) Last Admin: 04/06/22 08:43 Dose: 650 mg Documented by: Atorvastatin Calcium (Atorvastatin Calcium 80 Mg Tablet) 80 mg PO BEDTIME [facility]ILLA Last Admin: 04/06/22 20:09 Dose: 80 mg Documented by: Clopidogrel Bisulfate (Clopidogrel Bisulfate 75 Mg Tablet) 75 mg PO DAILY [facility] Last Admin: 04/06/22 08:37 Dose: 75 mg Documented by: Docusate Sodium (Docusate Sodium 100 Mg Capsule) 100 mg PO BID PRN PRN Reason: constipation Last Admin: 04/01/22 07:34 Dose: 100 mg Documented by: Ferrous Sulfate (Ferrous Sulfate 324 Mg Tablet.) 324 mg PO DAILY [facility] Last Admin: 04/06/22 08:37 Dose: 324 mg Documented by: Furosemide (Furosemide 40 Mg Tablet) 40 mg PO BID@0900,1800 [facility]; Protocol Last Admin: 04/06/22 17:20 Dose: 40 mg Documented by: Gabapentin (Gabapentin 100 Mg Capsule) 100 mg PO BID [facility] Last Admin: 04/06/22 20:09 Dose: 100 mg Documented by: Gabapentin (Gabapentin 300 Mg Capsule) 300 mg PO BEDTIME [facility] Last Admin: 04/06/22 20:09 Dose: 300 mg Documented by: Heparin Sodium (Porcine) (Heparin Sodium,Porcine 5,000 Unit/Ml Vial) 5,000 unit SUBCUT Q12H [facility] Last Admin: 04/07/22 05:43 Dose: 5,000 unit Documented by: Piperacillin Sod/Tazobactam (Sod 2.25 gm/ Sodium Chloride) 50 mls @ 100 mls/hr IV Q6H [facility] Last Infusion: 04/07/22 06:16 Dose: Infused Documented by: Vancomycin HCl 750 mg/ Sodium (Chloride) 265 mls @ 265 mls/hr IV Q24H [facility] Last Infusion: 04/06/22 18:37 Dose: Infused Documented by: Insulin Human Lispro (Insulin Lispro 100 Unit/Ml 3 Ml Vial) 0 unit SUBCUT QIDACHS [facility]; Protocol Last Admin: 04/06/22 20:43 Dose: Not Given Documented by: Omeprazole (Omeprazole 20 Mg Capsule.) 20 mg PO DAILY@0630 [facility] Last Admin: 04/07/22 05:44 Dose: 20 mg Documented by: Ondansetron HCl (Ondansetron Hcl 4 Mg/2 Ml Vial) 4 mg IVPUSH Q8H PRN PRN Reason: Nausea and Vomiting Oxycodone HCl (Oxycodone Hcl Immed Release 5 Mg Tablet) 5 mg PO Q4H PRN PRN Reason: Pain, Moderate (Pain Scale 4-6 Last Admin: 04/06/22 18:39 Dose: 5 mg Documented by: Pharmacy Consult (Consult Rx Perform Med Rec) 1 each MISCELLANE ONCE PRN PRN Reason: Consult order Pharmacy Consult (Consult Rx Vancomycin Dosing) 1 each MISCELLANE DAILY PRN PRN Reason: Consult order Pharmacy Consult (Consult Rx Vancomycin Dosing) 1 each MISCELLANE DAILY PRN PRN Reason: Consult order Sodium Chloride (0.9 % Sodium Chloride Flush 3 Ml Syringe) 3 ml IVFLUSH QSHIFT [facility] Last Admin: 04/06/22 20:08 Dose: 3 ml Documented by: Tamsulosin HCl (Tamsulosin Hcl 0.4 Mg Capsule) 0.4 mg PO DAILY [facility] Last Admin: 04/06/22 08:37 Dose: 0.4 mg Documented by: Home Medications Medication Instructions Recorded Confirmed Last Taken Type insulin detemir U-100 100 unit/mL 10 unit SUBCUT DAILY@1800 08/10/21 03/31/22 02/21/22 History (3 mL) subcutaneous pen (Levemir FlexTouch U-100 Insulin) docusate sodium 100 mg capsule 100 mg PO BID PRN 11/21/21 03/31/22 Unknown History ferrous sulfate 325 mg (65 mg 325 mg PO DAILY 11/21/21 03/31/22 02/21/22 History iron) tablet (FeroSul) gabapentin 300 mg capsule 300 mg PO BEDTIME 11/21/21 03/31/22 02/21/22 History insulin syringe-needle U-100 0.5 #10 ea 11/21/21 Unknown History mL 30 gauge x 1/2 (UltiCare) pen needle, diabetic 32 gauge x #50 ea 11/21/21 Unknown History /32 (Pentips) blood sugar diagnostic (FreeStyle #10 ea 02/25/22 Unknown History Lite Strips) gabapentin 100 mg capsule 100 mg PO BID 02/25/22 03/31/22 02/21/22 History lancets 33 gauge (TRUEplus Lancets) #100 ea 02/25/22 Unknown History acetaminophen 500 mg tablet 1,000 mg PO Q6H PRN 03/31/22 03/31/22 Unknown History insulin aspart U-100 100 unit/mL 0 sliding scale dose SUBCUT TIDAC 03/31/22 03/31/22 Unknown History (3 mL) subcutaneous pen (Novolog Flexpen U-100 Insulin aspart) pantoprazole 20 mg tablet,delayed 1 tab PO DAILY 03/31/22 03/31/22 Unknown History release Exam Exam Date and Time: April 07, 2022 0849 Height,Weight and Vital Signs: Height 5 ft 4 in Weight 47.627 kg Last Vital Signs Temp 97.0 F 04/07/22 08:00 Pulse 76 04/07/22 08:00 Resp 18 04/07/22 08:00 BP 120/66 04/07/22 08:00 Pulse Ox 99 04/07/22 08:00 Pertinent Lab Results Pertinent Lab Results: Laboratory Tests 03/31/22 03/31/22 03/31/22 12:26 12:26 12:26 WBC 17.2 H RBC 3.36 L Hgb 9.6 L Hct 28.8 L MCV 85.7 MCH 28.6 MCHC 33.3 RDW 14.9 Plt Count 481 H D MPV 10.7 Immature Gran % (Auto) 0.6 H Neut % (Auto) 71.5 Lymph % (Auto) 21.9 [place] % (Auto) 5.6 Eos % (Auto) 0.2 Baso % (Auto) 0.2 Lymph # (Auto) 3.8 [place] # (Auto) 1.0 Eos # (Auto) 0.0 Baso # (Auto) 0.0 Abs Immat Gran (auto) 0.11 H Absolute Neuts (auto) 12.3 H Absolute Nucleated RBC 0.000 Nucleated RBC % (auto) 0.0 ESR 86 H PT INR APTT Sodium 141 Potassium 4.6 D Chloride 96 Carbon Dioxide 30 H Anion Gap 20 BUN 27 H D Creatinine 1.58 H Estim Creat Clear Calc 24.2 Estimated GFR 42 POC Glucose Random Glucose 214 H D Lactic Acid Lactic Acid F/U @ 2Hr Lactic Acid F/U @ 4Hr Calcium 9.4 D Magnesium 1.9 Iron TIBC % Saturation Unsat Iron Binding Total Bilirubin 0.6 Direct Bilirubin 0.2 AST 26 D ALT 14 Alkaline Phosphatase 116 D C-Reactive Protein 15.62 H Total Protein 8.2 H Albumin 3.0 L D Urine Color Urine Appearance Urine pH Ur Specific [place] Urine Protein Urine Glucose (UA) Urine Ketones Urine Blood Urine Nitrite Ur Leukocyte Esterase Urine RBC Urine WBC Ur Squamous Epith Cells Urine Bacteria Urine Yeast Vancomycin Trough Random Vancomycin COVID-19 ([facility]) COVID-19 Clin Com Blood Type Antibody Screen Crossmatch 03/31/22 03/31/22 03/31/22 12:26 12:26 12:27 WBC RBC Hgb Hct MCV MCH MCHC RDW Plt Count MPV Immature Gran % (Auto) Neut % (Auto) Lymph % (Auto) [place] % (Auto) Eos % (Auto) Baso % (Auto) Lymph # (Auto) [place] # (Auto) Eos # (Auto) Baso # (Auto) Abs Immat Gran (auto) Absolute Neuts (auto) Absolute Nucleated RBC Nucleated RBC % (auto) ESR PT 11.4 INR 1.0 APTT 35.3 Sodium Potassium Chloride Carbon Dioxide Anion Gap BUN Creatinine Estim Creat Clear Calc Estimated GFR POC Glucose Random Glucose Lactic Acid 4.3 H* Lactic Acid F/U @ 2Hr Lactic Acid F/U @ 4Hr Calcium Magnesium Iron TIBC % Saturation Unsat Iron Binding Total Bilirubin Direct Bilirubin AST ALT Alkaline Phosphatase C-Reactive Protein Total Protein Albumin Urine Color Urine Appearance Urine pH Ur Specific [place] Urine Protein Urine Glucose (UA) Urine Ketones Urine Blood Urine Nitrite Ur Leukocyte Esterase Urine RBC Urine WBC Ur Squamous Epith Cells Urine Bacteria Urine Yeast Vancomycin Trough Random Vancomycin COVID-19 ([facility]) Negative COVID-19 [email or web address] Com See Note Blood Type Antibody Screen Crossmatch 03/31/22 03/31/22 03/31/22 14:46 18:22 22:30 WBC RBC Hgb Hct MCV MCH MCHC RDW Plt Count MPV Immature Gran % (Auto) Neut % (Auto) Lymph % (Auto) [place] % (Auto) Eos % (Auto) Baso % (Auto) Lymph # (Auto) [place] # (Auto) Eos # (Auto) Baso # (Auto) Abs Immat Gran (auto) Absolute Neuts (auto) Absolute Nucleated RBC Nucleated RBC % (auto) ESR PT INR APTT Sodium Potassium Chloride Carbon Dioxide Anion Gap BUN Creatinine Estim Creat Clear Calc Estimated GFR POC Glucose 180 H Random Glucose Lactic Acid Lactic Acid F/U @ 2Hr 2.5 H* Lactic Acid F/U @ 4Hr 2.2 H* Calcium Magnesium Iron TIBC % Saturation Unsat Iron Binding Total Bilirubin Direct Bilirubin AST ALT Alkaline Phosphatase C-Reactive Protein Total Protein Albumin Urine Color Urine Appearance Urine pH Ur Specific [place] Urine Protein Urine Glucose (UA) Urine Ketones Urine Blood Urine Nitrite Ur Leukocyte Esterase Urine RBC Urine WBC Ur Squamous Epith Cells Urine Bacteria Urine Yeast Vancomycin Trough Random Vancomycin COVID-19 ([facility]) COVID-19 [email or web address] Com Blood Type Antibody Screen Crossmatch 04/01/22 04/01/22 04/01/22 07:08 11:13 11:28 WBC RBC Hgb Hct MCV MCH MCHC RDW Plt Count MPV Immature Gran % (Auto) Neut % (Auto) Lymph % (Auto) [place] % (Auto) Eos % (Auto) Baso % (Auto) Lymph # (Auto) [place] # (Auto) Eos # (Auto) Baso # (Auto) Abs Immat Gran (auto) Absolute Neuts (auto) Absolute Nucleated RBC Nucleated RBC % (auto) ESR PT INR APTT Sodium 141 Potassium 3.5 D Chloride 99 Carbon Dioxide 31 H Anion Gap 15 BUN 22 H Creatinine 1.17 Estim Creat Clear Calc 32.7 Estimated GFR 60 POC Glucose 121 H 151 H Random Glucose 168 H Lactic Acid Lactic Acid F/U @ 2Hr Lactic Acid F/U @ 4Hr Calcium 8.6 D Magnesium Iron TIBC % Saturation Unsat Iron Binding Total Bilirubin Direct Bilirubin AST ALT Alkaline Phosphatase C-Reactive Protein Total Protein Albumin Urine Color Urine Appearance Urine pH Ur Specific [place] Urine Protein Urine Glucose (UA) Urine Ketones Urine Blood Urine Nitrite Ur Leukocyte Esterase Urine RBC Urine WBC Ur Squamous Epith Cells Urine Bacteria Urine Yeast Vancomycin Trough Random Vancomycin COVID-19 ([facility]) COVID-19 Clin Com Blood Type Antibody Screen Crossmatch 04/01/22 04/01/22 04/01/22 11:28 11:28 15:50 WBC 16.1 H RBC 3.22 L Hgb 9.0 L Hct 27.8 L MCV 86.3 MCH 28.0 MCHC 32.4 RDW 15.1 Plt Count 408 H MPV 10.7 Immature Gran % (Auto) Neut % (Auto) Lymph % (Auto) [place] % (Auto) Eos % (Auto) Baso % (Auto) Lymph # (Auto) [place] # (Auto) Eos # (Auto) Baso # (Auto) Abs Immat Gran (auto) Absolute Neuts (auto) Absolute Nucleated RBC 0.000 Nucleated RBC % (auto) 0.0 ESR PT INR APTT Sodium Potassium Chloride Carbon Dioxide Anion Gap BUN Creatinine Estim Creat Clear Calc Estimated GFR POC Glucose 70 Random Glucose Lactic Acid Lactic Acid F/U @ 2Hr Lactic Acid F/U @ 4Hr Calcium Magnesium Iron TIBC % Saturation Unsat Iron Binding Total Bilirubin Direct Bilirubin AST ALT Alkaline Phosphatase C-Reactive Protein Total Protein Albumin Urine Color Urine Appearance Urine pH Ur Specific [place] Urine Protein Urine Glucose (UA) Urine Ketones Urine Blood Urine Nitrite Ur Leukocyte Esterase Urine RBC Urine WBC Ur Squamous Epith Cells Urine Bacteria Urine Yeast Vancomycin Trough Random Vancomycin 7.4 L COVID-19 ([facility]) COVID-19 [email or web address] Com Blood Type Antibody Screen Crossmatch 04/01/22 04/02/22 04/02/22 20:08 06:23 06:23 WBC 14.7 H RBC 3.05 L Hgb 8.6 L Hct 26.4 L MCV 86.6 MCH 28.2 MCHC 32.6 RDW 15.4 Plt Count 398 MPV 10.6 Immature Gran % (Auto) Neut % (Auto) Lymph % (Auto) [place] % (Auto) Eos % (Auto) Baso % (Auto) Lymph # (Auto) [place] # (Auto) Eos # (Auto) Baso # (Auto) Abs Immat Gran (auto) Absolute Neuts (auto) Absolute Nucleated RBC 0.000 Nucleated RBC % (auto) 0.0 ESR PT INR APTT Sodium Potassium Chloride Carbon Dioxide Anion Gap BUN Creatinine Cancelled Estim Creat Clear Calc Cancelled Estimated GFR Cancelled POC Glucose 102 Random Glucose Lactic Acid Lactic Acid F/U @ 2Hr Lactic Acid F/U @ 4Hr Calcium Magnesium Iron TIBC % Saturation Unsat Iron Binding Total Bilirubin Direct Bilirubin AST ALT Alkaline Phosphatase C-Reactive Protein Total Protein Albumin Urine Color Urine Appearance Urine pH Ur Specific [place] Urine Protein Urine Glucose (UA) Urine Ketones Urine Blood Urine Nitrite Ur Leukocyte Esterase Urine RBC Urine WBC Ur Squamous Epith Cells Urine Bacteria Urine Yeast Vancomycin Trough Random Vancomycin COVID-19 ([facility]) COVID-19 [email or web address] Com Blood Type Antibody Screen Crossmatch 04/02/22 04/02/22 04/02/22 06:23 07:11 08:31 WBC RBC Hgb Hct MCV MCH MCHC RDW Plt Count MPV Immature Gran % (Auto) Neut % (Auto) Lymph % (Auto) [place] % (Auto) Eos % (Auto) Baso % (Auto) Lymph # (Auto) [place] # (Auto) Eos # (Auto) Baso # (Auto) Abs Immat Gran (auto) Absolute Neuts (auto) Absolute Nucleated RBC Nucleated RBC % (auto) ESR PT INR APTT Sodium 142 Potassium 3.0 L Chloride 99 Carbon Dioxide 31 H Anion Gap 15 BUN 19 H Creatinine 1.13 Estim Creat Clear Calc 33.9 Estimated GFR > 60 POC Glucose 126 H 119 H Random Glucose 142 H Lactic Acid Lactic Acid F/U @ 2Hr Lactic Acid F/U @ 4Hr Calcium 8.6 Magnesium Iron 29 L TIBC 134 L % Saturation 22 Unsat Iron Binding 105 Total Bilirubin Direct Bilirubin AST ALT Alkaline Phosphatase C-Reactive Protein Total Protein Albumin Urine Color Urine Appearance Urine pH Ur Specific [place] Urine Protein Urine Glucose (UA) Urine Ketones Urine Blood Urine Nitrite Ur Leukocyte Esterase Urine RBC Urine WBC Ur Squamous Epith Cells Urine Bacteria Urine Yeast Vancomycin Trough Random Vancomycin COVID-19 ([facility]) COVID-19 [facility] Blood Type Antibody Screen Crossmatch 04/02/22 04/02/22 04/02/22 13:02 14:06 16:10 WBC RBC Hgb Hct MCV MCH MCHC RDW Plt Count MPV Immature Gran % (Auto) Neut % (Auto) Lymph % (Auto) [place] % (Auto) Eos % (Auto) Baso % (Auto) Lymph # (Auto) [place] # (Auto) Eos # (Auto) Baso # (Auto) Abs Immat Gran (auto) Absolute Neuts (auto) Absolute Nucleated RBC Nucleated RBC % (auto) ESR PT INR APTT Sodium Potassium Chloride Carbon Dioxide Anion Gap BUN Creatinine Estim Creat Clear Calc Estimated GFR POC Glucose 127 H 148 H Random Glucose Lactic Acid Lactic Acid F/U @ 2Hr Lactic Acid F/U @ 4Hr Calcium Magnesium Iron TIBC % Saturation Unsat Iron Binding Total Bilirubin Direct Bilirubin AST ALT Alkaline Phosphatase C-Reactive Protein Total Protein Albumin Urine Color Urine Appearance Urine pH Ur Specific [place] Urine Protein Urine Glucose (UA) Urine Ketones Urine Blood Urine Nitrite Ur Leukocyte Esterase Urine RBC Urine WBC Ur Squamous Epith Cells Urine Bacteria Urine Yeast Vancomycin Trough 11.6 Random Vancomycin COVID-19 ([facility]) COVID-19 [facility] Blood Type Antibody Screen Crossmatch 04/02/22 04/03/22 04/03/22 19:07 06:02 06:02 WBC 14.3 H RBC 3.00 L Hgb 8.4 L Hct 26.1 L MCV 87.0 MCH 28.0 MCHC 32.2 RDW 15.2 Plt Count 383 MPV 10.9 Immature Gran % (Auto) Neut % (Auto) Lymph % (Auto) [place] % (Auto) Eos % (Auto) Baso % (Auto) Lymph # (Auto) [place] # (Auto) Eos # (Auto) Baso # (Auto) Abs Immat Gran (auto) Absolute Neuts (auto) Absolute Nucleated RBC 0.000 Nucleated RBC % (auto) 0.0 ESR PT INR APTT Sodium Potassium Chloride Carbon Dioxide Anion Gap BUN Creatinine Cancelled Estim Creat Clear Calc Cancelled Estimated GFR Cancelled POC Glucose 137 H Random Glucose Lactic Acid Lactic Acid F/U @ 2Hr Lactic Acid F/U @ 4Hr Calcium Magnesium Iron TIBC % Saturation Unsat Iron Binding Total Bilirubin Direct Bilirubin AST ALT Alkaline Phosphatase C-Reactive Protein Total Protein Albumin Urine Color Urine Appearance Urine pH Ur Specific [place] Urine Protein Urine Glucose (UA) Urine Ketones Urine Blood Urine Nitrite Ur Leukocyte Esterase Urine RBC Urine WBC Ur Squamous Epith Cells Urine Bacteria Urine Yeast Vancomycin Trough Random Vancomycin COVID-19 ([facility]) COVID-19 [employer] Blood Type Antibody Screen Crossmatch 04/03/22 04/03/22 04/03/22 06:02 07:09 11:27 WBC RBC Hgb Hct MCV MCH MCHC RDW Plt Count MPV Immature Gran % (Auto) Neut % (Auto) Lymph % (Auto) [place] % (Auto) Eos % (Auto) Baso % (Auto) Lymph # (Auto) [place] # (Auto) Eos # (Auto) Baso # (Auto) Abs Immat Gran (auto) Absolute Neuts (auto) Absolute Nucleated RBC Nucleated RBC % (auto) ESR PT INR APTT Sodium 144 Potassium 3.2 L Chloride 102 Carbon Dioxide 31 H Anion Gap 14 BUN 15 Creatinine 1.02 Estim Creat Clear Calc 37.6 Estimated GFR > 60 POC Glucose 115 186 H Random Glucose 127 H Lactic Acid Lactic Acid F/U @ 2Hr Lactic Acid F/U @ 4Hr Calcium 8.4 Magnesium Iron TIBC % Saturation Unsat Iron Binding Total Bilirubin Direct Bilirubin AST ALT Alkaline Phosphatase C-Reactive Protein Total Protein Albumin Urine Color Urine Appearance Urine pH Ur Specific [place] Urine Protein Urine Glucose (UA) Urine Ketones Urine Blood Urine Nitrite Ur Leukocyte Esterase Urine RBC Urine WBC Ur Squamous Epith Cells Urine Bacteria Urine Yeast Vancomycin Trough Random Vancomycin COVID-19 ([facility]) COVID-19 [employer] Blood Type Antibody Screen Crossmatch 04/03/22 04/03/22 04/03/22 14:23 16:26 19:26 WBC RBC Hgb Hct MCV MCH MCHC RDW Plt Count MPV Immature Gran % (Auto) Neut % (Auto) Lymph % (Auto) [place] % (Auto) Eos % (Auto) Baso % (Auto) Lymph # (Auto) [place] # (Auto) Eos # (Auto) Baso # (Auto) Abs Immat Gran (auto) Absolute Neuts (auto) Absolute Nucleated RBC Nucleated RBC % (auto) ESR PT INR APTT Sodium Potassium Chloride Carbon Dioxide Anion Gap BUN Creatinine Estim Creat Clear Calc Estimated GFR POC Glucose 171 H 118 H Random Glucose Lactic Acid Lactic Acid F/U @ 2Hr Lactic Acid F/U @ 4Hr Calcium Magnesium Iron TIBC % Saturation Unsat Iron Binding Total Bilirubin Direct Bilirubin AST ALT Alkaline Phosphatase C-Reactive Protein Total Protein Albumin Urine Color Urine Appearance Urine pH Ur Specific [place] Urine Protein Urine Glucose (UA) Urine Ketones Urine Blood Urine Nitrite Ur Leukocyte Esterase Urine RBC Urine WBC Ur Squamous Epith Cells Urine Bacteria Urine Yeast Vancomycin Trough 13.3 Random Vancomycin COVID-19 ([facility]) [employer] Blood Type Antibody Screen Crossmatch 04/04/22 04/04/22 04/04/22 05:10 05:10 07:32 WBC 14.9 H RBC 2.83 L Hgb 8.0 L Hct 24.8 L MCV 87.6 MCH 28.3 MCHC 32.3 RDW 15.1 Plt Count 343 MPV 10.8 Immature Gran % (Auto) Neut % (Auto) Lymph % (Auto) [place] % (Auto) Eos % (Auto) Baso % (Auto) Lymph # (Auto) [place] # (Auto) Eos # (Auto) Baso # (Auto) Abs Immat Gran (auto) Absolute Neuts (auto) Absolute Nucleated RBC 0.000 Nucleated RBC % (auto) 0.0 ESR PT INR APTT Sodium 142 Potassium 3.3 Chloride 104 Carbon Dioxide 27 Anion Gap 14 BUN 13 Creatinine 0.91 Estim Creat Clear Calc 42.1 Estimated GFR > 60 POC Glucose 130 H Random Glucose 124 H Lactic Acid Lactic Acid F/U @ 2Hr Lactic Acid F/U @ 4Hr Calcium 8.1 L Magnesium Iron TIBC % Saturation Unsat Iron Binding Total Bilirubin Direct Bilirubin AST ALT Alkaline Phosphatase C-Reactive Protein Total Protein Albumin Urine Color Urine Appearance Urine pH Ur Specific [place] Urine Protein Urine Glucose (UA) Urine Ketones Urine Blood Urine Nitrite Ur Leukocyte Esterase Urine RBC Urine WBC Ur Squamous Epith Cells Urine Bacteria Urine Yeast Vancomycin Trough Random Vancomycin COVID-19 ([facility]) COVID-19 [employer] Blood Type Antibody Screen Crossmatch 04/04/22 04/04/22 04/04/22 11:24 15:50 21:09 WBC RBC Hgb Hct MCV MCH MCHC RDW Plt Count MPV Immature Gran % (Auto) Neut % (Auto) Lymph % (Auto) [place] % (Auto) Eos % (Auto) Baso % (Auto) Lymph # (Auto) [place] # (Auto) Eos # (Auto) Baso # (Auto) Abs Immat Gran (auto) Absolute Neuts (auto) Absolute Nucleated RBC Nucleated RBC % (auto) ESR PT INR APTT Sodium Potassium Chloride Carbon Dioxide Anion Gap BUN Creatinine Estim Creat Clear Calc Estimated GFR POC Glucose 155 H 165 H 161 H Random Glucose Lactic Acid Lactic Acid F/U @ 2Hr Lactic Acid F/U @ 4Hr Calcium Magnesium Iron TIBC % Saturation Unsat Iron Binding Total Bilirubin Direct Bilirubin AST ALT Alkaline Phosphatase C-Reactive Protein Total Protein Albumin Urine Color Urine Appearance Urine pH Ur Specific [place] Urine Protein Urine Glucose (UA) Urine Ketones Urine Blood Urine Nitrite Ur Leukocyte Esterase Urine RBC Urine WBC Ur Squamous Epith Cells Urine Bacteria Urine Yeast Vancomycin Trough Random Vancomycin COVID-19 ([facility]) [facility] Blood Type Antibody Screen Crossmatch 04/05/22 04/05/22 04/05/22 05:45 07:21 11:49 WBC RBC Hgb Hct MCV MCH MCHC RDW Plt Count MPV Immature Gran % (Auto) Neut % (Auto) Lymph % (Auto) [place] % (Auto) Eos % (Auto) Baso % (Auto) Lymph # (Auto) [place] # (Auto) Eos # (Auto) Baso # (Auto) Abs Immat Gran (auto) Absolute Neuts (auto) Absolute Nucleated RBC Nucleated RBC % (auto) ESR PT INR APTT Sodium 141 Potassium 2.9 L Chloride 101 Carbon Dioxide 28 Anion Gap 15 BUN 10 Creatinine 0.83 Estim Creat Clear Calc 46.2 Estimated GFR > 60 POC Glucose 126 H 212 H Random Glucose 124 H Lactic Acid Lactic Acid F/U @ 2Hr Lactic Acid F/U @ 4Hr Calcium 8.0 L Magnesium Iron TIBC % Saturation Unsat Iron Binding Total Bilirubin Direct Bilirubin AST ALT Alkaline Phosphatase C-Reactive Protein Total Protein Albumin Urine Color Urine Appearance Urine pH Ur Specific [place] Urine Protein Urine Glucose (UA) Urine Ketones Urine Blood Urine Nitrite Ur Leukocyte Esterase Urine RBC Urine WBC Ur Squamous Epith Cells Urine Bacteria Urine Yeast Vancomycin Trough Random Vancomycin COVID-19 ([facility]) COVID-19 [employer] Blood Type Antibody Screen Crossmatch 04/05/22 04/05/22 04/05/22 13:30 16:08 19:30 WBC RBC Hgb Hct MCV MCH MCHC RDW Plt Count MPV Immature Gran % (Auto) Neut % (Auto) Lymph % (Auto) [place] % (Auto) Eos % (Auto) Baso % (Auto) Lymph # (Auto) [place] # (Auto) Eos # (Auto) Baso # (Auto) Abs Immat Gran (auto) Absolute Neuts (auto) Absolute Nucleated RBC Nucleated RBC % (auto) ESR PT INR APTT Sodium Potassium Chloride Carbon Dioxide Anion Gap BUN Creatinine Estim Creat Clear Calc Estimated GFR POC Glucose 205 H 102 Random Glucose Lactic Acid Lactic Acid F/U @ 2Hr Lactic Acid F/U @ 4Hr Calcium Magnesium Iron TIBC % Saturation Unsat Iron Binding Total Bilirubin Direct Bilirubin AST ALT Alkaline Phosphatase C-Reactive Protein Total Protein Albumin Urine Color Urine Appearance Urine pH Ur Specific [place] Urine Protein Urine Glucose (UA) Urine Ketones Urine Blood Urine Nitrite Ur Leukocyte Esterase Urine RBC Urine WBC Ur Squamous Epith Cells Urine Bacteria Urine Yeast Vancomycin Trough Random Vancomycin 16.2 COVID-19 ([facility]) COVID-[address] [facility] Blood Type Antibody Screen Crossmatch 04/06/22 04/06/22 04/06/22 04:00 06:14 06:14 WBC 13.2 H RBC 2.67 L Hgb 7.5 L Hct 22.9 L MCV 85.8 MCH 28.1 MCHC 32.8 RDW 16.0 Plt Count 353 MPV 10.9 Immature Gran % (Auto) Neut % (Auto) Lymph % (Auto) [place] % (Auto) Eos % (Auto) Baso % (Auto) Lymph # (Auto) [place] # (Auto) Eos # (Auto) Baso # (Auto) Abs Immat Gran (auto) Absolute Neuts (auto) Absolute Nucleated RBC 0.000 Nucleated RBC % (auto) 0.0 ESR PT INR APTT Sodium Potassium Chloride Carbon Dioxide Anion Gap BUN Creatinine 0.86 Estim Creat Clear Calc 44.6 Estimated GFR > 60 POC Glucose Random Glucose Lactic Acid Lactic Acid F/U @ 2Hr Lactic Acid F/U @ 4Hr Calcium Magnesium Iron TIBC % Saturation Unsat Iron Binding Total Bilirubin Direct Bilirubin AST ALT Alkaline Phosphatase C-Reactive Protein Total Protein Albumin Urine Color YELLOW Urine Appearance HAZY Urine pH 6.0 Ur Specific [place] 1.015 Urine Protein TRACE Urine Glucose (UA) NEG Urine Ketones NEG Urine Blood 1+ H Urine Nitrite NEG Ur Leukocyte Esterase 2+ H Urine RBC 0 Urine WBC 76-150 H Ur Squamous Epith Cells 1+ Urine Bacteria TRACE Urine Yeast 3+ Vancomycin Trough Random Vancomycin COVID-19 ([facility]) COVID-19 [facility] Com Blood Type Antibody Screen Crossmatch 04/06/22 04/06/22 04/06/22 07:34 11:54 14:45 WBC RBC Hgb Hct MCV MCH MCHC RDW Plt Count MPV Immature Gran % (Auto) Neut % (Auto) Lymph % (Auto) [place] % (Auto) Eos % (Auto) Baso % (Auto) Lymph # (Auto) [place] # (Auto) Eos # (Auto) Baso # (Auto) Abs Immat Gran (auto) Absolute Neuts (auto) Absolute Nucleated RBC Nucleated RBC % (auto) ESR PT INR APTT Sodium Potassium Chloride Carbon Dioxide Anion Gap BUN Creatinine Estim Creat Clear Calc Estimated GFR POC Glucose 144 H 243 H Random Glucose Lactic Acid Lactic Acid F/U @ 2Hr Lactic Acid F/U @ 4Hr Calcium Magnesium Iron TIBC % Saturation Unsat Iron Binding Total Bilirubin Direct Bilirubin AST ALT Alkaline Phosphatase C-Reactive Protein Total Protein Albumin Urine Color Urine Appearance Urine pH Ur Specific [place] Urine Protein Urine Glucose (UA) Urine Ketones Urine Blood Urine Nitrite Ur Leukocyte Esterase Urine RBC Urine WBC Ur Squamous Epith Cells Urine Bacteria Urine Yeast Vancomycin Trough Random Vancomycin COVID-19 (OMEGA) COVID-19 [facility] Com Blood Type A Positive Antibody Screen NEGATIVE Crossmatch See Detail 04/06/22 04/06/22 04/07/22 16:36 20:02 05:33 WBC RBC Hgb Hct MCV MCH MCHC RDW Plt Count MPV Immature Gran % (Auto) Neut % (Auto) Lymph % (Auto) [place] % (Auto) Eos % (Auto) Baso % (Auto) Lymph # (Auto) [place] # (Auto) Eos # (Auto) Baso # (Auto) Abs Immat Gran (auto) Absolute Neuts (auto) Absolute Nucleated RBC Nucleated RBC % (auto) ESR PT INR APTT Sodium 140 Potassium 2.8 L Chloride 97 Carbon Dioxide 34 H Anion Gap 12 BUN 12 Creatinine 0.94 Estim Creat Clear Calc 40.1 Estimated GFR > 60 POC Glucose 146 H 69 Random Glucose 118 H Lactic Acid Lactic Acid F/U @ 2Hr Lactic Acid F/U @ 4Hr Calcium 8.4 Magnesium Iron TIBC % Saturation Unsat Iron Binding Total Bilirubin Direct Bilirubin AST ALT Alkaline Phosphatase C-Reactive Protein Total Protein Albumin Urine Color Urine Appearance Urine pH Ur Specific [place] Urine Protein Urine Glucose (UA) Urine Ketones Urine Blood Urine Nitrite Ur Leukocyte Esterase Urine RBC Urine WBC Ur Squamous Epith Cells Urine Bacteria Urine Yeast Vancomycin Trough Random Vancomycin COVID-19 (OMEGA) COVID-19 [employer] Blood Type Antibody Screen Crossmatch 04/07/22 04/07/22 07:16 Unknown WBC 14.1 H RBC 3.61 L D Hgb 10.5 L D Hct 30.9 L D MCV 85.6 MCH 29.1 MCHC 34.0 RDW 15.3 Plt Count 366 MPV 10.8 Immature Gran % (Auto) Neut % (Auto) Lymph % (Auto) [place] % (Auto) Eos % (Auto) Baso % (Auto) Lymph # (Auto) [place] # (Auto) Eos # (Auto) Baso # (Auto) Abs Immat Gran (auto) Absolute Neuts (auto) Absolute Nucleated RBC 0.000 Nucleated RBC % (auto) 0.0 ESR PT INR APTT Sodium Potassium Chloride Carbon Dioxide Anion Gap BUN Creatinine Estim Creat Clear Calc Estimated GFR POC Glucose 114 Random Glucose Lactic Acid Lactic Acid F/U @ 2Hr Lactic Acid F/U @ 4Hr Calcium Magnesium Iron TIBC % Saturation Unsat Iron Binding Total Bilirubin Direct Bilirubin AST ALT Alkaline Phosphatase C-Reactive Protein Total Protein Albumin Urine Color Urine Appearance Urine pH Ur Specific [place] Urine Protein Urine Glucose (UA) Urine Ketones Urine Blood Urine Nitrite Ur Leukocyte Esterase Urine RBC Urine WBC Ur Squamous Epith Cells Urine Bacteria Urine Yeast Vancomycin Trough Random Vancomycin COVID-19 (OMEGA) COVID-19 [facility] [employer] Blood Type Antibody Screen Crossmatch Assessment and Plan Final Anesthetic Review Family History of Problems with Anesthesia: No History of Problems with Anesthesia: No Documented by User: Star Encarnacion MD 04/08/22 18:39 HPI - Anesthesia Eval Consult details Narrative: 82 M for left AKA Left foot wound . 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 PAD (peripheral artery disease) Troponin level elevated Type 2 diabetes mellitus with unspecified complications Social History Social History Household Members: None Housing: Apartment Do you presently have visiting nurse or other home services: Yes Unable to assess alcohol history related to: Unknown Alcohol intake: unknown Patient Tobacco Use Status: Former Tobacco user Quit Date: 1999 Tobacco use type: Cigarette Years Smoked: 4 Advance Directives Date on File: 08/15/21 service: No Current occupational status: retired Meds Allergies Allergy/AdvReac Type Severity Reaction Status Date / Time No Known Allergies Allergy Verified 03/31/22 10:25 [No Known Allergies*] Home Medications Medication Instructions Recorded Confirmed Last Taken Type insulin detemir U-100 100 unit/mL 10 unit SUBCUT DAILY@1800 08/10/21 03/31/22 02/21/22 History (3 mL) subcutaneous pen (Levemir FlexTouch U-100 Insulin) docusate sodium 100 mg capsule 100 mg PO BID PRN 11/21/21 03/31/22 Unknown History ferrous sulfate 325 mg (65 mg 325 mg PO DAILY 11/21/21 03/31/22 02/21/22 History iron) tablet (FeroSul) gabapentin 300 mg capsule 300 mg PO BEDTIME 11/21/21 03/31/22 02/21/22 History insulin syringe-needle U-100 0.5 #10 ea 11/21/21 Unknown History mL 30 gauge x 1/2 (UltiCare) pen needle, diabetic 32 gauge x #50 ea 11/21/21 Unknown History (Pentips) blood sugar diagnostic (FreeStyle #10 ea 02/25/22 Unknown History Lite Strips) gabapentin 100 mg capsule 100 mg PO BID 02/25/22 03/31/22 02/21/22 History lancets 33 gauge (TRUEplus Lancets) #100 ea 02/25/22 Unknown History acetaminophen 500 mg tablet 1,000 mg PO Q6H PRN 03/31/22 03/31/22 Unknown History insulin aspart U-100 100 unit/mL 0 sliding scale dose SUBCUT TIDAC 03/31/22 03/31/22 Unknown History (3 mL) subcutaneous pen (Novolog Flexpen U-100 Insulin aspart) pantoprazole 20 mg tablet,delayed 1 tab PO DAILY 03/31/22 03/31/22 Unknown History release Exam Airway Mallampati Class: III TM Dist: >3cm Neck ROM: Limited Loose/Missing/Broken Teeth: Yes Heart: S1, S2 Lungs: b/l breath sounds Assessment and Plan Assessment Anesthesia Assessment: Anesthesia Plan Discussed and Chart Reviewed Final Anesthetic Review NPO: Yes ASA Class: III and Emergency Final Preanesthetic Review: Meds/Allgs Chart Reviewed, Consent Obtained/Reviewed and Anes Risks/Benef Reviewed Patient Risk: High Procedure Risk: Intermediate Anesthetic Plan Anesthetic Plan: GA Disposition: Inp. Admit - Standard Bed
[2022-04-07 09:15] LABS: Anion Gap 15 (12-20); Blood Urea Nitrogen 11 mg/dL (9-16); Calcium 8.2 mg/dL (8.4-10.2); Carbon Dioxide 31 mmol/L (22-29); Chloride 97 mmol/L (96-108); Creatinine Clr Calc Pharmacy 41.4; Estimated Glomerular Filt Rate > 60; Glucose Random 122 mg/dL (60-115); Potassium 2.9 mmol/L (3.3-5.1); Sodium 140 mmol/L (135-145)
[2022-04-07] MEDS: Potassium Chloride ER 20 MEQ TAB.ER.PRT 40 MEQ PO (09:18)
[2022-04-07] MEDS: 0.9 % Sodium Chloride Flush 3 ML SYRINGE IVFLUSH ×3 (09:19→19:10)
--- NOTE | 2022-04-07 10:12 | HO.VASCPN ---
Subjective Subjective Date of Service: 04/07/22 Patient reports: no new complaints Interval history: Patient seen examined. No significant events over the past weekend. Appears to be doing relatively the same. Was actually scheduled for left AKA today. Was cancel secondary to low potassium by Anesthesia. Pain appears to be reasonably controlled. Physical Exam Vital Signs: Vital Signs: Last Vital Signs Temp 97.0 F 04/07/22 08:00 Pulse 76 04/07/22 08:00 Resp 18 04/07/22 08:00 BP 120/66 04/07/22 08:00 Pulse Ox 99 04/07/22 08:00 BMI result Body Mass Index 18.0 Const: General: cooperative, healthy appearing and no acute distress Orientation/consciousness: oriented to person, oriented to place and oriented to time HEENT: Head: Yes normal to inspection Neck: Carotids: no bruits Chest: Chest palpation & inspection: normal inspection of the chest Resp: Effort & Inspection: normal respiratory effort and able to speak in complete sentences Auscultation: clear to auscultation bilaterally Cardio: Rate: regular rate Heart sounds: S1 normal heart sound present and S2 normal heart sound present GI: Inspection: Yes normal to inspection Skin: General skin exam: no rashes or lesions noted Wounds: wounds noted (Left foot nonhealing ulcer) Neuro: General: oriented to person, oriented to place, oriented to time and CN's II-XI intact bilaterally Extrem: General: Yes normal to inspection, Yes full ROM and Yes no clubbing, cyanosis or edema Psych: Appearance: grossly normal and well kempt Speech and movement: Normal speech and movement present Affect: normal affect Progress Note: A&P Assessment and plan (1) PAD (peripheral artery disease): Status: Acute Assessment and Plan: In short the patient will require left above knee amputation. The son has finally consented to this. He was actually scheduled for today but canceled due to low potassium. This case was discussed with the anesthesia and Medicine teams. Will replete potassium and reassess tomorrow. If stable will re-attempt for tomorrow. Thank you for allowing us to assist in this patient's care. If there are any questions or concerns please do not hesitate to contact us. Time Spent With Patient Time: Total time spent is greater than 50% in coordination of care (as documented) at patient's floor/unit and/or counseling patient: Procedures Date of Service Date of Service: 04/07/22 Quality Stroke Does the patient have a stroke diagnosis?: No VTE Prior VTE?: No VTE Risk Level:: Medical - moderate - high VTE Device Contraindication: Treatment Not Indicated VTE Drug Contraindication: N/A - Med Ordered
--- NOTE | 2022-04-07 10:24 | HO.PM.IMPN ---
Subjective Subjective Date of Service: 04/07/22 Review of Systems Follow up foot infection denies pain laying in bed Physical Exam Vital Signs: Vital Signs: Last Vital Signs Temp 97.0 F 04/07/22 08:00 Pulse 76 04/07/22 08:00 Resp 18 04/07/22 08:00 BP 120/66 04/07/22 08:00 Pulse Ox 99 04/07/22 08:00 BMI result Body Mass Index 18.0 Appearing in no acute distress lung sounds are clear to auscultation heart regular rate rhythm, clear S1, S2 positive bowel sounds, abdomen is soft, nontender neuro patient is alert x3, no focal deficits Left foot gangrenous tissue to toes Objective Data Active Medications Acetaminophen (Acetaminophen 325 Mg Tablet) 650 mg PO Q6H PRN PRN Reason: Pain, Mild (Pain Scale 1-3) Last Admin: 04/06/22 08:43 Dose: 650 mg Documented by: JANET Atorvastatin Calcium (Atorvastatin Calcium 80 Mg Tablet) 80 mg PO BEDTIME [facility] Last Admin: 04/06/22 20:09 Dose: 80 mg Documented by: CANDIDO Clopidogrel Bisulfate (Clopidogrel Bisulfate 75 Mg Tablet) 75 mg PO DAILY [facility] Last Admin: 04/06/22 08:37 Dose: 75 mg Documented by: JANET Docusate Sodium (Docusate Sodium 100 Mg Capsule) 100 mg PO BID PRN PRN Reason: constipation Last Admin: 04/01/22 07:34 Dose: 100 mg Documented by: COTKIN Ferrous Sulfate (Ferrous Sulfate 324 Mg Tablet.) 324 mg PO DAILY [facility] Last Admin: 04/06/22 08:37 Dose: 324 mg Documented by: JANET Furosemide (Furosemide 40 Mg Tablet) 40 mg PO BID@0900,1800 [facility]; Protocol Last Admin: 04/06/22 17:20 Dose: 40 mg Documented by: ZANDER Gabapentin (Gabapentin 100 Mg Capsule) 100 mg PO BID [facility] Last Admin: 04/06/22 20:09 Dose: 100 mg Documented by: CANDIDO Gabapentin (Gabapentin 300 Mg Capsule) 300 mg PO BEDTIME [facility] Last Admin: 04/06/22 20:09 Dose: 300 mg Documented by: CANDIDO Heparin Sodium (Porcine) (Heparin Sodium,Porcine 5,000 Unit/Ml Vial) 5,000 unit SUBCUT Q12H [facility] Last Admin: 04/07/22 05:43 Dose: 5,000 unit Documented by: CANDIDO Piperacillin Sod/Tazobactam (Sod 2.25 gm/ Sodium Chloride) 50 mls @ 100 mls/hr IV Q6H [facility] Last Infusion: 04/07/22 06:16 Dose: 0 mls/hr Documented by: CANDIDO Vancomycin HCl 750 mg/ Sodium (Chloride) 265 mls @ 265 mls/hr IV Q24H [facility] Last Infusion: 04/06/22 18:37 Dose: 0 mls/hr Documented by: JANET Insulin Human Lispro (Insulin Lispro 100 Unit/Ml 3 Ml Vial) 0 unit SUBCUT QIDACHS [facility]; Protocol Last Admin: 04/07/22 09:11 Dose: Not Given Documented by: KRISHNA Non-Admin Reason: No Insulin Coverage Omeprazole (Omeprazole 20 Mg Capsule.Dr) 20 mg PO DAILY@0630 [facility] Last Admin: 04/07/22 05:44 Dose: 20 mg Documented by: CANDIDO Ondansetron HCl (Ondansetron Hcl 4 Mg/2 Ml Vial) 4 mg IVPUSH Q8H PRN PRN Reason: Nausea and Vomiting Oxycodone HCl (Oxycodone Hcl Immed Release 5 Mg Tablet) 5 mg PO Q4H PRN PRN Reason: Pain, Moderate (Pain Scale 4-6 Last Admin: 04/06/22 18:39 Dose: 5 mg Documented by: JANET Pharmacy Consult (Consult Rx Perform Med Rec) 1 each MISCELLANE ONCE PRN PRN Reason: Consult order Pharmacy Consult (Consult Rx Vancomycin Dosing) 1 each MISCELLANE DAILY PRN PRN Reason: Consult order Pharmacy Consult (Consult Rx Vancomycin Dosing) 1 each MISCELLANE DAILY PRN PRN Reason: Consult order Potassium Chloride (Potassium Chloride Er 20 Meq Tab.Er.Prt) 40 meq PO DAILY [facility] Sodium Chloride (0.9 % Sodium Chloride Flush 3 Ml Syringe) 3 ml IVFLUSH QSHIFT [facility] Last Admin: 04/07/22 09:19 Dose: 3 ml Documented by: KRISHNA Tamsulosin HCl (Tamsulosin Hcl 0.4 Mg Capsule) 0.4 mg PO DAILY [facility] Last Admin: 04/06/22 08:37 Dose: 0.4 mg Documented by: JANET Labs CBC & Chem 7: 04/07/22 Unknown 04/07/22 08:51 Labs: Laboratory Results - last 24 hr 04/06/22 04/06/22 04/06/22 11:54 14:45 16:36 MCV MCH MCHC RDW Plt Count MPV Absolute Nucleated RBC Nucleated RBC % (auto) Anion Gap Estim Creat Clear Calc Estimated GFR POC Glucose 243 H 146 H Random Glucose Calcium Blood Type A Positive Antibody Screen NEGATIVE Crossmatch See Detail 04/06/22 04/07/22 04/07/22 20:02 05:33 07:16 MCV MCH MCHC RDW Plt Count MPV Absolute Nucleated RBC Nucleated RBC % (auto) Anion Gap 12 Estim Creat Clear Calc 40.1 Estimated GFR > 60 POC Glucose 69 114 Random Glucose 118 H Calcium 8.4 Blood Type Antibody Screen Crossmatch 04/07/22 04/07/22 08:51 Unknown MCV 85.6 MCH 29.1 MCHC 34.0 RDW 15.3 Plt Count 366 MPV 10.8 Absolute Nucleated RBC 0.000 Nucleated RBC % (auto) 0.0 Anion Gap 15 Estim Creat Clear Calc 41.4 Estimated GFR > 60 POC Glucose Random Glucose 122 H Calcium 8.2 L Blood Type Antibody Screen Crossmatch Assessment and Plan (1) Acute on chronic anemia: Status: Acute Plan 81 years old male with PMH of CAD, diabetes, CAD, CHF and mild dementia who presents to the hospital with worsening pain and drainage from his left foot wound. Hypokalemia Repleted nonhealing amputation site, osteomyelitis No evidence of sepsis Secondary to severe PAD Continue IV antibiotic of vancomycin, Zosyn vascular surgery following; s/p angio and left SFA arthrectomy and plasty 04/02; Rec AKA, family has now agreed to proceed, will discuss with Dr. Johnson pain management blood cultures negative to date Plan for amp today canceled due to hypokalemia, will replete potassium and follow up in am acute on chronic anemia, no blood loss Could be secondary to chronic infection, malnutrition likely mixed iron deficiency and chronic inflammation; stool occult pending on oral iron supplementation at baseline, will continue Transfused in unit PRBC yesterday, HH 10.5/30.9 moderate malnutrition Toy Mechanic following, supplement added lactic acidosis Trended down Hx Gastroparesis reglan prn CKD stage 3 stable, moniutor BMP hypotension, chronic BP improving on low dose lisinopril at baseline, on hold for now, will resume as bp tolerates Monitor BP PAD continue Plavix? and statin history CHF no acute exacerbation continue Lasix diabetes mellitus type 2 low-dose sliding scale insulin Hold Levemir dementia son is HCP baseline mostly bedbound/wheelchair bound; has VNA/[employer] services DVT prophylaxis Heparin Attending: Dr. Conde The patient requires ongoing hospitalization for management of nonhealing wound with possible plan for further amputation to prevent further decompensation and possible severe sepsis. Quality Stroke Does the patient have a stroke diagnosis?: No VTE Prior VTE?: No VTE Risk Level:: Medical - moderate - high VTE Device Contraindication: Treatment Not Indicated VTE Drug Contraindication: N/A - Med Ordered
[2022-04-07 11:46] LABS: Glucose, Whole Blood 114 mg/dL (60-115)
[2022-04-07] MEDS: Clopidogrel Bisulfate 75 MG TABLET PO (12:19)
[2022-04-07] MEDS: Ferrous Sulfate 324 MG TABLET.DR PO (12:19)
[2022-04-07] MEDS: Acetaminophen 325 MG TABLET 650 MG PO ×2 (12:19→19:09)
[2022-04-07] MEDS: Furosemide 40 MG TABLET PO ×2 (12:19→17:15)
[2022-04-07] MEDS: Tamsulosin HCL 0.4 MG CAPSULE PO (12:19)
[2022-04-07] MEDS: Gabapentin 100 MG CAPSULE PO ×2 (12:19→19:09)
[2022-04-07] MEDS: oxyCODONE HCl Immed Release 5 MG TABLET PO (13:14)
--- NOTE | 2022-04-07 14:44 | MHC.CM.PN ---
EMR REVIEWED, PER HOSPITALIST FAMILY IN AGREEMENT FOR AKA HOWEVER PT IS HYPOKALEMIC, PT TREATED W/ ORAL K REPLACEMENT, PLAN FOR AKA ONCE MEDICALLY STABLE, CM WILL CONT TO FOLLOW D/C NEEDS, ANTIC STR VS HOME W/RESUMP OF VNA AND SUPERINTENDENT LOGGING & FAMILY SUPPORT.
[2022-04-07 15:09] LABS: Potassium 3.5 mmol/L (3.3-5.1)
[2022-04-07 15:19] LABS: Vancomycin Trough 17.1 mcg/mL (10.0-20.0)
[2022-04-07 16:33] LABS: Glucose, Whole Blood 220 mg/dL (60-115)
[2022-04-07] MEDS: vancomycin HCL 750 MG in 0.9 % Sodium Chloride 250 ML 250 MG IV (17:10)
[2022-04-07] MEDS: Insulin Lispro 100 UNIT/ML 3 ML VIAL SUBCUT ×2 (17:10→20:20)
[2022-04-07] MEDS: Atorvastatin Calcium 80 MG TABLET PO (19:09)
[2022-04-07] MEDS: Gabapentin 300 MG CAPSULE PO (19:09)
[2022-04-07 20:12] LABS: Glucose, Whole Blood 200 mg/dL (60-115)
[2022-04-08] VITALS (12 sets, daily range): BP systolic 95–146; BP diastolic 56–70; PULSE 70–95; RESP 12–18; TEMP 36.3–37.3; O2SAT 90–100
[2022-04-08] MEDS: Acetaminophen 325 MG TABLET 650 MG PO (03:56)
[2022-04-08] MEDS: Omeprazole 20 MG CAPSULE.DR PO (05:24)
[2022-04-08 06:07] LABS: Creatinine Clr Calc Pharmacy 43.8; Estimated Glomerular Filt Rate > 60
[2022-04-08 07:40] LABS: Glucose, Whole Blood 104 mg/dL (60-115)
--- NOTE | 2022-04-08 08:54 | P.PNIM_ITS ---
Subjective Subjective Date of Service: 04/08/22 Review of Systems Follow up foot infection denies pain laying in bed Physical Exam Vital Signs: Vital Signs: Last Vital Signs Temp 99.1 F 04/08/22 07:21 Pulse 70 04/08/22 07:21 Resp 15 04/08/22 07:21 BP 115/56 L 04/08/22 07:21 Pulse Ox 99 04/08/22 07:21 BMI result Body Mass Index 18.0 Appearing in no acute distress lung sounds are clear to auscultation heart regular rate rhythm, clear S1, S2 positive bowel sounds, abdomen is soft, nontender neuro patient is alert x3, no focal deficits Left foot gangrenous toes Objective Data Active Medications Acetaminophen (Acetaminophen 325 Mg Tablet) 650 mg PO Q6H PRN PRN Reason: Pain, Mild (Pain Scale 1-3) Last Admin: 04/08/22 03:56 Dose: 650 mg Documented by: ISACC Atorvastatin Calcium (Atorvastatin Calcium 80 Mg Tablet) 80 mg PO BEDTIME [facility] Last Admin: 04/07/22 19:09 Dose: 80 mg Documented by: ISACC Clopidogrel Bisulfate (Clopidogrel Bisulfate 75 Mg Tablet) 75 mg PO DAILY [facility] Last Admin: 04/07/22 12:19 Dose: 75 mg Documented by: KRISHNA Docusate Sodium (Docusate Sodium 100 Mg Capsule) 100 mg PO BID PRN PRN Reason: constipation Last Admin: 04/01/22 07:34 Dose: 100 mg Documented by: COTKIN Ferrous Sulfate (Ferrous Sulfate 324 Mg Tablet.) 324 mg PO DAILY [facility] Last Admin: 04/07/22 12:19 Dose: 324 mg Documented by: KRISHNA Furosemide (Furosemide 40 Mg Tablet) 40 mg PO BID@0900,1800 [facility]; Protocol Last Admin: 04/07/22 17:15 Dose: 40 mg Documented by: MERLIN Gabapentin (Gabapentin 100 Mg Capsule) 100 mg PO BID [facility] Last Admin: 04/07/22 19:09 Dose: 100 mg Documented by: ISACC Gabapentin (Gabapentin 300 Mg Capsule) 300 mg PO BEDTIME [facility] Last Admin: 04/07/22 19:09 Dose: 300 mg Documented by: ISACC Heparin Sodium (Porcine) (Heparin Sodium,Porcine 5,000 Unit/Ml Vial) 5,000 unit SUBCUT Q12H [facility] Last Admin: 04/08/22 06:12 Dose: Not Given Documented by: ISACC Non-Admin Reason: pt having surgery today. Vancomycin HCl 750 mg/ Sodium (Chloride) 265 mls @ 265 mls/hr IV Q24H [facility] Last Infusion: 04/07/22 19:06 Dose: 0 mls/hr Documented by: ISACC Insulin Human Lispro (Insulin Lispro 100 Unit/Ml 3 Ml Vial) 0 unit SUBCUT QIDACHS [facility]; Protocol Last Admin: 04/07/22 20:20 Dose: 2 unit Documented by: ISACC Omeprazole (Omeprazole 20 Mg Capsule.Dr) 20 mg PO DAILY@0630 [facility] Last Admin: 04/08/22 05:24 Dose: 20 mg Documented by: ISACC Ondansetron HCl (Ondansetron Hcl 4 Mg/2 Ml Vial) 4 mg IVPUSH Q8H PRN PRN Reason: Nausea and Vomiting Oxycodone HCl (Oxycodone Hcl Immed Release 5 Mg Tablet) 5 mg PO Q4H PRN PRN Reason: Pain, Mild (Pain Scale 1-3) Last Admin: 04/07/22 13:14 Dose: 5 mg Documented by: KRISHNA Pharmacy Consult (Consult Rx Perform Med Rec) 1 each MISCELLANE ONCE PRN PRN Reason: Consult order Potassium Chloride (Potassium Chloride Er 20 Meq Tab.Er.Prt) 40 meq PO DAILY [facility] Sodium Chloride (0.9 % Sodium Chloride Flush 3 Ml Syringe) 3 ml IVFLUSH QSHIFT [facility] Last Admin: 04/07/22 19:10 Dose: 3 ml Documented by: ISACC Tamsulosin HCl (Tamsulosin Hcl 0.4 Mg Capsule) 0.4 mg PO DAILY [facility] Last Admin: 04/07/22 12:19 Dose: 0.4 mg Documented by: KRISHNA Labs CBC & Chem 7: 04/07/22 Unknown 04/08/22 05:41 Labs: Laboratory Results - last 24 hr 04/07/22 04/07/22 04/07/22 08:51 11:31 14:30 Anion Gap 15 Estim Creat Clear Calc 41.4 Estimated GFR > 60 POC Glucose 114 Random Glucose 122 H Calcium 8.2 L Vancomycin Trough 17.1 04/07/22 04/07/22 04/08/22 16:28 19:19 05:41 Anion Gap Estim Creat Clear Calc 43.8 Estimated GFR > 60 POC Glucose 220 H 200 H Random Glucose Calcium Vancomycin Trough 04/08/22 07:25 Anion Gap Estim Creat Clear Calc Estimated GFR POC Glucose 104 Random Glucose Calcium Vancomycin Trough Microbiology Microbiology Results: Microbiology 04/06/22 Unknown Urine Culture - Preliminary Urine clean catch - Clean Catch Midstream Culture in progress. Assessment and Plan (1) Acute on chronic anemia: Status: Acute Plan 81 years old male with PMH of CAD, diabetes, CAD, CHF and mild dementia who presents to the hospital with worsening pain and drainage from his left foot wound. Hypokalemia. Resolved Repleted nonhealing amputation site, osteomyelitis No evidence of sepsis Secondary to severe PAD Continue IV antibiotic of vancomycin, Zosyn vascular surgery following; s/p angio and left SFA arthrectomy and plasty 04/02; Rec AKA, family has now agreed to proceed, will discuss with Dr. Johnson pain management blood cultures negative to date Plan for amputation acute on chronic anemia, no blood loss Could be secondary to chronic infection, malnutrition likely mixed iron deficiency and chronic inflammation; stool occult pending on oral iron supplementation at baseline, will continue Transfused in unit PRBC yesterday, HH 10.5/30.9 moderate malnutrition Web Press Operator following, supplement added lactic acidosis Trended down Hx Gastroparesis reglan prn CKD stage 3 stable, moniutor BMP hypotension, chronic BP improving on low dose lisinopril at baseline, on hold for now, will resume as bp tolerates Monitor BP PAD continue Plavix? and statin history CHF no acute exacerbation continue Lasix diabetes mellitus type 2 low-dose sliding scale insulin Hold Levemir dementia son is HCP baseline mostly bedbound/wheelchair bound; has VNA/[employer] services DVT prophylaxis Heparin Attending: Dr. Conde The patient requires ongoing hospitalization for management of nonhealing wound with possible plan for further amputation to prevent further decompensation and possible severe sepsis. Quality Stroke Does the patient have a stroke diagnosis?: No VTE Prior VTE?: No VTE Risk Level:: Medical - moderate - high VTE Device Contraindication: Treatment Not Indicated VTE Drug Contraindication: N/A - Med Ordered
--- NOTE | 2022-04-08 09:24 | P.CDIC_ITS ---
CDI Concurrent Query Documentation Clarification: PHYSICIAN'S DOCUMENTATION REQUEST Date of Query: 04/08/2224 Patient Name: Sanchez Samaniego Admit Date: 03/31/22 Dear Doctor, A review of the medical record indicates additional documentation may be needed. Please review below and update the documentation accordingly. Clinical Indicators: Documentation on 04/02/22 indicates Osteomyelitis. Risk Factors/Clinical Indicators/Treatments non-healing amputation site , osteomyelitis Not septic Secondary to severe PAD Continue IV antibiotic of vancomycin Zosyn Based on the above, please clarify in the Progress Notes further specificity regarding the type of Osteomyelitis. Also include suspected infectious agent: * Acute osteomyelitis * Acute hematogenous osteomyelitis * Subacute osteomyelitis * Chronic osteomyelitis * Chronic hemotogenous osteomyelitis * Chronic multifocal osteomyelitis * Other (please specify) * Unable to determine Use of terms such as suspected, likely, concern for, or probable (associated with a specific diagnosis that is being evaluated, monitored, or treated as if it exists) are acceptable and can be coded in the inpatient setting, when documented at the time of discharge. Thank you, Robyn Monae RN Extension: [phone] Please use your independent medical judgment in providing your response. THIS QUERY IS PART OF THE PERMANENT MEDICAL RECORD Provider Response: Other Other Diagnosis: chronic
[2022-04-08] MEDS: Furosemide 40 MG TABLET PO ×2 (09:33→18:58)
[2022-04-08] MEDS: Tamsulosin HCL 0.4 MG CAPSULE PO (09:33)
[2022-04-08] MEDS: Gabapentin 100 MG CAPSULE PO (09:33)
[2022-04-08] MEDS: Clopidogrel Bisulfate 75 MG TABLET PO (09:33)
[2022-04-08] MEDS: Potassium Chloride ER 20 MEQ TAB.ER.PRT 40 MEQ PO (09:33)
[2022-04-08] MEDS: Ferrous Sulfate 324 MG TABLET.DR PO (09:34)
[2022-04-08] MEDS: Heparin Sodium,Porcine 5,000 UNIT/ML VIAL 5000 UNIT SUBCUT (09:34)
[2022-04-08] MEDS: 0.9 % Sodium Chloride Flush 3 ML SYRINGE IVFLUSH (09:35)
[2022-04-08 11:29] LABS: Glucose, Whole Blood 103 mg/dL (60-115)
--- NOTE | 2022-04-08 15:56 | P.OP_ITS ---
Operative Note Operative Note Date of Service: 04/08/22 Narrative: Operative note by [facility] Preoperative diagnosis:Left leg gangrene Postoperative diagnosis: same Procedure: 1. left above knee amputation 2. myodesis Surgeon:Ramin Johnson M.D. Certified Orthotist: roberto Anesthesia: general Specimens: 1 Drains: none Estimated blood loss: 100 mL Indications: complex 82-year-old gentleman with a nonhealing left great toe amputation site now presents for follow-up above knee amputation. Risks benefits complications were discussed in detail with the son who is the healthcare proxy and he consented. The patient has signed the informed consent after reviewing risks, complications, benefits, and alternatives previously discussed with the patient. The patient was given the opportunity to ask any additional questions or voice any concerns. All questions were answered to the patient's satisfaction. Procedure in detail: Patient was brought to the operating room prior to which a time-out was called for patient identification site verification. Left leg was prepped and draped in standard surgical fashion. A fishmouth incision was carried out approximately 10 cm of above the knee using 15 blade knife. We went down to the femur. We were able to transect the femur with power saw. SFA and its tributaries were identified and tied off with a 2-0 silk tie. Once this was accomplished using 1/8 inch drill bit we created a hole through the femur. Using 2 0 poly Sorb we attached muscle to this and performed myodesis. Once this was accomplished adequate hemostasis was achieved. The amp site irrigated out. Deep layer was reapproximated 2-0 poly Sorb and superficial layer with 3- 0 Polysorb in an interrupted fashion. Once this was all accomplished adequate hemostasis was was achieved. We then closed skin with interrupted 2-0 nylon in a mattress fashion and finally skin clips. Xeroform and a sterile dressing were applied. At the end the case sponge instrument counts were correct. Patient tolerated the procedure well. Returned to recovery with stable vitals. This note is constructed using voice recognition software. While every effort has been made to ensure accuracy, yarn salvager errors may have been included. Thank you for allowing me to participate in the care of your patient. Yours sincerely, Ramin Johnson MD, FACS, R.P.V.I.
[2022-04-08 18:17] LABS: Glucose, Whole Blood 123 mg/dL (60-115)
[2022-04-08] MEDS: Morphine Sulfate 2 MG/ML CARTRIDGE IVPUSH (19:00)
[2022-04-08 20:05] LABS: Delay - Chemistry DELAY
[2022-04-08 20:30] LABS: Glucose, Whole Blood 127 mg/dL (60-115)
--- NOTE | 2022-04-08 21:17 | HE.PHANOTE ---
Pt was in surgery and vanco trough not drawn till around 6pm, lab sent to [facility]. At this time no information on trough and clinical decision made to cont 750 mg q24h and readjust time to 10pm with following up in the morning
[2022-04-08] MEDS: vancomycin HCL 750 MG in 0.9 % Sodium Chloride 250 ML 265 MG IV (21:58)
[2022-04-09] VITALS (7 sets, daily range): BP systolic 110–127; BP diastolic 58–72; PULSE 78–90; RESP 15–18; TEMP 36.2–37.3; O2SAT 99–100
[2022-04-09] MEDS: 0.9 % Sodium Chloride Flush 3 ML SYRINGE IVFLUSH ×3 (00:19→15:30)
[2022-04-09] MEDS: Morphine Sulfate 2 MG/ML CARTRIDGE IVPUSH ×3 (04:44→19:28)
[2022-04-09] MEDS: Omeprazole 20 MG CAPSULE.DR PO (04:48)
[2022-04-09 05:45] LABS: Vancomycin Trough 16.4 mcg/mL (10.0-20.0)
[2022-04-09] MEDS: Heparin Sodium,Porcine 5,000 UNIT/ML VIAL 5000 UNIT SUBCUT ×2 (06:30→19:29)
[2022-04-09 06:45] LABS: Creatinine Clr Calc Pharmacy 40.5; Estimated Glomerular Filt Rate > 60
[2022-04-09 07:46] LABS: Glucose, Whole Blood 158 mg/dL (60-115)
[2022-04-09] MEDS: Potassium Chloride ER 20 MEQ TAB.ER.PRT 40 MEQ PO (08:04)
[2022-04-09] MEDS: Tamsulosin HCL 0.4 MG CAPSULE PO (08:04)
[2022-04-09] MEDS: Furosemide 40 MG TABLET PO ×2 (08:04→17:38)
[2022-04-09] MEDS: Gabapentin 100 MG CAPSULE PO ×2 (08:04→19:56)
[2022-04-09] MEDS: Clopidogrel Bisulfate 75 MG TABLET PO (08:04)
[2022-04-09] MEDS: Ferrous Sulfate 324 MG TABLET.DR PO (08:05)
[2022-04-09] MEDS: oxyCODONE HCl Immed Release 5 MG TABLET PO (08:05)
[2022-04-09] MEDS: Insulin Lispro 100 UNIT/ML 3 ML VIAL SUBCUT ×2 (08:06→19:56)
--- NOTE | 2022-04-09 08:58 | P.PNIM_ITS ---
Subjective Subjective Date of Service: 04/09/22 <Edie Correia NP - Last Filed: 04/09/22 09:03> 04/10/22 <Chaparro Conde MD - Last Filed: 04/10/22 08:13> Review of Systems Follow up foot infection denies pain laying in bed s/p amputation AKA <Edie Correia NP - Last Filed: 04/09/22 09:03> Physical Exam Vital Signs: Vital Signs: Last Vital Signs Temp 98.2 F 04/09/22 07:19 Pulse 90 04/09/22 07:19 Resp 16 04/09/22 07:19 BP 110/58 L 04/09/22 07:19 Pulse Ox 100 04/09/22 07:19 BMI result Body Mass Index 18.0 <Edie Correia NP - Last Filed: 04/09/22 09:03> Appearing in no acute distress lung sounds are clear to auscultation heart regular rate rhythm, clear S1, S2 positive bowel sounds, abdomen is soft, nontender neuro patient is alert x3, no focal deficits left leg AKA with surgical dressing, surgical incision wound not visualized <Edie Correia NP - Last Filed: 04/09/22 09:03> Objective Data Active Medications Acetaminophen (Acetaminophen 325 Mg Tablet) 650 mg PO Q6H PRN PRN Reason: Pain, Mild (Pain Scale 1-3) Last Admin: 04/08/22 03:56 Dose: 650 mg Documented by: ISACC Atorvastatin Calcium (Atorvastatin Calcium 80 Mg Tablet) 80 mg PO BEDTIME [facility] Last Admin: 04/08/22 21:09 Dose: Not Given Documented by: ISACC Non-Admin Reason: Patient Refused Clopidogrel Bisulfate (Clopidogrel Bisulfate 75 Mg Tablet) 75 mg PO DAILY [facility] Last Admin: 04/09/22 08:04 Dose: 75 mg Documented by: MARYBUREmily Docusate Sodium (Docusate Sodium 100 Mg Capsule) 100 mg PO BID PRN PRN Reason: constipation Last Admin: 04/01/22 07:34 Dose: 100 mg Documented by: DU Ferrous Sulfate (Ferrous Sulfate 324 Mg Tablet.) 324 mg PO DAILY [facility] Last Admin: 04/09/22 08:05 Dose: 324 mg Documented by: EDITH Furosemide (Furosemide 40 Mg Tablet) 40 mg PO BID@0900,1800 [facility]; Protocol Last Admin: 04/09/22 08:04 Dose: 40 mg Documented by: EDITH Gabapentin (Gabapentin 100 Mg Capsule) 100 mg PO BID [facility] Last Admin: 04/09/22 08:04 Dose: 100 mg Documented by: EDITH Gabapentin (Gabapentin 300 Mg Capsule) 300 mg PO BEDTIME [facility] Last Admin: 04/08/22 21:09 Dose: Not Given Documented by: ISACC Non-Admin Reason: Patient Refused Heparin Sodium (Porcine) (Heparin Sodium,Porcine 5,000 Unit/Ml Vial) 5,000 unit SUBCUT Q12H [facility] Last Admin: 04/09/22 06:30 Dose: 5,000 unit Documented by: NEENA Vancomycin HCl 750 mg/ Sodium (Chloride) 265 mls @ 265 mls/hr IV Q24H [facility] Last Infusion: 04/08/22 23:04 Dose: 0 mls/hr Documented by: ISACC Insulin Human Lispro (Insulin Lispro 100 Unit/Ml 3 Ml Vial) 0 unit SUBCUT QIDACHS [facility]; Protocol Last Admin: 04/09/22 08:06 Dose: 2 unit Documented by: EDITH Morphine Sulfate (Morphine Sulfate 2 Mg/Ml Cartridge) 2 mg IVPUSH Q4H PRN; Protocol PRN Reason: Pain, Severe (Pain Scale 7-10) Last Admin: 04/09/22 04:44 Dose: 2 mg Documented by: NEENA Omeprazole (Omeprazole 20 Mg Capsule.Dr) 20 mg PO DAILY@0630 [facility] Last Admin: 04/09/22 04:48 Dose: 20 mg Documented by: NEENA Ondansetron HCl (Ondansetron Hcl 4 Mg/2 Ml Vial) 4 mg IVPUSH Q8H PRN PRN Reason: Nausea and Vomiting Oxycodone HCl (Oxycodone Hcl Immed Release 5 Mg Tablet) 5 mg PO Q4H PRN PRN Reason: Pain, Mild (Pain Scale 1-3) Last Admin: 04/09/22 08:05 Dose: 5 mg Documented by: EDITH Pharmacy Consult (Consult Rx Perform Med Rec) 1 each MISCELLANE ONCE PRN PRN Reason: Consult order Potassium Chloride (Potassium Chloride Er 20 Meq Tab.Er.Prt) 40 meq PO DAILY [facility] Last Admin: 04/09/22 08:04 Dose: 40 meq Documented by: EDITH Sodium Chloride (0.9 % Sodium Chloride Flush 3 Ml Syringe) 3 ml IVFLUSH QSHIFT [facility] Last Admin: 04/09/22 00:19 Dose: 3 ml Documented by: NEENA Tamsulosin HCl (Tamsulosin Hcl 0.4 Mg Capsule) 0.4 mg PO DAILY [facility] Last Admin: 04/09/22 08:04 Dose: 0.4 mg Documented by: EDITH <Edie Correia NP - Last Filed: 04/09/22 09:03> Labs CBC & Chem 7: : 04/09/22 09:24 04/10/22 05:59 <Edie Correia NP - Last Filed: 04/09/22 09:03> Labs: Laboratory Results - last 24 hr 04/08/22 04/08/22 04/08/22 10:59 18:11 18:28 Estim Creat Clear Calc Estimated GFR POC Glucose 103 123 H Specimen Comment Vancomycin Trough 16.4 04/08/22 04/08/22 04/09/22 18:28 20:25 05:33 Estim Creat Clear Calc 40.5 Estimated GFR > 60 POC Glucose 127 H Specimen Comment DELAY Vancomycin Trough 04/09/22 07:27 Estim Creat Clear Calc Estimated GFR POC Glucose 158 H Specimen Comment Vancomycin Trough <Edie Correia NP - Last Filed: 04/09/22 09:03> Microbiology Microbiology Results: Microbiology 04/06/22 Unknown Urine Culture - Preliminary Urine clean catch - Clean Catch Midstream Yeast <Edie Correia NP - Last Filed: 04/09/22 09:03> Assessment and Plan (1) Acute on chronic anemia: Status: Acute <Edie Correia NP - Last Filed: 04/09/22 09:03> Plan 81 years old male with PMH of CAD, diabetes, CAD, CHF and mild dementia who presents to the hospital with worsening pain and drainage from his left foot wound. Status post [id number] amputation Stop antibiotics as infection has been eradicated Pain management Vascular surgery following Hypokalemia. Resolved Repleted acute on chronic anemia, no blood loss Could be secondary to chronic infection, malnutrition likely mixed iron deficiency and chronic inflammation; stool occult pending on oral iron supplementation at baseline, will continue Transfused in unit [facility] yesterday, HH 10.5/30.9 moderate malnutrition Wallpaper Consultant following, supplement added lactic acidosis Trended down Hx Gastroparesis reglan prn CKD stage 3 stable, monitor BMP hypotension, chronic BP improving on low dose lisinopril at baseline, on hold for now, will resume as bp tolerates Monitor BP PAD continue Plavix? and statin history CHF no acute exacerbation continue Lasix diabetes mellitus type 2 low-dose sliding scale insulin Hold Levemir dementia son is HCP baseline mostly bedbound/wheelchair bound; has [facility] services DVT prophylaxis Heparin Attending: Dr. Conde The patient requires ongoing hospitalization for management of status post above the knee amputation in requiring IV pain analgesics and inpatient physical therapy <Edie Correia NP - Last Filed: 04/09/22 09:03> Quality Stroke Does the patient have a stroke diagnosis?: No <Edie Correia NP - Last Filed: 04/09/22 09:03> VTE Prior VTE?: No <Edie Correia NP - Last Filed: 04/09/22 09:03> VTE Risk Level:: Medical - moderate - high <Edie Correia NP - Last Filed: 04/09/22 09:03> VTE Device Contraindication: Treatment Not Indicated <Edie Correia NP - Last Filed: 04/09/22 09:03> VTE Drug Contraindication: N/A - Med Ordered <Edie Correia NP - Last Filed: 04/09/22 09:03>
[2022-04-09 09:52] LABS: Hemoglobin 9.3 g/dl (14.0-18.0); Mean Corpuscular HGB Conc 33.2 g/dl (31.0-36.0); Mean Corpuscular Hemoglobin 28.8 pg (27.0-33.0); Mean Corpuscular Volume 86.7 fL (80.0-98.0); Mean Platelet Volume 10.8 fL (9.4-12.4); Platelet Count 397 X10*3/uL (160-400); Red Blood Count 3.23 X10*6/uL (4.60-5.80); White Blood Count 13.6 X10*3/uL (4.8-10.8)
--- NOTE | 2022-04-09 10:00 | HO.VASCPN ---
Subjective Subjective Date of Service: 04/09/22 Patient reports: no new complaints, feels better and pain is less Interval history: 82-year-old gentleman postop day 1 status post left above knee amputation. He appears to be doing significantly better. He reports pain is decreased. He appears mentally more alert. No events overnight. Physical Exam Vital Signs: Vital Signs: Last Vital Signs Temp 98.2 F 04/09/22 07:19 Pulse 90 04/09/22 09:14 Resp 16 04/09/22 07:19 BP 110/58 L 04/09/22 09:14 Pulse Ox 100 04/09/22 09:14 BMI result Body Mass Index 18.0 Const: General: cooperative, healthy appearing and comfortable Orientation/consciousness: oriented to person, oriented to place and oriented to time HEENT: Head: Yes normal to inspection Neck: Neck: Yes normal visual inspection Carotids: no bruits Chest: Chest palpation & inspection: normal inspection of the chest Resp: Effort & Inspection: normal respiratory effort and able to speak in complete sentences Auscultation: clear to auscultation bilaterally, no crackles, no rales, no rhonchi and no wheezes Cardio: Rate: regular rate Rhythm: regular rhythm Heart sounds: S1 normal heart sound present and S2 normal heart sound present Bruits: no carotid bruits Peripheral pulses: Peripheral pulses 2+ throughout GI: Inspection: Yes normal to inspection Skin: Wounds: amputation site (Above knee amputation dressing clean dry intact) Hair: normal Neuro: General: oriented to person, oriented to place and oriented to time Cranial nerves: Yes CN's II-XII intact bilaterally and Yes Normal hearing present Cognition (Neuro): normal cognition Motor exam (neuro): 5/5 motor strength present throughout Extrem: Other: venous exam: No significant superficial varicosities or spider telangiectasias, minimal edema General: No clubbing, No cyanosis and No edema Psych: Appearance: grossly normal Mental Status: mental status grossly normal Speech and movement: Normal speech and movement present Progress Note: A&P Assessment and plan (1) Status post above-knee amputation of left lower extremity: Status: Acute Assessment and Plan: In short patient is doing extremely well postop day 1. He has already worked with physical therapy. Will plan for dressing change for tomorrow. Ideally would be best served with rehab placement upon discharge as he is quite deconditioned and frail. Thank you for allowing us to assist in his care. If there are any questions or concerns please do not hesitate to contact us. Time Spent With Patient Time: Total time spent is greater than 50% in coordination of care (as documented) at patient's floor/unit and/or counseling patient: Procedures Date of Service Date of Service: 04/09/22 Quality Stroke Does the patient have a stroke diagnosis?: No VTE Prior VTE?: No VTE Risk Level:: Medical - moderate - high VTE Device Contraindication: Treatment Not Indicated VTE Drug Contraindication: N/A - Med Ordered
[2022-04-09 10:05] LABS: Anion Gap 13 (12-20); Blood Urea Nitrogen 16 mg/dL (9-16); Calcium 8.4 mg/dL (8.4-10.2); Carbon Dioxide 33 mmol/L (22-29); Chloride 97 mmol/L (96-108); Creatinine Clr Calc Pharmacy 41.4; Estimated Glomerular Filt Rate > 60; Glucose Random 153 mg/dL (60-115); Potassium 3.3 mmol/L (3.3-5.1); Sodium 140 mmol/L (135-145)
[2022-04-09 11:44] LABS: Glucose, Whole Blood 106 mg/dL (60-115)
--- NOTE | 2022-04-09 14:12 | HO.POSTANES ---
Post Anesthesia Evaluation Post Anesthesia Evaluation Vital Signs: Vital Signs Temp Pulse Resp BP Pulse Ox 04/09/22 11:20 99.1 F 86 16 127/58 L 99 04/09/22 09:14 90 110/58 L 100 04/09/22 07:19 98.2 F 90 16 110/58 L 100 04/09/22 04:00 97.5 F 90 15 118/72 99 Anesthesia: General Mental Status: Awake Pain Control: Satisfactory Nausea/Vomiting: None Hydration: Adequate Anesthesia-Related Issues: No Anes. Related Issues
--- NOTE | 2022-04-09 15:15 | MHC.CM.PN ---
[facility] REVIEWED, PER SURGICAL PT DOING WELL POST-OP, PT RECOMMENDING STR, REFERRALS PLACED TO LOCAL SNF'S [facility]CEPT [facility] PER SON/HCP'S PREFERENCE, ANTIC D/C 1-2 DAYS, CM WILL CONT TO MONITOR D/C NEEDS.
--- NOTE | 2022-04-09 15:48 | MHC.CLN ---
F/U LEFT ABOVE KNEE AMPUTATION 04/08. PATIENT ASLEEP A TIME OF VISIT. DIET=DIABETIC 2200 KCAL. 1:1 FEEDING ASSISTANCE. INTAKE VARIABLE, 25-50%. ADDING ENSURE TID TO PROVIDE ADDITIONAL 1050 KCAL, 60 G PROTEIN.
[2022-04-09 15:50] LABS: Glucose, Whole Blood 129 mg/dL (60-115)
[2022-04-09 19:46] LABS: Glucose, Whole Blood 171 mg/dL (60-115)
[2022-04-09] MEDS: Atorvastatin Calcium 80 MG TABLET PO (19:56)
[2022-04-09] MEDS: Gabapentin 300 MG CAPSULE PO (19:57)
[2022-04-09 21:40] LABS: Vancomycin Random 17.1 mcg/mL (15-20)
[2022-04-10] MEDS: 0.9 % Sodium Chloride Flush 3 ML SYRINGE IVFLUSH ×3 (00:46→16:09)
[2022-04-10] MEDS: Morphine Sulfate 2 MG/ML CARTRIDGE IVPUSH ×2 (00:54→06:17)
[2022-04-10 04:00] VITALS: BP 117/59; PULSE 84; RESP 18; TEMP 36.2; O2SAT 98
[2022-04-10] MEDS: Heparin Sodium,Porcine 5,000 UNIT/ML VIAL 5000 UNIT SUBCUT (06:13)
[2022-04-10] MEDS: Omeprazole 20 MG CAPSULE.DR PO (06:15)
[2022-04-10 07:13] LABS: Creatinine Clr Calc Pharmacy 44.8; Estimated Glomerular Filt Rate > 60
[2022-04-10 07:44] VITALS: BP 101/51; PULSE 77; RESP 14; TEMP 36.5; O2SAT 97
[2022-04-10 08:07] LABS: Glucose, Whole Blood 104 mg/dL (60-115)
[2022-04-10] MEDS: Tamsulosin HCL 0.4 MG CAPSULE PO (10:31)
[2022-04-10] MEDS: Potassium Chloride ER 20 MEQ TAB.ER.PRT 40 MEQ PO (10:31)
[2022-04-10] MEDS: Clopidogrel Bisulfate 75 MG TABLET PO (10:31)
[2022-04-10] MEDS: Ferrous Sulfate 324 MG TABLET.DR PO (10:31)
[2022-04-10] MEDS: Gabapentin 100 MG CAPSULE PO (10:31)
[2022-04-10] MEDS: Furosemide 40 MG TABLET PO ×2 (10:32→17:29)
[2022-04-10] MEDS: oxyCODONE HCl Immed Release 5 MG TABLET PO ×2 (10:32→16:09)
[2022-04-10] MEDS: Docusate Sodium 100 MG CAPSULE PO (10:32)
[2022-04-10 11:48] VITALS: BP 124/64; PULSE 85; RESP 14; TEMP 36.8; O2SAT 97
[2022-04-10 11:55] LABS: Glucose, Whole Blood 138 mg/dL (60-115)
--- NOTE | 2022-04-10 13:15 | HO.VASCPN ---
Subjective Subjective Date of Service: 04/10/22 Patient reports: no new complaints and feels better Interval history: Patient seen and examined. No significant events overnight. Appears to be doing significantly better in terms of pain. In addition he seems more cognizant of his surroundings. He now presents for postprocedure follow-up. Physical Exam Vital Signs: Vital Signs: Last Vital Signs Temp 98.2 F 04/10/22 11:48 Pulse 85 04/10/22 11:48 Resp 14 04/10/22 11:48 BP 124/64 04/10/22 11:48 Pulse Ox 97 04/10/22 11:48 BMI result Body Mass Index 18.0 Const: General: cooperative, healthy appearing and no acute distress Orientation/consciousness: oriented to person, oriented to place and oriented to time HEENT: Head: Yes normal to inspection Neck: Carotids: no bruits Chest: Chest palpation & inspection: normal inspection of the chest Resp: Effort & Inspection: normal respiratory effort and able to speak in complete sentences Auscultation: clear to auscultation bilaterally Cardio: Rate: regular rate Heart sounds: S1 normal heart sound present and S2 normal heart sound present GI: Inspection: Yes normal to inspection Skin: General skin exam: no rashes or lesions noted Wounds: amputation site (AKA stump healing well. Dressing changed) Neuro: General: oriented to person, oriented to place, oriented to time and CN's II-XI intact bilaterally Extrem: General: Yes normal to inspection, Yes full ROM and Yes no clubbing, cyanosis or edema Psych: Appearance: grossly normal and well kempt Speech and movement: Normal speech and movement present Affect: normal affect Progress Note: A&P Assessment and plan (1) Status post above-knee amputation of left lower extremity: Status: Acute Plan In short patient is doing extremely well status post above knee amputation of the left lower extremity. His suture and staple line appeared to be doing extremely well. Pain seems to be significantly better controlled. Stable from my perspective for discharge. He can follow-up with me and 2 weeks as an outpatient. Ideally would like to see him go to rehab but has elected by family to go home with visiting nurses. Please call me if there are any questions or concerns. Thank you for allowing us to assist in his care. Time Spent With Patient Time: Total time spent is greater than 50% in coordination of care (as documented) at patient's floor/unit and/or counseling patient: Procedures Date of Service Date of Service: 04/10/22 Quality Stroke Does the patient have a stroke diagnosis?: No VTE Prior VTE?: No VTE Risk Level:: Medical - moderate - high VTE Device Contraindication: Treatment Not Indicated VTE Drug Contraindication: N/A - Med Ordered
--- NOTE | 2022-04-10 13:49 | PM.DS ---
DS: Providers Provider Date of Service: 04/10/22 Date of admission: 03/31/22 17:20 Date of discharge: 04/10/22 Primary care physician: Christi Patel MD Consults: 03/31/22 17:20 Consult to Vascular Surgery Routine Consulting Provider: Ramin Ramirez Reason for consultation: Nonhealing amputation site Attending physician on discharge: Chaparro Conde Discharging clinician: Edith Gonzalez DS: Diagnosis Discharge Diagnosis (1) Status post above-knee amputation of left lower extremity: Status: Acute DS: Summary Hospital Course Hospital Course: From H&P on day of admission 81 years old male with PMH of CAD, diabetes, CAD, CHF and mild dementia who presents to the hospital with worsening pain and drainage from his left foot wound.? The patient was admitted last month the hospital for left great toe infection that was eventually amputated as the patient was discharged home with wound care.? Over the last month own has been increased leak getting painful as the patient was not moving much with increased blackish discoloration and the 2nd toe getting bluish in color. Seen by his vascular surgeon Dr. Ramirez who referred him to the emergency for nonhealing amputation site for IV antibiotics and possible below or above knee amputation.? Will be admitted for further medical management. Nonhealing amputation site/osteo left foot. Secondary to severe PAD. Initially treated with IV vancomycin and Zosyn. He was seen by vascular surgery. He underwent s/p angio and left SFA arthrectomy and plasty on 04/02. After discussion with family he had [id number] amputation on 04/08 after which time antibiotics were discontinued as the area of infection was removed. His dressing was changed today and should be continued to be changed daily. He was evaluated by Physical therapy who recommended shelter facility for short-term rehab. Vascular surgery recommended short-term rehab as well however family opted to take the patient home for home physical therapy. acute on chronic anemia, no blood loss. Likely secondary to chronic infection, malnutrition. Mixed iron deficiency and chronic inflammation. On oral iron supplementation at baseline which was continued. Transfused one unit PRBC 04/08. H/H has remained stable. Recommend outpatient follow up with PCP. moderate malnutrition. Supplements added while in hospital. Blood pressure this initially on the lower side. Lisinopril was held. Blood pressure has improved and lisinopril will be resumed on discharge diabetes mellitus type 2. Levemir was held on admission. Blood sugars were well controlled. Will hold Levemir on discharge, continue sliding scale. Follow point of care sugars closely. Call to schedule follow-up appointment with PCP for close blood pressure monitoring. was continued on the remainder of home medications. He will be discharged home to resume [facility] and [facility] services and will also have home PT. Time Spent with Patient Time attestation: Total time spent providing and/or coordinating discharge services: Discharge coordination time: Greater than 30 minutes Quality: Safe Use of Opioids Does Pt have an Active Cancer Diagnosis on the Problem List?: No Quality: Stroke Does the patient have a stroke diagnosis?: No Physical Exam Vital Signs: Vital Signs: Last Vital Signs Temp 98.2 F 04/10/22 11:48 Pulse 85 04/10/22 11:48 Resp 14 04/10/22 11:48 BP 124/64 04/10/22 11:48 Pulse Ox 97 04/10/22 11:48 BMI result Body Mass Index 18.0 Const: General: cooperative, comfortable, alert and awake Nutritional Appearance: thin Resp: Effort & Inspection: normal respiratory effort and able to speak in complete sentences Cardio: Rate: regular rate Heart sounds: S1 normal heart sound present and S2 normal heart sound present GI: Palpation (GI): Soft to palpation and nontender Extrem: Other: s/p left AKA; stump wrapped in c/d/i dressing DS: Data Data Completed and Pending Completed studies during hospitalization [Text1]: Procedures Detachment at Left 1st Toe, Complete, Open Approach (02/25/22) Excision of Esophagus, Via Natural or Artificial Opening Endoscopic, Diagnostic (08/09/21) Excision of Stomach, Pylorus, Via Natural or Artificial Opening Endoscopic, Diagnostic (08/09/21) Pending studies at discharge: Pending at discharge 04/08/22 15:26 Surgical [PTH] Routine Labs on day of discharge: Laboratory Results - last 24 hr 04/09/22 04/09/22 04/09/22 15:26 19:41 21:04 Creatinine Estim Creat Clear Calc Estimated GFR POC Glucose 129 H 171 H Random Vancomycin 17.1 04/10/22 04/10/22 04/10/22 05:59 07:49 11:47 Creatinine 0.84 Estim Creat Clear Calc 44.8 Estimated GFR > 60 POC Glucose 104 138 H Random Vancomycin Discharge Plan Discharge Patient Disposition: Home Health Service Discharge Diagnosis: Nonhealing amputation site Referrals: [facility] [Outside] - 1 Day ([facility], PLEASE CALL [phone] IF YOU HAVE NOT HEARD FROM A NURSE BY NOON TOMORROW 04/11. ) Ramin Ramirez MD [Physician] - 2 Weeks (PLEASE CALL [phone] TO MAKE A 2WK FOLLOW-UP APPT W/DR RAMIREZ) Christi Patel MD [Primary Care Provider] - 1 Week Discharge Medications: New oxycodone 5 mg tablet 5 mg PO Q6H PRN (Reason: pain) Qty: 16 0RF Continued gabapentin 100 mg capsule 100 mg PO BID 0RF tamsulosin 0.4 mg capsule 0.4 mg PO DAILY Qty: 30 0RF clopidogrel 75 mg Tablet 75 mg PO DAILY Qty: 75 0RF furosemide 40 mg Tablet 40 mg PO BID@0900,1800 Qty: 60 0RF Protocol: Hold for SBP< HOLD for SBP < : 90 atorvastatin 80 mg Tablet 80 mg PO BEDTIME Qty: 30 0RF lisinopril 2.5 mg Tablet 2.5 mg PO DAILY Qty: 30 0RF Protocol: Hold for SBP< HOLD for SBP < : 90 pantoprazole 20 mg tablet,delayed release (DR/EC) 1 tab PO DAILY 0RF insulin aspart U-100 [Novolog Flexpen U-100 Insulin] 100 unit/mL (3 mL) insulin pen 0 sliding scale dose subcut TIDAC 0RF Protocol: Insulin Correction Scale Less than or equal to 110 ---- Give (units): 0 111 to 150 Give (units): 0 151 to 200 Give (units): 2 201 to 250 Give (units): 4 251 to 300 Give (units): 6 301 to 350 Give (units): 8 Greater than 350 Give (units): 10 Call MD if Blood Glucose > : 350 docusate sodium 100 mg capsule 100 mg PO BID PRN (Reason: constipation) 0RF gabapentin 300 mg capsule 300 mg PO BEDTIME 0RF Rx Instructions: in addition to 100 mg ferrous sulfate [FeroSul] 325 mg (65 mg iron) tablet 325 mg PO DAILY 0RF Discontinued Levemir FlexTouch U-100 Insuln 100 unit/mL (3 mL) insulin pen 10 unit subcut DAILY@1800 0RF Hold Instructions: Resume on 08/19/21. hold due to hypoglycemia episodes, slowly introduce in next few days if fingersticks the remain uncontrolled above 200 mg/dL, start on a lower dose of Levemir as per rehab. acetaminophen 500 mg tablet 1,000 mg PO Q6H PRN (Reason: Pain) 0RF No Action (DME) pen needle, diabetic [Pentips] 32 gauge x 5/32 needle See Rx Instructions ea .ROUTE .MEDSUPPLY Qty: 50 0RF Rx Instructions: As directed (DME) insulin syringe-needle U-100 [UltiCare] 0.5 mL 30 gauge x 1/2 syringe See Rx Instructions ea .ROUTE .MEDSUPPLY Qty: 10 0RF Rx Instructions: As directed (DME) lancets [TRUEplus Lancets] 33 gauge misc See Rx Instructions ea Not Applicable QID Qty: 100 0RF Rx Instructions: As directed (DME) FreeStyle Lite Strips Strip See Rx Instructions ea Not Applicable QID Qty: 10 0RF Rx Instructions: As directed Discharge Orders: Discharge Order (Routine); Ordered 04/10/22 Ordered By: Edith Gonzalez Diet: advance to usual diet Activity on Discharge: As tolerated Stand Alone Forms: Patient Portal Discharge page Activity Restrictions/Additional Instructions: Wound care upon discharge: xeroform, 4x4 and Kerlix wrap to be changed daily. Please call Dr. Ramirez at [phone] for 2 week follow up for suture and staple removal Care Plan Goals: see below Health Concerns: nonhealing amputation site/cellulitis anemia Plan of Treatment: Follow up with in Dr. Ramierz's office in 2 weeks Would dressings daily as above instructions blood sugars have been controlled without long acting insulin. hold off on levimir for now and cover with sliding scale. monitor blood sugar closely. follow diabetic diet. call to schedule follow up appointment with PCP for close follow up Assessment: see discharge summary Discharge Date/Time: 04/10/22 19:25
--- NOTE | 2022-04-10 13:58 | P.F2F_ITS ---
Service Date Service Date: 04/10/22 Encounter Date of encounter: 04/10/22 Reasons for Services Signs and symptoms assessed: s/p AKA Reason for physical therapy: home safety and mobility, therapeutic exercises and gait/transfer training Overseeing Care: Christi Patel Homebound: Leaving the home is medically contraindicated at this time without the asist of a device and/or another person due th the listed conditions above and below. Reason homebound: unsteady gait / fall risk and bedbound/chairbound Certification: Based on the above findings, I certify that this patient is confined to the home and needs intermittent nursing home care, physical therapy and/or speech therapy, or continues to need occupational therapy. The patient is under my care, and I have initiated the establishment of the plan of care. The patient will be followed by a physician who will periodically review the plan of care.
--- NOTE | 2022-04-10 15:54 | MHC.CM.PN ---
Addendum entered by Justa Obrien RN 04/10/22 15:56: PT'S NURSE AWARE PT WILL BE SENT HOME W/DRESSING SUPPLIES. Original Note: PT MEDICALLY CLEARED FOR D/C, PT'S SON/HCP DECLINING STR, PT WILL D/C HOME W/RESUMP OF [facility] FOR SN AND NEW PT, [facility] AT BEDSIDE AND WILL TRANSPORT PT HOME W/PT'S WC ALSO AT BEDSIDE.
[2022-04-10 16:33] LABS: Glucose, Whole Blood 175 mg/dL (60-115)
[2022-04-10] MEDS: Insulin Lispro 100 UNIT/ML 3 ML VIAL SUBCUT (17:30)
== END 2022-04-10 19:25 | disposition home health service (06) | DRG 475 ==
LOC: HO.ED 16:05 → HO.EDOVER 17:37 → HO.S3 19:34
PROVIDERS: Nurse Practitioner Acute Care; Surgery Vascular Surgery; Admitting Provider Student in an Organized Health Care Education/Training Program; Emergency Provider Emergency Medicine; PCP Family Medicine; Visit Provider Physician Assistant Medical
PROC: 047L3Z1 Dilation of Left Femoral Artery using Drug-Coated Balloon, Percutaneous Approach (ICD-10-PCS; principal; 2022-04-02 09:00)
PROC: 0Y6D0Z2 Detachment at Left Upper Leg, Mid, Open Approach (ICD-10-PCS; CPT 27590; principal; 2022-04-08 13:00)
DX: T87.54 Necrosis of amputation stump, left lower extremity (principal); L03.116 Cellulitis of left lower limb; E11.52 Type 2 diabetes mellitus with diabetic peripheral angiopathy with gangrene; I50.22 Chronic systolic (congestive) heart failure; I70.262 Atherosclerosis of native arteries of extremities with gangrene, left leg; E44.0 Moderate protein-calorie malnutrition; Z68.1 Body mass index [BMI] 19.9 or less, adult; M86.672 Other chronic osteomyelitis, left ankle and foot; E87.2 Acidosis; F03.90 Unspecified dementia, unspecified severity, without behavioral disturbance, psychotic disturbance, mood disturbance, and anxiety; E11.40 Type 2 diabetes mellitus with diabetic neuropathy, unspecified; N18.30 Chronic kidney disease, stage 3 unspecified; I95.9 Hypotension, unspecified; D63.1 Anemia in chronic kidney disease; E11.69 Type 2 diabetes mellitus with other specified complication; E11.43 Type 2 diabetes mellitus with diabetic autonomic (poly)neuropathy; K31.84 Gastroparesis; Z74.01 Bed confinement status; E11.22 Type 2 diabetes mellitus with diabetic chronic kidney disease; Z20.822 Contact with and (suspected) exposure to COVID-19; Z87.891 Personal history of nicotine dependence; Z79.4 Long term (current) use of insulin; Z79.02 Long term (current) use of antithrombotics/antiplatelets; Z79.899 Other long term (current) drug therapy
CPT/HCPCS: 36415; 37225; 73552; 73590; 73630; 76937; 80048; 80076; 80202; 81001; 82565; 82947; 83540; 83605; 83735; 84132; 85025; 85027; 85610; 85652; 85730; 86140; 86850; 86900; 86901; 86923; 87040; 87086; 87088; 87635; 88307; 88311; 93005; 93923; 93925; 96365; 96367; 97110; 97162; 97530; 99152; 99153; 99212; 99285; C1714; C1725; C1760; C1769; C1884; C1887; J2250; J2270; J2370; J2405; J2543; J2795; J3010; J3370; P9016; Q9967